=== PATIENT | female | born 1945 | race Caucasian/White ===

== ENCOUNTER 2016-12-28 20:44 | Inpatient (IN) ==
--- NOTE | 2016-12-28 20:52 | Emergency Department Note ---
Overdose - Lab Data Result diagrams: 12/28/16 21:08 12/28/16 21:08 Lab Results 12/28/16 12/28/16 12/28/16 Range/Units 21:08 21:08 21:48 WBC 11.7 H (4.3-11.1) K/mcL RBC 4.30 (3.82-4.97) M/mcL Hgb 12.3 (11.5-15.4) g/dL Hct 39.4 (35.3-44.9) % MCV 91.6 (83.0-100.0) fL MCH 28.6 (28.0-33.3) pg MCHC 31.2 L (31.6-35.5) g/dL RDW 14.5 (11.5-14.5) % Plt Count 286 (140-400) K/mcL MPV 9.9 (9.4-12.4) fL Immature Gran % 0.3 (0-4) % Seg Neutrophils % 72.5 % Lymphocytes % 19.6 % Monocytes % 4.0 % Eosinophils % 2.8 % Basophils % 0.8 % Neutrophils # 8.5 (1.6-8.9) K/mcL Lymphocytes # 2.3 (0.6-4.6) K/mcL Monocytes # 0.5 (0.0-1.3) K/mcL Eosinophils # 0.3 (0.0-0.6) K/mcL Basophils # 0.1 (0.0-0.2) K/mcL Sodium 137 (136-145) mEq/L Potassium 3.8 (3.5-4.5) mEq/L Chloride 103 (98-109) mEq/L Carbon Dioxide 25 (19-29) mEq/L BUN 11 (7-20) mg/dL Creatinine 1.12 H (0.57-1.11) mg/dL Est GFR ( Amer) 58 L (> 60) Est GFR (Non-Af Amer) 48 L (> 60) BUN/Creatinine Ratio 10 (6-26) Glucose 217 H (70-99) mg/dL Calculated Osmolality 290 (280-300) Calcium 9.0 (8.6-10.8) mg/dL Total Bilirubin 0.4 (0.2-1.2) mg/dL Direct Bilirubin 0.1 (0.0-0.5) mg/dL Indirect Bilirubin 0.3 (0.0-1.2) mg/dL AST 18 (5-34) Units/L ALT 14 (0-55) Units/L Alkaline Phosphatase 78 (38-126) Units/L Serum Total Protein 6.9 (6.0-8.3) g/dL Albumin 3.3 L (3.5-5.0) g/dL Globulin 3.6 H (2.4-3.5) g/dL Albumin/Globulin Ratio 0.9 L (1.1-2.2) Urine Color Yellow (Yellow) Urine Clarity Cloudy A (Clear) Urine pH 5.0 (5.0-8.0) pH Units Ur Specific [place] 1.014 (1.010-1.025) Urine Protein Negative (Neg-Trace) mg/dL Urine Glucose (UA) Normal (Normal) mg/dL Urine Ketones Negative (Negative) mg/dL Urine Blood Negative (Negative) Urine Nitrite Positive A (Negative) Urine Bilirubin Negative (Negative) Urine Urobilinogen Normal (Normal) mg/dL Ur Leukocyte Esterase Moderate H (Negative) Urine Microscopic RBC 0-3 (0-3) per hpf Urine Microscopic WBC 50-100 H (0-3) per hpf Ur Squamous Epith Cells Many H (None-Few) per lpf Urine Bacteria Many H (None-Few) per hpf Hyaline Casts Moderate H (None-Few) per lpf Salicylates < 5.0 L (15-30) mg/dL Urine Opiates Screen (Vwpuid=259) ng/mL Acetaminophen < 1.0 L (10-30) mcg/mL Ur Barbiturates Screen (Tnbmmg=264) ng/mL Ur Phencyclidine Scrn (Cutoff=25) ng/mL Ur Amphetamines Screen (Eeybsr=8647) ng/mL U Benzodiazepines Scrn (Eneklv=856) ng/mL Urine Cocaine Screen (Cutoff= 300) ng/mL U Marijuana (THC) Screen (Cutoff = 50) ng/mL Ethyl Alcohol < 10 (0-10) mg/dL 12/28/16 Range/Units 21:48 WBC (4.3-11.1) K/mcL RBC (3.82-4.97) M/mcL Hgb (11.5-15.4) g/dL Hct (35.3-44.9) % MCV (83.0-100.0) fL MCH (28.0-33.3) pg MCHC (31.6-35.5) g/dL RDW (11.5-14.5) % Plt Count (140-400) K/mcL MPV (9.4-12.4) fL Immature Gran % (0-4) % Seg Neutrophils % % Lymphocytes % % Monocytes % % Eosinophils % % Basophils % % Neutrophils # (1.6-8.9) K/mcL Lymphocytes # (0.6-4.6) K/mcL Monocytes # (0.0-1.3) K/mcL Eosinophils # (0.0-0.6) K/mcL Basophils # (0.0-0.2) K/mcL Sodium (136-145) mEq/L Potassium (3.5-4.5) mEq/L Chloride (98-109) mEq/L Carbon Dioxide (19-29) mEq/L BUN (7-20) mg/dL Creatinine (0.57-1.11) mg/dL Est GFR ( Amer) (> 60) Est GFR (Non-Af Amer) (> 60) BUN/Creatinine Ratio (6-26) Glucose (70-99) mg/dL Calculated Osmolality (280-300) Calcium (8.6-10.8) mg/dL Total Bilirubin (0.2-1.2) mg/dL Direct Bilirubin (0.0-0.5) mg/dL Indirect Bilirubin (0.0-1.2) mg/dL AST (5-34) Units/L ALT (0-55) Units/L Alkaline Phosphatase (38-126) Units/L Serum Total Protein (6.0-8.3) g/dL Albumin (3.5-5.0) g/dL Globulin (2.4-3.5) g/dL Albumin/Globulin Ratio (1.1-2.2) Urine Color (Yellow) Urine Clarity (Clear) Urine pH (5.0-8.0) pH Units Ur Specific [place] (1.010-1.025) Urine Protein (Neg-Trace) mg/dL Urine Glucose (UA) (Normal) mg/dL Urine Ketones (Negative) mg/dL Urine Blood (Negative) Urine Nitrite (Negative) Urine Bilirubin (Negative) Urine Urobilinogen (Normal) mg/dL Ur Leukocyte Esterase (Negative) Urine Microscopic RBC (0-3) per hpf Urine Microscopic WBC (0-3) per hpf Ur Squamous Epith Cells (None-Few) per lpf Urine Bacteria (None-Few) per hpf Hyaline Casts (None-Few) per lpf Salicylates (15-30) mg/dL Urine Opiates Screen Negative (Feggse=193) ng/mL Acetaminophen (10-30) mcg/mL Ur Barbiturates Screen Negative (Aubbih=369) ng/mL Ur Phencyclidine Scrn Negative (Cutoff=25) ng/mL Ur Amphetamines Screen Negative (Somaly=8776) ng/mL U Benzodiazepines Scrn Positive H (Uvouex=230) ng/mL Urine Cocaine Screen Negative (Cutoff= 300) ng/mL U Marijuana (THC) Screen Negative (Cutoff = 50) ng/mL Ethyl Alcohol (0-10) mg/dL - EKG Data EKG attestation: Yes I reviewed and interpreted this EKG. EKG shows normal: sinus rhythm Rate: tachycardia Rhythm: NSR Interpretation: no acute changes Overdose HPI - General Chief Complaint: ED Altered Mental Status Stated Complaint: ams Time Seen by Provider: 12/28/16 20:46 Source: family, EMS Mode of arrival: EMS Limitations: no limitations Nursing Notes Reviewed: Yes Vital Signs Reviewed: Yes - History of Present Illness HPI Narrative: 71-year-old who apparently posted on her Facebook saying goodbye to her family and apparently took Xanax. Unclear how much she took she had a 270 count bottle from 4 years ago and there are at least 100 still in the bottle. Her son is here and states that he thought he had gotten all his Xanax house that she has done this in the past she apparently took about an hour ago. He is somnolent but does respond to voice stimuli opens her eyes he has an intact corneal and gag reflex at this time. This was an apparent suicide attempt. Pt Subjective Complaint: intentional overdose Onset (ago): [employer] Timing confirmed by: family member Intent: suicide attempt How Overdose Was Discovered: family/friend present at time Associated symptoms: depression Treatments Prior to Arrival: none - Related Data Home Medications Medication Instructions Recorded Confirmed Atenolol [Tenormin] 50 mg PO DAILY 05/15/16 05/15/16 Cholecalciferol (Vitamin D3) 5,000 unit PO DAILY 05/15/16 05/15/16 [Vitamin D] Citalopram Hydrobromide [Celexa] 40 mg PO DAILY 05/15/16 05/15/16 Diltiazem HCl [Tiazac] 180 mg PO QAM 05/15/16 05/15/16 Glimepiride [Amaryl] 4 mg PO DAILY 05/15/16 05/15/16 Pantoprazole Sodium [Protonix] 40 mg PO DAILY 05/15/16 05/15/16 Ranitidine HCl [Acid Rodent Exterminator] 150 mg PO DAILY 05/15/16 05/15/16 metFORMIN [Glucophage] 1,000 mg PO BIDWM 05/15/16 05/15/16 Previous Rx's Medication Instructions Recorded ALPRAZolam [Xanax 1 MG Tablet] 1 mg PO Q8H PRN #30 tablet 05/19/16 Acetaminophen [Tylenol] 650 mg PO Q6HR PRN #0 tablet 05/19/16 Cefuroxime PO [Ceftin] 500 mg PO Q12HR #6 tablet 05/19/16 Citalopram [CeleXA] 40 mg PO DAILY tablet 05/19/16 Simvastatin [Zocor] 20 mg PO DAILY #30 tablet 05/19/16 Warfarin [Coumadin] 2.5 mg PO AD #60 tablet 05/19/16 Warfarin [Coumadin] 10 mg PO AD #60 tablet 05/19/16 Allergies Allergy/AdvReac Type Severity Reaction Status Date / Time gabapentin [From Neurontin] Allergy Drowsy Verified 05/15/16 17:36 All systems ED: reviewed and negative except as stated. Constitutional: Denies: fever, chills, weakness, weight change Eyes: Denies: eye pain, eye discharge, vision change ENT ED: Denies: ear pain, throat pain, dental pain, hearing loss, epistaxis, congestion, dysphagia Cardiovascular: Denies: chest pain, palpitations, dyspnea on exertion, edema, syncope Respiratory: Denies: cough, dyspnea, wheezes, hemoptysis, stridor Gastrointestinal: Denies: abdominal pain, nausea, vomiting, diarrhea, constipation, hematemesis, melena, hematochezia Genitourinary: Denies: dysuria, frequency, hematuria, discharge Musculoskeletal: Denies: back pain, neck pain, arthralgia, myalgia Integumentary: Denies: rash, abrasion, lesions Neurological: Denies: headache, weakness, numbness, paresthesias, confusion, abnormal gait, vertigo Psychiatric: Reports: depression, suicidal thoughts. Denies: anxiety, homicidal thoughts, auditory hallucinations, visual hallucinations Endocrine: Denies: fatigue Hematological/Lymphatic: Denies: easy bleeding, easy bruising Allergic/Immunologic: Denies: facial swelling, urticaria Past Medical History - Past Medical History Medical history: Reports: diabetes, hyperlipidemia, hypertension, pulmonary embolus, other (elizabeth's disease) Surgical history: Reports: cholecystectomy, hysterectomy, other (breast reduction surgery) Psychiatric history: Reports: anxiety, depression - Social History Smoking Status: Never smoker Smokeless Tobacco Status: No Alcohol use: Reports: none Drug use: Reports: none Physical Exam - General Limitations: no limitations General appearance: alert, in no apparent distress - Head Head exam: atraumatic, normocephalic, normal inspection - Eye Eye exam: Present: normal appearance, PERRL, EOMI - ENT ENT exam: normal exam, normal oropharynx, mucous membranes moist - Neck Neck exam: Present: normal inspection, full ROM, trachea midline - Chest Chest inspection: Present: normal inspection, symmetric chest wall rise - Respiratory Respiratory exam: Present: normal lung sounds bilaterally - Cardiovascular Cardiovascular exam: Present: regular rate, normal rhythm, normal heart sounds - Abdominal Exam Abdominal exam: Present: soft, Non-Tender. Absent: tenderness, distention, guarding, rebound, rigidity - Extremities Exam Extremities exam: Present: normal inspection, full ROM. Absent: tenderness, pedal edema - Expanded Lower Extremity Exam Neurovascular/Tendon exam: Absent: motor deficit, sensory deficit, tendon deficit Gait: observed and normal - Back Exam Back exam: Present: normal inspection, full ROM. Absent: tenderness - Neurological Exam Neurological exam: Present: other (Somnolent but arousable) - Skin Skin exam: Present: warm, dry, intact, normal color Course - Reevaluation(s) Reevaluation #1: 71-year-old who took an undetermined amount of benzodiazepine. Patient somnolent but arousable has an intact gag and corneal reflex. Patient is too somnolent to get a good consult from psychiatry so [facility] admitted with suicide precautions and psychiatric consult when more awake. Time: 22:42 - Consultations Consultation #1: Discussed with Dr. Gage, admit. Time: 22:41 Vital Signs Temperature 97.8 F 12/28/16 20:45 Pulse Rate 110 12/28/16 20:45 Respiratory Rate 16 12/28/16 20:45 Blood Pressure 147/98 12/28/16 20:45 O2 Sat by Pulse Oximetry 93 12/28/16 20:45 Temperature 97.8 F 12/28/16 20:45 Pulse Rate 96 12/28/16 22:16 Respiratory Rate 18 12/28/16 22:16 Blood Pressure 125/83 12/28/16 22:16 O2 Sat by Pulse Oximetry 97 12/28/16 22:16 Oxygen Delivery Oxygen Delivery Room Air Critical Care Time Critical Care Time: Yes Total Critical Care Time: 30 Attestation: The high probability of a clinically significant, sudden or life threatening deterioration of the [psychiatric] system(s) required my full and direct attention, intervention and personal management. The aggregate critical care time was [30] minutes. This time is in addition to time spent performing reported procedures but includes the following: [x] Data Review and interpretation [x] Patient assessment and monitoring of vital signs [x] Documentation [x] Medication orders and management Disposition Clinical Impression: Suicidal ideation Drug overdose Qualifiers: Encounter type: initial encounter Injury intent: intentional self-harm Qualified Code(s): T50.902A - Poisoning by unspecified drugs, medicaments and biological substances, intentional self-harm, initial encounter Disposition: Admitted As Inpatient Condition: Fair Referrals: NO,PCP [Non-Partnered Physician] - Forms: ED Satisfaction Letter Time of Disposition: 22:43
[2016-12-28 21:14] LABS: Basophils # 0.1 K/mcL (0.0-0.2); Basophils % 0.8 %; Eosinophils # 0.3 K/mcL (0.0-0.6); Eosinophils % 2.8 %; Hematocrit 39.4 % (35.3-44.9); Hemoglobin 12.3 g/dL (11.5-15.4); Immature Granulocytes % 0.3 % (0-4); Lymphocytes # 2.3 K/mcL (0.6-4.6); Lymphocytes % 19.6 %; Mean Corpuscular HGB Conc 31.2 g/dL (31.6-35.5); Mean Corpuscular Hemoglobin 28.6 pg (28.0-33.3); Mean Corpuscular Volume 91.6 fL (83.0-100.0); Mean Platelet Volume 9.9 fL (9.4-12.4); Monocytes # 0.5 K/mcL (0.0-1.3); Neutrophils # 8.5 K/mcL (1.6-8.9); Platelet Count 286 K/mcL (140-400); Red Cell Distribution Width 14.5 % (11.5-14.5); Segmented Neutrophils % 72.5 %
[2016-12-28 21:28] LABS: Alanine Aminotransferase 14 Units/L (0-55); Albumin 3.3 g/dL (3.5-5.0); Albumin/Globulin Ratio 0.9 (1.1-2.2); Alkaline Phosphatase 78 Units/L (38-126); Aspartate Amino Transferase 18 Units/L (5-34); BUN/Creatinine Ratio 10 (6-26); Bilirubin,Direct 0.1 mg/dL (0.0-0.5); Bilirubin,Indirect 0.3 mg/dL (0.0-1.2); Bilirubin,Total 0.4 mg/dL (0.2-1.2); Blood Urea Nitrogen 11 mg/dL (7-20); Carbon Dioxide 25 mEq/L (19-29); Chloride 103 mEq/L (98-109); Globulin 3.6 g/dL (2.4-3.5); Glucose 217 mg/dL (70-99); Osmolality,Calculated 290 (280-300); Potassium 3.8 mEq/L (3.5-4.5); Sodium 137 mEq/L (136-145); Total Protein 6.9 g/dL (6.0-8.3); eGFR For African Americans 58 (> 60); eGFR For Non-African Americans 48 (> 60)
[2016-12-28 21:30] LABS: Acetaminophen < 1.0 mcg/mL (10-30); Ethanol < 10 mg/dL (0-10); Salicylate < 5.0 mg/dL (15-30)
[2016-12-28 21:58] LABS: Bilirubin,Urine Negative (Negative); Blood,Urine Negative (Negative); Clarity,Urine Cloudy (Clear); Color,Urine Yellow (Yellow); Glucose,Urine (UA) Normal (Normal); Ketones,Urine Negative (Negative); Leukocyte Esterase,Urine Moderate (Negative); Nitrite,Urine Positive (Negative); Protein,Urine Negative (Neg-Trace); Specific Gravity,Urine 1.014 (1.010-1.025); Urobilinogen,Urine Normal (Normal)
[2016-12-28 22:00] LABS: Bacteria,Urine Many per hpf (None-Few); Hyaline Casts,Urine Moderate per lpf (None-Few); RBC,Urine 0-3 per hpf (0-3); Squamous Epithelial Cell,Urine Many per lpf (None-Few); WBC,Urine 50-100 per hpf (0-3)
[2016-12-28 22:04] LABS: Amphetamine Screen,Urine Negative ng/mL (Cutoff=1000); Barbiturate Screen,Urine Negative ng/mL (Cutoff=200); Benzodiazepines Screen,Urine Positive ng/mL (Cutoff=200); Cannabinoid Screen,Urine Negative ng/mL (Cutoff = 50); Cocaine Screen,Urine Negative ng/mL (Cutoff= 300); Opiate Screen,Urine Negative ng/mL (Cutoff=300); Phencyclidine Screen,Urine Negative ng/mL (Cutoff=25)
[2016-12-29] MEDS ORDERED: D5% in Water 1,000 ML IVC PRN (00:18)
[2016-12-29] MEDS ORDERED: Dextrose Gel 15 GM PO PRN ×2 (00:18)
[2016-12-29] MEDS: 0.9 % Sodium Chloride 1,000 ML IVC SCH ×3 (01:19→18:34)
--- NOTE | 2016-12-29 01:28 | Internal Med History&Physical ---
Date of Encounter: 12/28/16 Time of Encounter: 23:40 Assessment and Plan (1) Suicide attempt Current visit: Yes Status: Acute Pt has Xanax overdose, obviously wants kill herself. Will keep close monitoring now. Place Sitter. Psych consult when pt is more alert, awake. (2) UTI (urinary tract infection) Current visit: No Status: Acute Lab shows UTI. Will continue iv rocephin. Qualifiers: Urinary tract infection type: acute cystitis Hematuria presence: without hematuria Qualified Code(s): N30.00 - Acute cystitis without hematuria (3) DM2 (diabetes mellitus, type 2) Current visit: No Status: Acute Cover pt with sliding scale. Qualifiers: Diabetes mellitus complication status: without complication Diabetes mellitus snf insulin use: without petrographer use Qualified Code(s): E11.9 - Type 2 diabetes mellitus without complications (4) Drug overdose Current visit: Yes Status: Acute Overdose with Xanax, poison control was called. Will keep close monitoring and supportive treatment. - Keep patient nothing by mouth - Aspiration and seizure precaution - IV fluid - Continue cardiac monitoring. - Follow up renal and hepatic function. - EKG reviewed, sinus rhythm, no QT prolongation. Qualifiers: Encounter type: initial encounter Injury intent: intentional self-harm Qualified Code(s): T50.902A - Poisoning by unspecified drugs, medicaments and biological substances, intentional self-harm, initial encounter Internal Medicine - H&P: HPI Chief complaint: Drug overdose Admitted From: Home Plans for Post Hospital Care: Transfer Psych Facility History of present illness: Ms. Corona is a 71 year old female send to ER for drug overdose. Patient is sedated when I saw her, history obtained from her daughter Louisa Mccrary. Patient has a history of depression. Today, she posted information on [employer] said " I love my family, olga", at arround 7:45pm. Family member called the EMS and found patient confused with overdose xanax, dose is unclear. Patient was send to ER, she is arousable but very confused, airway is patent, no signs of respiratory depression. Poison control was called by ER, recommend observe and supportive treatment. Pt was admitted to (overflow to ICU) for further management. I discussed CODE STATUS with pt's daughter, place full code for now. Past Med Surg Social Fam HX - Past Medical History Medical history: diabetes, hyperlipidemia, hypertension, pulmonary embolus, other Psychiatric history: anxiety, depression - Past Surgical History Surgical History: cholecystectomy, hysterectomy, other - Social History Smoking Status: Never smoker Smokeless Tobacco Status: No Alcohol use: none Drug use: none - Family History Father Living Status: Hx Family Cardiac Disorders: Yes (HTN) Hx Family Respiratory Disorders: Yes (Emphysema) Mother Adopted: [place]: Marija Alejandra Age: 75 Family Member Ethnicity: Non- Living Status: Age at : 75 Cause of : anuerism Hx Family Cardiac Disorders: No Hx Family Respiratory Disorders: No Hx Family Cancer: No Hx Family GI Disorders: No Hx Family Genitourinary Disorders: No Hx Family Endocrine Disorder: No Hx Family Musculoskeletal Disorders: No Hx Family Neuromuscular Disorders: Yes (Daryn's dx) Internal Medicine - H&P: Meds Atenolol [Tenormin] 50 mg PO DAILY 05/15/16 [History] Cholecalciferol (Vitamin D3) [Vitamin D] 5,000 unit PO DAILY 05/15/16 [History] Citalopram Hydrobromide [Celexa] 40 mg PO DAILY 05/15/16 [History] Diltiazem HCl [Tiazac] 180 mg PO QAM 05/15/16 [History] Glimepiride [Amaryl] 4 mg PO DAILY 05/15/16 [History] Pantoprazole Sodium [Protonix] 40 mg PO DAILY 05/15/16 [History] Ranitidine HCl [Acid Child And Family Therapist] 150 mg PO DAILY 05/15/16 [History] metFORMIN [Glucophage] 1,000 mg PO BIDWM 05/15/16 [History] ALPRAZolam [Xanax 1 MG Tablet] 1 mg PO Q8H PRN #30 tablet 05/19/16 [Rx] Acetaminophen [Tylenol] 650 mg PO Q6HR PRN #0 tablet 05/19/16 [Rx] Cefuroxime PO [Ceftin] 500 mg PO Q12HR #6 tablet 05/19/16 [Rx] Citalopram [CeleXA] 40 mg PO DAILY tablet 05/19/16 [Rx] Simvastatin [Zocor] 20 mg PO DAILY #30 tablet 05/19/16 [Rx] Warfarin [Coumadin] 2.5 mg PO AD #60 tablet 05/19/16 [Rx] Warfarin [Coumadin] 10 mg PO AD #60 tablet 05/19/16 [Rx] Allergies gabapentin [From Neurontin] Allergy (Verified 05/15/16 17:36) Drowsy All Systems PM: A 10-system review of systems was performed and is negative for pertinent findings except as documented above in the HPI. - Constitutional Vitals: Temp Pulse Resp BP Pulse Ox 97.9 F 86 18 111/71 93 12/29/16 00:00 12/29/16 01:00 12/29/16 01:00 12/29/16 01:00 12/29/16 01:00 General appearance: Present: A&O X 1, no acute distress Exam: Pt is sedated, can be waken up with verbal stimulation, can tell me her name, cannot have conversation. - Head Head exam: Present: atraumatic, normocephalic - Eye Eye exam: Present: PERRL, conjuntiva pink, sclera anicteric Pupils: Present: PERRL - Neck Neck exam general surgery: Present: supple, trachea midline. Absent: lymphadenopathy - Respiratory Respiratory exam: Present: CTAB. Absent: accessory muscle use, rales, rhonchi, wheezes - Cardiovascular Cardiovascular exam: Present: RRR, +S1, +S2. Absent: diastolic murmur, gallop, rubs, systolic murmur - GI/Abdominal GI/Abdominal exam: Present: normal bowel sounds, soft, no peritoneal signs. Absent: distended, tenderness - Extremities Exam Extremities exam: Present: warm, radial pulses palpable and symetrical. Absent : calf tenderness, cyanotic, pedal edema - Neurological Exam Neurological exam: Present: CN II-XII intact, oriented X3, no focal deficits. Absent: pronater drift, facial droop, speech deficit - Skin Skin exam: Present: dry, intact Internal Med - H&P Results - Labs CBC & Chem 7: 12/28/16 21:08 12/28/16 21:08 - EKG Data -: EKG Interpreted by Myself (QTc 404ms) EKG shows normal: sinus rhythm Rate: tachycardia - VTE Documentation of Mechanical Device: Intermittent pneumatic compression device
[2016-12-29 03:14] LABS: Basophils # 0.1 K/mcL (0.0-0.2); Basophils % 0.6 %; Eosinophils # 0.4 K/mcL (0.0-0.6); Eosinophils % 3.2 %; Hematocrit 36.1 % (35.3-44.9); Immature Granulocytes % 0.4 % (0-4); Immature Platelets 2.6 % (1.1-6.1); Lymphocytes # 2.4 K/mcL (0.6-4.6); Lymphocytes % 21.7 %; Mean Corpuscular HGB Conc 30.5 g/dL (31.6-35.5); Mean Corpuscular Hemoglobin 28.1 pg (28.0-33.3); Mean Corpuscular Volume 92.3 fL (83.0-100.0); Mean Platelet Volume 9.8 fL (9.4-12.4); Monocytes # 0.6 K/mcL (0.0-1.3); Monocytes % 5.9 %; Neutrophils # 7.4 K/mcL (1.6-8.9); Platelet Count 256 K/mcL (140-400); Red Blood Count 3.91 M/mcL (3.82-4.97); Red Cell Distribution Width 14.6 % (11.5-14.5); Segmented Neutrophils % 68.2 %
[2016-12-29 03:20] LABS: INR 2.3; Prothrombin Time 25.8 Seconds (9.4-12.1)
[2016-12-29 03:26] LABS: Alanine Aminotransferase 14 Units/L (0-55); Albumin 3.1 g/dL (3.5-5.0); Albumin/Globulin Ratio 0.9 (1.1-2.2); Alkaline Phosphatase 71 Units/L (38-126); Aspartate Amino Transferase 17 Units/L (5-34); BUN/Creatinine Ratio 10 (6-26); Bilirubin,Total 0.4 mg/dL (0.2-1.2); Blood Urea Nitrogen 11 mg/dL (7-20); Calcium 8.8 mg/dL (8.6-10.8); Carbon Dioxide 28 mEq/L (19-29); Chloride 105 mEq/L (98-109); Globulin 3.3 g/dL (2.4-3.5); Glucose 87 mg/dL (70-99); Osmolality,Calculated 289 (280-300); Potassium 4.2 mEq/L (3.5-4.5); Sodium 140 mEq/L (136-145); Total Protein 6.4 g/dL (6.0-8.3); eGFR For African Americans > 60 (> 60); eGFR For Non-African Americans 51 (> 60)
[2016-12-29] MEDS: Insulin LISPRO 300 UNITS/3 ML VIAL SQ SCH ×4 (06:06→23:33)
--- NOTE | 2016-12-29 09:57 | Internal Med Progress Note ---
Date of Encounter: 12/29/16 Time of Encounter: 09:45 - Assessment and plan (1) Drug overdose Current Visit: Yes Status: Acute Assessment and plan: Suspected to be benzodiazepines Patient is somnolent at this time She is protecting her airway Continue IVF and supportive care on ICU Qualifiers: Encounter type: initial encounter Injury intent: intentional self-harm Qualified Code(s): T50.902A - Poisoning by unspecified drugs, medicaments and biological substances, intentional self-harm, initial encounter (2) Suicide attempt Current Visit: Yes Status: Acute Assessment and plan: Continue sitter at bedside Psych eval (3) DM2 (diabetes mellitus, type 2) Current Visit: Yes Status: Chronic Assessment and plan: FS q6 Keep NPO till awake Sliding scle insulin Q6 Qualifiers: Diabetes mellitus complication status: without complication Diabetes mellitus custodial insulin use: without custodial use Qualified Code(s): E11.9 - Type 2 diabetes mellitus without complications (4) Hypertension Current Visit: Yes Status: Chronic Assessment and plan: Resume home meds Qualifiers: Hypertension type: essential hypertension Qualified Code(s): I10 - Essential (primary) hypertension (5) Hyperlipidemia Current Visit: Yes Status: Chronic Assessment and plan: Resume home meds Qualifiers: Hyperlipidemia type: unspecified Qualified Code(s): E78.5 - Hyperlipidemia , unspecified (6) Obesity (BMI 30-39.9) Current Visit: Yes Status: Chronic (7) History of pulmonary embolism Current Visit: Yes Status: Chronic Assessment and plan: INR therapeutic Resume Coumadin, pharmacy to dose (8) Depression Current Visit: Yes Status: Chronic Assessment and plan: Psych eval Qualifiers: Depression Type: major depressive disorder Major depression recurrence: recurrent Active/Remission status: currently active Major depression episode severity: severe Psychotic features: without psychotic features Qualified Code(s): F33.2 - Major depressive disorder, recurrent severe without psychotic features - Subjective Interval history: Seen and evaluated at bedside 71 F with PMH of HTN, HLD, Depression, PE on Coumadin admitted and being managed for intentional drug overdose -suspected to be benzodiazepine Patient is somnolent and non-verbal at time of review, she does withdraw to noxious stimuli - Constitutional Vitals: Temp Pulse Resp BP Pulse Ox 98.2 F 77 19 139/74 94 12/29/16 07:25 12/29/16 08:00 12/29/16 08:00 12/29/16 08:00 12/29/16 08:00 General appearance: Present: A&O X 1, no acute distress, obese - Head Head exam: Present: atraumatic, normocephalic - Eye Eye exam: Present: PERRL, conjuntiva pink, sclera anicteric Pupils: Present: PERRL - Neck Neck exam general surgery: Present: supple, trachea midline. Absent: lymphadenopathy - Respiratory Respiratory exam: Present: CTAB. Absent: accessory muscle use, rales, rhonchi, wheezes - Cardiovascular Cardiovascular exam: Present: RRR, +S1, +S2. Absent: diastolic murmur, gallop, rubs, systolic murmur - GI/Abdominal GI/Abdominal exam: Present: normal bowel sounds, soft, no peritoneal signs. Absent: distended, tenderness - Extremities Exam Extremities exam: Present: warm, radial pulses palpable and symetrical. Absent : calf tenderness, cyanotic, pedal edema - Neurological Exam Neurological exam: Present: alert, CN II-XII intact, no focal deficits. Absent : oriented X3, pronater drift, facial droop, speech deficit - Skin Skin exam: Present: dry, intact Internal Medicine: Result - Labs CBC & Chem 7: 12/29/16 03:06 12/29/16 03:06 Labs: Short CBC 12/29/16 Range/Units 03:06 WBC 10.9 (4.3-11.1) K/mcL Hgb 11.0 L (11.5-15.4) g/dL Hct 36.1 (35.3-44.9) % Plt Count 256 (140-400) K/mcL Neutrophils # 7.4 (1.6-8.9) K/mcL BMP 12/29/16 03:06 Sodium 140 Potassium 4.2 Chloride 105 Carbon Dioxide 28 BUN 11 Creatinine 1.06 Glucose 87 Calcium 8.8 Liver Function 12/29/16 Range/Units 03:06 Total Bilirubin 0.4 (0.2-1.2) mg/dL AST 17 (5-34) Units/L ALT 14 (0-55) Units/L Alkaline Phosphatase 71 (38-126) Units/L Albumin 3.1 L (3.5-5.0) g/dL - ABG Interpretation ABG results: PT/INR, D-dimer PT 25.8 Seconds (9.4-12.1) H 12/29/16 03:06 - VTE Documentation of Mechanical Device: Intermittent pneumatic compression device Consult Discharge Plan - Plan Referrals: Oscar Sandoval Jr, MD [Primary Care Provider] -
[2016-12-29] MEDS ORDERED: clonazePAM 0.5 MG TABLET PO PRN (12:36)
[2016-12-29] MEDS ORDERED: 0.9 % Sodium Chloride 500 ML ONE (14:14)
[2016-12-29] MEDS ORDERED: 0.9 % Sodium Chloride 500 ML IVC ONE (14:18)
--- NOTE | 2016-12-29 14:54 | Consult Note ---
Date of Encounter: 12/29/16 Time of Encounter: 14:15 Assessment & Recommendation (1) Severe recurrent major depression without psychotic features Current visit: Yes Status: Acute Assessment & Recommendation: 1. Continue medical stabilization 2. Patient will need regul psychiatric outpatient appointments for therapy and medication management 3. Psychiatric hospitalization would be considered when patient is medically stable. Thank you for consultation and please address any questions. History of Present Illness Patient: new to practice Requesting Physician: Dianna Murrell Reason for consult: Suicide attempt by overdose History of present illness: Ms. Corona is a 71 year old female admitted to the hospital for treatment of an overdose in a suicide attempt. UDS was positive for benzodiazepine and is suspected to be benzodiazepine overdose. Patient currently is somnolent and nonverbal could not be interviewed. Psychiatric consultation was requested to evaluate suicide attempt. From the records patient is well known to psychiatric units and has been admitted in May 2011 with a similar presentation . this was not documented as suicide attempt, it was considered accidental overdose she was discharged with dx of major depressive disorder recurrent severe without psychotic features and she was on medication including citalopram 40 mg and Xanax when necessary. Patient's daughter was at bedside and reported the patient's is not compliant with appointments for follow-up and has not seen a psychiatrist for extended time . 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 CC: Dianna Murrell Past Med Surg Social Fam HX - Past Medical History Medical history: diabetes, hyperlipidemia, hypertension, pulmonary embolus, other - Past Surgical History Surgical History: cholecystectomy, hysterectomy, other - Social History Smoking Status: Never smoker Smokeless Tobacco Status: No Alcohol use: none Drug use: none - Family History Father Living Status: Hx Family Cardiac Disorders: Yes (HTN) Hx Family Respiratory Disorders: Yes (Emphysema) Mother Adopted: [place]: Marija Alejandra Age: 75 Family Member Ethnicity: Non- Living Status: Age at : 75 Cause of : anuerism Hx Family Cardiac Disorders: No Hx Family Respiratory Disorders: No Hx Family Cancer: No Hx Family GI Disorders: No Hx Family Genitourinary Disorders: No Hx Family Endocrine Disorder: No Hx Family Musculoskeletal Disorders: No Hx Family Neuromuscular Disorders: Yes (Daryn's dx) Medications & Allergies Citalopram Hydrobromide [Celexa] 40 mg PO DAILY 05/15/16 [History] Glimepiride [Amaryl] 2 mg PO DAILY 05/15/16 [History] Ranitidine HCl [Acid Cylinder Inspector And Tester] 150 mg PO DAILY 05/15/16 [History] metFORMIN [Glucophage] 500 mg PO BID 05/15/16 [History] Levothyroxine [Synthroid] 50 mcg PO DAILY 12/29/16 [History] Lisinopril [Zestril] 20 mg PO DAILY 12/29/16 [History] Metoprolol XL (24 HR) Succ [Toprol XL] 12.5 mg PO DAILY 12/29/16 [History] Warfarin [Coumadin] 5 mg PO AD 12/29/16 [History] clonazePAM [Klonopin] 0.5 mg PO DAILY PRN 12/29/16 [History] Allergies gabapentin [From Neurontin] Allergy (Verified 05/15/16 17:36) Drowsy Mental Status Exam Additional observations: Patient is somnolent and nonverbal , could not be interviewed. Results - Vital Signs Vital signs: Temp Pulse Resp BP Pulse Ox 97.6 F 81 20 88/49 97 12/29/16 11:00 12/29/16 14:00 12/29/16 14:00 12/29/16 14:00 12/29/16 14:00 - Labs Labs: Laboratory Last Values WBC 10.9 K/mcL (4.3-11.1) 12/29/16 03:06 RBC 3.91 M/mcL (3.82-4.97) 12/29/16 03:06 Hgb 11.0 g/dL (11.5-15.4) L 12/29/16 03:06 Hct 36.1 % (35.3-44.9) 12/29/16 03:06 MCV 92.3 fL (83.0-100.0) 12/29/16 03:06 MCH 28.1 pg (28.0-33.3) 12/29/16 03:06 MCHC 30.5 g/dL (31.6-35.5) L 12/29/16 03:06 RDW 14.6 % (11.5-14.5) H 12/29/16 03:06 Plt Count 256 K/mcL (140-400) 12/29/16 03:06 MPV 9.8 fL (9.4-12.4) 12/29/16 03:06 Immature Gran % 0.4 % (0-4) 12/29/16 03:06 Seg Neutrophils % 68.2 % 12/29/16 03:06 Lymphocytes % 21.7 % 12/29/16 03:06 Monocytes % 5.9 % 12/29/16 03:06 Eosinophils % 3.2 % 12/29/16 03:06 Basophils % 0.6 % 12/29/16 03:06 Neutrophils # 7.4 K/mcL (1.6-8.9) 12/29/16 03:06 Lymphocytes # 2.4 K/mcL (0.6-4.6) 12/29/16 03:06 Monocytes # 0.6 K/mcL (0.0-1.3) 12/29/16 03:06 Eosinophils # 0.4 K/mcL (0.0-0.6) 12/29/16 03:06 Basophils # 0.1 K/mcL (0.0-0.2) 12/29/16 03:06 Immature Plt Fraction 2.6 % (1.1-6.1) 12/29/16 03:06 PT 25.8 Seconds (9.4-12.1) H 12/29/16 03:06 INR 2.3 12/29/16 03:06 Sodium 140 mEq/L (136-145) 12/29/16 03:06 Potassium 4.2 mEq/L (3.5-4.5) 12/29/16 03:06 Chloride 105 mEq/L (98-109) 12/29/16 03:06 Carbon Dioxide 28 mEq/L (19-29) 12/29/16 03:06 BUN 11 mg/dL (7-20) 12/29/16 03:06 Creatinine 1.06 mg/dL (0.57-1.11) 12/29/16 03:06 Est GFR ( Amer) > 60 (> 60) 12/29/16 03:06 Est GFR (Non-Af Amer) 51 (> 60) L 12/29/16 03:06 BUN/Creatinine Ratio 10 (6-26) 12/29/16 03:06 Glucose 87 mg/dL (70-99) 12/29/16 03:06 POC Glucose 166 (58-89) H 12/28/16 23:43 Calculated Osmolality 289 (280-300) 12/29/16 03:06 Calcium 8.8 mg/dL (8.6-10.8) 12/29/16 03:06 Total Bilirubin 0.4 mg/dL (0.2-1.2) 12/29/16 03:06 Direct Bilirubin 0.1 mg/dL (0.0-0.5) 12/28/16 21:08 Indirect Bilirubin 0.3 mg/dL (0.0-1.2) 12/28/16 21:08 AST 17 Units/L (5-34) 12/29/16 03:06 ALT 14 Units/L (0-55) 12/29/16 03:06 Alkaline Phosphatase 71 Units/L (38-126) 12/29/16 03:06 Serum Total Protein 6.4 g/dL (6.0-8.3) 12/29/16 03:06 Albumin 3.1 g/dL (3.5-5.0) L 12/29/16 03:06 Globulin 3.3 g/dL (2.4-3.5) 12/29/16 03:06 Albumin/Globulin Ratio 0.9 (1.1-2.2) L 12/29/16 03:06 Urine Color Yellow (Yellow) 12/28/16 21:48 Urine Clarity Cloudy (Clear) A 12/28/16 21:48 Urine pH 5.0 pH Units (5.0-8.0) 12/28/16 21:48 Ur Specific [place] 1.014 (1.010-1.025) 12/28/16 21:48 Urine Protein Negative mg/dL (Neg-Trace) 12/28/16 21:48 Urine Glucose (UA) Normal mg/dL (Normal) 12/28/16 21:48 Urine Ketones Negative mg/dL (Negative) 12/28/16 21:48 Urine Blood Negative (Negative) 12/28/16 21:48 Urine Nitrite Positive (Negative) A 12/28/16 21:48 Urine Bilirubin Negative (Negative) 12/28/16 21:48 Urine Urobilinogen Normal mg/dL (Normal) 12/28/16 21:48 Ur Leukocyte Esterase Moderate (Negative) H 12/28/16 21:48 Urine Microscopic RBC 0-3 per hpf (0-3) 12/28/16 21:48 Urine Microscopic WBC 50-100 per hpf (0-3) H 12/28/16 21:48 Ur Squamous Epith Cells Many per lpf (None-Few) H 12/28/16 21:48 Urine Bacteria Many per hpf (None-Few) H 12/28/16 21:48 Hyaline Casts Moderate per lpf (None-Few) H 12/28/16 21:48 Salicylates < 5.0 mg/dL (15-30) L 12/28/16 21:08 Urine Opiates Screen Negative ng/mL (Ewmcjx=234) 12/28/16 21:48 Acetaminophen < 1.0 mcg/mL (10-30) L 12/28/16 21:08 Ur Barbiturates Screen Negative ng/mL (Xlecmu=203) 12/28/16 21:48 Ur Phencyclidine Scrn Negative ng/mL (Cutoff=25) 12/28/16 21:48 Ur Amphetamines Screen Negative ng/mL (Xjuoxv=3733) 12/28/16 21:48 U Benzodiazepines Scrn Positive ng/mL (Qcczba=541) H 12/28/16 21:48 Urine Cocaine Screen Negative ng/mL (Cutoff= 300) 12/28/16 21:48 U Marijuana (THC) Screen Negative ng/mL (Cutoff = 50) 12/28/16 21:48 Ethyl Alcohol < 10 mg/dL (0-10) 12/28/16 21:08 Consult Discharge Plan - Plan Referrals: Oscar Sandoval Jr, MD [Primary Care Provider] -
[2016-12-29] MEDS: *HR* Dextrose 50 % in Water (Syg) 50 ML SYRINGE IVP PRN ×2 (17:54→23:37)
[2016-12-30] MEDS: 0.9 % Sodium Chloride 1,000 ML IVC SCH ×2 (03:06→13:00)
[2016-12-30] MEDS: Insulin LISPRO 300 UNITS/3 ML VIAL SQ SCH ×4 (06:12→23:19)
[2016-12-30] MEDS: Metoprolol XL (24 HR) Succ 25 MG TAB.ER.24H PO SCH (08:51)
[2016-12-30] MEDS: Famotidine 20 MG TABLET PO SCH (08:51)
--- NOTE | 2016-12-30 10:14 | Internal Med Progress Note ---
Date of Encounter: 12/30/16 Time of Encounter: 10:12 - Assessment and plan (1) Drug overdose Current Visit: Yes Status: Acute Assessment and plan: Suspected to be benzodiazepines Patient is more awake this a.m, lethargic She is protecting her airway Decrease IVF Psych eval noted Stable for transfer to SDU Speech and swallow eval due to dysphagia Qualifiers: Encounter type: initial encounter Injury intent: intentional self-harm Qualified Code(s): T50.902A - Poisoning by unspecified drugs, medicaments and biological substances, intentional self-harm, initial encounter (2) Suicide attempt Current Visit: Yes Status: Acute Assessment and plan: Continue sitter at bedside IN-patient psych admission when medically optimized (3) DM2 (diabetes mellitus, type 2) Current Visit: Yes Status: Chronic Assessment and plan: FS q6 Keep NPO till awake Sliding scale insulin Q6 Qualifiers: Diabetes mellitus complication status: without complication Diabetes mellitus fpc insulin use: without fpc use Qualified Code(s): E11.9 - Type 2 diabetes mellitus without complications (4) Hypertension Current Visit: Yes Status: Chronic Assessment and plan: Continue meds, lopressor IV q6hr prn for now till patient is able to tolerate po Qualifiers: Hypertension type: essential hypertension Qualified Code(s): I10 - Essential (primary) hypertension (5) Hyperlipidemia Current Visit: Yes Status: Chronic Assessment and plan: Resume home meds Qualifiers: Hyperlipidemia type: unspecified Qualified Code(s): E78.5 - Hyperlipidemia , unspecified (6) Obesity (BMI 30-39.9) Current Visit: Yes Status: Chronic (7) History of pulmonary embolism Current Visit: Yes Status: Chronic Assessment and plan: INR therapeutic Resume Coumadin, pharmacy to dose (8) Depression Current Visit: Yes Status: Chronic Assessment and plan: Psych eval Qualifiers: Depression Type: major depressive disorder Major depression recurrence: recurrent Active/Remission status: currently active Major depression episode severity: severe Psychotic features: without psychotic features Qualified Code(s): F33.2 - Major depressive disorder, recurrent severe without psychotic features - Subjective Interval history: Seen and evaluated at bedside 71 F with PMH of HTN, HLD, Depression, PE on Coumadin admitted and being managed for intentional drug overdose -suspected to be benzodiazepine Patient is more awake but still lethargic Able to follow some commands Psych eval noted NPO till speech evaluation today She is stable to be transferred to SDU - Constitutional Vitals: Temp Pulse Resp BP Pulse Ox 96.7 F L 70 20 145/61 97 12/30/16 07:47 12/30/16 09:00 12/30/16 09:00 12/30/16 09:00 12/30/16 09:00 General appearance: Present: A&O X 1, morbidly obese, no acute distress, obese - Head Head exam: Present: atraumatic, normocephalic - Eye Eye exam: Present: PERRL, conjuntiva pink, sclera anicteric Pupils: Present: PERRL - Neck Neck exam general surgery: Present: supple, trachea midline. Absent: lymphadenopathy - Respiratory Respiratory exam: Present: CTAB. Absent: accessory muscle use, rales, rhonchi, wheezes - Cardiovascular Cardiovascular exam: Present: RRR, +S1, +S2. Absent: diastolic murmur, gallop, rubs, systolic murmur - GI/Abdominal GI/Abdominal exam: Present: normal bowel sounds, soft, no peritoneal signs. Absent: distended, tenderness - Extremities Exam Extremities exam: Present: warm, radial pulses palpable and symetrical. Absent : calf tenderness, cyanotic, pedal edema - Neurological Exam Neurological exam: Present: alert, CN II-XII intact, oriented X3, no focal deficits. Absent: pronater drift, facial droop, speech deficit - Skin Skin exam: Present: dry, intact Internal Medicine: Result - Labs CBC & Chem 7: 12/29/16 03:06 12/29/16 03:06 - ABG Interpretation ABG results: PT/INR, D-dimer PT 25.8 Seconds (9.4-12.1) H 12/29/16 03:06 - VTE Documentation of Mechanical Device: Intermittent pneumatic compression device Consult Discharge Plan - Plan Referrals: Oscar Sandoval Jr, MD [Primary Care Provider] -
[2016-12-30] MEDS: *HR* Metoprolol 5 MG/5 ML VIAL IVP PRN (12:03)
--- NOTE | 2016-12-30 16:53 | Electrocardiograph Report ---
[address] [place] [address] Test Date: 2016-12-28 Pat Name: Terrie Corona Department: 104 Room: [facility] Gender: F Dock Clerk: JERMAINE : 1945 Requested By: Lang Mccauley Order Number: [id number] Reading MD: Margot Harrell Measurements Intervals [place] Rate: 111 P: 48 PA: 195 QRS: 41 QRSD: 93 T: 36 QT: 339 QTc: 404 Interpretive Statements SINUS TACHYCARDIA ANTERIOR MYOCARDIAL INFARCTION, OLD NONSPECIFIC ST ABNORMALITIES ARTIFACT Electronically Signed On 12-30-2016 16:51:33 EDT by Margot Harrell
[2016-12-31] MEDS: Insulin LISPRO 300 UNITS/3 ML VIAL SQ SCH ×3 (05:57→17:40)
[2016-12-31] MEDS ORDERED: Pantoprazole 40 MG VIAL IVP SCH (09:00)
[2016-12-31 15:16] LABS: INR 1.4; Prothrombin Time 15.3 Seconds (9.4-12.1)
--- NOTE | 2016-12-31 15:34 | Internal Med Progress Note ---
Date of Encounter: 12/31/16 Time of Encounter: 14:00 - Assessment and plan (1) Drug overdose Current Visit: Yes Status: Acute Assessment and plan: Suspected to be benzodiazepines, lethargic She is protecting her airway Psych eval noted Speech and swallow eval due to dysphagia Qualifiers: Encounter type: initial encounter Injury intent: intentional self-harm Qualified Code(s): T50.902A - Poisoning by unspecified drugs, medicaments and biological substances, intentional self-harm, initial encounter (2) Severe recurrent major depression without psychotic features Current Visit: Yes Status: Acute Assessment and plan: continue current meds, psych recommendations noted (3) Hypertension Current Visit: Yes Status: Chronic Assessment and plan: Continue metoprolol Qualifiers: Hypertension type: essential hypertension Qualified Code(s): I10 - Essential (primary) hypertension (4) Hyperlipidemia Current Visit: Yes Status: Chronic Assessment and plan: Resume home meds Qualifiers: Hyperlipidemia type: unspecified Qualified Code(s): E78.5 - Hyperlipidemia , unspecified (5) Obesity (BMI 30-39.9) Current Visit: Yes Status: Chronic Assessment and plan: (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 Does not verbalize well. Does not follow verbal commands. No fever. Daughter is at bedside, she thinks patient has been more responsive today. No other acute events or complaints. - Constitutional Vitals: Temp Pulse Resp BP Pulse Ox 100.0 F H 88 18 149/79 97 12/31/16 13:00 12/31/16 15:13 12/31/16 11:40 12/31/16 11:40 12/31/16 11:40 General appearance: Present: morbidly obese, no acute distress, obese Exam: drowsy - Head Head exam: Present: atraumatic - ENT ENT exam: Present: mucous membranes dry - Respiratory Respiratory exam: Present: CTAB. Absent: rhonchi, wheezes - Cardiovascular Cardiovascular exam: Present: RRR, +S1, +S2 - GI/Abdominal GI/Abdominal exam: Present: soft. Absent: guarding, tenderness - Extremities Exam Extremities exam: Present: radial pulses palpable and symetrical. Absent: cyanotic, pedal edema - Neurological Exam Additional comments: drowsy, does not verbalize well, does not follow verbal commands well, unable to assess full neuro exam Internal Medicine: Result - Labs CBC & Chem 7: 12/29/16 03:06 12/29/16 03:06 - ABG Interpretation ABG results: PT/INR, D-dimer PT 15.3 Seconds (9.4-12.1) H 12/31/16 15:01 - Impressions Impressions Chest X-Ray 12/31/16 14:39 IMPRESSION: No acute cardiopulmonary process. Mild cardiomegaly. D/ / Loan Estes MD / Loan Estes MD Interpreting Provider: Loan Estes MD - VTE Documentation of Mechanical Device: Intermittent pneumatic compression device Consult Discharge Plan - Plan Referrals: Oscar Sandoval Jr, MD [Primary Care Provider] - 01/08/17 11:00 am
[2016-12-31] MEDS: 0.9 % Sodium Chloride 1,000 ML IVC SCH (16:32)
[2016-12-31] MEDS ORDERED: Warfarin perPT PO PRN (18:00)
[2016-12-31] MEDS ORDERED: *HR* Warfarin 5 MG TABLET PO ONE (18:00)
[2017-01-01 05:35] LABS: INR 1.3; Prothrombin Time 14.5 Seconds (9.4-12.1)
[2017-01-01] MEDS: 0.9 % Sodium Chloride 1,000 ML IVC SCH ×2 (06:59→20:07)
[2017-01-01] MEDS: Insulin LISPRO 300 UNITS/3 ML VIAL SQ SCH ×4 (07:52→22:04)
[2017-01-01] MEDS: Famotidine 20 MG TABLET PO SCH (09:24)
[2017-01-01] MEDS: Acetaminophen 325 MG TABLET PO PRN (11:23)
--- NOTE | 2017-01-01 14:56 | Psychiatry Progress Note ---
Date of Encounter: 01/01/17 Time of Encounter: 14:20 Subjective Interval history: Patient seen for consultation follow-up. From the records she is improving slowly but still lethargic and minimally verbal. On interview she is awake on and off "not respond or answer questions but was able to say yes. Daughter was at the bedside and she is concerned about her mother being alone at home. I discussed with the daughter that some options like placement in assisted living should be explored by the family, also outpatient visits for therapy and medication management by psychiatrist are recommended. Objective: Exam Additional observations: Patient is lethargic, in and out of consciousness and minimally verbal. Results - Vital Signs Vital Signs: Temp Pulse Resp BP Pulse Ox 99.1 F 81 16 160/93 97 01/01/17 11:00 01/01/17 11:25 01/01/17 11:00 01/01/17 11:00 01/01/17 11:00 - Labs Labs: Laboratory Results - last 24 hr 12/31/16 01/01/17 15:01 04:58 PT 15.3 H 14.5 H INR 1.4 1.3 - Impressions ITS Impressions Chest X-Ray 12/31/16 14:39 IMPRESSION: No acute cardiopulmonary process. Mild cardiomegaly. D/ /31/2016 15:49:56 Loan Estes MD / annemarie Interpreting Provider: Loan Estes MD Assessment and Plan (1) Severe recurrent major depression without psychotic features Current visit: Yes Status: Acute Plan: Continue hospitalization, Close observation, Suicide Precautions per unit protocol, Encourage participation in unit milieu, Group Therapy, Monitor sleep, Monitor appetite Additional Plan: 1. Continue medical stabilization 2. Inpatient psychiatric hospitalization in a geropsych unit is not recommended and will not be beneficial. 3. Outpatient appointments for therapy and psychiatric medication management are recommended on a regular basis 4. Placement on a temporary basis in assisted living can be explored by the family to provide patient with social activities. This was discussed with the daughter. Thank you for consultation. Consult Discharge Plan - Plan Referrals: Oscar Sandoval Jr, MD [Primary Care Provider] - 01/08/17 11:00 am
--- NOTE | 2017-01-01 15:53 | Internal Med Progress Note ---
Date of Encounter: 01/01/17 Time of Encounter: 10:15 - Assessment and plan (1) Drug overdose Current Visit: Yes Status: Acute Assessment and plan: Suspected to be benzodiazepines, lethargic She is protecting her airway Psych eval noted Speech and swallow eval due to dysphagia Qualifiers: Encounter type: initial encounter Injury intent: intentional self-harm Qualified Code(s): T50.902A - Poisoning by unspecified drugs, medicaments and biological substances, intentional self-harm, initial encounter (2) Severe recurrent major depression without psychotic features Current Visit: Yes Status: Acute Assessment and plan: continue current meds, psych recommendations noted (3) Hypertension Current Visit: Yes Status: Chronic Assessment and plan: Continue metoprolol Qualifiers: Hypertension type: secondary to other renal disorders Qualified Code(s): I15.1 - Hypertension secondary to other renal disorders; N28.89 - Other specified disorders of kidney and ureter (4) Hyperlipidemia Current Visit: Yes Status: Chronic Assessment and plan: Resume home meds Qualifiers: Hyperlipidemia type: unspecified Qualified Code(s): E78.5 - Hyperlipidemia , unspecified (5) Obesity (BMI 30-39.9) Current Visit: Yes Status: Chronic Assessment and plan: encourage weight loss (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 Does not verbalize well. More responsive today than yesterday. Does not follow verbal commands. No fever. Daughter is at bedside. No other acute events or complaints. - Constitutional Vitals: Temp Pulse Resp BP Pulse Ox 99.3 F 78 16 145/80 95 01/01/17 15:23 01/01/17 15:23 01/01/17 15:23 01/01/17 15:23 01/01/17 15:23 General appearance: Present: morbidly obese, no acute distress, obese Exam: drowsy, does not verbalize well, does not follow verbal commands - Head Head exam: Present: atraumatic - Neck Neck exam general surgery: Present: supple - Respiratory Respiratory exam: Present: CTAB. Absent: rhonchi, wheezes - Cardiovascular Cardiovascular exam: Present: RRR, +S1, +S2 - GI/Abdominal GI/Abdominal exam: Present: soft. Absent: guarding, tenderness - Extremities Exam Extremities exam: Present: radial pulses palpable and symetrical. Absent: cyanotic, pedal edema - Neurological Exam Neurological exam: Present: no focal deficits Additional comments: drowsy, does not follow verbal commands, does not verbalize well, withdraws to pain, more responsive today Internal Medicine: Result - Labs CBC & Chem 7: 12/29/16 03:06 12/29/16 03:06 - ABG Interpretation ABG results: PT/INR, D-dimer PT 14.5 Seconds (9.4-12.1) H 01/01/17 04:58 - Impressions Impressions Chest X-Ray 12/31/16 14:39 IMPRESSION: No acute cardiopulmonary process. Mild cardiomegaly. D/ / 12/31/2016 15:49:56 Loan Estes MD / annemarie Interpreting Provider: Loan Estes MD - VTE Documentation of Mechanical Device: Intermittent pneumatic compression device Consult Discharge Plan - Plan Referrals: Oscar Sandoval Jr, MD [Primary Care Provider] - 01/08/17 11:00 am
[2017-01-01] MEDS: *HR* Enoxaparin 120 MG/0.8 ML SYRINGE SQ SCH (17:19)
[2017-01-01] MEDS: *HR* Warfarin 2.5 MG TABLET PO SCH (17:21)
[2017-01-02 05:28] LABS: INR 1.4; Prothrombin Time 15.1 Seconds (9.4-12.1)
[2017-01-02] MEDS: *HR* Enoxaparin 120 MG/0.8 ML SYRINGE SQ SCH ×2 (06:19→18:55)
[2017-01-02] MEDS: 0.9 % Sodium Chloride 1,000 ML IVC SCH ×5 (08:29→23:48)
[2017-01-02] MEDS: Insulin LISPRO 300 UNITS/3 ML VIAL SQ SCH ×4 (08:57→21:30)
[2017-01-02] MEDS: Famotidine 20 MG TABLET PO SCH (08:57)
--- NOTE | 2017-01-02 13:43 | Internal Med Progress Note ---
Date of Encounter: 01/02/17 Time of Encounter: 09:45 - Assessment and plan (1) Drug overdose Current Visit: Yes Status: Acute Assessment and plan: Suspected to be benzodiazepines - still drowsy, but showing signs of improvement She is protecting her airway Psych eval noted Speech and swallow eval Qualifiers: Encounter type: initial encounter Injury intent: intentional self-harm Qualified Code(s): T50.902A - Poisoning by unspecified drugs, medicaments and biological substances, intentional self-harm, initial encounter (2) Severe recurrent major depression without psychotic features Current Visit: Yes Status: Acute Assessment and plan: continue current meds, psych recommendations noted (3) Hypertension Current Visit: Yes Status: Chronic Assessment and plan: controlled, Continue metoprolol Qualifiers: Hypertension type: secondary to other renal disorders Qualified Code(s): I15.1 - Hypertension secondary to other renal disorders; N28.89 - Other specified disorders of kidney and ureter (4) Hyperlipidemia Current Visit: Yes Status: Chronic Assessment and plan: Resume home meds Qualifiers: Hyperlipidemia type: unspecified Qualified Code(s): E78.5 - Hyperlipidemia , unspecified (5) Obesity (BMI 30-39.9) Current Visit: Yes Status: Chronic Assessment and plan: encourage weight loss (6) [place]'s disease Current Visit: No Status: Chronic Assessment and plan: chronic (7) DM2 (diabetes mellitus, type 2) Current Visit: Yes Status: Chronic Assessment and plan: FS q6, hyperglycemia Sliding scale insulin Q6 Qualifiers: Diabetes mellitus complication status: without complication Diabetes mellitus assisted insulin use: without assisted use Qualified Code(s): E11.9 - Type 2 diabetes mellitus without complications - Time Spent With Patient 25 - 35 minutes - Subjective Interval history: Patient is drowsy. Does not verbalize well. Seems more responsive today than yesterday. Able to follow simple verbal commands. No fever. Daughter explaineda about guarded condition and guarded prognosis. No other acute events or complaints. - Constitutional Vitals: Temp Pulse Resp BP Pulse Ox 98.9 F 82 16 146/83 97 01/02/17 11:41 01/02/17 11:41 01/02/17 11:41 01/02/17 11:41 01/02/17 11:41 General appearance: Present: morbidly obese, no acute distress, obese Exam: drowsy, but more responsive today, wakes up when name is called - Head Head exam: Present: atraumatic - ENT ENT exam: Present: mucous membranes moist - Neck Neck exam general surgery: Present: supple - Respiratory Respiratory exam: Present: CTAB. Absent: rhonchi, wheezes - Cardiovascular Cardiovascular exam: Present: RRR, +S1, +S2 - GI/Abdominal GI/Abdominal exam: Present: soft. Absent: guarding, tenderness - Extremities Exam Extremities exam: Present: radial pulses palpable and symetrical. Absent: cyanotic, pedal edema - Neurological Exam Neurological exam: Present: no focal deficits Additional comments: drowsy, wakes up when name is called, able to move extremities, follows simple verbal commands, does not verbalize well Internal Medicine: Result - Labs CBC & Chem 7: 12/29/16 03:06 12/29/16 03:06 - ABG Interpretation ABG results: PT/INR, D-dimer PT 15.1 Seconds (9.4-12.1) H 01/02/17 04:15 - VTE Documentation of Mechanical Device: Intermittent pneumatic compression device Consult Discharge Plan - Plan Referrals: Oscar Sandoval Jr, MD [Primary Care Provider] - 01/08/17 11:00 am
[2017-01-02] MEDS: Acetaminophen 325 MG TABLET PO PRN (16:20)
[2017-01-02] MEDS: *HR* Warfarin 2.5 MG TABLET PO SCH (18:55)
[2017-01-02] MEDS: Nystatin SUSP 5 ML UD.LIQ PO SCH (23:48)
[2017-01-03] MEDS: *HR* Enoxaparin 120 MG/0.8 ML SYRINGE SQ SCH ×2 (05:11→17:29)
[2017-01-03] MEDS: Acetaminophen 325 MG TABLET PO PRN ×3 (05:58→21:56)
[2017-01-03 05:59] LABS: INR 1.3; Prothrombin Time 14.6 Seconds (9.4-12.1)
[2017-01-03] MEDS: Insulin LISPRO 300 UNITS/3 ML VIAL SQ SCH ×4 (08:20→21:43)
[2017-01-03] MEDS: Famotidine 20 MG TABLET PO SCH (09:14)
[2017-01-03] MEDS: Nystatin SUSP 5 ML UD.LIQ PO SCH ×4 (09:15→21:56)
--- NOTE | 2017-01-03 11:59 | Internal Med Progress Note ---
Date of Encounter: 01/03/17 Time of Encounter: 08:35 - Assessment and plan (1) Drug overdose Current Visit: Yes Status: Acute Assessment and plan: Improved Suspected to be benzodiazepines - still drowsy, but showing signs of improvement She is protecting her airway Psych eval noted Speech and swallow eval Qualifiers: Encounter type: initial encounter Injury intent: intentional self-harm Qualified Code(s): T50.902A - Poisoning by unspecified drugs, medicaments and biological substances, intentional self-harm, initial encounter (2) Severe recurrent major depression without psychotic features Current Visit: Yes Status: Acute Assessment and plan: continue current meds, psych recommendations noted (3) Hypertension Current Visit: Yes Status: Chronic Assessment and plan: controlled, Continue metoprolol Qualifiers: Hypertension type: secondary to other renal disorders Qualified Code(s): I15.1 - Hypertension secondary to other renal disorders; N28.89 - Other specified disorders of kidney and ureter (4) Hyperlipidemia Current Visit: Yes Status: Chronic Assessment and plan: Resume home meds Qualifiers: Hyperlipidemia type: unspecified Qualified Code(s): E78.5 - Hyperlipidemia , unspecified (5) Obesity (BMI 30-39.9) Current Visit: Yes Status: Chronic Assessment and plan: encourage weight loss (6) 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 Subtherapeutic INR. Bridge with Lovenox. Check PT/INR daily - Time Spent With Patient less than 15 minutes - Subjective Interval history: Patient is awake, more responsive today. Does not verbalize well. Tolerating oral diet. Able to follow simple verbal commands. No fever. Daughter explained about guarded condition and guarded prognosis. No other acute events or complaints. - Constitutional Vitals: Temp Pulse Resp BP Pulse Ox 99.2 F 79 17 147/86 96 01/03/17 08:19 01/03/17 08:19 01/03/17 08:19 01/03/17 08:58 01/03/17 08:19 General appearance: Present: A&O X 2, morbidly obese, no acute distress, obese, answers questions appropriately - Head Head exam: Present: atraumatic - ENT ENT exam: Present: mucous membranes moist - Neck Neck exam general surgery: Present: supple - Respiratory Respiratory exam: Present: CTAB. Absent: rhonchi, wheezes - Cardiovascular Cardiovascular exam: Present: RRR, +S1, +S2 - GI/Abdominal GI/Abdominal exam: Present: soft. Absent: guarding, tenderness - Extremities Exam Extremities exam: Present: radial pulses palpable and symetrical. Absent: cyanotic, pedal edema - Neurological Exam Neurological exam: Present: no focal deficits Additional comments: Awake seems more alert today. Able to follow simple commands, able to move extremities. Speech seems to repair. She does have a right eyelid and facial droop. unclear If this is new. Internal Medicine: Result - Labs CBC & Chem 7: 12/29/16 03:06 12/29/16 03:06 - ABG Interpretation ABG results: PT/INR, D-dimer PT 14.6 Seconds (9.4-12.1) H 01/03/17 05:19 - Impressions Impressions Chest X-Ray 12/31/16 14:39 IMPRESSION: No acute cardiopulmonary process. Mild cardiomegaly. D/ /31/2016 15:49:56 Loan Estes MD / annemarie Interpreting Provider: Loan Estes MD - VTE Documentation of Mechanical Device: Intermittent pneumatic compression device Consult Discharge Plan - Plan Referrals: Oscar Sandoval Jr, MD [Primary Care Provider] - 01/08/17 11:00 am
[2017-01-03] MEDS: 0.9 % Sodium Chloride 1,000 ML IVC SCH (12:18)
[2017-01-03 15:01] LABS: Basophils % 0.5 %; Eosinophils # 0.2 K/mcL (0.0-0.6); Eosinophils % 1.7 %; Hematocrit 32.7 % (35.3-44.9); Hemoglobin 10.3 g/dL (11.5-15.4); Immature Granulocytes % 0.3 % (0-4); Lymphocytes % 10.9 %; Mean Corpuscular HGB Conc 31.5 g/dL (31.6-35.5); Mean Corpuscular Hemoglobin 28.9 pg (28.0-33.3); Mean Corpuscular Volume 91.9 fL (83.0-100.0); Mean Platelet Volume 9.9 fL (9.4-12.4); Monocytes # 0.4 K/mcL (0.0-1.3); Neutrophils # 7.3 K/mcL (1.6-8.9); Platelet Count 218 K/mcL (140-400); Red Blood Count 3.56 M/mcL (3.82-4.97); Red Cell Distribution Width 14.1 % (11.5-14.5); Segmented Neutrophils % 82.6 %
[2017-01-03 15:14] LABS: BUN/Creatinine Ratio 15 (6-26); Blood Urea Nitrogen 10 mg/dL (7-20); Calcium 8.5 mg/dL (8.6-10.8); Carbon Dioxide 29 mEq/L (19-29); Chloride 105 mEq/L (98-109); Glucose 161 mg/dL (70-99); Osmolality,Calculated 293 (280-300); Potassium 4.1 mEq/L (3.5-4.5); Sodium 140 mEq/L (136-145); eGFR For African Americans > 60 (> 60); eGFR For Non-African Americans > 60 (> 60)
[2017-01-03] MEDS: *HR* Warfarin 3 MG TABLET PO SCH (17:29)
[2017-01-03] MEDS: *HR* Metoprolol 5 MG/5 ML VIAL IVP PRN (21:56)
[2017-01-04] MEDS: 0.9 % Sodium Chloride 1,000 ML IVC SCH ×2 (01:41→08:47)
[2017-01-04 03:06] LABS: INR 1.4; Prothrombin Time 15.2 Seconds (9.4-12.1)
[2017-01-04] MEDS: *HR* Enoxaparin 120 MG/0.8 ML SYRINGE SQ SCH ×2 (06:33→17:28)
[2017-01-04] MEDS: Insulin LISPRO 300 UNITS/3 ML VIAL SQ SCH ×4 (07:39→22:38)
[2017-01-04] MEDS: Nystatin SUSP 5 ML UD.LIQ PO SCH ×4 (08:52→22:37)
[2017-01-04] MEDS: Metoprolol XL (24 HR) Succ 25 MG TAB.ER.24H PO SCH (08:52)
[2017-01-04] MEDS: Famotidine 20 MG TABLET PO SCH (08:52)
[2017-01-04] MEDS: Acetaminophen 325 MG TABLET PO PRN ×2 (11:46→22:43)
--- NOTE | 2017-01-04 12:59 | Internal Med Progress Note ---
Date of Encounter: 01/04/17 Time of Encounter: 08:40 - Assessment and plan (1) Drug overdose Current Visit: Yes Status: Acute Assessment and plan: Improved Benzodiazepines - showing signs of improvement She is protecting her airway Psych eval noted Speech and swallow eval Qualifiers: Encounter type: initial encounter Injury intent: intentional self-harm Qualified Code(s): T50.902A - Poisoning by unspecified drugs, medicaments and biological substances, intentional self-harm, initial encounter (2) Severe recurrent major depression without psychotic features Current Visit: Yes Status: Acute Assessment and plan: continue current meds psych recommendations noted (3) Hypertension Current Visit: Yes Status: Chronic Assessment and plan: controlled, Continue metoprolol Qualifiers: Hypertension type: secondary to other renal disorders Qualified Code(s): I15.1 - Hypertension secondary to other renal disorders; N28.89 - Other specified disorders of kidney and ureter (4) Hyperlipidemia Current Visit: Yes Status: Chronic Assessment and plan: Resume home meds, Zocor Qualifiers: Hyperlipidemia type: unspecified Qualified Code(s): E78.5 - Hyperlipidemia , unspecified (5) Obesity (BMI 30-39.9) Current Visit: Yes Status: Chronic Assessment and plan: encourage weight loss (6) 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 Assessment and plan: chronic (7) DM2 (diabetes mellitus, type 2) Current Visit: Yes Status: Chronic Assessment and plan: FS q6, hyperglycemia Sliding scale insulin Q6H Qualifiers: Diabetes mellitus complication status: without complication 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 Subtherapeutic INR. Bridge with Lovenox. Check PT/INR daily - Time Spent With Patient less than 15 minutes - Subjective Interval history: Patient is awake, more responsive today. Able to verbalize. Tolerating oral diet. Able to follow simple verbal commands. No fever. Daughter explained about guarded condition and guarded prognosis. Patient states she intentionally ingested Xanax because she was depressed. No other acute events or complaints. - Constitutional Vitals: Temp Pulse Resp BP Pulse Ox 99.3 F 76 16 143/84 92 01/04/17 11:20 01/04/17 11:20 01/04/17 11:20 01/04/17 11:20 01/04/17 11:20 General appearance: Present: A&O X 2, morbidly obese, no acute distress, obese, answers questions appropriately - Head Head exam: Present: atraumatic - ENT ENT exam: Present: mucous membranes moist - Neck Neck exam general surgery: Present: supple - Respiratory Respiratory exam: Present: CTAB. Absent: rhonchi, wheezes - Cardiovascular Cardiovascular exam: Present: RRR, +S1, +S2 - GI/Abdominal GI/Abdominal exam: Present: soft. Absent: guarding, tenderness - Extremities Exam Extremities exam: Present: radial pulses palpable and symetrical. Absent: cyanotic, pedal edema - Neurological Exam Neurological exam: Present: alert, no focal deficits. Absent: facial droop Additional comments: able to verbalize, follows verbal commands, able to move extremities Internal Medicine: Result - Labs CBC & Chem 7: 01/03/17 14:30 01/03/17 14:30 Labs: Short CBC 01/03/17 Range/Units 14:30 WBC 8.8 (4.3-11.1) K/mcL Hgb 10.3 L (11.5-15.4) g/dL Hct 32.7 L (35.3-44.9) % Plt Count 218 (140-400) K/mcL Neutrophils # 7.3 (1.6-8.9) K/mcL BMP 01/03/17 14:30 Sodium 140 Potassium 4.1 Chloride 105 Carbon Dioxide 29 BUN 10 Creatinine 0.68 Glucose 161 H Calcium 8.5 L - ABG Interpretation ABG results: PT/INR, D-dimer PT 15.2 Seconds (9.4-12.1) H 01/04/17 02:39 - Impressions Impressions Head CT 01/03/17 14:00 IMPRESSION: Cerebral atrophy. Chronic small vessel ischemic changes. No acute brain parenchymal abnormality. D/ / 01/03/2017 15:58:59 Paulette Molina MD / franky Interpreting Provider: Paulette Molina MD - VTE Documentation of Mechanical Device: Intermittent pneumatic compression device Consult Discharge Plan - Plan Referrals: Oscar Sandoval Jr, MD [Primary Care Provider] - 01/08/17 11:00 am
[2017-01-04] MEDS: *HR* Warfarin 3 MG TABLET PO SCH (17:29)
[2017-01-05] MEDS ORDERED: *HR* Morphine 2 MG/ML SYRINGE IVP PRN (02:28)
[2017-01-05] MEDS: 0.9 % Sodium Chloride 1,000 ML IVC SCH ×2 (03:34→13:59)
[2017-01-05 04:55] LABS: INR 1.5; Prothrombin Time 15.9 Seconds (9.4-12.1)
[2017-01-05] MEDS: *HR* Enoxaparin 120 MG/0.8 ML SYRINGE SQ SCH ×2 (05:37→17:04)
[2017-01-05] MEDS: Famotidine 20 MG TABLET PO SCH (08:17)
[2017-01-05] MEDS: Insulin LISPRO 300 UNITS/3 ML VIAL SQ SCH ×4 (08:17→21:10)
[2017-01-05] MEDS: Nystatin SUSP 5 ML UD.LIQ PO SCH ×4 (08:17→21:14)
[2017-01-05] MEDS: Metoprolol XL (24 HR) Succ 25 MG TAB.ER.24H PO SCH (08:17)
[2017-01-05] MEDS: *HR* Morphine 2 MG/ML SYRINGE IVP PRN ×2 (08:49→23:35)
--- NOTE | 2017-01-05 10:11 | Internal Med Progress Note ---
Date of Encounter: 01/05/17 Time of Encounter: 08:15 - Assessment and plan (1) Drug overdose Current Visit: Yes Status: Acute Assessment and plan: Encephalopathy now Improved Benzodiazepines - showing signs of improvement She is protecting her airway Psych eval noted Tolerating oral diet. Qualifiers: Encounter type: initial encounter Injury intent: intentional self-harm Qualified Code(s): T50.902A - Poisoning by unspecified drugs, medicaments and biological substances, intentional self-harm, initial encounter (2) Severe recurrent major depression without psychotic features Current Visit: Yes Status: Acute Assessment and plan: continue current meds psych recommendations noted (3) Hypertension Current Visit: Yes Status: Chronic Assessment and plan: controlled, Continue metoprolol Qualifiers: Hypertension type: secondary to other renal disorders Qualified Code(s): I15.1 - Hypertension secondary to other renal disorders; N28.89 - Other specified disorders of kidney and ureter (4) Hyperlipidemia Current Visit: Yes Status: Chronic Assessment and plan: Resume home meds, Zocor Qualifiers: Hyperlipidemia type: unspecified Qualified Code(s): E78.5 - Hyperlipidemia , unspecified (5) Obesity (BMI 30-39.9) Current Visit: Yes Status: Chronic Assessment and plan: encourage weight loss Lifestyle modification (6) 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 Assessment and plan: chronic (7) DM2 (diabetes mellitus, type 2) Current Visit: Yes Status: Chronic Assessment and plan: FS q6, hyperglycemia. 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 Subtherapeutic INR. Bridge with Lovenox. Check PT/INR daily - Time Spent With Patient less than 15 minutes - Subjective Interval history: Patient is awake and alert. Able to verbalize. Tolerating oral diet. Able to follow simple verbal commands. No fever. Needs to ambulate out of bed today. Progressing back to baseline. Complains of back in lower back. Wants something for pain. Avoid narcotics. Patient stated she intentionally ingested Xanax because she was depressed. No other acute events or complaints. Anticipate d/c tomorrow. - Constitutional Vitals: Temp Pulse Resp BP Pulse Ox 99.1 F 76 16 145/89 93 01/05/17 08:24 01/05/17 08:24 01/05/17 08:24 01/05/17 08:24 01/05/17 08:24 General appearance: Present: A&O X 2, morbidly obese, no acute distress, obese, answers questions appropriately - Head Head exam: Present: atraumatic - Neck Neck exam general surgery: Present: supple - Respiratory Respiratory exam: Present: CTAB. Absent: rhonchi, wheezes - Cardiovascular Cardiovascular exam: Present: RRR, +S1, +S2 - GI/Abdominal GI/Abdominal exam: Present: soft. Absent: guarding, tenderness - Extremities Exam Extremities exam: Present: radial pulses palpable and symetrical. Absent: cyanotic, pedal edema - Neurological Exam Neurological exam: Present: alert, no focal deficits Additional comments: awake and alert, follows verbal commands, able to move extremities, able to verbalize Internal Medicine: Result - Labs CBC & Chem 7: 01/03/17 14:30 01/03/17 14:30 - ABG Interpretation ABG results: PT/INR, D-dimer PT 15.9 Seconds (9.4-12.1) H 01/05/17 04:02 - VTE Documentation of Mechanical Device: Intermittent pneumatic compression device Consult Discharge Plan - Plan Referrals: Oscar Sandoval Jr, MD [Primary Care Provider] - 01/08/17 11:00 am
[2017-01-05] MEDS: Acetaminophen 325 MG TABLET PO PRN (15:37)
[2017-01-05] MEDS: *HR* Warfarin 3 MG TABLET PO SCH (17:04)
[2017-01-06 00:25] LABS: Bilirubin,Urine Negative (Negative); Blood,Urine Large (Negative); Clarity,Urine Clear (Clear); Color,Urine Yellow (Yellow); Glucose,Urine (UA) Normal (Normal); Ketones,Urine Negative (Negative); Leukocyte Esterase,Urine Negative (Negative); Nitrite,Urine Negative (Negative); Protein,Urine Negative (Neg-Trace); Specific Gravity,Urine 1.023 (1.010-1.025); Urobilinogen,Urine Normal (Normal)
[2017-01-06 00:27] LABS: Bacteria,Urine None Seen per hpf (None-Few); Hyaline Casts,Urine None Seen per lpf (None-Few); RBC,Urine TNTC per hpf (0-3); Squamous Epithelial Cell,Urine Many per lpf (None-Few)
[2017-01-06] MEDS ORDERED: Melatonin 3 MG TABLET PO STA (02:08)
[2017-01-06 03:50] LABS: INR 1.4; Prothrombin Time 15.2 Seconds (9.4-12.1)
[2017-01-06] MEDS: *HR* Morphine 2 MG/ML SYRINGE IVP PRN (04:05)
[2017-01-06] MEDS: *HR* Enoxaparin 120 MG/0.8 ML SYRINGE SQ SCH ×2 (05:23→17:07)
[2017-01-06] MEDS: Insulin LISPRO 300 UNITS/3 ML VIAL SQ SCH ×4 (09:18→21:07)
[2017-01-06] MEDS: Metoprolol XL (24 HR) Succ 25 MG TAB.ER.24H PO SCH (09:24)
[2017-01-06] MEDS: Nystatin SUSP 5 ML UD.LIQ PO SCH ×4 (09:24→21:40)
[2017-01-06] MEDS: Famotidine 20 MG TABLET PO SCH (09:24)
--- NOTE | 2017-01-06 10:00 | Internal Med Progress Note ---
Date of Encounter: 01/06/17 Time of Encounter: 08:00 - Assessment and plan (1) Drug overdose Current Visit: Yes Status: Acute Assessment and plan: Encephalopathy - now Improved overdose with Benzodiazepines - now awake and alert She is protecting her airway - Psych eval noted Tolerating oral diet Needs PT/OT for generalized weakness Qualifiers: Encounter type: initial encounter Injury intent: intentional self-harm Qualified Code(s): T50.902A - Poisoning by unspecified drugs, medicaments and biological substances, intentional self-harm, initial encounter (2) Severe recurrent major depression without psychotic features Current Visit: Yes Status: Acute Assessment and plan: continue current meds - Psych recommendations noted (3) Hypertension Current Visit: Yes Status: Chronic Assessment and plan: controlled - Continue Metoprolol, monitor Qualifiers: Hypertension type: secondary to other renal disorders Qualified Code(s): 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 - Hypertension secondary to other renal disorders; N28.89 - Other specified disorders of kidney and ureter (4) Hyperlipidemia Current Visit: Yes Status: Chronic Assessment and plan: Resume home meds - Zocor Qualifiers: Hyperlipidemia type: unspecified Qualified Code(s): E78.5 - Hyperlipidemia , unspecified (5) Obesity (BMI 30-39.9) Current Visit: Yes Status: Chronic Assessment and plan: encourage weight loss Lifestyle modification (6) [place]'s disease Current Visit: No Status: Chronic Assessment and plan: chronic - follows up with a neurologist Generalized muscle weakness and speech difficulties (chronic) - currently progressing back to baseline (7) DM2 (diabetes mellitus, type 2) Current Visit: Yes Status: Chronic Assessment and plan: FS q6, hyperglycemia Sliding scale insulin Q6H Qualifiers: Diabetes mellitus complication status: without complication Diabetes mellitus assisted insulin use: without assisted use Qualified Code(s): E11.9 - Type 2 diabetes mellitus without complications (8) History of pulmonary embolism Current Visit: Yes Status: Acute Assessment and plan: On warfarin. Subtherapeutic INR. Bridge with Lovenox - Check PT/INR daily - Time Spent With Patient less than 15 minutes - Subjective Interval history: Patient is awake and alert. Able to verbalize. Tolerating oral diet. Able to follow verbal commands. No fever. Needs to ambulate out of bed today. Progressing back to baseline. Complains of pain in lower back. Avoid narcotics. Needs PT/OT. Continues to have generalized weakness. INR is still subtherapeutic. Patient stated she intentionally ingested Xanax because she was depressed. Discussed extensively with daughters yesterday. They want patient to be discharged home when her strength is progressing back to baseline. They do not want ECF at this time. No other acute events or complaints. - Constitutional Vitals: Temp Pulse Resp BP Pulse Ox 98.4 F 74 16 113/76 97 01/06/17 07:24 01/06/17 07:24 01/06/17 07:24 01/06/17 07:24 01/06/17 07:24 General appearance: Present: A&O X 2, morbidly obese, no acute distress, obese, answers questions appropriately - Head Head exam: Present: atraumatic - Neck Neck exam general surgery: Present: supple - Respiratory Respiratory exam: Present: CTAB. Absent: rhonchi, wheezes - Cardiovascular Cardiovascular exam: Present: RRR, +S1, +S2 - GI/Abdominal GI/Abdominal exam: Present: soft. Absent: guarding, tenderness - Extremities Exam Extremities exam: Present: radial pulses palpable and symetrical. Absent: cyanotic, pedal edema - Neurological Exam Neurological exam: Present: alert, oriented X3, no focal deficits. Absent: speech deficit Additional comments: strength is better today, able to verbalize, follows verbal commands, generalized weakness - probably due to [place]'s disease Internal Medicine: Result - Labs CBC & Chem 7: 01/03/17 14:30 01/03/17 14:30 Labs: Urine 01/05/17 Range/Units 23:20 Urine Color Yellow (Yellow) Urine Clarity Clear (Clear) Urine pH 6.0 (5.0-8.0) pH Units Ur Specific [place] 1.023 (1.010-1.025) Urine Protein Negative (Neg-Trace) mg/dL Urine Glucose (UA) Normal (Normal) mg/dL - ABG Interpretation ABG results: PT/INR, D-dimer PT 15.2 Seconds (9.4-12.1) H 01/06/17 03:26 - VTE Documentation of Mechanical Device: Intermittent pneumatic compression device Consult Discharge Plan - Plan Referrals: Oscar Sandoval Jr, MD [Primary Care Provider] - 01/08/17 11:00 am
[2017-01-06] MEDS: 0.9 % Sodium Chloride 1,000 ML IVC SCH (13:02)
[2017-01-06] MEDS: Acetaminophen 325 MG TABLET PO PRN (15:31)
[2017-01-06] MEDS: *HR* Warfarin 4 MG TABLET PO SCH (17:07)
[2017-01-06] MEDS ORDERED: *HR* Warfarin 5 MG TABLET PO SCH (18:00)
[2017-01-07] MEDS: Acetaminophen 325 MG TABLET PO PRN (03:26)
[2017-01-07] MEDS: *HR* Enoxaparin 120 MG/0.8 ML SYRINGE SQ SCH ×2 (05:43→17:32)
[2017-01-07 06:24] LABS: Basophils % 0.4 %; Eosinophils # 0.3 K/mcL (0.0-0.6); Eosinophils % 3.9 %; Hematocrit 29.4 % (35.3-44.9); Hemoglobin 9.3 g/dL (11.5-15.4); Immature Granulocytes % 0.4 % (0-4); Lymphocytes # 1.1 K/mcL (0.6-4.6); Lymphocytes % 15.7 %; Mean Corpuscular HGB Conc 31.6 g/dL (31.6-35.5); Mean Corpuscular Hemoglobin 29.2 pg (28.0-33.3); Mean Corpuscular Volume 92.2 fL (83.0-100.0); Mean Platelet Volume 10.3 fL (9.4-12.4); Monocytes # 0.4 K/mcL (0.0-1.3); Neutrophils # 5.4 K/mcL (1.6-8.9); Platelet Count 186 K/mcL (140-400); Red Blood Count 3.19 M/mcL (3.82-4.97); Red Cell Distribution Width 14.5 % (11.5-14.5); Segmented Neutrophils % 74.6 %
[2017-01-07 06:25] LABS: INR 1.5; Prothrombin Time 16.7 Seconds (9.4-12.1)
[2017-01-07 06:39] LABS: BUN/Creatinine Ratio 18 (6-26); Blood Urea Nitrogen 12 mg/dL (7-20); Calcium 8.3 mg/dL (8.6-10.8); Carbon Dioxide 32 mEq/L (19-29); Chloride 106 mEq/L (98-109); Glucose 122 mg/dL (70-99); Osmolality,Calculated 293 (280-300); Potassium 3.5 mEq/L (3.5-4.5); Sodium 141 mEq/L (136-145); eGFR For African Americans > 60 (> 60); eGFR For Non-African Americans > 60 (> 60)
[2017-01-07] MEDS ORDERED: Acetaminophen 325 MG TABLET PO PRN (08:14)
[2017-01-07] MEDS ORDERED: *HR* Morphine 2 MG/ML SYRINGE IVP PRN (08:14)
[2017-01-07] MEDS: Insulin LISPRO 300 UNITS/3 ML VIAL SQ SCH ×3 (09:08→17:24)
[2017-01-07] MEDS: Metoprolol XL (24 HR) Succ 25 MG TAB.ER.24H PO SCH (09:24)
[2017-01-07] MEDS: Famotidine 20 MG TABLET PO SCH (09:24)
[2017-01-07] MEDS: Nystatin SUSP 5 ML UD.LIQ PO SCH ×3 (09:24→17:31)
[2017-01-07] MEDS: 0.9 % Sodium Chloride 1,000 ML IVC SCH (10:04)
[2017-01-07] MEDS ORDERED: Bisacodyl 10 MG RECTAL SUPPOSITORY RC ONE (12:03)
--- NOTE | 2017-01-07 14:15 | Discharge Summary ---
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 (4) DM2 (diabetes mellitus, type 2) Priority: Secondary Status: Chronic Qualifiers: Diabetes mellitus complication status: with unspecified complications Diabetes mellitus fci insulin use: without ad terminal makeup operator use Qualified Code( s): E11.8 - Type 2 diabetes mellitus with unspecified complications (5) Hypertension Priority: Secondary Status: Chronic Qualifiers: Hypertension type: essential hypertension Qualified Code(s): I10 - Essential (primary) hypertension (6) Hyperlipidemia Priority: Secondary Status: Chronic Qualifiers: Hyperlipidemia type: unspecified Qualified Code(s): E78.5 - Hyperlipidemia , unspecified (7) History of pulmonary embolism Priority: Secondary Status: Chronic (8) Depression Priority: Secondary Status: Chronic Qualifiers: Depression Type: major depressive disorder Major depression recurrence: recurrent Active/Remission status: currently active Major depression episode severity: severe Psychotic features: without psychotic features Qualified Code(s): F33.2 - Major depressive disorder, recurrent severe without psychotic features - Discharge Medications Prescriptions: Enoxaparin [Lovenox] 110 mg SQ Q12HR 7 Days Home Medications: Glimepiride [Amaryl] 2 mg PO DAILY 05/15/16 [History] Ranitidine HCl [Acid Police Crime Scene Technician] 150 mg PO DAILY 05/15/16 [History] metFORMIN [Glucophage] 500 mg PO BID 05/15/16 [History] Levothyroxine [Synthroid] 50 mcg PO DAILY 12/29/16 [History] Lisinopril [Zestril] 20 mg PO DAILY 12/29/16 [History] Metoprolol XL (24 HR) Succ [Toprol Xl] 12.5 mg PO DAILY 12/29/16 [History] Enoxaparin [Lovenox] 110 mg SQ Q12HR 7 Days 01/07/17 [Rx] Warfarin [Coumadin] 4 mg PO DAILY@1800 #0 tablet 01/07/17 [Rx] Allergies/Adverse Reactions: Allergies gabapentin [From Neurontin] Allergy (Verified 05/15/16 17:36) Drowsy Date of admission: 12/29/16 00:10 Primary care physician: Oscar Sandoval Jr, MD Consults: 12/29/16 00:19 Consult to Psychiatry [CONS] Routine Consulting Provider: Psychiatry Brittaney Reason for Consult: Suicidal attempt Call Completed: No 12/30/16 10:11 Consult to Speech Therapy [CONS] Stat Comment: Evaluate, develop and implement POC Reason for Consult: Dysphagia Call Completed: No 01/02/17 11:12 Consult to Occupational Therapy [CONS] Routine Comment: Evaluate, develop and implement POC Reason for Consult: patient with Bradley's disease. Significant weakness compared to baseline. Please evaluate Consult to Physical Therapy [CONS] Routine Comment: Evaluate, develop and implement POC Reason for Consult: patient with Lakeland's disease. Significant weakness compared to baseline. Please evaluate 01/03/17 07:50 Consult to Metal Tank Erector [CONS] Routine Reason for SW Consult: needs ecf per therapy Discharging clinician: Michelle Arzate Anticipated date of discharge: 01/07/17 - Patient Status Disposition: Transfer SNF Condition: Fair Functional capacity at discharge: wheelchair bound Overall status at discharge: patient is progressing back to baseline - Discharge Instructions Instructions: Enoxaparin (Injection), Depression (DC) Follow Up With: Oscar Sandoval Jr, MD [Primary Care Provider] - (Patient will follow up with PCP at ECF) Additional Instructions: F/up with Psychiatry in 1-2 weeks for medication management and counseling; - Diet and Activity Activity: as per physical therapy Diet: diabetic diet, low fat, low cholesterol, low salt diet Hospital course: Ms. Corona is a 71 year old female with the above medical problems who was admitted after intentional drug overdose on benzodiazepines. She was noted to have toxic encephalopathy at admission and was monitored closely with supportive care and IV hydration. Telemetry was monitored closely, remained uneventful. She was able to maintain her age vein did not require intubation. Her mental status gradually improved and she began to tolerate oral diet. She did report some dysphagia and underwent bedside swallow evaluation and is currently able to tolerate mechanical soft diet with thin liquids. Her psychotropics and benzodiazepines are currently being held. Psychiatric evaluation was completed and patient is medically stable for discharge with outpatient Psychiatry follow-up for counseling and medication management. Physical and occupational therapy evaluations have been completed and recommend placement in extended care facility. Patient is currently medically stable for discharge. - Time Spent with Patient Total time spent providing and/or coordinating discharge services: Greater than 30 minutes (50 min) - Constitutional Vitals: Temp Pulse Resp BP Pulse Ox 98.3 F 69 18 140/93 97 01/07/17 11:16 01/07/17 11:16 01/07/17 11:16 01/07/17 11:16 01/07/17 11:16 General appearance: Present: A&O X 2, morbidly obese, answers questions appropriately - Respiratory Respiratory exam: Present: CTAB. Absent: accessory muscle use, rales, rhonchi, wheezes - Cardiovascular Cardiovascular exam: Present: RRR, +S1, +S2. Absent: diastolic murmur, gallop, rubs, systolic murmur - VTE Documentation of Mechanical Device: Intermittent pneumatic compression device
--- NOTE | 2017-01-07 14:18 | Physician Discharge Referral ---
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 (4) DM2 (diabetes mellitus, type 2) Priority: Secondary Status: Chronic (5) Hypertension Priority: Secondary Status: Chronic (6) Hyperlipidemia Priority: Secondary Status: Chronic (7) History of pulmonary embolism Priority: Secondary Status: Chronic (8) Depression Priority: Secondary Status: Chronic Expected Duration of Placement: 3 weeks Prognosis: Fair Aware of Diagnosis: Patient - Transfer Medications Prescriptions: Enoxaparin [Lovenox] 110 mg SQ Q12HR 7 Days Home Medications: Glimepiride [Amaryl] 2 mg PO DAILY 05/15/16 [History] Ranitidine HCl [Acid Senior It Specialist] 150 mg PO DAILY 05/15/16 [History] metFORMIN [Glucophage] 500 mg PO BID 05/15/16 [History] Levothyroxine [Synthroid] 50 mcg PO DAILY 12/29/16 [History] Lisinopril [Zestril] 20 mg PO DAILY 12/29/16 [History] Metoprolol XL (24 HR) Succ [Toprol Xl] 12.5 mg PO DAILY 12/29/16 [History] Enoxaparin [Lovenox] 110 mg SQ Q12HR 7 Days 01/07/17 [Rx] Warfarin [Coumadin] 4 mg PO DAILY@1800 #0 tablet 01/07/17 [Rx] Allergies/Adverse Reactions: Allergies gabapentin [From Neurontin] Allergy (Verified 05/15/16 17:36) Drowsy - Respiratory Orders Smoking Cessation: Smoking cessation has been advised. For more information, call the [place] Tobacco Quit Line at 3-748-KNCQ-NOW. - Advance Directives Code Status: Full Code - Mobility Orders Ambulate - Rehabiliation Orders Rehab Orders: ROM Exercises, Evaluation for Physical Therapy, Evaluation for Occupational Therapy - Diet Orders Mechanical Soft, No Concentrated Sweets (diabetic) House Supplement per Dietary: Ensure 1 can TID CERTIFICATION: I certify that the transfer of the above named patient to an Extended Care Facility is necessary for the continuing treatment of the diagnosis listed. The above information is true and accurate reflection of patient's current condition. Confidential - Redisclosure prohibited without a patient's written consent.
[2017-01-07 15:33] VITALS: BP 153/86
[2017-01-07] MEDS: *HR* Warfarin 4 MG TABLET PO SCH (17:32)
[2017-01-07] MEDS ORDERED: Aminoglycoside Consult 1 EACH MC ONE (17:52)
== END 2017-01-07 17:53 | DRG 917 ==
LOC: ICNU 20:44 → EMEROO 20:44 → ICNU 23:43 → SUATTDRO 12-29 00:10 → 2NNU 12-31 01:14 → 2ANU 01-02 11:11
PROVIDERS: ADMIT Internal Medicine; ATTEND Internal Medicine

== ENCOUNTER 2017-07-08 19:55 | Inpatient (IN) ==
--- NOTE | 2017-07-08 20:12 | Emergency Department Note ---
Disposition Clinical Impression: UTI (urinary tract infection) Disposition: Admitted As Inpatient Condition: Good General Adult HPI - General Chief complaint: ED Urogenital-Female Stated complaint: uti Dr. Morrow said needs iv antibiotics Time Seen by Provider: 07/08/17 20:03 Source: patient Limitations: no limitations - History of Present Illness Pain Scale: 0 - Related Data Home Medications Medication Instructions Recorded Confirmed Glimepiride [Amaryl] 2 mg PO DAILY 05/15/16 07/08/17 Ranitidine HCl [Acid Foot Gatherer] 150 mg PO DAILY 05/15/16 07/08/17 metFORMIN [Glucophage] 500 mg PO BID 05/15/16 07/08/17 Levothyroxine [Synthroid] 50 mcg PO DAILY 12/29/16 07/08/17 Lisinopril [Zestril] 20 mg PO DAILY 12/29/16 07/08/17 Metoprolol XL (24 HR) Succ [Toprol 12.5 mg PO DAILY 12/29/16 07/08/17 Xl] Omeprazole [PriLOSEC] 40 mg PO DAILY 07/08/17 07/08/17 Sertraline [Zoloft] 100 mg PO BID 07/08/17 07/08/17 Warfarin [Coumadin] 2.5 mg PO SUSA 07/08/17 07/08/17 Warfarin [Coumadin] 5 mg PO MOTUWETHFR 07/08/17 07/08/17 clonazePAM [Klonopin] 0.5 mg PO BID 07/08/17 07/08/17 Allergies Allergy/AdvReac Type Severity Reaction Status Date / Time gabapentin [From Neurontin] Allergy Drowsy Verified 05/15/16 17:36 Past Medical History - Past Medical History Medical history: Reports: diabetes, hyperlipidemia, hypertension, pulmonary embolus, other Surgical history: Reports: cholecystectomy, hysterectomy, other Psychiatric history: Reports: anxiety, depression - Social History Smoking Status: Never smoker Smokeless Tobacco Status: No Alcohol use: Reports: none Drug use: Reports: none Physical Exam - General Limitations: no limitations General appearance: alert, in no apparent distress Course Vital Signs Temperature 98.9 F 07/08/17 19:59 Pulse Rate 85 07/08/17 19:59 Respiratory Rate 16 07/08/17 19:59 Blood Pressure 197/111 07/08/17 19:59 O2 Sat by Pulse Oximetry 95 07/08/17 19:59 Temperature 99.2 F 07/09/17 20:12 Pulse Rate 95 07/09/17 20:12 Respiratory Rate 17 07/09/17 20:12 Blood Pressure 130/68 07/09/17 20:12 O2 Sat by Pulse Oximetry 95 07/09/17 20:12 Oxygen Delivery Oxygen Delivery Room Air Medical Decision Making - Lab Data Result diagrams: 07/09/17 00:14 07/09/17 00:14 Lab Results 07/08/17 07/08/17 Range/Units 21:06 21:06 WBC 8.5 (4.3-11.1) K/mcL RBC 4.02 (3.82-4.97) M/mcL Hgb 11.0 L (11.5-15.4) g/dL Hct 35.2 L (35.3-44.9) % MCV 87.6 (83.0-100.0) fL MCH 27.4 L (28.0-33.3) pg MCHC 31.3 L (31.6-35.5) g/dL RDW 14.4 (11.5-14.5) % Plt Count 219 (140-400) K/mcL MPV 9.8 (9.4-12.4) fL Immature Gran % 0.2 (0-4) % Seg Neutrophils % 71.0 % Lymphocytes % 20.8 % Monocytes % 4.0 % Eosinophils % 3.2 % Basophils % 0.8 % Neutrophils # 6.0 (1.6-8.9) K/mcL Lymphocytes # 1.8 (0.6-4.6) K/mcL Monocytes # 0.3 (0.0-1.3) K/mcL Eosinophils # 0.3 (0.0-0.6) K/mcL Basophils # 0.1 (0.0-0.2) K/mcL Sodium 144 (136-145) mEq/L Potassium 3.8 (3.5-4.5) mEq/L Chloride 108 (98-109) mEq/L Carbon Dioxide 27 (19-29) mEq/L BUN 12 (7-20) mg/dL Creatinine 0.93 (0.57-1.11) mg/dL Est GFR ( Amer) > 60 (> 60) Est GFR (Non-Af Amer) 60 (> 60) BUN/Creatinine Ratio 13 (6-26) Glucose 101 H (70-99) mg/dL Calculated Osmolality 298 (280-300) Calcium 8.7 (8.6-10.8) mg/dL Attestation Statement - Attestation Attestation: I examined this patient and my medical decision-making was reviewed with the Resident Physician. I agree with the documented findings, disposition and treatment plan as described except to the extent set forth below. [id number] time provided Patient was sent to the ED at the recommendation of her primary care provider due to a urine culture that was resulted with no sensitivities. She was advised to come to the ER for parenteral antibiotics. Urinalysis and culture with sensitivities not available at the time of her arrival. Call placed to her primary care provider to obtain additional information
--- NOTE | 2017-07-08 20:23 | Emergency Department Note ---
Disposition Clinical Impression: UTI (urinary tract infection) Qualifiers: Urinary tract infection type: acute cystitis Hematuria presence: without hematuria Qualified Code(s): N39.0 - Urinary tract infection, site not specified Disposition: Admitted As Inpatient Condition: Good Time of Disposition: 20:29 General Adult HPI - General Chief complaint: ED Urogenital-Female Stated complaint: uti Dr. Morrow said needs iv antibiotics Time Seen by Provider: 07/08/17 20:03 Source: patient, family Limitations: no limitations Nursing Notes Reviewed: Yes Vital Signs Reviewed: Yes - History of Present Illness HPI Narrative: 71-year-old female history of Mathews's disease presents to the ED for concern of urinary tract infection. For the past several weeks patient has been complaining of dysuria. She has a history of frequent UTIs as she is incontinent and wears a depends. Denies any recent hospitalization or catheterization. She had a urinalysis performed 1210 and cultures I came back with sensitivities resistant to multiple drugs. Her primary care physician is Dr. Oscar Sandoval. She denies any fever, nausea, vomiting, abdominal pain. She is not on any antibiotics at this time. She was sent here for IV antibiotics as she has developed resistance to multiple medications. We spoke to her primary care physician and received a fax of the culture insensitivities which grew out >100,000 CFU/mL for Proteus mirabilis. Sensitive to Ertapenem, Iminpenem, Zosyn, and Tobramycin. Patient does not have allergy to penicillin will placed on Zosyn at this time. Will get basic labs. Pain Scale: 0 - Related Data Home Medications Medication Instructions Recorded Confirmed Glimepiride [Amaryl] 2 mg PO DAILY 05/15/16 07/08/17 Ranitidine HCl [Acid Cognos Lead] 150 mg PO DAILY 05/15/16 07/08/17 metFORMIN [Glucophage] 500 mg PO BID 05/15/16 07/08/17 Levothyroxine [Synthroid] 50 mcg PO DAILY 12/29/16 07/08/17 Lisinopril [Zestril] 20 mg PO DAILY 12/29/16 07/08/17 Metoprolol XL (24 HR) Succ [Toprol 12.5 mg PO DAILY 12/29/16 07/08/17 Xl] Omeprazole [PriLOSEC] 40 mg PO DAILY 07/08/17 07/08/17 Sertraline [Zoloft] 100 mg PO BID 07/08/17 07/08/17 Warfarin [Coumadin] 2.5 mg PO SUSA 07/08/17 07/08/17 Warfarin [Coumadin] 5 mg PO MOTUWETHFR 07/08/17 07/08/17 clonazePAM [Klonopin] 0.5 mg PO BID 07/08/17 07/08/17 Allergies Allergy/AdvReac Type Severity Reaction Status Date / Time gabapentin [From Neurontin] Allergy Drowsy Verified 05/15/16 17:36 All systems ED: reviewed and negative except as stated. Review of Systems: As Per HPI Constitutional: Denies: fever, chills Cardiovascular: Denies: chest pain Respiratory: Denies: cough, dyspnea Gastrointestinal: Denies: abdominal pain, nausea, vomiting Genitourinary: Reports: dysuria Musculoskeletal: Denies: back pain, neck pain Integumentary: Denies: rash, abrasion Neurological: Denies: headache Past Medical History - Past Medical History Attestation: Yes The following information was validated with the patient. Source: patient Medical history: Reports: diabetes, hyperlipidemia, hypertension, pulmonary embolus, other Surgical history: Reports: cholecystectomy, hysterectomy, other Psychiatric history: Reports: anxiety, depression - Social History Smoking Status: Never smoker Smokeless Tobacco Status: No Alcohol use: Reports: none Drug use: Reports: none Physical Exam - General Limitations: no limitations General appearance: alert, in no apparent distress, obese - Head Head exam: atraumatic, normocephalic, normal inspection - Eye Eye exam: Present: normal appearance, PERRL, EOMI. Absent: scleral icterus - ENT ENT exam: normal exam, normal oropharynx, mucous membranes moist - Neck Neck exam: Present: normal inspection, full ROM, trachea midline - Chest Chest inspection: Present: normal inspection, symmetric chest wall rise. Absent : tenderness - Respiratory Respiratory exam: Present: normal lung sounds bilaterally. Absent: respiratory distress, wheezes - Cardiovascular Cardiovascular exam: Present: regular rate, normal rhythm, normal heart sounds - Abdominal Exam Abdominal exam: Present: soft, Non-Tender, normal bowel sounds. Absent: tenderness, distention, guarding, rebound, rigidity - Extremities Exam Extremities exam: Present: normal inspection, full ROM. Absent: tenderness, pedal edema - Back Exam Back exam: Present: normal inspection, full ROM. Absent: tenderness, CVA tenderness (R), CVA tenderness (L) - Neurological Exam Neurological exam: Present: alert, oriented X3 - Skin Skin exam: Present: warm, dry, intact, normal color Course Course Narrative: Patient presents for history of frequent urinary tract infection and now has a urinary tract infection positive for Proteus mirabilis with sensitivities only to Ertapenem (<0.5), Imipenem (1), Zosyn (<4), Tobramycin (4). Patients afebrile here. Her blood pressure is elevated. She denies any other complaints. Look place peripheral IV and placed her on Zosyn for antibiotic coverage of her urinary tract infection. She is not septic appearing. Will obtain CBC and BMP. Patient would be admitted for urinary tract infection. Her blood pressure if elevated but denies any end organ damage such as BEBA, chest pain, headache. No need for aggressive blood pressure reduction at this time. Recheck of BP 161/95 - Consultations Consultation #1: Spoke with on-call hospitalist ismael Velasco to admit for UTI with multi- resistance. No further orders at this time Vital Signs Temperature 98.9 F 07/08/17 19:59 Pulse Rate 85 07/08/17 19:59 Respiratory Rate 16 07/08/17 19:59 Blood Pressure 197/111 07/08/17 19:59 O2 Sat by Pulse Oximetry 95 07/08/17 19:59 Temperature 97.8 F 07/08/17 23:16 Pulse Rate 71 07/08/17 23:16 Respiratory Rate 16 07/08/17 23:16 Blood Pressure 153/78 07/08/17 23:16 O2 Sat by Pulse Oximetry 93 07/08/17 23:16 Oxygen Delivery Oxygen Delivery Room Air Medical Decision Making - MDM Narrative Medical decision making narrative: Patient was discussed with my attending physician who agrees with ED management and final disposition. They independently evaluated the patient. Please refer to their attestation to this encounter for additional information. This note was generated by [employer] voice recognition software and as a result grammatical or spelling errors may occur using this program. - Medical Records Medical records reviewed: Yes I reviewed the patient's medical records. - Lab Data Lab results reviewed: Yes I reviewed the patient's lab results. Result diagrams: 07/08/17 21:06 07/08/17 21:06 Lab Results 07/08/17 07/08/17 Range/Units 21:06 21:06 WBC 8.5 (4.3-11.1) K/mcL RBC 4.02 (3.82-4.97) M/mcL Hgb 11.0 L (11.5-15.4) g/dL Hct 35.2 L (35.3-44.9) % MCV 87.6 (83.0-100.0) fL MCH 27.4 L (28.0-33.3) pg MCHC 31.3 L (31.6-35.5) g/dL RDW 14.4 (11.5-14.5) % Plt Count 219 (140-400) K/mcL MPV 9.8 (9.4-12.4) fL Immature Gran % 0.2 (0-4) % Seg Neutrophils % 71.0 % Lymphocytes % 20.8 % Monocytes % 4.0 % Eosinophils % 3.2 % Basophils % 0.8 % Neutrophils # 6.0 (1.6-8.9) K/mcL Lymphocytes # 1.8 (0.6-4.6) K/mcL Monocytes # 0.3 (0.0-1.3) K/mcL Eosinophils # 0.3 (0.0-0.6) K/mcL Basophils # 0.1 (0.0-0.2) K/mcL Sodium 144 (136-145) mEq/L Potassium 3.8 (3.5-4.5) mEq/L Chloride 108 (98-109) mEq/L Carbon Dioxide 27 (19-29) mEq/L BUN 12 (7-20) mg/dL Creatinine 0.93 (0.57-1.11) mg/dL Est GFR ( Amer) > 60 (> 60) Est GFR (Non-Af Amer) 60 (> 60) BUN/Creatinine Ratio 13 (6-26) Glucose 101 H (70-99) mg/dL Calculated Osmolality 298 (280-300) Calcium 8.7 (8.6-10.8) mg/dL
[2017-07-08] MEDS ORDERED: Piperacillin/Tazobactam 3.375 GM in Water for inj. (sterile) 20 ML IVP ONE (20:39)
[2017-07-08 21:15] LABS: Basophils # 0.1 K/mcL (0.0-0.2); Basophils % 0.8 %; Eosinophils # 0.3 K/mcL (0.0-0.6); Eosinophils % 3.2 %; Hematocrit 35.2 % (35.3-44.9); Immature Granulocytes % 0.2 % (0-4); Lymphocytes # 1.8 K/mcL (0.6-4.6); Lymphocytes % 20.8 %; Mean Corpuscular HGB Conc 31.3 g/dL (31.6-35.5); Mean Corpuscular Hemoglobin 27.4 pg (28.0-33.3); Mean Corpuscular Volume 87.6 fL (83.0-100.0); Mean Platelet Volume 9.8 fL (9.4-12.4); Monocytes # 0.3 K/mcL (0.0-1.3); Platelet Count 219 K/mcL (140-400); Red Blood Count 4.02 M/mcL (3.82-4.97); Red Cell Distribution Width 14.4 % (11.5-14.5)
[2017-07-08 21:28] LABS: BUN/Creatinine Ratio 13 (6-26); Blood Urea Nitrogen 12 mg/dL (7-20); Calcium 8.7 mg/dL (8.6-10.8); Carbon Dioxide 27 mEq/L (19-29); Chloride 108 mEq/L (98-109); Glucose 101 mg/dL (70-99); Osmolality,Calculated 298 (280-300); Potassium 3.8 mEq/L (3.5-4.5); Sodium 144 mEq/L (136-145); eGFR For African Americans > 60 (> 60); eGFR For Non-African Americans 60 (> 60)
[2017-07-08] MEDS ORDERED: Naloxone 0.4 MG/ML INJ IVP PRN (23:01)
--- NOTE | 2017-07-08 23:18 | Internal Med History&Physical ---
Date of Encounter: 07/08/17 Time of Encounter: 23:10 Assessment and Plan (1) UTI (urinary tract infection) Current visit: Yes Status: Acute IV zosyn for MDR proteus suspect cystitis send blood cx - as requested by dtr trend labs Qualifiers: Urinary tract infection type: acute cystitis Hematuria presence: without hematuria Qualified Code(s): N39.0 - Urinary tract infection, site not specified (2) History of pulmonary embolism Current visit: No Status: Acute on coumadin, trend INR (3) DM2 (diabetes mellitus, type 2) Current visit: No Status: Chronic continue meds Qualifiers: Diabetes mellitus complication status: without complication Diabetes mellitus fdc insulin use: without fdc use Qualified Code(s): E11.9 - Type 2 diabetes mellitus without complications (4) Cowley's disease Current visit: No Status: Chronic chronic medical condition. Dx 19-20 years ago Internal Medicine - H&P: HPI Chief complaint: UTI symptoms History of present illness: Ms. Corona is a 71 year old female with Bradley disease and frequent UTI who is admitted for MDR UTI. At baseline, she uses a walker with chronic LE weakness. She also has urinary incontinence at uses a pad - reported from bladder prolapse. She has a hx of PE and is on chronic coumadin. She has a hx of frequent UTI She presents with a few days hx of LUTs symptoms with dysuria, increased frequency that did not get better with time, but got worse. She was managed outpatient by PC Dr Sandoval where urine cx was performed by PCP noting Proteus mirabilis - MDR that is sensitive to only zosyn, tobra, carbapenems. With this result, she was advised by PCP to present to the hospital for inpatient management of UTI. Past Med Surg Social Fam HX - Past Medical History Medical history: diabetes, hyperlipidemia, hypertension, pulmonary embolus, other Psychiatric history: anxiety, depression - Past Surgical History Surgical History: cholecystectomy, hysterectomy, other - Social History Smoking Status: Never smoker Smokeless Tobacco Status: No Alcohol use: none Drug use: none - Family History Father Living Status: Hx Family Cardiac Disorders: Yes (HTN) Hx Family Respiratory Disorders: Yes (Emphysema) Mother Adopted: No Family Member Ethnicity: Non- Living Status: Hx Family Cardiac Disorders: No Hx Family Respiratory Disorders: No Hx Family Cancer: No Hx Family GI Disorders: No Hx Family Endocrine Disorder: No Hx Family Neuromuscular Disorders: Yes (Daryn's dx) Internal Medicine - H&P: Meds Glimepiride [Amaryl] 2 mg PO DAILY 05/15/16 [History] Ranitidine HCl [Acid Car Scrubber] 150 mg PO DAILY 05/15/16 [History] metFORMIN [Glucophage] 500 mg PO BID 05/15/16 [History] Levothyroxine [Synthroid] 50 mcg PO DAILY 12/29/16 [History] Lisinopril [Zestril] 20 mg PO DAILY 12/29/16 [History] Metoprolol XL (24 HR) Succ [Toprol Xl] 12.5 mg PO DAILY 12/29/16 [History] Omeprazole [PriLOSEC] 40 mg PO DAILY 07/08/17 [History] Sertraline [Zoloft] 100 mg PO BID 07/08/17 [History] Warfarin [Coumadin] 2.5 mg PO SUSA 07/08/17 [History] Warfarin [Coumadin] 5 mg PO MOTUWETHFR 07/08/17 [History] clonazePAM [Klonopin] 0.5 mg PO BID 07/08/17 [History] 3 Allergy/AdvReac Type Severity Reaction Status Date / Time gabapentin [From Neurontin] Allergy Drowsy Verified 05/15/16 17:36 All Systems PM: A 10-system review of systems was performed and is negative for pertinent findings except as documented above in the HPI. Review of systems: ROS 14 point review of systems reviewed as best as possible given presentation. Pertinent positive or negative as per HPI or otherwise reviewed as negative - Constitutional Vitals: Temp Pulse Resp BP Pulse Ox 98.9 F 72 16 176/90 97 07/08/17 19:59 07/08/17 22:01 07/08/17 22:57 07/08/17 22:57 07/08/17 22:01 Exam: General - AAO x 3 Psych - Appropriate affect/speech. No agitation Eyes - SIDNEY. Eye lids intact. No scleral icterus Heart - Sinus. RRR. S1 and S2 present. No added HS/murmurs appreciated. No elevated JVD appreciated. Lung - Adequate air entry b/l, No crackles/wheezes appreciated GI - Soft, non-tender. No hepatosplenomegaly/ascites. BS+ - No CVA/suprapubic tenderness or palpable bladder distension Skin - Intact. No rash/petechiae/ecchymosis. Warm extremities Internal Med - H&P Results - Labs CBC & Chem 7: 07/08/17 21:06 07/08/17 21:06
[2017-07-09 00:22] LABS: Basophils # 0.1 K/mcL (0.0-0.2); Basophils % 0.5 %; Eosinophils # 0.3 K/mcL (0.0-0.6); Eosinophils % 2.7 %; Hematocrit 36.5 % (35.3-44.9); Hemoglobin 11.3 g/dL (11.5-15.4); Immature Granulocytes % 0.3 % (0-4); Lymphocytes # 2.3 K/mcL (0.6-4.6); Lymphocytes % 22.5 %; Mean Corpuscular Hemoglobin 27.4 pg (28.0-33.3); Mean Corpuscular Volume 88.4 fL (83.0-100.0); Mean Platelet Volume 9.8 fL (9.4-12.4); Monocytes # 0.4 K/mcL (0.0-1.3); Monocytes % 4.3 %; Neutrophils # 7.2 K/mcL (1.6-8.9); Platelet Count 251 K/mcL (140-400); Red Blood Count 4.13 M/mcL (3.82-4.97); Red Cell Distribution Width 14.3 % (11.5-14.5); Segmented Neutrophils % 69.7 %
[2017-07-09 00:28] LABS: INR 2.3; Prothrombin Time 25.4 Seconds (9.4-12.1)
[2017-07-09 00:34] LABS: BUN/Creatinine Ratio 12 (6-26); Blood Urea Nitrogen 12 mg/dL (7-20); Calcium 9.1 mg/dL (8.6-10.8); Carbon Dioxide 28 mEq/L (19-29); Chloride 107 mEq/L (98-109); Glucose 91 mg/dL (70-99); Osmolality,Calculated 297 (280-300); Potassium 3.8 mEq/L (3.5-4.5); Sodium 144 mEq/L (136-145); eGFR For African Americans > 60 (> 60); eGFR For Non-African Americans 56 (> 60)
[2017-07-09] MEDS: Piperacillin/Tazobactam 3.375 GM/200 ML BAG IVPB SCH ×3 (06:06→22:08)
--- NOTE | 2017-07-09 08:39 | Internal Med Progress Note ---
<Hermann Givens - Last Filed: 07/09/17 10:27> Date of Encounter: 07/09/17 Time of Encounter: 08:38 - Assessment and plan (1) UTI (urinary tract infection) Current Visit: Yes Status: Acute Assessment and plan: 71-year-old female 3 current urinary tract infections at admitted from her PCP office with Proteus Drea's of multidrug resistant sensitivities. Current UTI was only sensitive to IV drugs including Zosyn for which she is currently on and tolerating. - Patient states she has had penicillin medications in the past and that her abdominal itching started prior to starting this medication. 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 Diagnoses 19-20 years ago. (3) DM2 (diabetes mellitus, type 2) Current Visit: No Status: Chronic Assessment and plan: Known type II diabetics he takes metformin and Amaryl at home. Plan: - Hold home medications - Start low-dose inpatient sliding scale - Before meals at bedtime glucose checks Qualifiers: Diabetes mellitus complication status: without complication Diabetes mellitus senior living insulin use: without terminal press operator use Qualified Code(s): E11.9 - Type 2 diabetes mellitus without complications (4) Hypertension Current Visit: No Status: Chronic Assessment and plan: Patient is a known history of hypertension for which she takes lisinopril and metoprolol XL at home. Blood pressure 100/60 with's morning - Hold lisinopril - Continue metoprolol XL 12.5 mg Qualifiers: Hypertension type: essential hypertension Qualified Code(s): I10 - Essential (primary) hypertension (5) Hyperlipidemia Current Visit: No Status: Chronic Qualifiers: Hyperlipidemia type: unspecified Qualified Code(s): E78.5 - Hyperlipidemia , unspecified (6) Atrial fibrillation Current Visit: Yes Status: Acute Assessment and plan: Known history of atrial fibrillation, currently rate controlled on metoprolol XL 12.5 mg by mouth daily continue warfarin with current INR 2.3 therapeutic. Plan: - Continue cardiac monitoring - Continue warfarin with an INR goal of 2-3 - Continue metoprolol XL 12.5 mg daily Qualifiers: Qualified Code(s): I48.91 - Unspecified atrial fibrillation (7) DVT prophylaxis Current Visit: Yes Status: Acute Assessment and plan: Patient is therapeutic on warfarin - Subjective Interval history: Mrs. 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 She is alert awake interactive in no acute distress. She denies any diaphoresis, headaches, blurry vision, chest pain, palpitations, shortness of breath, abdominal pains, nausea vomiting diarrhea constipation or suprapubic discomfort. She denies any current burning with urination. She does have a complaint of skin itching on her abdominal wall but has not noticed any rashes or any other recent changes or new contacts. - Constitutional Vitals: Temp Pulse Resp BP Pulse Ox 98.3 F 68 15 100/60 94 07/09/17 06:57 07/09/17 06:57 07/09/17 06:57 07/09/17 06:57 07/09/17 06:57 - Head Head exam: Present: atraumatic, normocephalic - Eye Eye exam: Present: PERRL, conjuntiva pink, sclera anicteric Pupils: Present: PERRL - Neck Neck exam general surgery: Present: supple, trachea midline. Absent: lymphadenopathy - Respiratory Respiratory exam: Present: CTAB. Absent: accessory muscle use, rales, rhonchi, wheezes - Cardiovascular Cardiovascular exam: Present: RRR, +S1, +S2. Absent: diastolic murmur, gallop, rubs, systolic murmur - GI/Abdominal GI/Abdominal exam: Present: normal bowel sounds, soft, no peritoneal signs. Absent: distended, tenderness - Extremities Exam Extremities exam: Present: warm, radial pulses palpable and symmetrical. Absent : calf tenderness, cyanotic, pedal edema - Neurological Exam Neurological exam: Present: alert, oriented X3, no focal deficits. Absent: pronater drift, facial droop, speech deficit Additional comments: Patient has repetitive motion with her jaw and lips.. - Skin Skin exam: Present: dry, intact Internal Medicine: Result - Labs CBC & Chem 7: 07/09/17 00:14 07/09/17 00:14 Labs: Short CBC 07/09/17 Range/Units 00:14 WBC 10.3 (4.3-11.1) K/mcL Hgb 11.3 L (11.5-15.4) g/dL Hct 36.5 (35.3-44.9) % Plt Count 251 (140-400) K/mcL Neutrophils # 7.2 (1.6-8.9) K/mcL BMP 07/09/17 00:14 Sodium 144 Potassium 3.8 Chloride 107 Carbon Dioxide 28 BUN 12 Creatinine 0.98 Glucose 91 Calcium 9.1 - ABG Interpretation ABG results: PT/INR, D-dimer PT 25.4 Seconds (9.4-12.1) H 07/09/17 00:14 Consult Discharge Plan - Plan Referrals: Oscar Sandoval Jr, MD [Primary Care Provider] - <Gomez Claire - Last Filed: 07/09/17 17:48> Date of Encounter: 07/09/17 - Assessment and plan (1) UTI (urinary tract infection) Current Visit: Yes Status: Acute Qualifiers: Urinary tract infection type: acute cystitis Hematuria presence: without hematuria Qualified Code(s): N30.00 - Acute cystitis without hematuria (2) MDRO (multiple drug resistant organisms) resistance Current Visit: Yes Status: Acute (3) Hypertension Current Visit: No Status: Chronic Qualifiers: Hypertension type: essential hypertension Qualified Code(s): I10 - Essential (primary) hypertension (4) Hyperlipidemia Current Visit: No Status: Chronic Qualifiers: Hyperlipidemia type: mixed hyperlipidemia Qualified Code(s): E78.2 - Mixed hyperlipidemia (5) [place]'s disease Current Visit: No Status: Chronic (6) Atrial fibrillation Current Visit: Yes Status: Acute Qualifiers: Atrial fibrillation type: chronic Qualified Code(s): I48.2 - Chronic atrial fibrillation (7) DM2 (diabetes mellitus, type 2) Current Visit: No Status: Chronic Qualifiers: Diabetes mellitus complication status: without complication Diabetes mellitus senior living insulin use: without terminal press operator use Qualified Code(s): E11.9 - Type 2 diabetes mellitus without complications - Constitutional Vitals: Temp Pulse Resp BP Pulse Ox 98.7 F 60 18 152/83 97 07/09/17 15:19 07/09/17 15:19 07/09/17 15:19 07/09/17 15:19 07/09/17 15:19 Internal Medicine: Result - Labs CBC & Chem 7: 07/09/17 00:14 07/09/17 00:14 Labs: Short CBC 07/09/17 Range/Units 00:14 WBC 10.3 (4.3-11.1) K/mcL Hgb 11.3 L (11.5-15.4) g/dL Hct 36.5 (35.3-44.9) % Plt Count 251 (140-400) K/mcL Neutrophils # 7.2 (1.6-8.9) K/mcL BMP 07/09/17 00:14 Sodium 144 Potassium 3.8 Chloride 107 Carbon Dioxide 28 BUN 12 Creatinine 0.98 Glucose 91 Calcium 9.1 - ABG Interpretation ABG results: PT/INR, D-dimer PT 25.4 Seconds (9.4-12.1) H 07/09/17 00:14 - Attending Attestation I examined this patient and my medical decision-making was reviewed with the Resident Physician on 07/09/17. I agree with the documented findings, disposition and treatment plan as described except to the extent set forth below. Ms Corona is currently admitted for UTI with MDR Proteus. She remains moderate to high risk due to potential for worsening clinical status due to resistance of organism. Ms Corona feels OK. No fever or chills. Tolerating IV abx. No CP or SOB. Some dysuria as well. Exam Alert. Comfortable Mucus membranes dry Heart reg No wheeze Abd soft I/P 1. MDR Proteus UTI - currently on Zosyn. Will get copy of culture. ? able to d/c home with IV abx 2. [place] disease Further diagnoses and plan as above.
[2017-07-09] MEDS ORDERED: D5% in Water 1,000 ML IVC PRN (08:49)
[2017-07-09] MEDS ORDERED: Dextrose Gel 15 GM PO PRN ×2 (08:49)
[2017-07-09] MEDS ORDERED: *HR* Dextrose 50 % in Water (Syg) 50 ML SYRINGE IVP PRN (08:49)
[2017-07-09] MEDS ORDERED: *HR* Metformin 500 MG TABLET PO SCH (09:00)
[2017-07-09] MEDS ORDERED: *HR* Glimepiride 4 MG TABLET PO SCH (09:00)
[2017-07-09] MEDS: Famotidine 20 MG TABLET PO SCH (09:08)
[2017-07-09] MEDS: Metoprolol XL (24 HR) Succ 25 MG TAB.ER.24H PO SCH (09:08)
[2017-07-09] MEDS: clonazePAM 0.5 MG TABLET PO SCH ×2 (09:08→21:05)
[2017-07-09] MEDS: Insulin LISPRO 300 UNITS/3 ML VIAL SQ SCH ×3 (11:48→20:02)
[2017-07-09] MEDS ORDERED: *HR* Warfarin 5 MG TABLET PO SCH (18:00)
[2017-07-10] MEDS: traZODone 50 MG TABLET PO PRN ×2 (01:08→22:06)
[2017-07-10 05:39] LABS: INR 2.3; Prothrombin Time 24.8 Seconds (9.4-12.1)
[2017-07-10 05:47] LABS: Alanine Aminotransferase 10 Units/L (0-55); Albumin 2.8 g/dL (3.5-5.0); Albumin/Globulin Ratio 0.9 (1.1-2.2); Alkaline Phosphatase 58 Units/L (38-126); Aspartate Amino Transferase 11 Units/L (5-34); BUN/Creatinine Ratio 14 (6-26); Bilirubin,Total 0.4 mg/dL (0.2-1.2); Blood Urea Nitrogen 13 mg/dL (7-20); Calcium 8.1 mg/dL (8.6-10.8); Carbon Dioxide 28 mEq/L (19-29); Chloride 109 mEq/L (98-109); Globulin 3.2 g/dL (2.4-3.5); Glucose 107 mg/dL (70-99); Magnesium 1.8 mg/dL (1.6-2.6); Osmolality,Calculated 299 (280-300); Sodium 144 mEq/L (136-145); eGFR For African Americans > 60 (> 60); eGFR For Non-African Americans 60 (> 60)
[2017-07-10] MEDS: Piperacillin/Tazobactam 3.375 GM/200 ML BAG IVPB SCH ×3 (05:53→22:07)
[2017-07-10 06:10] LABS: Basophils # 0.1 K/mcL (0.0-0.2); Basophils % 0.7 %; Eosinophils # 0.2 K/mcL (0.0-0.6); Eosinophils % 3.4 %; Hematocrit 33.2 % (35.3-44.9); Hemoglobin 10.1 g/dL (11.5-15.4); Immature Granulocytes % 0.1 % (0-4); Lymphocytes # 1.8 K/mcL (0.6-4.6); Lymphocytes % 25.1 %; Mean Corpuscular HGB Conc 30.4 g/dL (31.6-35.5); Mean Corpuscular Hemoglobin 27.1 pg (28.0-33.3); Mean Platelet Volume 9.9 fL (9.4-12.4); Monocytes # 0.4 K/mcL (0.0-1.3); Monocytes % 5.4 %; Neutrophils # 4.6 K/mcL (1.6-8.9); Platelet Count 188 K/mcL (140-400); Red Blood Count 3.73 M/mcL (3.82-4.97); Red Cell Distribution Width 14.5 % (11.5-14.5); Segmented Neutrophils % 65.3 %
[2017-07-10] MEDS: Insulin LISPRO 300 UNITS/3 ML VIAL SQ SCH ×4 (08:05→22:07)
[2017-07-10] MEDS: Lisinopril 20 MG TABLET PO SCH (09:06)
[2017-07-10] MEDS: clonazePAM 0.5 MG TABLET PO SCH ×2 (09:06→22:06)
[2017-07-10] MEDS: Famotidine 20 MG TABLET PO SCH (09:06)
[2017-07-10] MEDS: Metoprolol XL (24 HR) Succ 25 MG TAB.ER.24H PO SCH (09:07)
[2017-07-10] MEDS ORDERED: Lidocaine -MPF 1% 5 ML AMPUL INFILT ONE (14:28)
--- NOTE | 2017-07-10 15:04 | Internal Med Progress Note ---
<Hermann Givens - Last Filed: 07/10/17 15:33> Date of Encounter: 07/10/17 Time of Encounter: 07:30 - Assessment and plan (1) UTI (urinary tract infection) Current Visit: Yes Status: Acute Assessment and plan: 71-year-old female 3 current urinary tract infections at admitted from her PCP office with Proteus Mirabilis of multidrug resistant sensitivities. Current UTI was only sensitive to IV drugs including Zosyn for which she is currently on and tolerating. 07/10: Urinalysis and sensitivities reviewed. Patient has power glide, start Ertapenem Plan: - Patient will be discharged with IV Ertapenem - Currently on Zosyn inpatient. Qualifiers: Urinary tract infection type: acute cystitis Hematuria presence: without hematuria Qualified Code(s): N30.00 - Acute cystitis without hematuria (2) [place]'s disease Current Visit: No Status: Chronic Assessment and plan: Chronic medical history. Diagnoses 19-20 years ago. (3) DM2 (diabetes mellitus, type 2) Current Visit: No Status: Chronic Assessment and plan: Known type II diabetics he takes metformin and Amaryl at home. Plan: - Hold home medications - Continue low-dose inpatient sliding scale - Before meals at bedtime glucose checks Qualifiers: Diabetes mellitus complication status: without complication Diabetes mellitus termite control technician insulin use: without fpc use Qualified Code(s): E11.9 - Type 2 diabetes mellitus without complications (4) Hypertension Current Visit: No Status: Chronic Assessment and plan: Patient is a known history of hypertension for which she takes lisinopril and metoprolol XL at home. Blood pressure stable - Continue lisinopril - Continue metoprolol XL 12.5 mg Qualifiers: Hypertension type: essential hypertension Qualified Code(s): I10 - Essential (primary) hypertension (5) Hyperlipidemia Current Visit: No Status: Chronic Assessment and plan: chronic. Qualifiers: Hyperlipidemia type: mixed hyperlipidemia Qualified Code(s): E78.2 - Mixed hyperlipidemia (6) Atrial fibrillation Current Visit: Yes Status: Acute Assessment and plan: Known history of atrial fibrillation, currently rate controlled on metoprolol XL 12.5 mg by mouth daily continue warfarin with current INR 2.3 therapeutic. Plan: - Continue cardiac monitoring - Continue warfarin with an INR goal of 2-3 - Continue metoprolol XL 12.5 mg daily Qualifiers: Atrial fibrillation type: chronic Qualified Code(s): I48.2 - Chronic atrial fibrillation (7) DVT prophylaxis Current Visit: Yes Status: Acute Assessment and plan: Patient is therapeutic on warfarin - Subjective Interval history: Mrs. Candelaria 71-year-old female with known [place]'s disease and current admission for MDR urinary tract infection, CVA evaluated at patient's bedside this morning. She is alert awake interactive in no acute distress. She slept well over night and has no current complaints. She denies any fevers, chills, diaphoresis. - Constitutional Vitals: Temp Pulse Resp BP Pulse Ox 98.4 F 98 16 129/78 97 07/10/17 09:49 07/10/17 09:49 07/10/17 09:49 07/10/17 09:49 07/10/17 09:49 - Head Head exam: Present: atraumatic, normocephalic - Eye Eye exam: Present: PERRL, conjuntiva pink, sclera anicteric Pupils: Present: PERRL - Neck Neck exam general surgery: Present: supple, trachea midline. Absent: lymphadenopathy - Respiratory Respiratory exam: Present: CTAB. Absent: accessory muscle use, rales, rhonchi, wheezes - Cardiovascular Cardiovascular exam: Present: RRR, +S1, +S2. Absent: diastolic murmur, gallop, rubs, systolic murmur - GI/Abdominal GI/Abdominal exam: Present: normal bowel sounds, soft, no peritoneal signs. Absent: distended, tenderness - Extremities Exam Extremities exam: Present: warm, radial pulses palpable and symmetrical. Absent : calf tenderness, cyanotic, pedal edema - Neurological Exam Neurological exam: Present: alert, oriented X3, no focal deficits. Absent: pronater drift, facial droop, speech deficit Additional comments: Patient has repetitive motion with her jaw and lips - Skin Skin exam: Present: dry, intact Internal Medicine: Result - Labs CBC & Chem 7: 07/10/17 05:22 07/10/17 05:22 Labs: Short CBC 07/10/17 Range/Units 05:22 WBC 7.1 (4.3-11.1) K/mcL Hgb 10.1 L (11.5-15.4) g/dL Hct 33.2 L (35.3-44.9) % Plt Count 188 (140-400) K/mcL Neutrophils # 4.6 (1.6-8.9) K/mcL BMP 07/10/17 05:22 Sodium 144 Potassium 4.0 Chloride 109 Carbon Dioxide 28 BUN 13 Creatinine 0.93 Glucose 107 H Calcium 8.1 L Liver Function 07/10/17 Range/Units 05:22 Total Bilirubin 0.4 (0.2-1.2) mg/dL AST 11 (5-34) Units/L ALT 10 (0-55) Units/L Alkaline Phosphatase 58 (38-126) Units/L Albumin 2.8 L (3.5-5.0) g/dL - ABG Interpretation ABG results: PT/INR, D-dimer PT 24.8 Seconds (9.4-12.1) H 07/10/17 05:22 - VTE Documentation of Mechanical Device: Intermittent pneumatic compression device Consult Discharge Plan - Plan Referrals: Oscar Sandoval Jr, MD [Primary Care Provider] - Prescriptions: Ertapenem [INVanz] 1,000 mg IVPB DAILY 7 Days #7 vial <Gomez Claire - Last Filed: 07/10/17 17:01> Date of Encounter: 07/10/17 - Assessment and plan (1) UTI (urinary tract infection) Current Visit: Yes Status: Acute Qualifiers: Urinary tract infection type: acute cystitis Hematuria presence: without hematuria Qualified Code(s): N30.00 - Acute cystitis without hematuria (2) MDRO (multiple drug resistant organisms) resistance Current Visit: Yes Status: Acute (3) Hypertension Current Visit: No Status: Chronic Qualifiers: Hypertension type: essential hypertension Qualified Code(s): I10 - Essential (primary) hypertension (4) Hyperlipidemia Current Visit: No Status: Chronic Qualifiers: Hyperlipidemia type: mixed hyperlipidemia Qualified Code(s): E78.2 - Mixed hyperlipidemia (5) 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 (6) Atrial fibrillation Current Visit: Yes Status: Acute Qualifiers: Atrial fibrillation type: chronic Qualified Code(s): I48.2 - Chronic atrial fibrillation (7) DM2 (diabetes mellitus, type 2) Current Visit: No Status: Chronic Qualifiers: Diabetes mellitus complication status: without complication Diabetes mellitus termite control technician insulin use: without fpc use Qualified Code(s): E11.9 - Type 2 diabetes mellitus without complications - Constitutional Vitals: Temp Pulse Resp BP Pulse Ox 98.1 F 87 16 132/73 98 07/10/17 14:18 07/10/17 14:18 07/10/17 14:18 07/10/17 14:18 07/10/17 14:18 Internal Medicine: Result - Labs CBC & Chem 7: 07/10/17 05:22 07/10/17 05:22 Labs: Short CBC 07/10/17 Range/Units 05:22 WBC 7.1 (4.3-11.1) K/mcL Hgb 10.1 L (11.5-15.4) g/dL Hct 33.2 L (35.3-44.9) % Plt Count 188 (140-400) K/mcL Neutrophils # 4.6 (1.6-8.9) K/mcL BMP 07/10/17 05:22 Sodium 144 Potassium 4.0 Chloride 109 Carbon Dioxide 28 BUN 13 Creatinine 0.93 Glucose 107 H Calcium 8.1 L Liver Function 07/10/17 Range/Units 05:22 Total Bilirubin 0.4 (0.2-1.2) mg/dL AST 11 (5-34) Units/L ALT 10 (0-55) Units/L Alkaline Phosphatase 58 (38-126) Units/L Albumin 2.8 L (3.5-5.0) g/dL - ABG Interpretation ABG results: PT/INR, D-dimer PT 24.8 Seconds (9.4-12.1) H 07/10/17 05:22 - Attending Attestation I examined this patient and my medical decision-making was reviewed with the Resident Physician on 07/10/17. I agree with the documented findings, disposition and treatment plan as described except to the extent set forth below. Ms Corona is currently admitted for MDRO Proteus UTI. She remains moderate to high risk due to potential for worsening clinical status. Ms Corona has no pain at this time. She is tolerating IV Zosyn. No fever or chills. No diarrhea. Exam Alert. Comfortable Mucus membranes dry Heart reg No wheeze Abd soft I/P 1. UTI - MDRO Proteus - sensitive to only IV abx. Will try to arrange discharge home or to SNF with IV Invanz for total 7 days abx 2. [place] Further diagnoses and plan as above.
[2017-07-10] MEDS ORDERED: *HR* Warfarin 5 MG TABLET PO SCH (18:00)
[2017-07-11 03:36] LABS: Basophils # 0.1 K/mcL (0.0-0.2); Basophils % 0.8 %; Eosinophils # 0.2 K/mcL (0.0-0.6); Hematocrit 32.2 % (35.3-44.9); Hemoglobin 9.6 g/dL (11.5-15.4); Immature Granulocytes % 0.4 % (0-4); Lymphocytes # 1.6 K/mcL (0.6-4.6); Lymphocytes % 20.3 %; Mean Corpuscular HGB Conc 29.8 g/dL (31.6-35.5); Mean Corpuscular Hemoglobin 26.7 pg (28.0-33.3); Mean Corpuscular Volume 89.7 fL (83.0-100.0); Mean Platelet Volume 10.2 fL (9.4-12.4); Monocytes # 0.4 K/mcL (0.0-1.3); Monocytes % 4.7 %; Neutrophils # 5.5 K/mcL (1.6-8.9); Platelet Count 198 K/mcL (140-400); Red Blood Count 3.59 M/mcL (3.82-4.97); Red Cell Distribution Width 14.4 % (11.5-14.5); Segmented Neutrophils % 70.8 %
[2017-07-11 03:58] LABS: Alanine Aminotransferase 10 Units/L (0-55); Albumin 2.8 g/dL (3.5-5.0); Albumin/Globulin Ratio 0.9 (1.1-2.2); Alkaline Phosphatase 58 Units/L (38-126); Aspartate Amino Transferase 13 Units/L (5-34); BUN/Creatinine Ratio 16 (6-26); Bilirubin,Total 0.2 mg/dL (0.2-1.2); Blood Urea Nitrogen 16 mg/dL (7-20); Calcium 8.7 mg/dL (8.6-10.8); Carbon Dioxide 28 mEq/L (19-29); Chloride 110 mEq/L (98-109); Globulin 3.1 g/dL (2.4-3.5); Glucose 117 mg/dL (70-99); Osmolality,Calculated 300 (280-300); Sodium 144 mEq/L (136-145); Total Protein 5.9 g/dL (6.0-8.3); eGFR For African Americans > 60 (> 60); eGFR For Non-African Americans 57 (> 60)
[2017-07-11 05:18] LABS: INR 2.4; Prothrombin Time 26.1 Seconds (9.4-12.1)
[2017-07-11] MEDS: Piperacillin/Tazobactam 3.375 GM/200 ML BAG IVPB SCH ×2 (05:31→15:51)
[2017-07-11] MEDS: Insulin LISPRO 300 UNITS/3 ML VIAL SQ SCH ×2 (08:55→13:35)
[2017-07-11] MEDS: clonazePAM 0.5 MG TABLET PO SCH (09:53)
[2017-07-11] MEDS: Lisinopril 20 MG TABLET PO SCH (09:53)
[2017-07-11] MEDS: Famotidine 20 MG TABLET PO SCH (09:53)
[2017-07-11] MEDS: Metoprolol XL (24 HR) Succ 25 MG TAB.ER.24H PO SCH (10:02)
--- NOTE | 2017-07-11 11:03 | Discharge Summary ---
<Hermann Givens Doron - Last Filed: 07/11/17 11:05> Date of Encounter: 07/11/17 Time of Encounter: 11:01 - Discharge Diagnosis (1) UTI (urinary tract infection) Priority: Primary Status: Acute Comments: [id number] Qualifiers: Urinary tract infection type: acute cystitis Hematuria presence: without hematuria Qualified Code(s): N30.00 - Acute cystitis without hematuria (2) Bradley's disease Priority: Secondary Status: Chronic (3) DM2 (diabetes mellitus, type 2) Priority: Secondary Status: Chronic Qualifiers: Diabetes mellitus complication status: without complication Diabetes mellitus petroleum terminal plant operator insulin use: without retirement use Qualified Code(s): E11.9 - Type 2 diabetes mellitus without complications (4) Hypertension Priority: Secondary Status: Chronic Qualifiers: Hypertension type: essential hypertension Qualified Code(s): I10 - Essential (primary) hypertension (5) Hyperlipidemia Priority: Secondary Status: Chronic Qualifiers: Hyperlipidemia type: mixed hyperlipidemia Qualified Code(s): E78.2 - Mixed hyperlipidemia (6) Atrial fibrillation Priority: Secondary Status: Acute Qualifiers: Atrial fibrillation type: chronic Qualified Code(s): I48.2 - Chronic atrial fibrillation (7) DVT prophylaxis Priority: Secondary Status: Acute - Discharge Medications Prescriptions: Ertapenem [INVanz] 1,000 mg IVPB DAILY 7 Days #7 vial Home Medications: Glimepiride [Amaryl] 2 mg PO DAILY 05/15/16 [History] Ranitidine HCl [Acid Drainage Engineer] 150 mg PO DAILY 05/15/16 [History] metFORMIN [Glucophage] 500 mg PO BID 05/15/16 [History] Levothyroxine [Synthroid] 50 mcg PO DAILY 12/29/16 [History] Lisinopril [Zestril] 20 mg PO DAILY 12/29/16 [History] Metoprolol XL (24 HR) Succ [Toprol Xl] 12.5 mg PO DAILY 12/29/16 [History] Omeprazole [PriLOSEC] 40 mg PO DAILY 07/08/17 [History] Sertraline [Zoloft] 100 mg PO BID 07/08/17 [History] Warfarin [Coumadin] 2.5 mg PO SUSA 07/08/17 [History] Warfarin [Coumadin] 5 mg PO MOTUWETHFR 07/08/17 [History] clonazePAM [Klonopin] 0.5 mg PO BID 07/08/17 [History] Ertapenem [INVanz] 1,000 mg IVPB DAILY 7 Days #7 vial 07/10/17 [Rx] Allergies/Adverse Reactions: 3 Allergy/AdvReac Type Severity Reaction Status Date / Time gabapentin [From Neurontin] Allergy Drowsy Verified 05/15/16 17:36 Date of admission: 07/08/17 23:01 Primary care physician: Oscar Sandoval Jr, MD Consults: 07/09/17 11:49 Consult to Occupational Therapy [CONS] Routine Comment: Evaluate, develop and implement POC Reason for Consult: eval and treat Consult to Physical Therapy [CONS] Routine Comment: Evaluate, develop and implement POC Reason for Consult: eval and treat Consult to Sales Support Rep [CONS] Routine Reason for SW Consult: d/c planning IV atb 07/10/17 14:29 Consult to Invasive Line Access Team [CONS] Routine Reason for Consult: Picc Line Insertion Line Type: EPIV Discharging clinician: Hermann Givens Anticipated date of discharge: 07/11/17 - Patient Status Disposition: Home Health Service Condition: Good Functional capacity at discharge: uses cane/walker Overall status at discharge: patient is progressing back to baseline - Discharge Instructions Instructions: Urinary Tract Infection in Women (DC) Follow Up With: Oscar Sandoval Jr, MD [Primary Care Provider] - Additional Instructions: 1. Follow-up with your primary care provider in the next 3-5 days 2. Take all prescriptions as prescribed, any concerns or questions contact her primary care provider. 3. Return to the emergency department if: No fevers, chills, diaphoresis, abdominal pain or discomfort or blood in urine. - Diet and Activity Activity: increase activity as tolerated Diet: advance to your usual diet Interval History: Ms. Corona is a 71 year old female with [place] disease, atrial fibrillation chronic, hyperlipidemia hypertension and frequent UTI was sent over by her primary care provider after a urinalysis demonstrated Proteus Mirabellus that was resistant to oral drug therapy. She was admitted to the general medical floor vitals were taken which were stable, patient had atrial fibrillation which is chronic and she was continued on warfarin therapy. She was started on IV Zosyn for antibiotic coverage. A release of records was requested from her primary care provider and after receiving the urine culture and sensitivities she was started on ertapenem 1000 mg IV daily. A power glide line was placed, patient was seen and evaluated on 07/11/2017 deemed stable for discharge with home infusion with home health for the remainder of 7 days antibiotic coverage. She was stable at the time of discharge arrangements were made. Prescription was sent for ertapenem. Hospital course: Ms. Corona is a 71 year old female - Time Spent with Patient Total time spent providing and/or coordinating discharge services: - Constitutional Vitals: Temp Pulse Resp BP Pulse Ox 98.3 F 73 16 129/64 97 07/11/17 06:28 07/11/17 06:28 07/11/17 06:28 07/11/17 06:28 07/11/17 06:28 - Head Head exam: Present: atraumatic, normocephalic - Eye Eye exam: Present: PERRL, conjuntiva pink, sclera anicteric Pupils: Present: PERRL - Neck Neck exam general surgery: Present: supple, trachea midline. Absent: lymphadenopathy - Respiratory Respiratory exam: Present: CTAB. Absent: accessory muscle use, rales, rhonchi, wheezes - Cardiovascular Cardiovascular exam: Present: irregular rhythm. Absent: diastolic murmur, gallop, rubs, systolic murmur - GI/Abdominal GI/Abdominal exam: Present: normal bowel sounds, soft, no peritoneal signs. Absent: distended, tenderness - Extremities Exam Extremities exam: Present: warm, radial pulses palpable and symmetrical. Absent : calf tenderness, cyanotic, pedal edema - Neurological Exam Neurological exam: Present: CN II-XII intact, oriented X3, no focal deficits. Absent: pronater drift, facial droop, speech deficit - Skin Skin exam: Present: dry, intact - VTE Documentation of Mechanical Device: Intermittent pneumatic compression device <Gomez Claire - Last Filed: 07/11/17 13:24> Date of Encounter: 07/11/17 - Discharge Diagnosis (1) UTI (urinary tract infection) Status: Acute Qualifiers: Urinary tract infection type: acute cystitis Hematuria presence: without hematuria Qualified Code(s): N30.00 - Acute cystitis without hematuria (2) MDRO (multiple drug resistant organisms) resistance Priority: Primary Status: Acute (3) Hypertension Status: Chronic Qualifiers: Hypertension type: essential hypertension Qualified Code(s): I10 - Essential (primary) hypertension (4) Hyperlipidemia Status: Chronic Qualifiers: Hyperlipidemia type: mixed hyperlipidemia Qualified Code(s): E78.2 - Mixed hyperlipidemia (5) Bradley's disease Status: Chronic (6) Atrial fibrillation Status: Acute Qualifiers: Atrial fibrillation type: chronic Qualified Code(s): I48.2 - Chronic atrial fibrillation (7) DM2 (diabetes mellitus, type 2) Status: Chronic Qualifiers: Diabetes mellitus complication status: without complication Diabetes mellitus petroleum terminal plant operator insulin use: without petroleum terminal plant operator use Qualified Code(s): E11.9 - Type 2 diabetes mellitus without complications Date of admission: 07/08/17 23:01 Primary care physician: Oscar Sandoval Jr, MD Consults: 07/09/17 11:49 Consult to Occupational Therapy [CONS] Routine Comment: Evaluate, develop and implement POC Reason for Consult: eval and treat Consult to Physical Therapy [CONS] Routine Comment: Evaluate, develop and implement POC Reason for Consult: eval and treat Consult to Sales Support Rep [CONS] Routine Reason for SW Consult: d/c planning IV atb 07/10/17 14:29 Consult to Invasive Line Access Team [CONS] Routine Reason for Consult: Picc Line Insertion Line Type: EPIV Hospital course: Ms. Corona is a 71 year old female - Time Spent with Patient Total time spent providing and/or coordinating discharge services: 37min - Constitutional Vitals: Temp Pulse Resp BP Pulse Ox 98.5 F 83 16 124/73 98 07/11/17 10:21 07/11/17 10:21 07/11/17 10:21 07/11/17 10:21 07/11/17 10:21 - Attending Attestation I examined this patient and my medical decision-making was reviewed with the Resident Physician on 07/11/17. I agree with the documented findings, disposition and treatment plan as described except to the extent set forth below. Ms Corona has been admitted for IV antibiotics for MDRO Proteus UTI. She is now afebrile with stable vitals. Arrangements have been made for IV abx at home to complete the course. She is ready for discharge home. Exam Alert. Comfortable Mucus membranes dry Heart reg No wheeze Plan D/C home today Complete total 7 days abx Follow up with PCP
--- NOTE | 2017-07-11 11:05 | Physician Discharge Referral ---
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 For more information, call the [place] Tobacco Quit Line at 9-004-XBJA-NOW. - Diet/Nutrition Diet/Nutrition: List: diabetic diet - Activity Activity Orders: Ambulate - Services Needed Following services are medically necessary services: Nursing, Home Health Aide, Home Infusion - Transfer Medications Prescriptions: Ertapenem [INVanz] 1,000 mg IVPB DAILY 7 Days #7 vial Home Medications: Glimepiride [Amaryl] 2 mg PO DAILY 05/15/16 [History] Ranitidine HCl [Acid Team Leader/Research Psychologist] 150 mg PO DAILY 05/15/16 [History] metFORMIN [Glucophage] 500 mg PO BID 05/15/16 [History] Levothyroxine [Synthroid] 50 mcg PO DAILY 12/29/16 [History] Lisinopril [Zestril] 20 mg PO DAILY 12/29/16 [History] Metoprolol XL (24 HR) Succ [Toprol Xl] 12.5 mg PO DAILY 12/29/16 [History] Omeprazole [PriLOSEC] 40 mg PO DAILY 07/08/17 [History] Sertraline [Zoloft] 100 mg PO BID 07/08/17 [History] Warfarin [Coumadin] 2.5 mg PO SUSA 07/08/17 [History] Warfarin [Coumadin] 5 mg PO MOTUWETHFR 07/08/17 [History] clonazePAM [Klonopin] 0.5 mg PO BID 07/08/17 [History] Ertapenem [INVanz] 1,000 mg IVPB DAILY 7 Days #7 vial 07/10/17 [Rx] Allergies/Adverse Reactions: 3 Allergy/AdvReac Type Severity Reaction Status Date / Time gabapentin [From Neurontin] Allergy Drowsy Verified 05/15/16 17:36 Certification: Further, I certify that my clinical findings support that this patient is homebound (i.e. absences from home require considerable and taxing effort and are for medical reasons or taoism services or infrequently or short duration when for other reasons) because: Homebound Reason: Patient requires assistance of a person or device to safely leave home Attestation: My signature below is to certify that this patient is under my care and that I, or nurse practitioner, or a physician's assistant community manager working with me, has a face-to -face encounter with this patient.
[2017-07-11] MEDS ORDERED: Ertapenem 1,000 MG in Water for inj. (sterile) 10 ML IVP SCH (14:00)
[2017-07-11] MEDS ORDERED: Ertapenem 1,000 MG in 0.9 % Sodium Chloride Mini Bag 100 ML IVPB SCH (14:00)
[2017-07-11 16:09] VITALS: BP 150/73
[2017-07-12] MEDS ORDERED: *HR* Warfarin 2.5 MG TABLET PO SCH (18:00)
== END 2017-07-11 16:49 | disposition home health service (06) | DRG 690 ==
LOC: 3NENU 19:55 → EMEROO 19:55 → SUATTDRO 23:01
PROVIDERS: ADMIT Family Medicine; ATTEND Internal Medicine

== ENCOUNTER 2017-08-07 21:23 | Inpatient (IN) ==
[2017-08-07] MEDS ORDERED: Ondansetron 4 MG/2 ML VIAL IVP ONE (22:46)
[2017-08-07] MEDS ORDERED: *HR* Morphine 2 MG/ML SYRINGE IVP ONE (22:46)
[2017-08-07 23:15] LABS: Basophils % 0.5 %; Eosinophils # 0.3 K/mcL (0.0-0.6); Eosinophils % 3.7 %; Hematocrit 34.8 % (35.3-44.9); Hemoglobin 10.7 g/dL (11.5-15.4); Immature Granulocytes % 0.2 % (0-4); Lymphocytes # 1.3 K/mcL (0.6-4.6); Lymphocytes % 15.6 %; Mean Corpuscular HGB Conc 30.7 g/dL (31.6-35.5); Mean Corpuscular Hemoglobin 27.5 pg (28.0-33.3); Mean Corpuscular Volume 89.5 fL (83.0-100.0); Mean Platelet Volume 10.1 fL (9.4-12.4); Monocytes # 0.4 K/mcL (0.0-1.3); Monocytes % 4.3 %; Neutrophils # 6.2 K/mcL (1.6-8.9); Platelet Count 210 K/mcL (140-400); Red Blood Count 3.89 M/mcL (3.82-4.97); Red Cell Distribution Width 14.9 % (11.5-14.5); Segmented Neutrophils % 75.7 %
[2017-08-07 23:21] LABS: INR 2.7; Prothrombin Time 29.3 Seconds (9.4-12.1)
[2017-08-07 23:24] LABS: Activated Partial Thrombo Time 38.4 Seconds (26.0-36.0)
--- NOTE | 2017-08-07 23:25 | Emergency Department Note ---
Disposition Clinical Impression: Weakness Fall Qualifiers: Encounter type: initial encounter Qualified Code(s): W19.XXXA - Unspecified fall, initial encounter Disposition: Admitted As Inpatient Condition: Fair Time of Disposition: 01:49 General Adult HPI - General Chief complaint: ED Head Injury Stated complaint: "fell, hit head, weakness" Time Seen by Provider: 08/07/17 21:32 Source: EMS Mode of arrival: EMS Limitations: no limitations, physical limitation Nursing Notes Reviewed: Yes Vital Signs Reviewed: Yes - History of Present Illness HPI Narrative: Patient is a 71-year-old female with a past medical history of PE in which she is on Coumadin therapy, [place]'s disease and alcohol ingestion presenting to the emergency department with complaint of fall secondary to weakness. Patient states that this morning she is using the restroom with her walker that she went to go sit on the toilet she fell over and hit her head on the bathtub. She states that she did not lose consciousness and at that time her son and physical therapist German there were able to help her back up. The patient states over the past few days she has been becoming progressively weak to the point where she is unable to get herself from a wheelchair to the bed which she is normally able to do without difficulty. The patient does have a history of [place]'s which is causing her to have chronic weakness however the weakness has progressed rapidly over the past 3 days. Patient complains mainly of the headache, neck pain, and back pain. She denies any numbness or tingling. She denies any lightheadedness or syncope. Pain Scale: 8 - Related Data Home Medications Medication Instructions Recorded Confirmed Glimepiride [Amaryl] 2 mg PO DAILY 05/15/16 07/08/17 Ranitidine HCl [Acid Book Cutter] 150 mg PO DAILY 05/15/16 07/08/17 metFORMIN [Glucophage] 500 mg PO BID 05/15/16 07/08/17 Levothyroxine [Synthroid] 50 mcg PO DAILY 12/29/16 07/08/17 Lisinopril [Zestril] 20 mg PO DAILY 12/29/16 07/08/17 Metoprolol XL (24 HR) Succ [Toprol 12.5 mg PO DAILY 12/29/16 07/08/17 Xl] Omeprazole [PriLOSEC] 40 mg PO DAILY 07/08/17 07/08/17 Sertraline [Zoloft] 100 mg PO BID 07/08/17 07/08/17 Warfarin [Coumadin] 2.5 mg PO SUSA 07/08/17 07/08/17 Warfarin [Coumadin] 5 mg PO MOTUWETHFR 07/08/17 07/08/17 clonazePAM [Klonopin] 0.5 mg PO BID 07/08/17 07/08/17 Previous Rx's Medication Instructions Recorded Ertapenem [INVanz] 1,000 mg IVPB DAILY 7 Days #7 vial 07/10/17 Allergies Allergy/AdvReac Type Severity Reaction Status Date / Time gabapentin [From Neurontin] Allergy Drowsy Verified 05/15/16 17:36 All systems ED: reviewed and negative except as stated. Constitutional: Reports: weakness. Denies: fever, chills ENT ED: Denies: congestion Cardiovascular: Denies: chest pain, palpitations, dyspnea on exertion, edema, syncope Respiratory: Denies: cough, dyspnea, wheezes Gastrointestinal: Denies: abdominal pain, nausea, vomiting, diarrhea, hematemesis, melena, hematochezia Genitourinary: Denies: urgency, dysuria, hematuria, discharge Musculoskeletal: Reports: back pain, neck pain. Denies: arthralgia Integumentary: Denies: rash, abrasion Neurological: Reports: headache, weakness. Denies: numbness, paresthesias, confusion, abnormal gait, vertigo Past Medical History - Past Medical History Attestation: Yes The following information was validated with the patient. Medical history: Reports: diabetes, hyperlipidemia, hypertension, pulmonary embolus, other Surgical history: Reports: cholecystectomy, hysterectomy, other Psychiatric history: Reports: anxiety, depression - Social History Smoking Status: Never smoker Smokeless Tobacco Status: No Alcohol use: Reports: none Drug use: Reports: none Physical Exam Patient's vital signs are stable for the most part she is hypertensive in the 170s over 90s. Overall, she is in no acute distress at this time she speaks to me in full sentences and she is alert and oriented 4. - General Limitations: physical limitation General appearance: alert, in no apparent distress - Head Head exam: atraumatic, normocephalic, normal inspection - Eye Eye exam: Present: normal appearance, PERRL, EOMI - ENT ENT exam: normal exam, normal oropharynx, mucous membranes moist - Neck Neck exam: Present: normal inspection, full ROM, trachea midline. Absent: tenderness - Chest Chest inspection: Present: normal inspection, symmetric chest wall rise. Absent : tenderness - Respiratory Respiratory exam: Present: normal lung sounds bilaterally. Absent: respiratory distress, wheezes - Cardiovascular Cardiovascular exam: Present: regular rate, normal rhythm, normal heart sounds, +S1, +S2 - Abdominal Exam Abdominal exam: Present: soft, Non-Tender, normal bowel sounds - Extremities Exam Extremities exam: Present: normal inspection, full ROM, normal capillary refill. Absent: tenderness, pedal edema, joint swelling, calf tenderness - Expanded Lower Extremity Exam Hip/Pelvis exam: Present: normal inspection, full ROM. Absent: tenderness, swelling Upper leg exam: Present: normal inspection, full ROM. Absent: tenderness, swelling Knee exam: Present: normal inspection, full ROM. Absent: tenderness Lower leg exam: Present: normal inspection, full ROM. Absent: tenderness, swelling Ankle exam: Present: normal inspection, full ROM. Absent: tenderness, swelling Foot/toe exam: Present: normal inspection, full ROM. Absent: tenderness, swelling Neurovascular/Tendon exam: Present: normal capillary refill. Absent: pulse deficit, motor deficit, sensory deficit - Back Exam Back exam: Present: full ROM, tenderness, paraspinal tenderness (Cervical, thoracic and lumbar regions.). Absent: CVA tenderness (R), CVA tenderness (L) - Expanded Neurological Exam Patient oriented to: Present: person, place, time Speech: Present: fluid speech Cranial nerves: EOM function (II, III, IV, ): Normal, facial sensation (V): Normal, facial palsy (VII): Normal, gag reflex (IX): Normal, spinal accessory function (XI): Normal, tongue deviation (XII): Normal Cerebellar function: finger to nose: Normal, heel to savage: Normal (marked weakness bilaterally) Motor strength - LUE: 5/5 Motor strength - RUE: 5/5 Motor strength - LLE: 2/5 Motor strength - RLE: 2/5 Upper motor neuron exam: pronator drift: Absent bilaterally Sensory exam upper extremity: light touch: Normal Sensory exam lower extremity: light touch: Normal DTR: bicep (L): 2+, bicep (R): 2+, patellar (L): 2+, patellar (R): 2+ Coma Scale Eye Opening: Spontaneous Coma Scale Motor Response: Obeys Commands Coma Scale Verbal Response: Oriented Coma Scale Total: 15 - Psychiatric Psychiatric exam: Present: normal affect, normal mood - Skin Skin exam: Present: warm, dry, intact, normal color Course Course Narrative: Patient is a 71-year-old female with 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 She is denying any infectious symptoms. Plan is to do CT imaging of the areas where she complains of pain. Also evaluate for any possible infectious cause of her weakness and perform a cardiac evaluation in the emergency department. I will also treat the patient for pain symptoms. Discussed this plan and the patient agrees. Patient also admitted to the attending physician after I left the room that she has been drinking wine coolers throughout the day and is mildly intoxicated. - Reevaluation(s) Reevaluation #1: Patient's lab work returned unremarkable for any signs of infection at this time. The patient's imaging of her head and spine were negative for any acute fracture or acute intracranial process. Patient states that her pain is improved with the medication that was provided. Patient still has not given us a urine to rule out a urinary tract infection for the cause of her weakness. Regardless plan is to admit the patient to the hospital for her weakness due to her not being safe going home since she lives by herself. Discussed these plans with the hospitalists discussed that if the urine positive only to obtain we will treat her for urinary tract infection. Discussed this with the patient patient's family member and they agree with the plan. Time: 01:48 Vital Signs Temperature 99.2 F 08/07/17 21:27 Pulse Rate 93 08/07/17 21:27 Respiratory Rate 16 08/07/17 21:27 Blood Pressure 176/96 08/07/17 21:27 O2 Sat by Pulse Oximetry 93 08/07/17 21:27 Temperature 99.2 F 08/07/17 21:27 Pulse Rate 85 08/08/17 01:00 Respiratory Rate 16 08/08/17 01:00 Blood Pressure 157/85 08/08/17 01:00 O2 Sat by Pulse Oximetry 96 08/08/17 01:00 Oxygen Delivery Oxygen Delivery Room Air Medical Decision Making - Medical Records Medical records reviewed: Yes I reviewed the patient's medical records. - Lab Data Lab results reviewed: Yes I reviewed the patient's lab results. Result diagrams: 08/07/17 22:59 08/07/17 22:59 Lab Results 08/07/17 08/07/17 08/07/17 Range/Units 22:59 22:59 22:59 WBC 8.2 (4.3-11.1) K/mcL RBC 3.89 (3.82-4.97) M/mcL Hgb 10.7 L (11.5-15.4) g/dL Hct 34.8 L (35.3-44.9) % MCV 89.5 (83.0-100.0) fL MCH 27.5 L (28.0-33.3) pg MCHC 30.7 L (31.6-35.5) g/dL RDW 14.9 H (11.5-14.5) % Plt Count 210 (140-400) K/mcL MPV 10.1 (9.4-12.4) fL Immature Gran % 0.2 (0-4) % Seg Neutrophils % 75.7 % Lymphocytes % 15.6 % Monocytes % 4.3 % Eosinophils % 3.7 % Basophils % 0.5 % Neutrophils # 6.2 (1.6-8.9) K/mcL Lymphocytes # 1.3 (0.6-4.6) K/mcL Monocytes # 0.4 (0.0-1.3) K/mcL Eosinophils # 0.3 (0.0-0.6) K/mcL Basophils # 0.0 (0.0-0.2) K/mcL PT 29.3 H (9.4-12.1) Seconds INR 2.7 APTT 38.4 H (26.0-36.0) Seconds Sodium 143 (136-145) mEq/L Potassium 3.9 (3.5-5.1) mEq/L Chloride 110 H (98-107) mEq/L Carbon Dioxide 28 (23-29) mEq/L BUN 12 (8-23) mg/dL Creatinine 0.87 (0.60-1.20) mg/dL Est GFR ( Amer) > 60 (> 60) Est GFR (Non-Af Amer) > 60 (> 60) BUN/Creatinine Ratio 14 (6-26) Glucose 113 H (70-105) mg/dL Calculated Osmolality 297 (280-300) Calcium 8.6 (8.6-10.3) mg/dL Troponin I (< 0.04) ng/mL 08/07/17 Range/Units 22:59 WBC (4.3-11.1) K/mcL RBC (3.82-4.97) M/mcL Hgb (11.5-15.4) g/dL Hct (35.3-44.9) % MCV (83.0-100.0) fL MCH (28.0-33.3) pg MCHC (31.6-35.5) g/dL RDW (11.5-14.5) % Plt Count (140-400) K/mcL MPV (9.4-12.4) fL Immature Gran % (0-4) % Seg Neutrophils % % Lymphocytes % % Monocytes % % Eosinophils % % Basophils % % Neutrophils # (1.6-8.9) K/mcL Lymphocytes # (0.6-4.6) K/mcL Monocytes # (0.0-1.3) K/mcL Eosinophils # (0.0-0.6) K/mcL Basophils # (0.0-0.2) K/mcL PT (9.4-12.1) Seconds INR APTT (26.0-36.0) Seconds Sodium (136-145) mEq/L Potassium (3.5-5.1) mEq/L Chloride (98-107) mEq/L Carbon Dioxide (23-29) mEq/L BUN (8-23) mg/dL Creatinine (0.60-1.20) mg/dL Est GFR ( Amer) (> 60) Est GFR (Non-Af Amer) (> 60) BUN/Creatinine Ratio (6-26) Glucose (70-105) mg/dL Calculated Osmolality (280-300) Calcium (8.6-10.3) mg/dL Troponin I < 0.03 (< 0.04) ng/mL - Radiology Data Chest X-Ray 08/07/17 22:38 IMPRESSION: No acute cardiopulmonary disease. D/ / Fermin Cruz MD / Fermin Curz MD Interpreting Provider: Fermin Cruz MD Head CT 08/07/17 22:38 IMPRESSION: No acute intracranial abnormality. D/ / Harshil Quintana MD / Harshil Quintana MD Interpreting Provider: Harshil Quintana MD Cervical Spine CT 08/07/17 22:42 IMPRESSION: No acute abnormality of the cervical spine. Stable moderate/severe degenerative changes C5-C6 and C6-C7. D/ / Everett Geiger MD / Everett Geiger MD Interpreting Provider: Everett Geiger MD Thoracic Spine CT 08/07/17 22:42 IMPRESSION: Unremarkable CT of the thoracic spine. D/ / Harshil Quintana MD / Harshil Quintana MD Interpreting Provider: Harshil Quintana MD Lumbar Spine CT 08/07/17 22:45 IMPRESSION: No acute fracture or subluxation lumbar spine. Mild multilevel degenerative disc disease. D/ / Everett Geiger MD / Everett Geiger MD Interpreting Provider: Everett Geiger MD - EKG Data EKG #1 EKG attestation: Yes I reviewed and interpreted this EKG. EKG results narrative: EKG interpreted by me at 00:59 inches sinus rhythm rate of 85 bpm. EKG shows normal: sinus rhythm Rate: normal Rhythm: NSR Epes/QRS: normal When compared to previous EKG there are: no significant changes Interpretation: no acute changes, normal EKG Attestation Statement - Attestation Attestation: I, Luis Fernando Brunner DO, examined this patient [id number] and my medical decision-making was reviewed with Dr. Tarun Rabago, Resident Physician. I agree with the documented findings, disposition and treatment plan as described except to the extent set forth below. Please see my progress notes for details. 71-year-old female presents to emergency room after falling today. Patient was intoxicated with alcohol and her legs gave out. She fell hitting her head. She did not lose consciousness. She is currently on Coumadin. She has felt worse and sitting her head. She denies any other trauma or injury. Her head is atraumatic her pupils are equal and reactive extraocular muscles are intact. She does speak in full sentences. She has some mild lateralizing nystagmus consistent with alcohol intoxication. Her oropharynx is patent her trachea is midline. Her lungs are clear heart is regular abdomen is soft nontender nondistended. She has no pain with palpation of the pelvic girdle. She has full range of motion of the upper and lower extremities but does have what appears to be chronic weakness in the bilateral lower extremities.. She has no pitting edema to the lower extremities at this time. Clinically patient has no acute traumatic injuries noted on the physical exam. Patient has no signs of acute bleeding. Neurologic evaluation shows pupils are equal and reactiveocular muscles are intact. Low clinical suspicion for intracranial pathology like an acute bleed. Patient will be screened with CT of the head and neck thoracic and lumbar spine. She will have chest x-ray EKG and urinalysis looking for any infectious etiology. Patient is otherwise stable no apparent distress at this time. No need for any further intervention. See detailed documentation of the physical exam medical interventions and medical decision making and disposition and the resident physician's note [id number] Patient is still waiting on urinalysis. patient will be signed out to the nighttime physicians. She will be admitted to the hospital secondary to weakness with fall tonight and inability to care for herself at home. Patient does live by herself at this time and is progression of what appears to be her [place]'s disease. Hospital admission will be completed for definitive treatment course
[2017-08-07 23:28] LABS: BUN/Creatinine Ratio 14 (6-26); Blood Urea Nitrogen 12 mg/dL (8-23); Calcium 8.6 mg/dL (8.6-10.3); Carbon Dioxide 28 mEq/L (23-29); Chloride 110 mEq/L (98-107); Glucose 113 mg/dL (70-105); Osmolality,Calculated 297 (280-300); Potassium 3.9 mEq/L (3.5-5.1); Sodium 143 mEq/L (136-145); eGFR For African Americans > 60 (> 60); eGFR For Non-African Americans > 60 (> 60)
[2017-08-08] MEDS ORDERED: *HR* HYDROcodone/Acet 5/325 mg TABLET PO ONE (00:16)
[2017-08-08] MEDS ORDERED: *HR* Dextrose 50 % in Water (Syg) 50 ML SYRINGE IVP PRN (04:31)
[2017-08-08] MEDS ORDERED: Dextrose Gel 15 GM/37.5 ML TUBE PO PRN ×2 (04:31)
[2017-08-08] MEDS ORDERED: D5% in Water 1,000 ML IVC PRN (04:31)
[2017-08-08 05:00] LABS: Bilirubin,Urine Negative (Negative); Blood,Urine Negative (Negative); Clarity,Urine Cloudy (Clear); Color,Urine Yellow (Yellow); Glucose,Urine (UA) Normal (Normal); Ketones,Urine Negative (Negative); Leukocyte Esterase,Urine Large (Negative); Nitrite,Urine Positive (Negative); Protein,Urine Negative (Neg-Trace); Urobilinogen,Urine Normal (Normal)
[2017-08-08 05:03] LABS: Bacteria,Urine Many per hpf (None-Few); Hyaline Casts,Urine None Seen per lpf (None-Few); RBC,Urine 0-3 per hpf (0-3); Squamous Epithelial Cell,Urine Moderate per lpf (None-Few); WBC,Urine TNTC per hpf (0-3)
[2017-08-08] MEDS: *HR* HYDROcodone/Acet 5/325 mg TABLET PO PRN (08:45)
[2017-08-08] MEDS: Insulin LISPRO 300 UNITS/3 ML VIAL SQ SCH ×4 (08:46→21:10)
[2017-08-08] MEDS ORDERED: Acetaminophen 325 MG TABLET PO PRN (08:49)
[2017-08-08] MEDS ORDERED: Naloxone 0.4 MG/ML INJ IVP PRN (08:49)
[2017-08-08] MEDS ORDERED: *HR* Morphine 2 MG/ML SYRINGE IVP PRN (08:49)
[2017-08-08] MEDS ORDERED: Ondansetron 4 MG/2 ML VIAL IVP PRN (08:49)
[2017-08-08] MEDS ORDERED: *HR* LORazepam 2 MG/ML VIAL IVP PRN (08:53)
[2017-08-08] MEDS ORDERED: cefTRIAXone 1,000 MG in Water for inj. (sterile) 20 ML 10 ML IVP SCH (10:00)
[2017-08-08 10:47] LABS: Alanine Aminotransferase 10 Units/L (7-52); Albumin 3.3 g/dL (3.5-5.7); Albumin/Globulin Ratio 1.2 (1.1-2.2); Alkaline Phosphatase 65 Units/L (34-104); Aspartate Amino Transferase 11 Units/L (13-39); BUN/Creatinine Ratio 15 (6-26); Bilirubin,Total 0.3 mg/dL (0.3-1.0); Blood Urea Nitrogen 13 mg/dL (8-23); Calcium 8.4 mg/dL (8.6-10.3); Carbon Dioxide 28 mEq/L (23-29); Chloride 109 mEq/L (98-107); Globulin 2.8 g/dL (2.4-3.5); Glucose 109 mg/dL (70-105); Magnesium 1.8 mg/dL (1.6-2.6); Osmolality,Calculated 293 (280-300); Sodium 141 mEq/L (136-145); Total Protein 6.1 g/dL (6.4-8.9); eGFR For African Americans > 60 (> 60); eGFR For Non-African Americans > 60 (> 60)
--- NOTE | 2017-08-08 10:49 | Internal Med History&Physical ---
Date of Encounter: 08/08/17 Time of Encounter: 08:45 Assessment and Plan (1) Ambulatory dysfunction Current visit: Yes Status: Acute Will admit the pt into Tele for observation Her ambulatory dysfucntion / progrsseively worsening weakness could be due to UTI too her UA showed Nitrite positive and many bacteria She was admitted here last month with MDR Proteus..susceptible to Zosyn so will start her on Zosyn abx f/u on Urine cx PT / OT eval may need ECF placement for short term PT / OT Will consult SW (2) UTI (urinary tract infection) Current visit: No Status: Acute IV hydration IV empirical abx Zosyn f/u on Urine cx Qualifiers: Urinary tract infection type: acute cystitis Hematuria presence: without hematuria Qualified Code(s): N30.00 - Acute cystitis without hematuria (3) Fall Current visit: Yes Status: Chronic due to underline [place] and possible current UTI PT / OT eval IV hydration Qualifiers: Encounter type: initial encounter Qualified Code(s): W19.XXXA - Unspecified fall, initial encounter (4) [place]'s disease Current visit: No Status: Chronic (5) DM2 (diabetes mellitus, type 2) Current visit: No Status: Chronic resumed home meds ISS at Medium Qualifiers: Diabetes mellitus complication status: without complication Diabetes mellitus detention insulin use: without terminal clerk use Qualified Code(s): E11.9 - Type 2 diabetes mellitus without complications (6) Hypertension Current visit: No Status: Chronic resumed home meds Qualifiers: Hypertension type: essential hypertension Qualified Code(s): I10 - Essential (primary) hypertension (7) Hyperlipidemia Current visit: No Status: Chronic on statin Qualifiers: Hyperlipidemia type: mixed hyperlipidemia Qualified Code(s): E78.2 - Mixed hyperlipidemia (8) History of pulmonary embolism Current visit: No Status: Chronic resumed home med Coumadin INR therapeutic (9) Obesity (BMI 30-39.9) Current visit: No Status: Chronic counseled to loose weight Internal Medicine - H&P: HPI Chief complaint: Ambulatory dysfunction Admitted From: Emergency Dept Plans for Post Hospital Care: Home History of present illness: Ms. Corona is a 71 year old female with h/o PE on Coumadin, Leasburg disease and frequent UTI who is admitted here recently for MDR UTI on 12/12/17, now she presented to ER c/o fall due to weakness and ambulatory dysfucntion. Patient states that y/d morning she is using the restroom with her walker that she went to go sit on the toilet she fell over and hit her head on the bathtub. She states that she did not lose consciousness and at that time her son and physical therapist German were able to help to sit back on chair, however she was not able move out of the chair since she felt so weakness. The patient states over the past few days she has been becoming progressively weak to the point where she is unable to get herself from a wheelchair to the bed which she is normally able to do without difficulty. The patient does have a history of Bradley's which is causing her to have chronic weakness however the weakness has progressed rapidly over the past 3 days. Pt denied any dysuria. Past Med Surg Social Fam HX - Past Medical History Medical history: diabetes, hyperlipidemia, hypertension, pulmonary embolus, other Psychiatric history: anxiety, depression - Past Surgical History Surgical History: cholecystectomy, hysterectomy, other - Social History Smoking Status: Never smoker Smokeless Tobacco Status: No Alcohol use: none Drug use: none - Family History Father Living Status: Hx Family Cardiac Disorders: Yes (HTN) Hx Family Respiratory Disorders: Yes (Emphysema) Mother Adopted: No Family Member Ethnicity: Non- Living Status: Hx Family Cardiac Disorders: No Hx Family Respiratory Disorders: No Hx Family Cancer: No Hx Family GI Disorders: No Hx Family Endocrine Disorder: No Hx Family Neuromuscular Disorders: Yes ([place]'s dx) Hx Family Neurologic Disorders: Yes (anuerysm) Internal Medicine - H&P: Meds Glimepiride [Amaryl] 2 mg PO DAILY 05/15/16 [History] Ranitidine HCl [Acid Robotics Systems Engineer] 150 mg PO DAILY 05/15/16 [History] metFORMIN [Glucophage] 500 mg PO BID 05/15/16 [History] Levothyroxine [Synthroid] 50 mcg PO DAILY 12/29/16 [History] Lisinopril [Zestril] 20 mg PO DAILY 12/29/16 [History] Metoprolol XL (24 HR) Succ [Toprol Xl] 12.5 mg PO DAILY 12/29/16 [History] Omeprazole [PriLOSEC] 40 mg PO DAILY 07/08/17 [History] Sertraline [Zoloft] 100 mg PO BID 07/08/17 [History] Warfarin [Coumadin] 2.5 mg PO SUSA 07/08/17 [History] Warfarin [Coumadin] 5 mg PO MOTUWETHFR 07/08/17 [History] clonazePAM [Klonopin] 0.5 mg PO BID 07/08/17 [History] Ertapenem [INVanz] 1,000 mg IVPB DAILY 7 Days #7 vial 07/10/17 [Rx] 3 Allergy/AdvReac Type Severity Reaction Status Date / Time gabapentin [From Neurontin] Allergy Agitated Verified 08/08/17 03:44 All Systems PM: A 10-system review of systems was performed and is negative for pertinent findings except as documented above in the HPI. Review of systems: Reviewed all the systems, everything is benign except the systems and symptoms I mentioned in HPI - Constitutional Vitals: Temp Pulse Resp BP Pulse Ox 98.2 F 79 14 99/57 94 08/08/17 06:59 08/08/17 06:59 08/08/17 06:59 08/08/17 06:59 08/08/17 06:59 General appearance: Present: A&O X 3, pleasant, no acute distress, answers questions appropriately - Head Head exam: Present: atraumatic, normal inspection - Neck Neck exam general surgery: Present: supple - Respiratory Respiratory exam: Present: decreased breath sounds. Absent: rales, respiratory distress, rhonchi, wheezes - Cardiovascular Cardiovascular exam: Present: RRR, +S1, +S2. Absent: tachycardia - GI/Abdominal GI/Abdominal exam: Present: normal bowel sounds, soft. Absent: rebound, rigid, tenderness - Extremities Exam Extremities exam: Absent: calf tenderness, pedal edema, tenderness - Back Exam Back exam: Absent: CVA tenderness (L), CVA tenderness (R) - Neurological Exam Neurological exam: Present: alert, oriented X3, strengths equal and symetr throughout (however she does have weakness in both legs) - Psychiatric Psychiatric exam: Present: normal affect, normal mood - Skin Skin exam: Absent: rash Internal Med - H&P Results - Labs CBC & Chem 7: 08/07/17 22:59 08/07/17 22:59 Labs: Urine 08/08/17 Range/Units 04:40 Urine Color Yellow (Yellow) Urine Clarity Cloudy A (Clear) Urine pH 6.0 (5.0-8.0) pH Units Ur Specific [place] 1.020 (1.010-1.025) Urine Protein Negative (Neg-Trace) mg/dL Urine Glucose (UA) Normal (Normal) mg/dL - VTE Reasons for not Prescribing Prophylaxis: Not indicated-Anticoagulated or INR therapeutic
[2017-08-08] MEDS: 0.9 % Sodium Chloride 1,000 ML IVC SCH ×2 (13:14→23:36)
[2017-08-08] MEDS: Thiamine (B-1) 100 MG TABLET PO SCH (13:14)
[2017-08-08] MEDS: Folic Acid 1 MG TABLET PO SCH (13:14)
[2017-08-08] MEDS ORDERED: Piperacillin/Tazobactam 3.375 GM/200 ML BAG IVPB SCH (16:00)
[2017-08-08] MEDS ORDERED: ALPRAZolam 1 MG TABLET PO PRN (16:12)
[2017-08-08] MEDS ORDERED: *HR* Warfarin 5 MG TABLET PO SCH (18:00)
[2017-08-08] MEDS: Metoprolol XL (24 HR) Succ 25 MG TAB.ER.24H PO SCH (18:17)
[2017-08-08] MEDS: Lisinopril 20 MG TABLET PO SCH (18:18)
[2017-08-08] MEDS: *HR* Metformin 500 MG TABLET PO SCH (21:10)
[2017-08-09] MEDS ORDERED: Piperacillin/Tazobactam 3.375 GM/200 ML BAG IVPB SCH
[2017-08-09 05:16] LABS: Basophils % 0.4 %; Eosinophils # 0.3 K/mcL (0.0-0.6); Eosinophils % 3.9 %; Hematocrit 32.7 % (35.3-44.9); Hemoglobin 9.8 g/dL (11.5-15.4); Immature Granulocytes % 0.4 % (0-4); Lymphocytes # 1.3 K/mcL (0.6-4.6); Lymphocytes % 18.6 %; Mean Corpuscular Hemoglobin 27.1 pg (28.0-33.3); Mean Corpuscular Volume 90.3 fL (83.0-100.0); Mean Platelet Volume 9.9 fL (9.4-12.4); Monocytes # 0.3 K/mcL (0.0-1.3); Monocytes % 4.6 %; Neutrophils # 5.1 K/mcL (1.6-8.9); Platelet Count 182 K/mcL (140-400); Red Blood Count 3.62 M/mcL (3.82-4.97); Red Cell Distribution Width 14.9 % (11.5-14.5); Segmented Neutrophils % 72.1 %
[2017-08-09 05:30] LABS: Prothrombin Time 33.1 Seconds (9.4-12.1)
[2017-08-09 05:36] LABS: Alanine Aminotransferase 9 Units/L (7-52); Albumin 3.1 g/dL (3.5-5.7); Albumin/Globulin Ratio 1.2 (1.1-2.2); Alkaline Phosphatase 59 Units/L (34-104); Aspartate Amino Transferase 11 Units/L (13-39); BUN/Creatinine Ratio 12 (6-26); Bilirubin,Total 0.3 mg/dL (0.3-1.0); Blood Urea Nitrogen 12 mg/dL (8-23); Carbon Dioxide 27 mEq/L (23-29); Chloride 111 mEq/L (98-107); Chol/HDL Ratio 5.6 (0-4.9); Cholesterol 237 mg/dL (< 200); Globulin 2.6 g/dL (2.4-3.5); Glucose 111 mg/dL (70-105); HDL Cholesterol 42 mg/dL (40-59); LDL Cholesterol,Calculated 153 mg/dL (0-99); Magnesium 1.6 mg/dL (1.6-2.6); Osmolality,Calculated 296 (280-300); Sodium 143 mEq/L (136-145); Total Protein 5.7 g/dL (6.4-8.9); Triglycerides 212 mg/dL (< 150); eGFR For African Americans > 60 (> 60); eGFR For Non-African Americans 53 (> 60)
[2017-08-09] MEDS: Insulin LISPRO 300 UNITS/3 ML VIAL SQ SCH ×4 (07:33→21:15)
[2017-08-09] MEDS: *HR* Glimepiride 4 MG TABLET PO SCH (09:01)
[2017-08-09] MEDS: Metoprolol XL (24 HR) Succ 25 MG TAB.ER.24H PO SCH (09:01)
[2017-08-09] MEDS: Lisinopril 20 MG TABLET PO SCH (09:02)
[2017-08-09] MEDS: Thiamine (B-1) 100 MG TABLET PO SCH (09:02)
[2017-08-09] MEDS: Famotidine 20 MG TABLET PO SCH (09:02)
[2017-08-09] MEDS: Folic Acid 1 MG TABLET PO SCH (09:02)
[2017-08-09] MEDS: Piperacillin/Tazobactam 3.375 GM/200 ML BAG IVPB SCH ×2 (13:07→21:11)
--- NOTE | 2017-08-09 15:34 | Internal Med Progress Note ---
Date of Encounter: 08/09/17 Time of Encounter: 13:00 - Assessment and plan (1) Ambulatory dysfunction Current Visit: Yes Status: Acute Assessment and plan: Her ambulatory dysfunction / progressively worsening weakness could be due to UTI and severe deconditioning Her Urine cx - still P cont empirical abx for now PT / OT evaluated the pt and recommend ECF placement SW consulted Since pt is high risk for frequent falls, sepsis with MDR UTI, need close monitoring and need to stay in the hospital more than 2 nights, also she may need to be short term IV abx therapy depending on her urine cx. So will switch her to full admission today (2) UTI (urinary tract infection) Current Visit: No Status: Acute Assessment and plan: waiting on Urine cx will cont Zosyn since her recent UTI showed Proteus susceptible to Zosyn Qualifiers: Urinary tract infection type: acute cystitis Hematuria presence: without hematuria Qualified Code(s): N30.00 - Acute cystitis without hematuria (3) Fall Current Visit: Yes Status: Chronic Assessment and plan: PT / OT on board on fall precautions Qualifiers: Encounter type: initial encounter Qualified Code(s): W19.XXXA - Unspecified fall, initial encounter (4) [place]'s disease Current Visit: No Status: Chronic (5) DM2 (diabetes mellitus, type 2) Current Visit: No Status: Chronic Assessment and plan: resumed home meds Qualifiers: Diabetes mellitus complication status: without complication Diabetes mellitus joint terminal attack controller insulin use: without joint terminal attack controller use Qualified Code(s): E11.9 - Type 2 diabetes mellitus without complications (6) Hypertension Current Visit: No Status: Chronic Assessment and plan: stable with home meds Qualifiers: Hypertension type: essential hypertension Qualified Code(s): I10 - Essential (primary) hypertension (7) Hyperlipidemia Current Visit: No Status: Chronic Assessment and plan: on statin Qualifiers: Hyperlipidemia type: mixed hyperlipidemia Qualified Code(s): E78.2 - Mixed hyperlipidemia (8) History of pulmonary embolism Current Visit: No Status: Chronic Assessment and plan: on Coumadin..INR therapeutic (9) Obesity (BMI 30-39.9) Current Visit: No Status: Chronic Assessment and plan: counseled to loose urban - Subjective Interval history: Ms. Corona is a 71 year old female with h/o PE on Coumadin, Bradley disease and frequent UTI who is admitted here recently for MDR UTI on 07/08/17, now she presented to ER c/o fall due to weakness and ambulatory dysfunction. Pt stated she is still feeling weak and lethargic. Denied any CP / SOB. No fever / chills. - Constitutional Vitals: Temp Pulse Resp BP Pulse Ox 98.0 F 67 17 146/73 98 08/09/17 11:54 08/09/17 11:54 08/09/17 11:54 08/09/17 11:54 08/09/17 11:54 General appearance: Present: A&O X 3, pleasant, no acute distress, answers questions appropriately - Head Head exam: Present: atraumatic, normal inspection - Neck Neck exam general surgery: Present: supple - Respiratory Respiratory exam: Present: decreased breath sounds. Absent: rales, respiratory distress, rhonchi, wheezes - Cardiovascular Cardiovascular exam: Present: RRR, +S1, +S2. Absent: tachycardia - Extremities Exam Extremities exam: Absent: calf tenderness, pedal edema, tenderness - Back Exam Back exam: Absent: CVA tenderness (L), CVA tenderness (R) - Neurological Exam Neurological exam: Present: alert, oriented X3 - Psychiatric Psychiatric exam: Present: normal affect, normal mood Internal Medicine: Result - Labs CBC & Chem 7: 08/09/17 04:58 08/09/17 04:58 - ABG Interpretation ABG results: PT/INR, D-dimer PT 33.1 Seconds (9.4-12.1) H 08/09/17 04:58 - VTE Reasons for not Prescribing Prophylaxis: Not indicated-Anticoagulated or INR therapeutic Consult Discharge Plan - Plan
[2017-08-09] MEDS ORDERED: *HR* Warfarin 2.5 MG TABLET PO SCH (18:00)
[2017-08-09] MEDS ORDERED: Warfarin perPT PO PRN (18:00)
[2017-08-09] MEDS: *HR* Metformin 500 MG TABLET PO SCH (21:09)
[2017-08-10] MEDS: *HR* HYDROcodone/Acet 5/325 mg TABLET PO PRN ×2 (03:38→22:27)
[2017-08-10] MEDS: Piperacillin/Tazobactam 3.375 GM/200 ML BAG IVPB SCH ×3 (03:39→20:22)
[2017-08-10] MEDS: Insulin LISPRO 300 UNITS/3 ML VIAL SQ SCH ×4 (07:18→21:10)
[2017-08-10] MEDS: Metoprolol XL (24 HR) Succ 25 MG TAB.ER.24H PO SCH (08:39)
[2017-08-10] MEDS: Famotidine 20 MG TABLET PO SCH (08:40)
[2017-08-10] MEDS: *HR* Glimepiride 4 MG TABLET PO SCH (08:40)
[2017-08-10] MEDS: Lisinopril 20 MG TABLET PO SCH (08:40)
[2017-08-10] MEDS: Folic Acid 1 MG TABLET PO SCH (08:40)
[2017-08-10] MEDS: Thiamine (B-1) 100 MG TABLET PO SCH (08:40)
[2017-08-10 16:27] LABS: INR 2.6; Prothrombin Time 28.8 Seconds (9.4-12.1)
--- NOTE | 2017-08-10 16:53 | Internal Med Progress Note ---
Date of Encounter: 08/10/17 Time of Encounter: 12:40 - Assessment and plan (1) UTI (urinary tract infection) Current Visit: No Status: Acute Assessment and plan: Her Urine cx - growing G-ve rods cont empirical abx Zosyn for now since her recent UTI showed Proteus susceptible to Zosyn Qualifiers: Urinary tract infection type: acute cystitis Hematuria presence: without hematuria Qualified Code(s): N30.00 - Acute cystitis without hematuria (2) Ambulatory dysfunction Current Visit: Yes Status: Acute Assessment and plan: Her ambulatory dysfunction / progressively worsening weakness could be due to UTI and severe deconditioning PT / OT evaluated the pt and recommend ECF placement SW consulted Talked to the pt's daughter at bed side and explained to her about current care pt and daughter both agree to go to ECF for short term rehab (3) Fall Current Visit: Yes Status: Chronic Assessment and plan: PT / OT on board on fall precautions Qualifiers: Encounter type: initial encounter Qualified Code(s): W19.XXXA - Unspecified fall, initial encounter (4) [place]'s disease Current Visit: No Status: Chronic (5) DM2 (diabetes mellitus, type 2) Current Visit: No Status: Chronic Assessment and plan: resumed home meds Qualifiers: Diabetes mellitus complication status: without complication Diabetes mellitus local company intermodal truck driver insulin use: without local company intermodal truck driver use Qualified Code(s): E11.9 - Type 2 diabetes mellitus without complications (6) Hypertension Current Visit: No Status: Chronic Assessment and plan: stable with home meds Qualifiers: Hypertension type: essential hypertension Qualified Code(s): I10 - Essential (primary) hypertension (7) Hyperlipidemia Current Visit: No Status: Chronic Assessment and plan: on statin Qualifiers: Hyperlipidemia type: mixed hyperlipidemia Qualified Code(s): E78.2 - Mixed hyperlipidemia (8) History of pulmonary embolism Current Visit: No Status: Chronic Assessment and plan: on Coumadin..INR therapeutic (9) Obesity (BMI 30-39.9) Current Visit: No Status: Chronic Assessment and plan: counseled to loose urban - Subjective Interval history: Ms. Corona is a 71 year old female with h/o PE on Coumadin, [place] disease and frequent UTI who is admitted here recently for MDR UTI on 07/08/17, now she presented to ER c/o fall due to weakness and ambulatory dysfunction. Pt denied any CP / SOB. No fever / chills. No events over night. Feeling little better. Still feels lethargic - Constitutional Vitals: Temp Pulse Resp BP Pulse Ox 98.5 F 88 16 116/55 94 08/10/17 16:08 08/10/17 16:08 08/10/17 16:08 08/10/17 16:08 08/10/17 16:08 General appearance: Present: A&O X 3, pleasant, no acute distress, answers questions appropriately - Head Head exam: Present: atraumatic, normal inspection - Neck Neck exam general surgery: Present: supple - Respiratory Respiratory exam: Present: decreased breath sounds. Absent: rales, respiratory distress, rhonchi, wheezes - Cardiovascular Cardiovascular exam: Present: RRR, +S1, +S2. Absent: tachycardia - GI/Abdominal GI/Abdominal exam: Present: normal bowel sounds, soft. Absent: rebound, rigid, tenderness - Extremities Exam Extremities exam: Absent: calf tenderness, pedal edema, tenderness - Back Exam Back exam: Absent: CVA tenderness (L), CVA tenderness (R) - Psychiatric Psychiatric exam: Present: normal affect, normal mood Internal Medicine: Result - Labs CBC & Chem 7: 08/09/17 04:58 08/09/17 04:58 - ABG Interpretation ABG results: PT/INR, D-dimer PT 28.8 Seconds (9.4-12.1) H 08/10/17 16:16 - VTE Reasons for not Prescribing Prophylaxis: Not indicated-Anticoagulated or INR therapeutic Consult Discharge Plan - Plan Referrals: Oscar Sandoval Jr, MD [Primary Care Provider] -
[2017-08-10] MEDS ORDERED: *HR* Warfarin 2.5 MG TABLET PO ONE (18:00)
[2017-08-10] MEDS: *HR* Metformin 500 MG TABLET PO SCH (20:22)
[2017-08-10] MEDS: Nystatin SUSP 5 ML UD.LIQ PO PRN (20:34)
[2017-08-11] MEDS: Piperacillin/Tazobactam 3.375 GM/200 ML BAG IVPB SCH ×2 (03:43→11:55)
[2017-08-11 05:48] LABS: INR 2.1; Prothrombin Time 23.4 Seconds (9.4-12.1)
[2017-08-11 05:51] LABS: Basophils # 0.1 K/mcL (0.0-0.2); Basophils % 0.7 %; Eosinophils # 0.3 K/mcL (0.0-0.6); Eosinophils % 3.7 %; Hematocrit 32.5 % (35.3-44.9); Immature Granulocytes % 0.1 % (0-4); Lymphocytes # 1.4 K/mcL (0.6-4.6); Lymphocytes % 17.8 %; Mean Corpuscular HGB Conc 30.8 g/dL (31.6-35.5); Mean Corpuscular Hemoglobin 26.9 pg (28.0-33.3); Mean Corpuscular Volume 87.4 fL (83.0-100.0); Mean Platelet Volume 10.6 fL (9.4-12.4); Monocytes # 0.3 K/mcL (0.0-1.3); Monocytes % 4.2 %; Neutrophils # 5.6 K/mcL (1.6-8.9); Platelet Count 201 K/mcL (140-400); Red Blood Count 3.72 M/mcL (3.82-4.97); Red Cell Distribution Width 14.6 % (11.5-14.5); Segmented Neutrophils % 73.5 %
[2017-08-11 06:08] LABS: BUN/Creatinine Ratio 14 (6-26); Blood Urea Nitrogen 12 mg/dL (8-23); Calcium 8.5 mg/dL (8.6-10.3); Carbon Dioxide 27 mEq/L (23-29); Chloride 108 mEq/L (98-107); Glucose 100 mg/dL (70-105); Osmolality,Calculated 294 (280-300); Potassium 3.8 mEq/L (3.5-5.1); Sodium 142 mEq/L (136-145); eGFR For African Americans > 60 (> 60); eGFR For Non-African Americans > 60 (> 60)
[2017-08-11] MEDS: *HR* Glimepiride 4 MG TABLET PO SCH (09:49)
[2017-08-11] MEDS: Famotidine 20 MG TABLET PO SCH (09:49)
[2017-08-11] MEDS: Folic Acid 1 MG TABLET PO SCH (09:50)
[2017-08-11] MEDS: Lisinopril 20 MG TABLET PO SCH (09:50)
[2017-08-11] MEDS: Insulin LISPRO 300 UNITS/3 ML VIAL SQ SCH ×4 (09:50→20:22)
[2017-08-11] MEDS: Thiamine (B-1) 100 MG TABLET PO SCH (09:50)
[2017-08-11] MEDS: Metoprolol XL (24 HR) Succ 25 MG TAB.ER.24H PO SCH (09:50)
--- NOTE | 2017-08-11 17:56 | Internal Med Progress Note ---
Date of Encounter: 08/11/17 Time of Encounter: 13:00 - Assessment and plan (1) UTI (urinary tract infection) Current Visit: No Status: Acute Assessment and plan: Her Urine cx - growing Enterobacter aerogenes susceptible for Levaquin so will switch her abx to Levaquin today - # 3/7 Since she has recurrent UTI with different bacteria, and some uterine problems, may need to f/u with Wire Weaver and eventually urologist as an out pt talked to pt's daughter about this. Also encouraged and educated the pt about hygiene. Qualifiers: Urinary tract infection type: acute cystitis Hematuria presence: without hematuria Qualified Code(s): N30.00 - Acute cystitis without hematuria (2) Ambulatory dysfunction Current Visit: Yes Status: Acute Assessment and plan: Her ambulatory dysfunction / progressively worsening weakness could be due to UTI and severe deconditioning PT / OT evaluated the pt and recommend ECF placement SW consulted Talked to the pt's daughter at bed side and explained to her about current care pt and daughter both agree to go to ECF for short term rehab Possible d/c to ECF in AM (3) Fall Current Visit: Yes Status: Chronic Assessment and plan: PT / OT on board on fall precautions Qualifiers: Encounter type: initial encounter Qualified Code(s): W19.XXXA - Unspecified fall, initial encounter (4) [place]'s disease Current Visit: No Status: Chronic (5) DM2 (diabetes mellitus, type 2) Current Visit: No Status: Chronic Assessment and plan: resumed home meds Qualifiers: Diabetes mellitus complication status: without complication Diabetes mellitus chcf insulin use: without chcf use Qualified Code(s): E11.9 - Type 2 diabetes mellitus without complications (6) Hypertension Current Visit: No Status: Chronic Assessment and plan: stable with home meds Qualifiers: Hypertension type: essential hypertension Qualified Code(s): I10 - Essential (primary) hypertension (7) Hyperlipidemia Current Visit: No Status: Chronic Assessment and plan: on statin Qualifiers: Hyperlipidemia type: mixed hyperlipidemia Qualified Code(s): E78.2 - Mixed hyperlipidemia (8) History of pulmonary embolism Current Visit: No Status: Chronic Assessment and plan: on Coumadin..INR therapeutic (9) Obesity (BMI 30-39.9) Current Visit: No Status: Chronic Assessment and plan: counseled to loose urban - Subjective Interval history: Ms. Corona is a 71 year old female with h/o PE on Coumadin, [place] disease and frequent UTI who is admitted here recently for MDR UTI on 07/08/17, now she presented to ER c/o fall due to weakness and ambulatory dysfunction. Pt denied any CP / SOB. No fever / chills. No events over night. Feeling much better today. Comfortably sitting in a chair - Constitutional Vitals: Temp Pulse Resp BP Pulse Ox 98.2 F 56 14 148/72 94 08/11/17 16:21 08/11/17 16:21 08/11/17 16:21 08/11/17 16:21 08/11/17 16:21 General appearance: Present: A&O X 3, pleasant, no acute distress, answers questions appropriately - Head Head exam: Present: atraumatic, normal inspection - Neck Neck exam general surgery: Present: supple - Respiratory Respiratory exam: Present: decreased breath sounds. Absent: rales, respiratory distress, rhonchi, wheezes - Cardiovascular Cardiovascular exam: Present: +S1, +S2. Absent: tachycardia - GI/Abdominal GI/Abdominal exam: Present: normal bowel sounds, soft. Absent: rebound, rigid, tenderness - Extremities Exam Extremities exam: Absent: calf tenderness, pedal edema, tenderness - Neurological Exam Neurological exam: Present: alert, oriented X3 Internal Medicine: Result - Labs CBC & Chem 7: 08/11/17 05:02 08/11/17 05:02 Labs: Short CBC 08/11/17 Range/Units 05:02 WBC 7.6 (4.3-11.1) K/mcL Hgb 10.0 L (11.5-15.4) g/dL Hct 32.5 L (35.3-44.9) % Plt Count 201 (140-400) K/mcL Neutrophils # 5.6 (1.6-8.9) K/mcL BMP 08/11/17 05:02 Sodium 142 Potassium 3.8 Chloride 108 H Carbon Dioxide 27 BUN 12 Creatinine 0.84 Glucose 100 Calcium 8.5 L - ABG Interpretation ABG results: PT/INR, D-dimer PT 23.4 Seconds (9.4-12.1) H 08/11/17 05:02 - VTE Reasons for not Prescribing Prophylaxis: Not indicated-Anticoagulated or INR therapeutic Consult Discharge Plan - Plan Referrals: Oscar Sandoval Jr, MD [Primary Care Provider] -
[2017-08-11] MEDS ORDERED: *HR* Warfarin 5 MG TABLET PO ONE (18:00)
[2017-08-11] MEDS: *HR* Metformin 500 MG TABLET PO SCH (20:06)
[2017-08-11] MEDS: *HR* HYDROcodone/Acet 5/325 mg TABLET PO PRN (20:20)
[2017-08-11] MEDS: Nystatin SUSP 5 ML UD.LIQ PO PRN (20:20)
[2017-08-12 06:20] LABS: INR 2.2; Prothrombin Time 24.3 Seconds (9.4-12.1)
[2017-08-12 07:46] VITALS: BP 142/59
[2017-08-12] MEDS: Insulin LISPRO 300 UNITS/3 ML VIAL SQ SCH ×2 (08:33→12:17)
[2017-08-12] MEDS ORDERED: levoFLOXacin 500 MG TABLET PO SCH (09:00)
--- NOTE | 2017-08-12 10:09 | Discharge Summary ---
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 (5) DM2 (diabetes mellitus, type 2) Priority: Secondary Status: Chronic Qualifiers: Diabetes mellitus complication status: without complication Diabetes mellitus intermodal truck driver insulin use: without intermodal truck driver use Qualified Code(s): E11.9 - Type 2 diabetes mellitus without complications (6) Hypertension Priority: Secondary Status: Chronic Qualifiers: Hypertension type: essential hypertension Qualified Code(s): I10 - Essential (primary) hypertension (7) Hyperlipidemia Priority: Secondary Status: Chronic Qualifiers: Hyperlipidemia type: mixed hyperlipidemia Qualified Code(s): E78.2 - Mixed hyperlipidemia (8) Obesity (BMI 30-39.9) Priority: Secondary Status: Chronic (9) History of pulmonary embolism Priority: Secondary Status: Chronic - Discharge Medications Prescriptions: levoFLOXacin [Levaquin] 500 mg PO DAILY #4 tablet Home Medications: Glimepiride [Amaryl] 2 mg PO DAILY 05/15/16 [History] Ranitidine HCl [Acid Occ Med Physician] 150 mg PO DAILY 05/15/16 [History] Levothyroxine [Synthroid] 50 mcg PO DAILY 12/29/16 [History] Lisinopril [Zestril] 20 mg PO DAILY 12/29/16 [History] Metoprolol XL (24 HR) Succ [Toprol Xl] 12.5 mg PO DAILY 12/29/16 [History] Omeprazole [PriLOSEC] 40 mg PO DAILY 07/08/17 [History] Sertraline [Zoloft] 200 mg PO DAILY 07/08/17 [History] Warfarin [Coumadin] 2.5 mg PO SUSA 07/08/17 [History] Warfarin [Coumadin] 5 mg PO MOTUWETHFR 07/08/17 [History] ALPRAZolam [Xanax 1 MG Tablet] 1 mg PO BID 08/08/17 [History] Metformin HCl [Metformin HCl ER] 1,000 mg PO HS 08/08/17 [History] Folic Acid 1 mg PO DAILY tablet 08/12/17 [Rx] Thiamine (B-1) [Vitamin B-1] 100 mg PO DAILY tablet 08/12/17 [Rx] levoFLOXacin [Levaquin] 500 mg PO DAILY #4 tablet 08/12/17 [Rx] Allergies/Adverse Reactions: 3 Allergy/AdvReac Type Severity Reaction Status Date / Time gabapentin [From Neurontin] AdvReac Agitated Verified 08/08/17 10:49 Date of admission: 08/09/17 14:32 Primary care physician: Oscar Sandoval Jr, MD Discharging clinician: Dawson De La Cruz - Patient Status Disposition: Transfer SNF Condition: Fair Functional capacity at discharge: uses cane/walker Overall status at discharge: patient is progressing back to baseline - Discharge Instructions Follow Up With: Oscar Sandoval Jr, MD [Primary Care Provider] - Forms: ED Satisfaction Letter - Diet and Activity Activity: as per physical therapy Diet: advance to your usual diet Hospital course: Ms. Corona is a 71 year old female with h/o PE on Coumadin, Bradley disease and frequent UTI who is admitted here recently for MDR UTI on 07/08/17, now she presented to ER c/o fall due to weakness and ambulatory dysfucntion. Patient states that y/d morning she is using the restroom with her walker that she went to go sit on the toilet she fell over and hit her head on the bathtub. She states that she did not lose consciousness and at that time her son and physical therapist were able to help to sit back on chair, however she was not able move out of the chair since she felt so weakness. The patient states over the past few days she has been becoming progressively weak to the point where she is unable to get herself from a wheelchair to the bed which she is normally able to do without difficulty. 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 Pt denied any dysuria. CT head was negative for intracranial abnormality. CT spine was also negative for fracture/ subluxations Patient had UA consistent with UTI, she was started on Zosyn, IV hydration, urine culture obtained. PT OT consulted. ECF was recommended. Culture grew Enterobacter aerogenes that was susceptible to Levaquin. She was continued with this upon discharge. Recommended that she follow-up with Safety Trainer and/or Urologist for recurrent UTI. - Time Spent with Patient Total time spent providing and/or coordinating discharge services: - Constitutional Vitals: Temp Pulse Resp BP Pulse Ox 99.2 F 64 16 142/59 94 08/12/17 07:45 08/12/17 07:45 08/12/17 07:45 08/12/17 07:45 08/12/17 07:45 General appearance: Present: A&O X 3, pleasant, no acute distress, answers questions appropriately Exam: - Head Head exam: Present: atraumatic, normal inspection - Neck Neck exam general surgery: Present: supple - Respiratory Respiratory exam: Present: decreased breath sounds. Absent: rales, respiratory distress, rhonchi, wheezes - Cardiovascular Cardiovascular exam: Present: +S1, +S2. Absent: tachycardia - GI/Abdominal GI/Abdominal exam: Present: normal bowel sounds, soft. Absent: rebound, rigid, tenderness - Extremities Exam Extremities exam: Absent: calf tenderness, pedal edema, tenderness - Neurological Exam Neurological exam: Present: alert, oriented X3 - VTE Reasons for not Prescribing Prophylaxis: Not indicated-Anticoagulated or INR therapeutic
--- NOTE | 2017-08-12 10:25 | Physician Discharge Referral ---
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 (5) DM2 (diabetes mellitus, type 2) Priority: Secondary Status: Chronic (6) Hypertension Priority: Secondary Status: Chronic (7) Hyperlipidemia Status: Chronic (8) Obesity (BMI 30-39.9) Priority: Secondary Status: Chronic (9) History of pulmonary embolism Priority: Secondary Status: Chronic Prognosis: Fair - Transfer Medications Prescriptions: levoFLOXacin [Levaquin] 500 mg PO DAILY #4 tablet Home Medications: Glimepiride [Amaryl] 2 mg PO DAILY 05/15/16 [History] Ranitidine HCl [Acid Yeast Culture Developer] 150 mg PO DAILY 05/15/16 [History] Levothyroxine [Synthroid] 50 mcg PO DAILY 12/29/16 [History] Lisinopril [Zestril] 20 mg PO DAILY 12/29/16 [History] Metoprolol XL (24 HR) Succ [Toprol Xl] 12.5 mg PO DAILY 12/29/16 [History] Omeprazole [PriLOSEC] 40 mg PO DAILY 07/08/17 [History] Sertraline [Zoloft] 200 mg PO DAILY 07/08/17 [History] Warfarin [Coumadin] 2.5 mg PO SUSA 07/08/17 [History] Warfarin [Coumadin] 5 mg PO MOTUWETHFR 07/08/17 [History] ALPRAZolam [Xanax 1 MG Tablet] 1 mg PO BID 08/08/17 [History] Metformin HCl [Metformin HCl ER] 1,000 mg PO HS 08/08/17 [History] Folic Acid 1 mg PO DAILY tablet 08/12/17 [Rx] Thiamine (B-1) [Vitamin B-1] 100 mg PO DAILY tablet 08/12/17 [Rx] levoFLOXacin [Levaquin] 500 mg PO DAILY #4 tablet 08/12/17 [Rx] Allergies/Adverse Reactions: 3 Allergy/AdvReac Type Severity Reaction Status Date / Time gabapentin [From Neurontin] AdvReac Agitated Verified 08/08/17 10:49 - Respiratory Orders Smoking Cessation: Smoking cessation has been advised. For more information, call the [place] Tobacco Quit Line at 9-381-YSJM-NOW. - Ancillary Orders May use pressure relief devices daily prn - Advance Directives Code Status: Full Code - Mobility Orders Other (As per physical therapy) - Rehabiliation Orders Rehab Orders: Evaluation for Physical Therapy, Evaluation for Occupational Therapy - Treatments Skin tear care topically daily PRN per policy, May check for fecal impaction rectally daily PRN - Diet Orders No Added Salt (MARGUERITE), No Concentrated Sweets, Cardiac CERTIFICATION: I certify that the transfer of the above named patient to an Extended Care Facility is necessary for the continuing treatment of the diagnosis listed. The above information is true and accurate reflection of patient's current condition. Confidential - Redisclosure prohibited without a patient's written consent.
[2017-08-12] MEDS: Lisinopril 20 MG TABLET PO SCH (10:43)
[2017-08-12] MEDS: Thiamine (B-1) 100 MG TABLET PO SCH (10:44)
[2017-08-12] MEDS: *HR* Glimepiride 4 MG TABLET PO SCH (10:44)
[2017-08-12] MEDS: Famotidine 20 MG TABLET PO SCH (10:44)
[2017-08-12] MEDS: Metoprolol XL (24 HR) Succ 25 MG TAB.ER.24H PO SCH (10:44)
[2017-08-12] MEDS: Folic Acid 1 MG TABLET PO SCH (10:45)
[2017-08-12] MEDS ORDERED: *HR* Warfarin 5 MG TABLET PO ONE (18:00)
== END 2017-08-12 12:46 | DRG 690 ==
LOC: EMEROO 21:23 → 3ANU 21:23 → SUATTDRO 08-08 01:46 → 3BNU 08-08 03:15
PROVIDERS: ADMIT Internal Medicine; ATTEND Family Medicine

== ENCOUNTER 2018-01-24 14:38 | Inpatient (IN) ==
[2018-01-24 14:58] LABS: Basophils # 0.1 K/mcL (0.0-0.2); Basophils % 0.6 %; Eosinophils # 0.3 K/mcL (0.0-0.6); Eosinophils % 2.1 %; Hematocrit 37.1 % (35.3-44.9); Hemoglobin 11.7 g/dL (11.5-15.4); Immature Granulocytes % 0.4 % (0-4); Lymphocytes # 2.5 K/mcL (0.6-4.6); Lymphocytes % 16.8 %; Mean Corpuscular HGB Conc 31.5 g/dL (31.6-35.5); Mean Corpuscular Hemoglobin 28.7 pg (28.0-33.3); Mean Corpuscular Volume 91.2 fL (83.0-100.0); Mean Platelet Volume 10.2 fL (9.4-12.4); Monocytes # 0.6 K/mcL (0.0-1.3); Neutrophils # 11.1 K/mcL (1.6-8.9); Platelet Count 262 K/mcL (140-400); Red Blood Count 4.07 M/mcL (3.82-4.97); Red Cell Distribution Width 14.4 % (11.5-14.5); Segmented Neutrophils % 76.1 %
--- NOTE | 2018-01-24 15:02 | Emergency Department Note ---
Disposition Clinical Impression: Elevated troponin Suicide attempt by multiple drug overdose Qualifiers: Encounter type: initial encounter Qualified Code(s): T50.902A - Poisoning by unspecified drugs, medicaments and biological substances, intentional self-harm , initial encounter Disposition: Admitted As Inpatient Condition: Fair Referrals: Oscar Sandoval Jr, MD [Primary Care Provider] - Forms: ED Satisfaction Letter General Adult HPI - General Chief complaint: ED Overdose Stated complaint: OD/? 7 empty bottles Time Seen by Provider: 01/24/18 14:50 Source: patient, family, EMS, other Limitations: altered mental status, physical limitation, age, other Nursing Notes Reviewed: Yes Vital Signs Reviewed: Yes - History of Present Illness Pain Scale: 0 - Related Data Home Medications Medication Instructions Recorded Confirmed Glimepiride [Amaryl] 2 mg PO DAILY 05/15/16 01/24/18 Ranitidine HCl [Acid Java Development Manager] 150 mg PO DAILY 05/15/16 01/24/18 Levothyroxine [Synthroid] 50 mcg PO DAILY 12/29/16 01/24/18 Lisinopril [Zestril] 20 mg PO DAILY 12/29/16 01/24/18 Metoprolol XL (24 HR) Succ [Toprol 12.5 mg PO DAILY 12/29/16 01/24/18 Xl] Omeprazole [PriLOSEC] 40 mg PO DAILY 07/08/17 01/24/18 Sertraline [Zoloft] 200 mg PO DAILY 07/08/17 01/24/18 Metformin HCl [Metformin HCl ER] 1,000 mg PO HS 08/08/17 01/24/18 ARIPiprazole [Abilify] 5 mg PO DAILY 01/24/18 01/24/18 Buspirone HCl [Buspar] 5 mg PO BID 01/24/18 01/24/18 Nitrofurantoin (BID) [Macrobid] 100 mg PO BID 01/24/18 01/24/18 Rivaroxaban [Xarelto] 10 mg PO DAILY 01/24/18 01/24/18 Previous Rx's Medication Instructions Recorded ALPRAZolam [Xanax 1 MG Tablet] 1 mg PO BID PRN #20 tablet 08/12/17 Allergies Allergy/AdvReac Type Severity Reaction Status Date / Time gabapentin [From Neurontin] AdvReac Agitated Verified 01/24/18 14:47 Past Medical History - Past Medical History Medical history: Reports: atrial fibrillation, diabetes, GI bleed, hyperlipidemia, hypertension, pulmonary embolus, other Surgical history: Reports: cholecystectomy, hysterectomy, other Psychiatric history: Reports: anxiety, depression - Social History Smoking Status: Never smoker Smokeless Tobacco Status: No Alcohol use: Reports: none Drug use: Reports: prescription drug abuse Physical Exam - General Limitations: altered mental status, physical limitation, age, other General appearance: lethargic Course Vital Signs Temperature 97.4 F L 01/24/18 14:40 Pulse Rate 62 01/24/18 14:40 Respiratory Rate 24 01/24/18 14:40 Blood Pressure 156/96 01/24/18 14:40 O2 Sat by Pulse Oximetry 99 01/24/18 14:40 Temperature 97.4 F L 01/24/18 14:40 Pulse Rate 61 01/24/18 16:30 Respiratory Rate 20 01/24/18 16:30 Blood Pressure 135/88 01/24/18 16:30 O2 Sat by Pulse Oximetry 93 01/24/18 16:30 Oxygen Delivery Oxygen Delivery Room Air Medical Decision Making - [facility] Narrative Medical decision making narrative: 1512 hrs.: Patient's INR is elevated. She is on Coumadin but taking Coumadin within the last 1 to 2R should not cause her INR to be this elevated some most likely it will elevate higher if she did this today or this may indicate she has been taking this previously in overdose. She is still groggy but awake. She is protecting her airway. Waiting on CT of her head and other labs. Chest X-Ray 01/24/18 14:51 IMPRESSION: Mild -moderate pulmonary edema. D/ / Santiago Miguel MD / Santiago Miguel MD Interpreting Provider: Santiago Miguel MD 1548 hrs.: Patient's troponin is positive. She denies any chest pain. I am not certain with her mental status if she can be inaccuracies. We will consider aspirin with her she is not already on it and assuming that her CT of her head is negative and shows no bleeding. Chest X-Ray 01/24/18 14:51 IMPRESSION: Mild-moderate pulmonary edema. D/ / 01/24/2018 15:49:28 Santiago Miguel MD / sue Interpreting Provider: Santiago Miguel MD Head CT 01/24/18 14:51 IMPRESSION: No acute intracranial abnormality. D/ / 01/24/2018 16:29:12 Santiago Miguel MD / sue Interpreting Provider: Santiago Miguel MD 1648 hrs.: CT is negative chest x-ray shows little bit of pulmonary edema. She denies any chest pain. Regular aspirin here. Waiting on the chemistry. Her drug of abuse screen is positive for benzodiazepines she is on alprazolam. And her son says she is overdosed on that before. 1720 hrs.: Patient's much more awake now. Her labs are back waiting on bed placement. - Lab Data Result diagrams: 01/24/18 14:40 01/24/18 14:40 Lab Results 01/24/18 01/24/18 01/24/18 Range/Units 14:40 14:40 14:40 WBC 14.6 H (4.3-11.1) K/mcL RBC 4.07 (3.82-4.97) M/mcL Hgb 11.7 (11.5-15.4) g/dL Hct 37.1 (35.3-44.9) % MCV 91.2 (83.0-100.0) fL MCH 28.7 (28.0-33.3) pg MCHC 31.5 L (31.6-35.5) g/dL RDW 14.4 (11.5-14.5) % Plt Count 262 (140-400) K/mcL MPV 10.2 (9.4-12.4) fL Immature Gran % 0.4 (0-4) % Seg Neutrophils % 76.1 % Lymphocytes % 16.8 % Monocytes % 4.0 % Eosinophils % 2.1 % Basophils % 0.6 % Neutrophils # 11.1 H (1.6-8.9) K/mcL Lymphocytes # 2.5 (0.6-4.6) K/mcL Monocytes # 0.6 (0.0-1.3) K/mcL Eosinophils # 0.3 (0.0-0.6) K/mcL Basophils # 0.1 (0.0-0.2) K/mcL PT 81.5 H* (9.4-12.1) Seconds INR 7.2 H* Sodium 135 L (136-145) mEq/L Potassium 4.0 (3.5-5.1) mEq/L Chloride 101 (98-107) mEq/L Carbon Dioxide 22 L (23-29) mEq/L BUN 11 (8-23) mg/dL Creatinine 0.84 (0.60-1.20) mg/dL Est GFR ( Amer) > 60 (> 60) Est GFR (Non-Af Amer) > 60 (> 60) BUN/Creatinine Ratio 13 (6-26) Glucose 161 H (70-105) mg/dL Calculated Osmolality 283 (280-300) Calcium 9.0 (8.6-10.3) mg/dL Total Bilirubin 0.3 (0.3-1.0) mg/dL AST 24 (13-39) Units/L ALT 16 (7-52) Units/L Alkaline Phosphatase 74 (34-104) Units/L Creatine Kinase 70 (30-223) Units/L Troponin I 0.22 H* (< 0.04) ng/mL Serum Total Protein 6.7 (6.4-8.9) g/dL Albumin 3.8 (3.5-5.7) g/dL Globulin 2.9 (2.4-3.5) g/dL Albumin/Globulin Ratio 1.3 (1.1-2.2) TSH 1.790 (0.340-5.600) mcIU/mL Urine Color (Yellow) Urine Clarity (Clear) Urine pH (5.0-8.0) pH Units Ur Specific [place] (1.010-1.025) Urine Protein (Neg-Trace) mg/dL Urine Glucose (UA) (Normal) mg/dL Urine Ketones (Negative) mg/dL Urine Blood (Negative) Urine Nitrite (Negative) Urine Bilirubin (Negative) Urine Urobilinogen (Normal) mg/dL Ur Leukocyte Esterase (Negative) Urine Microscopic RBC (0-3) per hpf Urine Microscopic WBC (0-3) per hpf Ur Squamous Epith Cells (None-Few) per lpf Urine Bacteria (None-Few) per hpf Hyaline Casts (None-Few) per lpf Ur Culture Indicated? (NO) Salicylates < 2.5 L (15.0-30.0) mg/dL Urine Opiates Screen (Nqutcx=207) ng/mL Acetaminophen < 10 L (10-20) mcg/mL Ur Barbiturates Screen (Xznufs=022) ng/mL Ur Phencyclidine Scrn (Cutoff=25) ng/mL Ur Amphetamines Screen (Iwcfvt=5910) ng/mL U Benzodiazepines Scrn (Mtsmve=339) ng/mL Urine Cocaine Screen (Cutoff= 300) ng/mL U Marijuana (THC) Screen (Cutoff = 50) ng/mL Ur Drug Screen Interp Ethyl Alcohol < 10 (Less than 10) mg/dL 01/24/18 01/24/18 Range/Units 15:13 15:13 WBC (4.3-11.1) K/mcL RBC (3.82-4.97) M/mcL Hgb (11.5-15.4) g/dL Hct (35.3-44.9) % MCV (83.0-100.0) fL MCH (28.0-33.3) pg MCHC (31.6-35.5) g/dL RDW (11.5-14.5) % Plt Count (140-400) K/mcL MPV (9.4-12.4) fL Immature Gran % (0-4) % Seg Neutrophils % % Lymphocytes % % Monocytes % % Eosinophils % % Basophils % % Neutrophils # (1.6-8.9) K/mcL Lymphocytes # (0.6-4.6) K/mcL Monocytes # (0.0-1.3) K/mcL Eosinophils # (0.0-0.6) K/mcL Basophils # (0.0-0.2) K/mcL PT (9.4-12.1) Seconds INR Sodium (136-145) mEq/L Potassium (3.5-5.1) mEq/L Chloride (98-107) mEq/L Carbon Dioxide (23-29) mEq/L BUN (8-23) mg/dL Creatinine (0.60-1.20) mg/dL Est GFR ( Amer) (> 60) Est GFR (Non-Af Amer) (> 60) BUN/Creatinine Ratio (6-26) Glucose (70-105) mg/dL Calculated Osmolality (280-300) Calcium (8.6-10.3) mg/dL Total Bilirubin (0.3-1.0) mg/dL AST (13-39) Units/L ALT (7-52) Units/L Alkaline Phosphatase (34-104) Units/L Creatine Kinase (30-223) Units/L Troponin I (< 0.04) ng/mL Serum Total Protein (6.4-8.9) g/dL Albumin (3.5-5.7) g/dL Globulin (2.4-3.5) g/dL Albumin/Globulin Ratio (1.1-2.2) TSH (0.340-5.600) mcIU/mL Urine Color Yellow (Yellow) Urine Clarity Clear (Clear) Urine pH 5.5 (5.0-8.0) pH Units Ur Specific [place] 1.018 (1.010-1.025) Urine Protein 100 H (Neg-Trace) mg/dL Urine Glucose (UA) Normal (Normal) mg/dL Urine Ketones Negative (Negative) mg/dL Urine Blood Negative (Negative) Urine Nitrite Negative (Negative) Urine Bilirubin Negative (Negative) Urine Urobilinogen Normal (Normal) mg/dL Ur Leukocyte Esterase Small H (Negative) Urine Microscopic RBC 0-3 (0-3) per hpf Urine Microscopic WBC 5-15 H (0-3) per hpf Ur Squamous Epith Cells Many H (None-Few) per lpf Urine Bacteria Few (None-Few) per hpf Hyaline Casts None Seen (None-Few) per lpf Ur Culture Indicated? NO. A (NO) Salicylates (15.0-30.0) mg/dL Urine Opiates Screen Negative (Wlcklq=228) ng/mL Acetaminophen (10-20) mcg/mL Ur Barbiturates Screen Negative (Ryyxap=643) ng/mL Ur Phencyclidine Scrn Negative (Cutoff=25) ng/mL Ur Amphetamines Screen Negative (Rmyxhl=8570) ng/mL U Benzodiazepines Scrn Positive H (Lhrlby=386) ng/mL Urine Cocaine Screen Negative (Cutoff= 300) ng/mL U Marijuana (THC) Screen Negative (Cutoff = 50) ng/mL Ur Drug Screen Interp See Below Ethyl Alcohol (Less than 10) mg/dL Attestation Statement - Attestation Attestation: This documentation is done with the assistance of Rodger dictation. Despite efforts made to ensure accuracy, there may be inaccuracies in cad design engineer or spelling and typographical errors. I examined this patient and my medical decision-making was reviewed with the Resident Physician. I agree with the documented findings, disposition and treatment plan as described except to the extent set forth below. Patient seen and evaluated on arrival with EMS and Dr. Bruce, I agree with her evaluation and management plan, I supervised the care the patient throughout stay. Patient was brought in for an overdose. She is on multiple medications at home including multiple blood thinners and psychiatric medications. Son saw her earlier today and then came back around noon 1:30 and she was lying on the kitchen floor unconscious. Here her fingerstick blood sugars in the 140s. She does not need intubation at this time to watch her closely as her mental status is declined. She has vomited twice I question whether she is aspirated. When a CT her head chest x-ray labs and admit. Son is here and he is in agreement with this plan. Patient still has a GCS of 11-12.
[2018-01-24 15:07] LABS: INR 7.2; Prothrombin Time 81.5 Seconds (9.4-12.1)
--- NOTE | 2018-01-24 15:20 | Emergency Department Note ---
Disposition Clinical Impression: Elevated troponin Suicide attempt by multiple drug overdose Qualifiers: Encounter type: initial encounter Qualified Code(s): T50.902A - Poisoning by unspecified drugs, medicaments and biological substances, intentional self-harm , initial encounter Disposition: Admitted As Inpatient Condition: Good Referrals: Oscar Sandoval Jr, MD [Primary Care Provider] - Forms: ED Satisfaction Letter Time of Disposition: 17:29 General Adult HPI - General Chief complaint: ED Overdose Stated complaint: OD/? 7 empty bottles Time Seen by Provider: 01/24/18 14:50 Source: patient, family, EMS, other Limitations: altered mental status, physical limitation, age, other Nursing Notes Reviewed: Yes Vital Signs Reviewed: Yes - History of Present Illness HPI Narrative: Patient found unresponsive around 1:30 by her son. He left her house around 12: 30. States that she has had suicide attempts before. Has several bottles of medication or empty. Inclusive of Coumadin and Xarelto as well as buspirone and sertraline. EMS place patient on a nonrebreather and brought her into the hospital. Pain Scale: 0 - Related Data Home Medications Medication Instructions Recorded Confirmed Glimepiride [Amaryl] 2 mg PO DAILY 05/15/16 08/30/17 Ranitidine HCl [Acid Cytology Manager] 150 mg PO DAILY 05/15/16 08/30/17 Levothyroxine [Synthroid] 50 mcg PO DAILY 12/29/16 08/30/17 Lisinopril [Zestril] 20 mg PO DAILY 12/29/16 08/30/17 Metoprolol XL (24 HR) Succ [Toprol 12.5 mg PO DAILY 12/29/16 08/30/17 Xl] Omeprazole [PriLOSEC] 40 mg PO DAILY 07/08/17 08/30/17 Sertraline [Zoloft] 200 mg PO DAILY 07/08/17 08/30/17 Metformin HCl [Metformin HCl ER] 1,000 mg PO HS 08/08/17 08/30/17 ARIPiprazole [Abilify] 5 mg PO DAILY 01/24/18 01/24/18 Buspirone HCl [Buspar] 5 mg PO BID 01/24/18 01/24/18 Nitrofurantoin (BID) [Macrobid] 100 mg PO BID 01/24/18 01/24/18 Rivaroxaban [Xarelto] 10 mg PO DAILY 01/24/18 01/24/18 Previous Rx's Medication Instructions Recorded ALPRAZolam [Xanax 1 MG Tablet] 1 mg PO BID PRN #20 tablet 08/12/17 Allergies Allergy/AdvReac Type Severity Reaction Status Date / Time gabapentin [From Neurontin] AdvReac Agitated Verified 01/24/18 14:47 Limitations: ROS unobtainable due to patients medical condition Past Medical History - Past Medical History Attestation: Yes The following information was validated with the patient. Source: patient Medical history: Reports: atrial fibrillation, diabetes, GI bleed, hyperlipidemia, hypertension, pulmonary embolus, other Surgical history: Reports: cholecystectomy, hysterectomy, other Psychiatric history: Reports: anxiety, depression - Social History Smoking Status: Never smoker Smokeless Tobacco Status: No Alcohol use: Reports: none Drug use: Reports: prescription drug abuse Physical Exam - General Limitations: altered mental status, physical limitation, age, other General appearance: other (Altered mental status. Does open her eyes to verbal response.) - Head Head exam: atraumatic, normocephalic, normal inspection - Eye Eye exam: Present: normal appearance, PERRL, EOMI - ENT ENT exam: normal exam, normal oropharynx, mucous membranes moist - Neck Neck exam: Present: normal inspection, trachea midline - Chest Chest inspection: Present: normal inspection, symmetric chest wall rise. Absent : tenderness - Respiratory Respiratory exam: Present: other (Rhonchi to the left upper lobe). Absent: respiratory distress, accessory muscle use - Cardiovascular Cardiovascular exam: Present: regular rate, normal rhythm, normal heart sounds - Abdominal Exam Abdominal exam: Present: soft. Absent: distention, rigidity, organomegaly - Extremities Exam Extremities exam: Present: normal inspection, full ROM. Absent: tenderness, pedal edema - Back Exam Back exam: Present: normal inspection, full ROM. Absent: tenderness - Neurological Exam Neurological exam: Present: other - Skin Skin exam: Present: warm, dry Course Course Narrative: Female patient brought in by EMS for possible overdose. She had recently lost her . She has a history of one overdose before. The son was at her house today around 12:30 he left. Around 1:30 he returned and found her unresponsive on the kitchen floor. Several bottles were empty. This is inclusive of Coumadin, Xarelto, sertraline, metoprolol, lisinopril, metformin, Xanax. She was brought in by EMS on a nonrebreather. Patient is hard to get to react. She was given 2 mg of Narcan. Pupils were around 4 mm and reactive prior to and after the Narcan. She is able to look around the room. She does follow my commands. Glucose is normal. She is moving her right and left upper extremity. There are weak movements but present. Patient does have rhonchi in her left upper lobe on my auscultation. Heart tones are normal. Abdomen is soft with no masses. No signs of pedal edema to her extremities. I do not appreciate any medication patches. The son arrives and states that she has done this before. He states that multiple bottles were empty at the house. She does not have any signs of trauma to her body. Patient's maintaining an oxygen saturation around 90-93% on room air. She will open her eyes to verbal response. She has no facial drooping. She does appear very tired. She quickly falls asleep. EKG shows no QT prolongation. Her vitals are stable. We did get a basic lab workup on patient and a head CT. Patient's PT INR was supratherapeutic. Her troponin was elevated. I anticipate admission to the ICU for drug overdose. - Reevaluation(s) Reevaluation #1: Patient has an elevated troponin. Her PT INR is supratherapeutic therapeutic currently. We will be withholding aspirin at this time due to unknown fall as well as overdose of Xarelto and Coumadin. Time: 15:28 Reevaluation #2: Patient's drugs of abuse came back positive for benzos. She is mentating better at this time. She states that she took Xarelto and Coumadin and several other pills. She states this was an attempt to kill herself. We will admit her to the hospital this time. Time: 17:08 - Consultations Consultation #1: Dr Amezcua accepted Pt in stable condition. Time: 17:46 Vital Signs Temperature 97.4 F L 01/24/18 14:40 Pulse Rate 62 01/24/18 14:40 Respiratory Rate 24 01/24/18 14:40 Blood Pressure 156/96 01/24/18 14:40 O2 Sat by Pulse Oximetry 99 01/24/18 14:40 Temperature 97.4 F L 01/24/18 14:40 Pulse Rate 62 01/24/18 17:15 Respiratory Rate 20 01/24/18 17:15 Blood Pressure 133/90 01/24/18 17:15 O2 Sat by Pulse Oximetry 95 01/24/18 17:15 Oxygen Delivery Oxygen Delivery Room Air Medical Decision Making - Medical Records Medical records reviewed: Yes I reviewed the patient's medical records. - Lab Data Lab results reviewed: Yes I reviewed the patient's lab results. Result diagrams: 01/24/18 14:40 01/24/18 14:40 Lab Results 01/24/18 01/24/18 01/24/18 Range/Units 14:40 14:40 14:40 WBC 14.6 H (4.3-11.1) K/mcL RBC 4.07 (3.82-4.97) M/mcL Hgb 11.7 (11.5-15.4) g/dL Hct 37.1 (35.3-44.9) % MCV 91.2 (83.0-100.0) fL MCH 28.7 (28.0-33.3) pg MCHC 31.5 L (31.6-35.5) g/dL RDW 14.4 (11.5-14.5) % Plt Count 262 (140-400) K/mcL MPV 10.2 (9.4-12.4) fL Immature Gran % 0.4 (0-4) % Seg Neutrophils % 76.1 % Lymphocytes % 16.8 % Monocytes % 4.0 % Eosinophils % 2.1 % Basophils % 0.6 % Neutrophils # 11.1 H (1.6-8.9) K/mcL Lymphocytes # 2.5 (0.6-4.6) K/mcL Monocytes # 0.6 (0.0-1.3) K/mcL Eosinophils # 0.3 (0.0-0.6) K/mcL Basophils # 0.1 (0.0-0.2) K/mcL PT 81.5 H* (9.4-12.1) Seconds INR 7.2 H* Sodium 135 L (136-145) mEq/L Potassium 4.0 (3.5-5.1) mEq/L Chloride 101 (98-107) mEq/L Carbon Dioxide 22 L (23-29) mEq/L BUN 11 (8-23) mg/dL Creatinine 0.84 (0.60-1.20) mg/dL Est GFR ( Amer) > 60 (> 60) Est GFR (Non-Af Amer) > 60 (> 60) BUN/Creatinine Ratio 13 (6-26) Glucose 161 H (70-105) mg/dL Calculated Osmolality 283 (280-300) Calcium 9.0 (8.6-10.3) mg/dL Total Bilirubin 0.3 (0.3-1.0) mg/dL AST 24 (13-39) Units/L ALT 16 (7-52) Units/L Alkaline Phosphatase 74 (34-104) Units/L Creatine Kinase 70 (30-223) Units/L Troponin I 0.22 H* (< 0.04) ng/mL Serum Total Protein 6.7 (6.4-8.9) g/dL Albumin 3.8 (3.5-5.7) g/dL Globulin 2.9 (2.4-3.5) g/dL Albumin/Globulin Ratio 1.3 (1.1-2.2) TSH 1.790 (0.340-5.600) mcIU/mL Urine Color (Yellow) Urine Clarity (Clear) Urine pH (5.0-8.0) pH Units Ur Specific [place] (1.010-1.025) Urine Protein (Neg-Trace) mg/dL Urine Glucose (UA) (Normal) mg/dL Urine Ketones (Negative) mg/dL Urine Blood (Negative) Urine Nitrite (Negative) Urine Bilirubin (Negative) Urine Urobilinogen (Normal) mg/dL Ur Leukocyte Esterase (Negative) Urine Microscopic RBC (0-3) per hpf Urine Microscopic WBC (0-3) per hpf Ur Squamous Epith Cells (None-Few) per lpf Urine Bacteria (None-Few) per hpf Hyaline Casts (None-Few) per lpf Ur Culture Indicated? (NO) Salicylates < 2.5 L (15.0-30.0) mg/dL Urine Opiates Screen (Mhktcf=084) ng/mL Acetaminophen < 10 L (10-20) mcg/mL Ur Barbiturates Screen (Quvgze=886) ng/mL Ur Phencyclidine Scrn (Cutoff=25) ng/mL Ur Amphetamines Screen (Wtkxlr=0794) ng/mL U Benzodiazepines Scrn (Vmmhys=769) ng/mL Urine Cocaine Screen (Cutoff= 300) ng/mL U Marijuana (THC) Screen (Cutoff = 50) ng/mL Ur Drug Screen Interp Ethyl Alcohol < 10 (Less than 10) mg/dL 01/24/18 01/24/18 Range/Units 15:13 15:13 WBC (4.3-11.1) K/mcL RBC (3.82-4.97) M/mcL Hgb (11.5-15.4) g/dL Hct (35.3-44.9) % MCV (83.0-100.0) fL MCH (28.0-33.3) pg MCHC (31.6-35.5) g/dL RDW (11.5-14.5) % Plt Count (140-400) K/mcL MPV (9.4-12.4) fL Immature Gran % (0-4) % Seg Neutrophils % % Lymphocytes % % Monocytes % % Eosinophils % % Basophils % % Neutrophils # (1.6-8.9) K/mcL Lymphocytes # (0.6-4.6) K/mcL Monocytes # (0.0-1.3) K/mcL Eosinophils # (0.0-0.6) K/mcL Basophils # (0.0-0.2) K/mcL PT (9.4-12.1) Seconds INR Sodium (136-145) mEq/L Potassium (3.5-5.1) mEq/L Chloride (98-107) mEq/L Carbon Dioxide (23-29) mEq/L BUN (8-23) mg/dL Creatinine (0.60-1.20) mg/dL Est GFR ( Amer) (> 60) Est GFR (Non-Af Amer) (> 60) BUN/Creatinine Ratio (6-26) Glucose (70-105) mg/dL Calculated Osmolality (280-300) Calcium (8.6-10.3) mg/dL Total Bilirubin (0.3-1.0) mg/dL AST (13-39) Units/L ALT (7-52) Units/L Alkaline Phosphatase (34-104) Units/L Creatine Kinase (30-223) Units/L Troponin I (< 0.04) ng/mL Serum Total Protein (6.4-8.9) g/dL Albumin (3.5-5.7) g/dL Globulin (2.4-3.5) g/dL Albumin/Globulin Ratio (1.1-2.2) TSH (0.340-5.600) mcIU/mL Urine Color Yellow (Yellow) Urine Clarity Clear (Clear) Urine pH 5.5 (5.0-8.0) pH Units Ur Specific [place] 1.018 (1.010-1.025) Urine Protein 100 H (Neg-Trace) mg/dL Urine Glucose (UA) Normal (Normal) mg/dL Urine Ketones Negative (Negative) mg/dL Urine Blood Negative (Negative) Urine Nitrite Negative (Negative) Urine Bilirubin Negative (Negative) Urine Urobilinogen Normal (Normal) mg/dL Ur Leukocyte Esterase Small H (Negative) Urine Microscopic RBC 0-3 (0-3) per hpf Urine Microscopic WBC 5-15 H (0-3) per hpf Ur Squamous Epith Cells Many H (None-Few) per lpf Urine Bacteria Few (None-Few) per hpf Hyaline Casts None Seen (None-Few) per lpf Ur Culture Indicated? NO. A (NO) Salicylates (15.0-30.0) mg/dL Urine Opiates Screen Negative (Yugvyv=233) ng/mL Acetaminophen (10-20) mcg/mL Ur Barbiturates Screen Negative (Rsbqzq=791) ng/mL Ur Phencyclidine Scrn Negative (Cutoff=25) ng/mL Ur Amphetamines Screen Negative (Gukyqa=6093) ng/mL U Benzodiazepines Scrn Positive H (Jejzzq=231) ng/mL Urine Cocaine Screen Negative (Cutoff= 300) ng/mL U Marijuana (THC) Screen Negative (Cutoff = 50) ng/mL Ur Drug Screen Interp See Below Ethyl Alcohol (Less than 10) mg/dL - Radiology Data Radiology results reviewed: Yes I reviewed the patient's radiology results. Chest X-Ray 01/24/18 14:51 IMPRESSION: Mild-moderate pulmonary edema. D/ / 01/24/2018 15:49:28 Santiago Miguel MD / sue Interpreting Provider: Santiago Miguel MD Head CT 01/24/18 14:51 IMPRESSION: No acute intracranial abnormality. D/ / 01/24/2018 16:29:12 Santiago Miguel MD / sue Interpreting Provider: Santiago Miguel MD - EKG Data EKG #1 EKG attestation: Yes I reviewed and interpreted this EKG. EKG results narrative: Normal sinus rhythm at 65. UT interval is 190. QRS duration is 102. QT is 439. QTC is 450. No signs of acute ischemia. No significant change from previous EKG dated 08/30/2017.
[2018-01-24 15:24] LABS: Acetaminophen < 10 mcg/mL (10-20); Creatine Kinase 70 Units/L (30-223); Ethanol < 10 mg/dL (Less than 10); Salicylate < 2.5 mg/dL (15.0-30.0)
[2018-01-24 15:28] LABS: Troponin I 0.22 ng/mL (< 0.04)
[2018-01-24 15:48] LABS: Bilirubin,Urine Negative (Negative); Blood,Urine Negative (Negative); Clarity,Urine Clear (Clear); Color,Urine Yellow (Yellow); Glucose,Urine (UA) Normal (Normal); Ketones,Urine Negative (Negative); Leukocyte Esterase,Urine Small (Negative); Nitrite,Urine Negative (Negative); PH,Urine 5.5 pH Units (5.0-8.0); Protein,Urine 100 mg/dL (Neg-Trace); Specific Gravity,Urine 1.018 (1.010-1.025); Urobilinogen,Urine Normal (Normal)
[2018-01-24 15:51] LABS: Bacteria,Urine Few per hpf (None-Few); Hyaline Casts,Urine None Seen per lpf (None-Few); RBC,Urine 0-3 per hpf (0-3); Squamous Epithelial Cell,Urine Many per lpf (None-Few)
[2018-01-24] MEDS: 0.9 % Sodium Chloride 1,000 ML IVC SCH ×3 (16:28→23:50)
[2018-01-24 16:34] LABS: Amphetamine Screen,Urine Negative ng/mL (Cutoff=1000); Barbiturate Screen,Urine Negative ng/mL (Cutoff=200); Benzodiazepines Screen,Urine Positive ng/mL (Cutoff=200); Cannabinoid Screen,Urine Negative ng/mL (Cutoff = 50); Cocaine Screen,Urine Negative ng/mL (Cutoff= 300); Opiate Screen,Urine Negative ng/mL (Cutoff=300); Phencyclidine Screen,Urine Negative ng/mL (Cutoff=25)
[2018-01-24 16:52] LABS: Alanine Aminotransferase 16 Units/L (7-52); Albumin 3.8 g/dL (3.5-5.7); Albumin/Globulin Ratio 1.3 (1.1-2.2); Alkaline Phosphatase 74 Units/L (34-104); Aspartate Amino Transferase 24 Units/L (13-39); BUN/Creatinine Ratio 13 (6-26); Bilirubin,Total 0.3 mg/dL (0.3-1.0); Blood Urea Nitrogen 11 mg/dL (8-23); Carbon Dioxide 22 mEq/L (23-29); Chloride 101 mEq/L (98-107); Globulin 2.9 g/dL (2.4-3.5); Glucose 161 mg/dL (70-105); Osmolality,Calculated 283 (280-300); Sodium 135 mEq/L (136-145); Total Protein 6.7 g/dL (6.4-8.9); eGFR For African Americans > 60 (> 60); eGFR For Non-African Americans > 60 (> 60)
[2018-01-24] MEDS ORDERED: Naloxone 0.4 MG/ML INJ IVP PRN (18:24)
[2018-01-24] MEDS ORDERED: *HR* Phytonadione 10 MG/ML AMPUL SQ ONE (18:29)
--- NOTE | 2018-01-24 18:51 | Internal Med History&Physical ---
Date of Encounter: 01/24/18 Time of Encounter: 19:00 Internal Medicine - H&P: HPI Chief complaint: Suicidal attempt Admitted From: Home Plans for Post Hospital Care: Transfer Psych Facility History of present illness: Ms. Corona is a 72 year old female who about 2 emergency room after she had a suicidal attempt with drug overdose. Patient was overdosed on multiple drugs including Coumadin, Xarelto, risperidone and sertraline. She was not radius also when she was found but in the emergency department patient was awake alert and oriented 3. She answers all my questions appropriately and she knew exactly what happened and what she took. EMS initially put on nonrebreather but patient in the emergency department was satting well on room air. Again she is awake alert oriented 3. Patient stated that she was suicidal and wanted to kill herself. She denied any shortness of breath no headache no blurry vision. She stated she has been having chest discomfort ON. No changes in bowel movement Past Med Surg Social Fam HX - Past Medical History Medical history: atrial fibrillation, diabetes, GI bleed, hyperlipidemia, hypertension, pulmonary embolus, other Additional medical history: [place]'s. vocal cord dysfunction. rectal bleeding Psychiatric history: anxiety, depression - Past Surgical History Surgical History: cholecystectomy, hysterectomy, other Additional surgical history: breast reduction - Social History Smoking Status: Never smoker Smokeless Tobacco Status: No Alcohol use: none Drug use: prescription drug abuse - Family History Father Living Status: Hx Family Cardiac Disorders: Yes (HTN) Hx Family Respiratory Disorders: Yes (Emphysema) Mother Adopted: No Family Member Ethnicity: Non- Living Status: Hx Family Cardiac Disorders: No Hx Family Respiratory Disorders: No Hx Family Cancer: No Hx Family GI Disorders: No Hx Family Endocrine Disorder: No Hx Family Neuromuscular Disorders: Yes ([place]ign[place]'s dx) Hx Family Neurologic Disorders: Yes (anuerysm) Internal Medicine - H&P: Meds Glimepiride [Amaryl] 2 mg PO DAILY 05/15/16 [History] Ranitidine HCl [Acid Air Gun Operator] 150 mg PO DAILY 05/15/16 [History] Levothyroxine [Synthroid] 50 mcg PO DAILY 12/29/16 [History] Lisinopril [Zestril] 20 mg PO DAILY 12/29/16 [History] Metoprolol XL (24 HR) Succ [Toprol Xl] 12.5 mg PO DAILY 12/29/16 [History] Omeprazole [PriLOSEC] 40 mg PO DAILY 07/08/17 [History] Sertraline [Zoloft] 200 mg PO DAILY 07/08/17 [History] Metformin HCl [Metformin HCl ER] 1,000 mg PO HS 08/08/17 [History] ALPRAZolam [Xanax 1 MG Tablet] 1 mg PO BID PRN #20 tablet 08/12/17 [Rx] ARIPiprazole [Abilify] 5 mg PO DAILY 01/24/18 [History] Buspirone HCl [Buspar] 5 mg PO BID 01/24/18 [History] Nitrofurantoin (BID) [Macrobid] 100 mg PO BID 01/24/18 [History] Rivaroxaban [Xarelto] 10 mg PO DAILY 01/24/18 [History] 3 Allergy/AdvReac Type Severity Reaction Status Date / Time gabapentin [From Neurontin] AdvReac Agitated Verified 01/24/18 14:47 All Systems PM: A 10-system review of systems was performed and is negative for pertinent findings except as documented above in the HPI. - Constitutional Vitals: Temp Pulse Resp BP Pulse Ox 97.4 F L 64 20 114/77 95 01/24/18 14:40 01/24/18 17:45 01/24/18 17:45 01/24/18 17:45 01/24/18 17:45 - Head Head exam: Present: atraumatic, normocephalic - Eye Eye exam: Present: PERRL, conjuntiva pink, sclera anicteric Pupils: Present: PERRL - Respiratory Respiratory exam: Present: CTAB. Absent: accessory muscle use, rales, rhonchi, wheezes - Cardiovascular Cardiovascular exam: Present: RRR, +S1, +S2. Absent: diastolic murmur, gallop, rubs, systolic murmur - GI/Abdominal GI/Abdominal exam: Present: normal bowel sounds, soft, no peritoneal signs. Absent: distended, tenderness - Extremities Exam Extremities exam: Present: warm, radial pulses palpable and symmetrical. Absent : calf tenderness, cyanotic, pedal edema - Neurological Exam Neurological exam: Present: CN II-XII intact, oriented X3, no focal deficits. Absent: pronater drift, facial droop, speech deficit Internal [facility] - H&P Results - Labs CBC & Chem 7: 01/24/18 14:40 01/24/18 14:40 - VTE Reasons for not Prescribing Prophylaxis: Medical contraindication - Assessment and plan (1) Drug overdose Current Visit: Yes Status: Acute Assessment and plan: With suicidal attempt Patient has a history of suicidal attempts in the past She overdose on Coumadin, Xarelto, sertraline, and Buspirone done She is awake alert oriented 3 Her INR is 7.2. No signs of bleeding. With overdose we will give her a dose of vitamin K Monitor INR Telemetry monitoring. EKG in the morning Serial troponin every 6 hours We will get an echocardiogram for further evaluation of the heart structure and function Continue with metoprolol, statin, nitrates when necessary Cardiology will be consulted to see patient tomorrow. Discussed on the phone with Dr. Arroyo Patient needs to be transferred to the psychiatric unit when medically clear Psychiatry consult Qualifiers: Qualified Code(s): T50.902A - Poisoning by unspecified drugs, medicaments and biological substances, intentional self-harm, initial encounter (2) Suicide attempt Current Visit: Yes Status: Acute Assessment and plan: Plan as above psychiatry consult Need to be transferred to the psychiatry unit when medically cleared (3) Elevated troponin Current Visit: Yes Status: Acute Assessment and plan: Serial troponin every 6 hours for 3 sets Continue current cardiac medications as above Check an echocardiogram for further evaluation of the heart structure and function Cardiology consult. (4) UTI (urinary tract infection) Current Visit: No Status: Acute Assessment and plan: Continue antibiotic to continue her home course Urinalysis ordered Qualifiers: Urinary tract infection type: site unspecified Hematuria presence: without hematuria Qualified Code(s): N39.0 - Urinary tract infection, site not specified (5) Supratherapeutic INR Current Visit: No Status: Acute Assessment and plan: Secondary to drugs overdose and noncompliance No signs of bleeding Monitor INR. May need to give FFP's if any signs of active bleeding (6) On esomeprazole prophylaxis Current Visit: Yes Status: Acute (7) DVT prophylaxis Current Visit: Yes Status: Acute Assessment and plan: No need for heparin products ordered the INR is supratherapeutic - Time Spent With Patient Total time spent is greater than 50% in coordination of care (as documented) at patient's floor/unit and/or counseling patient:
--- NOTE | 2018-01-24 20:53 | Event Note ---
Date of Encounter: 01/24/18 Time of Encounter: 20:50 Critical trop of 1.34, previous was 0.22. (12) lead ekg ordered at this time. Patient is apparently lethargic and unable to assess if currently having CP. Cardiology on consult, nursing calling them for recommendations.
[2018-01-24] MEDS: Nitrofurantoin (BID) 100 MG CAPSULE PO SCH (21:18)
[2018-01-24 21:23] LABS: Bilirubin,Urine Negative (Negative); Blood,Urine Negative (Negative); Clarity,Urine Clear (Clear); Color,Urine Yellow (Yellow); Glucose,Urine (UA) Normal (Normal); Ketones,Urine Trace mg/dL (Negative); Leukocyte Esterase,Urine Negative (Negative); Nitrite,Urine Negative (Negative); PH,Urine 5.5 pH Units (5.0-8.0); Protein,Urine Negative (Neg-Trace); Specific Gravity,Urine 1.024 (1.010-1.025); Urobilinogen,Urine Normal (Normal)
[2018-01-25 01:17] LABS: Basophils # 0.1 K/mcL (0.0-0.2); Basophils % 0.3 %; Eosinophils % 0.1 %; Hematocrit 33.1 % (35.3-44.9); Hemoglobin 10.8 g/dL (11.5-15.4); Immature Granulocytes % 0.3 % (0-4); Lymphocytes # 1.2 K/mcL (0.6-4.6); Lymphocytes % 8.7 %; Mean Corpuscular HGB Conc 32.6 g/dL (31.6-35.5); Mean Corpuscular Hemoglobin 29.2 pg (28.0-33.3); Mean Corpuscular Volume 89.5 fL (83.0-100.0); Mean Platelet Volume 10.3 fL (9.4-12.4); Monocytes # 0.3 K/mcL (0.0-1.3); Monocytes % 2.2 %; Neutrophils # 12.6 K/mcL (1.6-8.9); Platelet Count 249 K/mcL (140-400); Red Cell Distribution Width 14.4 % (11.5-14.5); Segmented Neutrophils % 88.4 %
[2018-01-25 01:33] LABS: INR 10.6; Prothrombin Time 119.6 Seconds (9.4-12.1)
[2018-01-25 01:40] LABS: Alanine Aminotransferase 13 Units/L (7-52); Albumin 3.5 g/dL (3.5-5.7); Albumin/Globulin Ratio 1.3 (1.1-2.2); Alkaline Phosphatase 64 Units/L (34-104); Aspartate Amino Transferase 18 Units/L (13-39); BUN/Creatinine Ratio 18 (6-26); Bilirubin,Direct 0.1 mg/dL (0.0-0.2); Bilirubin,Indirect 0.1 mg/dL (0.0-1.2); Bilirubin,Total 0.2 mg/dL (0.3-1.0); Blood Urea Nitrogen 12 mg/dL (8-23); Calcium 8.4 mg/dL (8.6-10.3); Carbon Dioxide 23 mEq/L (23-29); Chloride 105 mEq/L (98-107); Globulin 2.7 g/dL (2.4-3.5); Glucose 140 mg/dL (70-105); Magnesium 1.7 mg/dL (1.6-2.6); Osmolality,Calculated 284 (280-300); Phosphorous 3.4 mg/dL (2.7-4.5); Potassium 4.4 mEq/L (3.5-5.1); Sodium 136 mEq/L (136-145); Total Protein 6.2 g/dL (6.4-8.9); eGFR For African Americans > 60 (> 60); eGFR For Non-African Americans > 60 (> 60)
[2018-01-25] MEDS ORDERED: Ondansetron 4 MG/2 ML VIAL IVP PRN (02:00)
[2018-01-25] MEDS: ARIPiprazole 5 MG TABLET PO SCH (08:24)
[2018-01-25] MEDS: Lisinopril 20 MG TABLET PO SCH (08:25)
[2018-01-25] MEDS: Metoprolol XL (24 HR) Succ 25 MG TAB.ER.24H PO SCH (08:25)
[2018-01-25] MEDS: Nitrofurantoin (BID) 100 MG CAPSULE PO SCH ×2 (08:26→20:30)
--- NOTE | 2018-01-25 11:09 | Electrophysiology Consult Note ---
Date of Encounter: 01/25/18 Time of Encounter: 11:05 Assessment and Plan (1) Elevated troponin Current Visit: Yes Status: Acute Secondary to overdose. Previous cardiac testing benign. Will check echo but doubt further cardiac testing will be needed. Discussion w patient/family: The assessment and plan as outlined above was discussed with the patient and/or family members who expressed understanding and agreement. All questions were answered. Thank you for involving us in the care of your patient. Please call with any questions. History of Present Illness Consult date: 01/25/18 Requesting physician: Meng Gleason Consult reason: Abnormal troponin History of present illness: Ms. Corona is a 72 year old female who presents following a purposefull multidrug overdose. She was noted to have elevated troponin. She has undergone previous cardiac testing including and left left heart cath remotely and a stress test in 2016. These were apparently negative. She does not ordinarily have chest pain but may have had some after the overdose. Past Med Surg Social Fam HX - Past Medical History Medical history: atrial fibrillation, diabetes, GI bleed, hyperlipidemia, hypertension, pulmonary embolus, other Additional medical history: Bradley's. vocal cord dysfunction. rectal bleeding Psychiatric history: anxiety, depression - Past Surgical History Surgical History: cholecystectomy, hysterectomy, other Additional surgical history: breast reduction - Social History Smoking Status: Never smoker Smokeless Tobacco Status: No Alcohol use: none Drug use: prescription drug abuse - Family History Father Living Status: Hx Family Cardiac Disorders: Yes (HTN) Hx Family Respiratory Disorders: Yes (Emphysema) Mother Adopted: No Family Member Ethnicity: Non- Living Status: Hx Family Cardiac Disorders: No Hx Family Respiratory Disorders: No Hx Family Cancer: No Hx Family GI Disorders: No Hx Family Endocrine Disorder: No Hx Family Neuromuscular Disorders: Yes (H[place]ign[place]'s dx) Hx Family Neurologic Disorders: Yes (anuerysm) Medications and Allergies Glimepiride [Amaryl] 2 mg PO DAILY 05/15/16 [History] Ranitidine HCl [Acid Apprentice Lineman Third Step] 150 mg PO DAILY 05/15/16 [History] Levothyroxine [Synthroid] 50 mcg PO DAILY 12/29/16 [History] Lisinopril [Zestril] 20 mg PO DAILY 12/29/16 [History] Metoprolol XL (24 HR) Succ [Toprol Xl] 12.5 mg PO DAILY 12/29/16 [History] Omeprazole [PriLOSEC] 40 mg PO DAILY 07/08/17 [History] Sertraline [Zoloft] 200 mg PO DAILY 07/08/17 [History] Metformin HCl [Metformin HCl ER] 1,000 mg PO HS 08/08/17 [History] ALPRAZolam [Xanax 1 MG Tablet] 1 mg PO BID PRN #20 tablet 08/12/17 [Rx] ARIPiprazole [Abilify] 5 mg PO DAILY 01/24/18 [History] Buspirone HCl [Buspar] 5 mg PO BID 01/24/18 [History] Nitrofurantoin (BID) [Macrobid] 100 mg PO BID 01/24/18 [History] Rivaroxaban [Xarelto] 10 mg PO DAILY 01/24/18 [History] 3 Allergy/AdvReac Type Severity Reaction Status Date / Time gabapentin [From Neurontin] AdvReac Agitated Verified 01/24/18 14:47 All Systems Review: The remainder of the systems were reviewed and are negative Physical Examination Vital Signs, Last 4 Hours Temp Pulse Resp BP Pulse Ox 01/25/18 07:53 99.0 F 66 20 144/99 95 General: Conversant, No Apparent Distress HEENT: Atraumatic, Normocephaly, Mucus Membranes Moist Neck: No JVD, Normal carotid pulses Cardiac: Reg Rate and Rhythm, Normal S1 and S2, No Murmur Lungs: Normal Breath Sounds, No Wheeze, Rales, Rhonchi Neuro: Alert and responsive, No focal deficits noted Abdomen: Soft, Non-Tender Skin: No rashes noted on visualized skin Musculoskeletal: No Chest Wall Tenderness Extremities: No Clubbing, No Cyanosis, No Edema, Normal Pulses Results 01/25/18 01:04 01/25/18 01:04 Lab Results 01/24/18 01/25/18 01/25/18 19:54 01:04 01:04 WBC 14.3 H Hgb 10.8 L Hct 33.1 L Plt Count 249 INR Sodium Potassium Chloride Carbon Dioxide BUN Creatinine Glucose Calcium Magnesium Total Bilirubin AST ALT Alkaline Phosphatase Troponin I 1.34 H* 2.13 H* 01/25/18 01/25/18 01:04 01:04 WBC Hgb Hct Plt Count INR 10.6 H* Sodium 136 Potassium 4.4 Chloride 105 Carbon Dioxide 23 BUN 12 Creatinine 0.68 Glucose 140 H Calcium 8.4 L Magnesium 1.7 Total Bilirubin 0.2 L AST 18 ALT 13 Alkaline Phosphatase 64 Troponin I - EKG Interpretation EKG results cardiology: other (Inferior ST changes.) Consult Discharge Plan - Plan Referrals: Oscar Sandoval Jr, MD [Primary Care Provider] -
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
[2018-01-25] MEDS: 0.9 % Sodium Chloride 1,000 ML IVC SCH (14:16)
--- NOTE | 2018-01-25 16:19 | Internal Med Progress Note ---
Date of Encounter: 01/25/18 Time of Encounter: 16:14 - Assessment and plan (1) Drug overdose Current Visit: Yes Status: Acute Assessment and plan: With suicidal attempt with overdose on Coumadin, Xarelto, sertraline, and Buspirone done. Patient has a history of suicidal attempts in the past as well. trending up INR bu No signs of bleeding. one dose of vitamin K given. daily Monitor INR. close monitoring. Qualifiers: Qualified Code(s): T50.902A - Poisoning by unspecified drugs, medicaments and biological substances, intentional self-harm, initial encounter (2) Elevated troponin Current Visit: Yes Status: Acute Assessment and plan: trending up. seen by cardio and think due to drug overdose but will wait for echo report as well. (3) Suicide attempt by multiple drug overdose Current Visit: Yes Status: Acute Assessment and plan: psychiatrist on board and advised for inpt psych versus a rehab facility with psychiatric consultation when she is medically cleared. Qualifiers: Encounter type: initial encounter Qualified Code(s): T50.902A - Poisoning by unspecified drugs, medicaments and biological substances, intentional self- harm, initial encounter (4) Supratherapeutic INR Current Visit: No Status: Acute Assessment and plan: no active bleeding. Secondary to drugs overdose and noncompliance daily Monitor INR. May need to give FFP's if any signs of active bleeding (5) UTI (urinary tract infection) Current Visit: No Status: Acute Assessment and plan: MDRO history. leucocytosis. urine cx awaited. has urine frequency. started Zosyn while awaiting for cx report. f/u with urologist on OPD basis. Qualifiers: Urinary tract infection type: site unspecified Hematuria presence: without hematuria Qualified Code(s): N39.0 - Urinary tract infection, site not specified (6) DVT prophylaxis Current Visit: No Status: Chronic Assessment and plan: INR high - Time Spent With Patient Total time spent is greater than 50% in coordination of care (as documented) at patient's floor/unit and/or counseling patient: 25 - 35 minutes - Subjective Interval history: feeling better. no active bleed. reviewed the labs with trending up INR and with raised WBC.. sitter at bed side. denies f/c/n/v/d/cp/sob/abdomen pain. yellowish green Urine. recently started on Macrobid by her urologist for urinary symptoms last week. h/o MDR UTI and supposed to have cystoscope at [facility] in mid Feb. - Constitutional Vitals: Temp Pulse Resp BP Pulse Ox 99.1 F 79 20 123/77 98 01/25/18 16:00 01/25/18 16:00 01/25/18 16:00 01/25/18 16:00 01/25/18 16:00 General appearance: Present: cooperative, A&O X 3, obese - Eye Eye exam: Present: PERRL, conjuntiva pink, sclera anicteric Pupils: Present: PERRL - ENT ENT exam: Present: mucous membranes moist - Neck Neck exam general surgery: Present: supple, trachea midline. Absent: lymphadenopathy - Respiratory Respiratory exam: Present: CTAB. Absent: accessory muscle use, rales, rhonchi, wheezes - Cardiovascular Cardiovascular exam: Present: RRR, +S1, +S2. Absent: diastolic murmur, gallop, rubs, systolic murmur - GI/Abdominal GI/Abdominal exam: Present: normal bowel sounds, soft, no peritoneal signs. Absent: distended, tenderness - Extremities Exam Extremities exam: Present: warm, radial pulses palpable and symmetrical. Absent : calf tenderness, cyanotic, pedal edema - Neurological Exam Neurological exam: Present: CN II-XII intact, oriented X3, no focal deficits. Absent: pronater drift, facial droop, speech deficit - Psychiatric Psychiatric exam: Present: depressed, suicidal ideation Internal Medicine: Result - Labs CBC & Chem 7: 01/25/18 01:04 01/25/18 01:04 Labs: Short CBC 01/25/18 Range/Units 01:04 WBC 14.3 H (4.3-11.1) K/mcL Hgb 10.8 L (11.5-15.4) g/dL Hct 33.1 L (35.3-44.9) % Plt Count 249 (140-400) K/mcL Neutrophils # 12.6 H (1.6-8.9) K/mcL BMP 01/25/18 01:04 Sodium 136 Potassium 4.4 Chloride 105 Carbon Dioxide 23 BUN 12 Creatinine 0.68 Glucose 140 H Calcium 8.4 L Cardiac Enzymes 01/24/18 01/25/18 Range/Units 19:54 01:04 Troponin I 1.34 H* 2.13 H* (< 0.04) ng/mL Liver Function 01/25/18 Range/Units 01:04 Total Bilirubin 0.2 L (0.3-1.0) mg/dL Direct Bilirubin 0.1 (0.0-0.2) mg/dL AST 18 (13-39) Units/L ALT 13 (7-52) Units/L Alkaline Phosphatase 64 (34-104) Units/L Albumin 3.5 (3.5-5.7) g/dL Urine 01/24/18 Range/Units 21:10 Urine Color Yellow (Yellow) Urine Clarity Clear (Clear) Urine pH 5.5 (5.0-8.0) pH Units Ur Specific [place] 1.024 (1.010-1.025) Urine Protein Negative (Neg-Trace) mg/dL Urine Glucose (UA) Normal (Normal) mg/dL - ABG Interpretation ABG results: PT/INR, D-dimer PT 119.6 Seconds (9.4-12.1) H* 01/25/18 01:04 - Impressions Impressions Echocardiogram 01/25/18 07:00 Impressions: Technically sub-optimal due to poor echocardiographic windows. LVEF 50%. Normal LV chamber size, wall thickness and overall function. Mild segmental left ventricular systolic dysfunction. Normal right ventricular structure and function. Mild left ventricular diastolic dysfunction. Unable to estimate RVSP due to lack of TR jet. No significant valvular dysfunction. Left Ventricular Wall Motion: Rest Echo Findings The apical septal and mid anterior septal marshall were hypokinetic. All other wall segments showed normal motion. Findings: Study Quality * Technically sub-optimal due to poor echocardiographic windows. ECG Findings * Normal sinus rhythm. Left Ventricle * LVEF 50%. * Normal LV chamber size, wall thickness and overall function. * Mild segmental left ventricular systolic dysfunction. * Mild left ventricular diastolic dysfunction. Right Ventricle * Normal right ventricular structure and function. Left Atrium * Mildly dilated left atrium. Right Atrium * Normal right atrial size. Aortic Valve * Aortic valve not well visualized. * No aortic regurgitation. * No aortic stenosis. Mitral Valve * Normal mitral valve structure and function. * No mitral regurgitation. * No mitral stenosis. Tricuspid Valve * Normal tricuspid valve structure and function. * No tricuspid regurgitation. * Unable to estimate RVSP due to lack of TR jet. Pulmonic Valve * Pulmonic valve is not well visualized. * No pulmonic regurgitation. Aorta * Normally sized aortic root. Pericardium * The pericardium appears normal. IVC * Normal IVC dimensions and inspiratory collapse. Pulmonary Artery * Normal visualized portions of the main pulmonary artery. - VTE Reasons for not Prescribing Prophylaxis: Medical contraindication Consult Discharge Plan - Plan Referrals: Oscar Sandoval Jr, MD [Primary Care Provider] -
[2018-01-25] MEDS: Piperacillin/Tazobactam 3.375 GM in 0.9 % Sodium Chloride Mini Bag 100 ML IVPB SCH (17:33)
[2018-01-26] MEDS: Piperacillin/Tazobactam 3.375 GM in 0.9 % Sodium Chloride Mini Bag 100 ML IVPB SCH ×4 (00:49→23:53)
[2018-01-26] MEDS: 0.9 % Sodium Chloride 1,000 ML IVC SCH ×2 (03:39→17:35)
[2018-01-26 06:33] LABS: BUN/Creatinine Ratio 14 (6-26); Blood Urea Nitrogen 10 mg/dL (8-23); Calcium 8.3 mg/dL (8.6-10.3); Carbon Dioxide 24 mEq/L (23-29); Chloride 105 mEq/L (98-107); Glucose 147 mg/dL (70-105); Osmolality,Calculated 284 (280-300); Potassium 4.1 mEq/L (3.5-5.1); Sodium 136 mEq/L (136-145); eGFR For African Americans > 60 (> 60); eGFR For Non-African Americans > 60 (> 60)
[2018-01-26 06:38] LABS: Prothrombin Time 177.9 Seconds (9.4-12.1)
[2018-01-26 06:39] LABS: INR 15.7
[2018-01-26] MEDS: Nitrofurantoin (BID) 100 MG CAPSULE PO SCH (08:05)
[2018-01-26] MEDS: Metoprolol XL (24 HR) Succ 25 MG TAB.ER.24H PO SCH (08:05)
[2018-01-26] MEDS: Lisinopril 20 MG TABLET PO SCH (08:06)
[2018-01-26] MEDS: ARIPiprazole 5 MG TABLET PO SCH (08:06)
--- NOTE | 2018-01-26 11:19 | Cardiology Progress Note ---
Date of Encounter: 01/26/18 Time of Encounter: 10:30 Assessment and Plan (1) Elevated troponin Current Visit: Yes Status: Acute Secondary to overdose. Troponin 0.11, 1.34, 2.13. Patient reports took a bottle of coumadin and xarelto--indication: hx of PE. Of note, prior suicide attempts noted. No chest pain reported, no ischemic ECG changes. [facility] 2010: minimal CAD Regadenoson nuclear stress 2016: gated EF >70%, perfusion negative for ischemia or infarct. TTE this admission: EF 50% with mild segmental LV dysfunction. Discussed with Dr. Harding, may need to consider ischemic evaluation prior to discharge, however it is unclear if patient is a candidate--appreciate Psych input. Hx of prior suicide attempts. INR continues to climb--15.7 today. Will continue to follow. Discussion w patient/family: The assessment and plan as outlined above was discussed with the patient and/or family members who expressed understanding and agreement. All questions were answered. Thank you for involving us in the care of your patient. Please call with any questions. The patient will be discussed and reviewed with Dr. Harding; changes to be made accordingly. Subjective Principal diagnosis: OD (Xarelto, Coumadin), elevated troponin Interval history: Seen and examined. 1:1 sitter at bedside. No CV symptoms reported. No chest pain. Objective Vital Signs, Last 4 Hours Temp Pulse Resp BP Pulse Ox 01/26/18 07:54 98.5 F 72 20 117/82 95 General: Conversant, No Apparent Distress HEENT: Atraumatic, Normocephaly, Mucus Membranes Moist Cardiac: Reg Rate and Rhythm, Normal S1 and S2 Lungs: Normal Breath Sounds Neuro: Alert and responsive Abdomen: Soft Skin: No rashes noted on visualized skin Musculoskeletal: No Chest Wall Tenderness Extremities: No Edema, Normal Pulses Results 01/25/18 01:04 01/26/18 05:48 Lab Results 01/26/18 01/26/18 05:48 05:48 INR 15.7 H* Sodium 136 Potassium 4.1 Chloride 105 Carbon Dioxide 24 BUN 10 Creatinine 0.73 Glucose 147 H Calcium 8.3 L Active Medications Aripiprazole (Abilify) 5 mg PO DAILY [facility] Stop: 07/27/18 09:01 Last Admin: 01/26/18 08:06 Dose: 5 mg Sodium Chloride (0.9 % Sodium Chloride) 1,000 mls @ 75 mls/hr IVC .[id number] [facility] Stop: 07/26/18 18:31 Last Admin: 01/26/18 03:39 Dose: 75 mls/hr Piperacillin Sod/Tazobactam (Sod 3.375 gm/ Sodium Chloride) 100 mls @ 25 mls/ hr IVPB Q8H [facility] Stop: 07/27/18 17:01 Last Admin: 01/26/18 08:06 Dose: 25 mls/hr Levothyroxine Sodium (Synthroid) 50 mcg PO DAILY@0630 [facility] Stop: 07/27/18 06:31 Last Admin: 01/26/18 05:50 Dose: 50 mcg Lisinopril (Zestril) 20 mg PO DAILY [facility] PRN Reason: Protocol Stop: 07/27/18 09:01 Last Admin: 01/26/18 08:06 Dose: 20 mg Metoprolol Succinate (Toprol Xl) 12.5 mg PO DAILY [facility] Stop: 07/27/18 09:01 Last Admin: 01/26/18 08:05 Dose: 12.5 mg Naloxone HCl (Narcan) 0.4 mg IVP Q2MIN PRN PRN Reason: SEE COMMENTS Stop: 07/26/18 18:25 Nitrofurantoin Macrocrystals (Macrobid) 100 mg PO BID [facility] Stop: 07/26/18 21:01 Last Admin: 01/26/18 08:05 Dose: 100 mg Omeprazole (Prilosec) 40 mg PO DAILY@0730 [facility] Stop: 07/27/18 07:31 Last Admin: 01/26/18 08:06 Dose: 40 mg Ondansetron HCl (Zofran) 4 mg IVP Q6HR PRN; Protocol PRN Reason: Nausea Stop: 07/27/18 02:01 Last Admin: 01/25/18 02:13 Dose: 4 mg - Imaging and Cardiology Echo: report reviewed Other Results: 12 hour tele: avg HR=70 - VTE Reasons for not Prescribing Prophylaxis: Medical contraindication Consult Discharge Plan - Plan Referrals: Oscar Sandoval Jr, MD [Primary Care Provider] - ([facility] Unit will wait for d/c to see if appointment needed)
--- NOTE | 2018-01-26 13:10 | Internal Med Progress Note ---
Date of Encounter: 01/26/18 Time of Encounter: 13:08 - Assessment and plan (1) Drug overdose Current Visit: Yes Status: Acute Assessment and plan: Suicide attempt with overdose on Coumadin, Xarelto, sertraline, and Buspirone. Patient has a history of suicidal attempts in the past as well. INR trended up , but no signs of bleeding. Continue to monitor daily CBC and PT/INR. Continue PPI. Continue IVF. Consider FFP if showing signs of bleeding. Qualifiers: Qualified Code(s): T50.902A - Poisoning by unspecified drugs, medicaments and biological substances, intentional self-harm, initial encounter (2) Suicide attempt by multiple drug overdose Current Visit: Yes Status: Acute Assessment and plan: Psychiatry consulted; appreciate input. Recommend inpatient psychiatry versus a rehab facility with psychiatric consultation when she is medically cleared. Qualifiers: Encounter type: initial encounter Qualified Code(s): T50.902A - Poisoning by unspecified drugs, medicaments and biological substances, intentional self- harm, initial encounter (3) Supratherapeutic INR Current Visit: Yes Status: Acute Assessment and plan: Management as per above. (4) UTI (urinary tract infection) Current Visit: Yes Status: Acute Assessment and plan: MDRO history. Leucocytosis unchanged. Continue IV Zosyn and home PO macrobid. Follow up on urine culture. Follow up with urologist on outpatient basis. Qualifiers: Urinary tract infection type: site unspecified Hematuria presence: without hematuria Qualified Code(s): N39.0 - Urinary tract infection, site not specified (5) Elevated troponin Current Visit: Yes Status: Acute Assessment and plan: Cardiology consulted; appreciate input. They think this is due to drug overdose. TTE this admission: EF 50% with mild segmental LV dysfunction. May need ischemic evaluation prior to discharge. (6) DVT prophylaxis Current Visit: Yes Status: Acute Assessment and plan: Supratherapeutic INR. Start SCDs. - Time Spent With Patient Total time spent is greater than 50% in coordination of care (as documented) at patient's floor/unit and/or counseling patient: less than 15 minutes - Subjective Interval history: Patient had no acute events overnight. She states that she feels better, and jokes about going home today. She denies SI/HI at this time. She states that her 9 months ago, and there have been issues about finances with her children. She denies fever, chills, chest pain, SOB, nausea, vomiting, or abdominal pain. She does not report any signs of bleeding. She has no complaints at this time. - Constitutional Vitals: Temp Pulse Resp BP Pulse Ox 98.1 F 67 20 131/32 96 01/26/18 11:53 01/26/18 11:53 01/26/18 11:53 01/26/18 11:53 01/26/18 11:53 General appearance: Present: cooperative, A&O X 3, pleasant, no acute distress, obese, answers questions appropriately - Respiratory Respiratory exam: Present: CTAB. Absent: accessory muscle use, rales, rhonchi, wheezes Additional comments: Normal WOB - Cardiovascular Cardiovascular exam: Present: RRR, +S1, +S2. Absent: diastolic murmur, gallop, rubs, systolic murmur Additional comments: No BLE edema - GI/Abdominal GI/Abdominal exam: Present: normal bowel sounds, soft. Absent: distended, hepatomegaly, mass, splenomegaly, tenderness - Psychiatric Psychiatric exam: Present: depressed. Absent: agitated, anxious - Skin Skin exam: Present: dry, intact, warm. Absent: cyanosis, rash Internal Medicine: Result - Labs CBC & Chem 7: 01/25/18 01:04 01/26/18 05:48 - ABG Interpretation ABG results: PT/INR, D-dimer PT 177.9 Seconds (9.4-12.1) H* 01/26/18 05:48 - VTE Reasons for not Prescribing Prophylaxis: Medical contraindication ( Supratherapeutic INR) Consult Discharge Plan - Plan Referrals: Oscar Sandoval Jr, MD [Primary Care Provider] - ([facility] Unit will wait for d/c to see if appointment needed)
[2018-01-26] MEDS ORDERED: Dextrose Gel 15 GM/37.5 ML TUBE PO PRN ×2 (15:16)
[2018-01-26] MEDS ORDERED: D5% in Water 1,000 ML IVC PRN (15:16)
[2018-01-26] MEDS ORDERED: *HR* Dextrose 50 % in Water (Syg) 50 ML SYRINGE IVP PRN (15:16)
[2018-01-26 15:51] LABS: Basophils % 0.3 %; Eosinophils # 0.1 K/mcL (0.0-0.6); Eosinophils % 0.5 %; Hematocrit 32.5 % (35.3-44.9); Hemoglobin 10.2 g/dL (11.5-15.4); Immature Granulocytes % 0.4 % (0-4); Lymphocytes # 1.1 K/mcL (0.6-4.6); Lymphocytes % 9.5 %; Mean Corpuscular HGB Conc 31.4 g/dL (31.6-35.5); Mean Corpuscular Hemoglobin 29.1 pg (28.0-33.3); Mean Corpuscular Volume 92.9 fL (83.0-100.0); Mean Platelet Volume 10.7 fL (9.4-12.4); Monocytes # 0.7 K/mcL (0.0-1.3); Monocytes % 5.9 %; Neutrophils # 9.3 K/mcL (1.6-8.9); Platelet Count 185 K/mcL (140-400); Red Cell Distribution Width 15.2 % (11.5-14.5); Segmented Neutrophils % 83.4 %
--- NOTE | 2018-01-26 18:04 | Electrocardiograph Report ---
[address] [address] Test Date: 2018-01-24 Pat Name: Terrie Corona Department: 104 Room: 2N06 Gender: F Fmd Teacher: WILMER : 1945 Requested By: Everton Saunders Order Number: [id number] Reading MD: Sandro Barrera Measurements Intervals [place] Rate: 65 P: -2 [place]: 190 QRS: 26 QRSD: 102 T: 28 QT: 439 QTc: 450 Interpretive Statements SINUS RHYTHM LOW QRS VOLTAGE IN PRECORDIAL LEADS BASELINE ARTIFACT Electronically Signed On 01-26-2018 18:03:15 EDT by Sandro Barrera
[2018-01-26] MEDS: Insulin LISPRO 300 UNITS/3 ML VIAL SQ SCH ×2 (18:12→21:04)
--- NOTE | 2018-01-26 18:15 | Electrocardiograph Report ---
[address] [place], [place] [address] Test Date: 2018-01-24 Pat Name: Terrie Corona Department: 110 Room: 2N06 Gender: Tax Accountant: : 1945 Requested By: Lina Barclay Order Number: [id number] Reading MD: Sandro Barrera Measurements Intervals [place] Rate: 79 P: 71 [place]: 230 QRS: 56 QRSD: 93 T: 62 QT: 398 QTc: 432 Interpretive Statements SINUS RHYTHM WITH FIRST DEGREE AV BLOCK LOW QRS VOLTAGE IN PRECORDIAL LEADS SEPTAL MYOCARDIAL INFARCTION, PROBABLY OLD Electronically Signed On 01-26-2018 18:13:30 EDT by Sandro Barrera
[2018-01-27] MEDS: *HR* LORazepam 2 MG/ML VIAL IVP PRN (00:01)
[2018-01-27 04:12] LABS: Basophils # 0.1 K/mcL (0.0-0.2); Basophils % 0.5 %; Eosinophils # 0.2 K/mcL (0.0-0.6); Eosinophils % 1.9 %; Hematocrit 29.3 % (35.3-44.9); Hemoglobin 9.1 g/dL (11.5-15.4); Immature Granulocytes % 0.2 % (0-4); Lymphocytes % 10.5 %; Mean Corpuscular HGB Conc 31.1 g/dL (31.6-35.5); Mean Corpuscular Hemoglobin 28.1 pg (28.0-33.3); Mean Corpuscular Volume 90.4 fL (83.0-100.0); Mean Platelet Volume 10.6 fL (9.4-12.4); Monocytes # 0.5 K/mcL (0.0-1.3); Monocytes % 5.2 %; Neutrophils # 7.5 K/mcL (1.6-8.9); Platelet Count 160 K/mcL (140-400); Red Blood Count 3.24 M/mcL (3.82-4.97); Red Cell Distribution Width 14.9 % (11.5-14.5); Segmented Neutrophils % 81.7 %
[2018-01-27 04:20] LABS: Prothrombin Time 61.1 Seconds (9.4-12.1)
[2018-01-27 04:21] LABS: INR 5.4
[2018-01-27 04:30] LABS: BUN/Creatinine Ratio 12 (6-26); Blood Urea Nitrogen 8 mg/dL (8-23); Calcium 8.1 mg/dL (8.6-10.3); Carbon Dioxide 25 mEq/L (23-29); Chloride 107 mEq/L (98-107); Glucose 127 mg/dL (70-105); Osmolality,Calculated 288 (280-300); Sodium 139 mEq/L (136-145); eGFR For African Americans > 60 (> 60); eGFR For Non-African Americans > 60 (> 60)
[2018-01-27] MEDS: ARIPiprazole 5 MG TABLET PO SCH (09:00)
[2018-01-27] MEDS: 0.9 % Sodium Chloride 1,000 ML IVC SCH ×2 (09:00→20:17)
[2018-01-27] MEDS: Piperacillin/Tazobactam 3.375 GM in 0.9 % Sodium Chloride Mini Bag 100 ML IVPB SCH (09:01)
[2018-01-27] MEDS: Lisinopril 20 MG TABLET PO SCH (09:01)
[2018-01-27] MEDS: Metoprolol XL (24 HR) Succ 25 MG TAB.ER.24H PO SCH (09:01)
--- NOTE | 2018-01-27 09:07 | Cardiology Progress Note ---
Date of Encounter: 01/27/18 Time of Encounter: 09:05 Assessment and Plan (1) Elevated troponin Current Visit: Yes Status: Acute Suspect secondary to overdose. Troponin 0.11, 1.34, 2.13. Cannot rule out ACS. Took a bottle of coumadin and xarelto--indication: hx of PE. Of note, prior suicide attempts noted. No chest pain reported, no ischemic ECG changes. [facility] 2011: minimal CAD Regadenoson nuclear stress 2016: gated EF >70%, perfusion negative for ischemia or infarct. TTE this admission: EF 50% with mild segmental LV dysfunction. Discussed with Dr. Harding, recommends ischemic evaluation prior to d/c--[facility] once INR allows. R/B/A discussed. Pt agrees. INR now decreasing, 5.4. Continue to follow. On BB, Statin, Lisinopril. Start ASA once further decreases. Discussion w patient/family: The assessment and plan as outlined above was discussed with the patient and/or family members who expressed understanding and agreement. All questions were answered. Thank you for involving us in the care of your patient. Please call with any questions. I will discuss all the above with Dr. Harding and make changes as necessary. Subjective Principal diagnosis: OD (Xarelto, Coumadin), elevated troponin Interval history: INR decreased to 5.4 today. Pt denies acute complaints. Objective Vital Signs, Last 4 Hours Temp Pulse Resp BP Pulse Ox 01/27/18 07:27 99.5 F 72 16 140/90 99 Vital Signs Temp Pulse Resp BP Pulse Ox 01/27/18 07:27 99.5 F 72 16 140/90 99 01/27/18 03:35 98.2 F 79 18 140/70 97 01/26/18 23:26 99.2 F 70 16 127/77 98 01/26/18 18:50 97.1 F L 73 18 118/62 97 01/26/18 15:50 98.2 F 67 20 125/69 100 01/26/18 11:53 98.1 F 67 20 131/32 96 Intake and Output 01/26/18 01/27/18 01/27/18 23:59 07:59 15:59 Intake Total 1200 / 1200 1500 / 1500 Output Total 890 / 890 550 / 550 Balance 310 / 310 950 / 950 Intake: IV Fluids 1100 / 1100 1100 / 1100 0.9 % Sodium Chloride 1,000 ML 1000 / 1000 1000 / 1000 @ 75 mls/hr IVC .[id number] [facility] Rx #:[id number] Zosyn 3.375 GM In 0.9 % Sodium 100 / 100 100 / 100 Chloride (Mini-Bag +) 100 ML @ 25 mls/hr IVPB Q8H [facility] Rx#: [id number] Oral 100 / 100 400 / 400 Output: Catheter 890 / 890 550 / 550 Other: Meal Dinner Breakfast Percent of Meal Consumed 40% 15% Weight 100.2 kg Blood Glucose* 152 137 General: Conversant, No Apparent Distress HEENT: Atraumatic, Normocephaly, Mucus Membranes Moist Neck: No JVD, Normal carotid pulses Cardiac: Reg Rate and Rhythm, Normal S1 and S2, No Murmur Lungs: Normal Breath Sounds, No Wheeze, Rales, Rhonchi Neuro: Alert and responsive, No focal deficits noted Abdomen: Soft, Non-Tender Skin: No rashes noted on visualized skin Musculoskeletal: No Chest Wall Tenderness Extremities: No Clubbing, No Cyanosis, No Edema, Normal Pulses Results 01/27/18 03:38 01/27/18 03:38 Lab Results 01/26/18 01/27/18 01/27/18 15:15 03:38 03:38 WBC 11.1 9.2 Hgb 10.2 L 9.1 L Hct 32.5 L 29.3 L Plt Count 185 160 INR 5.4 H* D Sodium Potassium Chloride Carbon Dioxide BUN Creatinine Glucose Calcium 01/27/18 03:38 WBC Hgb Hct Plt Count INR Sodium 139 Potassium 4.0 Chloride 107 Carbon Dioxide 25 BUN 8 Creatinine 0.67 Glucose 127 H Calcium 8.1 L Short CBC 01/27/18 01/26/18 Range/Units 03:38 15:15 WBC 9.2 11.1 (4.3-11.1) K/mcL Hgb 9.1 L 10.2 L (11.5-15.4) g/dL Hct 29.3 L 32.5 L (35.3-44.9) % Plt Count 160 185 (140-400) K/mcL Neutrophils # 7.5 9.3 H (1.6-8.9) K/mcL BMP 01/27/18 Range/Units 03:38 Sodium 139 (136-145) mEq/L Potassium 4.0 (3.5-5.1) mEq/L Chloride 107 (98-107) mEq/L Carbon Dioxide 25 (23-29) mEq/L BUN 8 (8-23) mg/dL Creatinine 0.67 (0.60-1.20) mg/dL Glucose 127 H (70-105) mg/dL Calcium 8.1 L (8.6-10.3) mg/dL Active Medications Aripiprazole (Abilify) 5 mg PO DAILY [facility] Stop: 07/27/18 09:01 Last Admin: 01/27/18 09:00 Dose: 5 mg Dextrose/Water (Dextrose 50% (Syg)) 25 ml IVP AD PRN PRN Reason: Hypoglycemia Stop: 07/28/18 15:17 Glucagon (Glucagen) 1 mg IM ONCE PRN PRN Reason: Hypoglycemia Stop: 07/28/18 15:17 Glucose (Gluctose) 15 gm PO ONCE PRN PRN Reason: Hypoglycemia Stop: 07/28/18 15:17 Glucose (Gluctose) 30 gm PO ONCE PRN PRN Reason: Hypoglycemia Stop: 07/28/18 15:17 Sodium Chloride (0.9 % Sodium Chloride) 1,000 mls @ 75 mls/hr IVC .[id number] [facility] Stop: 07/26/18 18:31 Last Admin: 01/27/18 09:00 Dose: 75 mls/hr Piperacillin Sod/Tazobactam (Sod 3.375 gm/ Sodium Chloride) 100 mls @ 25 mls/ hr IVPB Q8H [facility] Stop: 07/27/18 17:01 Last Admin: 01/27/18 09:01 Dose: 25 mls/hr Dextrose (Dextrose 5%) 1,000 mls @ 100 mls/hr IVC .Q10H PRN PRN Reason: HYPOGLYCEMIA Stop: 07/28/18 15:17 Insulin Human Lispro (Humalog) 0 units SQ TIDAC [facility] PRN Reason: Protocol Stop: 07/28/18 16:31 Last Admin: 01/26/18 18:12 Dose: Not Given Insulin Human Lispro (Humalog) 0 units SQ HS [facility] PRN Reason: Protocol Stop: 07/28/18 21:01 Last Admin: 01/26/18 21:04 Dose: Not Given Levothyroxine Sodium (Synthroid) 50 mcg PO DAILY@0630 [facility] Stop: 07/27/18 06:31 Last Admin: 01/27/18 06:07 Dose: 50 mcg Lisinopril (Zestril) 20 mg PO DAILY [facility] PRN Reason: Protocol Stop: 07/27/18 09:01 Last Admin: 01/27/18 09:01 Dose: 20 mg Lorazepam (Ativan) 1 mg IVP Q6H PRN PRN Reason: WITHDRAWAL OR SEIZURE Stop: 07/28/18 15:23 Last Admin: 01/27/18 00:01 Dose: 1 mg Metoprolol Succinate (Toprol Xl) 12.5 mg PO DAILY [facility] Stop: 07/27/18 09:01 Last Admin: 01/27/18 09:01 Dose: 12.5 mg Naloxone HCl (Narcan) 0.4 mg IVP Q2MIN PRN PRN Reason: SEE COMMENTS Stop: 07/26/18 18:25 Omeprazole (Prilosec) 40 mg PO DAILY@0730 [facility] Stop: 07/27/18 07:31 Last Admin: 01/27/18 09:00 Dose: 40 mg Ondansetron HCl (Zofran) 4 mg IVP Q6HR PRN; Protocol PRN Reason: Nausea Stop: 07/27/18 02:01 Last Admin: 01/25/18 02:13 Dose: 4 mg - Imaging and Cardiology Echo: report reviewed - EKG Interpretation EKG results cardiology: other (12 hr tele AVG HR 74, SR, no significant pauses or arrhythmias noted.) - VTE Reasons for not Prescribing Prophylaxis: Medical contraindication ( Supratherapeutic INR) Documentation of Mechanical Device: Intermittent pneumatic compression device Consult Discharge Plan - Plan Referrals: Oscar Sandoval Jr, MD [Primary Care Provider] - ([facility] Unit will wait for d/c to see if appointment needed)
[2018-01-27] MEDS: Insulin LISPRO 300 UNITS/3 ML VIAL SQ SCH ×4 (09:09→20:14)
--- NOTE | 2018-01-27 09:31 | Internal Med Progress Note ---
Date of Encounter: 01/27/18 Time of Encounter: 11:00 - Assessment and plan (1) Suicide attempt by multiple drug overdose Current Visit: Yes Status: Acute Assessment and plan: Psychiatry consulted; appreciate input. Recommend inpatient psychiatry versus a rehab facility with psychiatric consultation when she is medically cleared. Qualifiers: Encounter type: initial encounter Qualified Code(s): T50.902A - Poisoning by unspecified drugs, medicaments and biological substances, intentional self- harm, initial encounter (2) Drug overdose Current Visit: Yes Status: Acute Assessment and plan: Suicide attempt with overdose on Coumadin, Xarelto, sertraline, and Buspirone. Patient has a history of suicidal attempts in the past as well. INR trended up , but no signs of bleeding. Continue to monitor daily CBC and PT/INR. Qualifiers: Encounter type: initial encounter Qualified Code(s): T50.902A - Poisoning by unspecified drugs, medicaments and biological substances, intentional self- harm, initial encounter (3) Supratherapeutic INR Current Visit: Yes Status: Acute Assessment and plan: INR 5.4 today down from 15.7; will continue to monitor. (4) Elevated troponin Current Visit: Yes Status: Acute Assessment and plan: Cardiology consulted with recommendations for left heart catheterization once INR allows (5) UTI (urinary tract infection) Current Visit: Yes Status: Ruled-out Assessment and plan: Cultures negative; discontinue antibiotic Qualifiers: Urinary tract infection type: site unspecified Hematuria presence: without hematuria Qualified Code(s): N39.0 - Urinary tract infection, site not specified (6) DVT prophylaxis Current Visit: Yes Status: Acute Assessment and plan: Supratherapeutic INR. - Time Spent With Patient Total time spent is greater than 50% in coordination of care (as documented) at patient's floor/unit and/or counseling patient: - Subjective Interval history: Patient still with elevated INR - Constitutional Vitals: Temp Pulse Resp BP Pulse Ox 99.5 F 72 16 140/90 99 01/27/18 07:27 01/27/18 07:27 01/27/18 07:27 01/27/18 07:27 01/27/18 07:27 General appearance: Present: cooperative, A&O X 3, pleasant, no acute distress, obese, answers questions appropriately - Respiratory Respiratory exam: Present: CTAB. Absent: accessory muscle use, rales, rhonchi, wheezes - Cardiovascular Cardiovascular exam: Present: RRR, +S1, +S2. Absent: diastolic murmur, gallop, rubs, systolic murmur Internal Medicine: Result - Labs CBC & Chem 7: 01/27/18 03:38 01/27/18 03:38 Labs: Short CBC 01/26/18 01/27/18 Range/Units 15:15 03:38 WBC 11.1 9.2 (4.3-11.1) K/mcL Hgb 10.2 L 9.1 L (11.5-15.4) g/dL Hct 32.5 L 29.3 L (35.3-44.9) % Plt Count 185 160 (140-400) K/mcL Neutrophils # 9.3 H 7.5 (1.6-8.9) K/mcL BMP 01/27/18 03:38 Sodium 139 Potassium 4.0 Chloride 107 Carbon Dioxide 25 BUN 8 Creatinine 0.67 Glucose 127 H Calcium 8.1 L - ABG Interpretation ABG results: PT/INR, D-dimer PT 61.1 Seconds (9.4-12.1) H* D 01/27/18 03:38 - VTE Reasons for not Prescribing Prophylaxis: Medical contraindication ( Supratherapeutic INR) Documentation of Mechanical Device: Intermittent pneumatic compression device Consult Discharge Plan - Plan Referrals: Oscar Sandoval Jr, MD [Primary Care Provider] - (Possible Psych Unit will wait for d/c to see if appointment needed)
[2018-01-28] MEDS: *HR* LORazepam 2 MG/ML VIAL IVP PRN (00:55)
[2018-01-28] MEDS: Insulin LISPRO 300 UNITS/3 ML VIAL SQ SCH ×4 (07:51→19:59)
[2018-01-28] MEDS: ARIPiprazole 5 MG TABLET PO SCH (07:53)
[2018-01-28] MEDS: Lisinopril 20 MG TABLET PO SCH (07:53)
[2018-01-28] MEDS: Metoprolol XL (24 HR) Succ 25 MG TAB.ER.24H PO SCH (07:53)
--- NOTE | 2018-01-28 09:28 | Internal Med Progress Note ---
Date of Encounter: 01/28/18 Time of Encounter: 11:00 - Assessment and plan (1) Suicide attempt by multiple drug overdose Current Visit: Yes Status: Acute Assessment and plan: Psychiatry consulted for recommendations for inpatient psychiatric management once medically cleared. Supratherapeutic INR has not resolved and patient for potential left heart catheterization due to elevated cardiac biomarkers Qualifiers: Encounter type: initial encounter Qualified Code(s): T50.902A - Poisoning by unspecified drugs, medicaments and biological substances, intentional self- harm, initial encounter (2) Drug overdose Current Visit: Yes Status: Acute Assessment and plan: Suicide attempt with overdose on Coumadin, Xarelto, sertraline, and Buspirone. Patient has a history of suicidal attempts in the past as well. Psychiatry with recommendations as above Qualifiers: Encounter type: initial encounter Injury intent: intentional self-harm Qualified Code(s): T50.902A - Poisoning by unspecified drugs, medicaments and biological substances, intentional self-harm, initial encounter (3) Supratherapeutic INR Current Visit: Yes Status: Resolved Assessment and plan: Resolved; INR now subtherapeutic at 1.8 Will start patient on Xarelto for anticoagulation therapy for atrial fibrillation after potential left heart catheterization (4) Elevated troponin Current Visit: Yes Status: Acute Assessment and plan: Cardiology consulted with recommendations for left heart catheterization (5) UTI (urinary tract infection) Current Visit: Yes Status: Ruled-out Assessment and plan: Cultures negative; discontinue antibiotic Qualifiers: Urinary tract infection type: site unspecified Hematuria presence: without hematuria Qualified Code(s): N39.0 - Urinary tract infection, site not specified (6) DVT prophylaxis Current Visit: Yes Status: Acute Assessment and plan: Will start patient on Xarelto after left heart catheterization - Time Spent With Patient Total time spent is greater than 50% in coordination of care (as documented) at patient's floor/unit and/or counseling patient: - Subjective Interval history: Patient admitted for SI/overdose now with non-STEMI and supratherapeutic INR Patient's INR now subtherapeutic at 1.8 Patient with elevated cardiac biomarkers with consideration for LHC per cardiology now that supratherapeutic INR has resolved - Constitutional Vitals: Temp Pulse Resp BP Pulse Ox 99.0 F 68 18 140/85 96 01/28/18 07:50 01/28/18 07:50 01/28/18 07:50 01/28/18 07:50 01/28/18 07:50 General appearance: Present: cooperative, A&O X 3, pleasant, no acute distress, obese, answers questions appropriately - Respiratory Respiratory exam: Present: CTAB. Absent: accessory muscle use, rales, rhonchi, wheezes - Cardiovascular Cardiovascular exam: Present: RRR, +S1, +S2. Absent: diastolic murmur, gallop, rubs, systolic murmur - Psychiatric Psychiatric exam: Present: flat affect Internal Medicine: Result - Labs CBC & Chem 7: 01/28/18 09:45 01/28/18 09:45 - ABG Interpretation ABG results: PT/INR, D-dimer PT 61.1 Seconds (9.4-12.1) H* D 01/27/18 03:38 - VTE Reasons for not Prescribing Prophylaxis: Medical contraindication ( Supratherapeutic INR) Documentation of Mechanical Device: Intermittent pneumatic compression device Consult Discharge Plan - Plan Referrals: Oscar Sandoval Jr, MD [Primary Care Provider] - ([facility] Unit will wait for d/c to see if appointment needed)
[2018-01-28] MEDS: 0.9 % Sodium Chloride 1,000 ML IVC SCH (09:41)
[2018-01-28 10:15] LABS: Basophils # 0.1 K/mcL (0.0-0.2); Basophils % 0.9 %; Eosinophils # 0.2 K/mcL (0.0-0.6); Eosinophils % 2.6 %; Hematocrit 31.4 % (35.3-44.9); Hemoglobin 9.9 g/dL (11.5-15.4); Immature Granulocytes % 0.1 % (0-4); Lymphocytes % 12.6 %; Mean Corpuscular HGB Conc 31.5 g/dL (31.6-35.5); Mean Corpuscular Hemoglobin 28.8 pg (28.0-33.3); Mean Corpuscular Volume 91.3 fL (83.0-100.0); Mean Platelet Volume 10.6 fL (9.4-12.4); Monocytes # 0.4 K/mcL (0.0-1.3); Monocytes % 4.8 %; Neutrophils # 6.1 K/mcL (1.6-8.9); Platelet Count 182 K/mcL (140-400); Red Blood Count 3.44 M/mcL (3.82-4.97); Red Cell Distribution Width 14.8 % (11.5-14.5)
--- NOTE | 2018-01-28 10:18 | Event Note ---
Date of Encounter: 01/28/18 Time of Encounter: 10:17 - Cardiology Event Note INR yesterday 5.4. INR for today pending. Will follow peripherally, possible LHC once INR allows, per plan of Dr. Harding.
[2018-01-28 10:27] LABS: INR 1.8; Prothrombin Time 20.7 Seconds (9.4-12.1)
[2018-01-28 10:31] LABS: BUN/Creatinine Ratio 14 (6-26); Blood Urea Nitrogen 8 mg/dL (8-23); Calcium 8.7 mg/dL (8.6-10.3); Carbon Dioxide 26 mEq/L (23-29); Chloride 107 mEq/L (98-107); Glucose 125 mg/dL (70-105); Osmolality,Calculated 286 (280-300); Potassium 3.9 mEq/L (3.5-5.1); Sodium 138 mEq/L (136-145); eGFR For African Americans > 60 (> 60); eGFR For Non-African Americans > 60 (> 60)
[2018-01-29] MEDS: 0.9 % Sodium Chloride 1,000 ML IVC SCH ×2 (00:18→16:26)
[2018-01-29] MEDS: ARIPiprazole 5 MG TABLET PO SCH (08:45)
[2018-01-29] MEDS: Metoprolol XL (24 HR) Succ 25 MG TAB.ER.24H PO SCH (08:45)
[2018-01-29] MEDS: Lisinopril 20 MG TABLET PO SCH (08:45)
[2018-01-29] MEDS: Insulin LISPRO 300 UNITS/3 ML VIAL SQ SCH ×3 (09:00→20:25)
[2018-01-29 09:08] LABS: Basophils # 0.1 K/mcL (0.0-0.2); Basophils % 0.8 %; Eosinophils # 0.3 K/mcL (0.0-0.6); Eosinophils % 3.4 %; Hematocrit 31.5 % (35.3-44.9); Hemoglobin 9.6 g/dL (11.5-15.4); Immature Granulocytes % 0.2 % (0-4); Lymphocytes # 1.1 K/mcL (0.6-4.6); Lymphocytes % 11.5 %; Mean Corpuscular HGB Conc 30.5 g/dL (31.6-35.5); Mean Corpuscular Hemoglobin 27.8 pg (28.0-33.3); Mean Corpuscular Volume 91.3 fL (83.0-100.0); Mean Platelet Volume 10.4 fL (9.4-12.4); Monocytes # 0.4 K/mcL (0.0-1.3); Monocytes % 3.9 %; Neutrophils # 7.3 K/mcL (1.6-8.9); Platelet Count 236 K/mcL (140-400); Red Blood Count 3.45 M/mcL (3.82-4.97); Red Cell Distribution Width 14.7 % (11.5-14.5); Segmented Neutrophils % 80.2 %
[2018-01-29 09:15] LABS: INR 1.4; Prothrombin Time 15.9 Seconds (9.4-12.1)
[2018-01-29 09:26] LABS: BUN/Creatinine Ratio 9 (6-26); Blood Urea Nitrogen 6 mg/dL (8-23); Calcium 8.6 mg/dL (8.6-10.3); Carbon Dioxide 28 mEq/L (23-29); Chloride 109 mEq/L (98-107); Glucose 135 mg/dL (70-105); Osmolality,Calculated 294 (280-300); Potassium 3.6 mEq/L (3.5-5.1); Sodium 142 mEq/L (136-145); eGFR For African Americans > 60 (> 60); eGFR For Non-African Americans > 60 (> 60)
--- NOTE | 2018-01-29 09:37 | Event Note ---
Date of Encounter: 01/29/18 Time of Encounter: 09:37 - Cardiology Event Note LHC today for elevated troponin/NSTEMI--peak 2.13. R/B/A discussed. Pt agrees to proceed. INR 1.4.
--- NOTE | 2018-01-29 09:49 | Internal Med Progress Note ---
Date of Encounter: 01/29/18 - Assessment and plan (1) Elevated troponin Current Visit: Yes Status: Acute (2) Supratherapeutic INR Current Visit: Yes Status: Resolved (3) Suicide attempt by multiple drug overdose Current Visit: Yes Status: Acute Qualifiers: Encounter type: initial encounter Qualified Code(s): T50.902A - Poisoning by unspecified drugs, medicaments and biological substances, intentional self- harm, initial encounter (4) Drug overdose Current Visit: Yes Status: Acute Qualifiers: Encounter type: initial encounter Injury intent: intentional self-harm Qualified Code(s): T50.902A - Poisoning by unspecified drugs, medicaments and biological substances, intentional self-harm, initial encounter (5) UTI (urinary tract infection) Current Visit: Yes Status: Ruled-out Qualifiers: Urinary tract infection type: site unspecified Hematuria presence: without hematuria Qualified Code(s): N39.0 - Urinary tract infection, site not specified (6) DVT prophylaxis Current Visit: Yes Status: Acute - Time Spent With Patient Total time spent is greater than 50% in coordination of care (as documented) at patient's floor/unit and/or counseling patient: - Subjective Interval history: Patient admitted for SI/overdose now with non-STEMI and supratherapeutic INR Patient's INR now subtherapeutic at 1.8 Patient with elevated cardiac biomarkers with consideration for LHC per cardiology now that supratherapeutic INR has resolved - Constitutional Vitals: Temp Pulse Resp BP Pulse Ox 98.1 F 78 16 156/93 97 01/29/18 06:03 01/29/18 06:03 01/29/18 06:03 01/29/18 06:03 01/29/18 06:03 General appearance: Present: cooperative, A&O X 3, pleasant, no acute distress, obese, answers questions appropriately Internal Medicine: Result - Labs CBC & Chem 7: 01/29/18 08:45 01/29/18 08:45 Labs: Short CBC 01/28/18 01/29/18 Range/Units 09:45 08:45 WBC 7.7 9.1 (4.3-11.1) K/mcL Hgb 9.9 L 9.6 L (11.5-15.4) g/dL Hct 31.4 L 31.5 L (35.3-44.9) % Plt Count 182 236 (140-400) K/mcL Neutrophils # 6.1 7.3 (1.6-8.9) K/mcL BMP 01/28/18 01/29/18 09:45 08:45 Sodium 138 142 Potassium 3.9 3.6 Chloride 107 109 H Carbon Dioxide 26 28 BUN 8 6 L Creatinine 0.58 L 0.65 Glucose 125 H 135 H Calcium 8.7 8.6 - ABG Interpretation ABG results: PT/INR, D-dimer PT 15.9 Seconds (9.4-12.1) H 01/29/18 08:45 - VTE Reasons for not Prescribing Prophylaxis: Medical contraindication ( Supratherapeutic INR) Documentation of Mechanical Device: Intermittent pneumatic compression device Consult Discharge Plan - Plan Referrals: Oscar Sandoval Jr, MD [Primary Care Provider] - ([facility] Unit will wait for d/c to see if appointment needed)
[2018-01-29] MEDS ORDERED: Nitroglycerin 1,000 MCG/10 ML VIAL IV ONE (12:18)
[2018-01-29] MEDS ORDERED: Heparin 1,000 UNITS/500 mL 500 ML ONE (12:18)
[2018-01-29] MEDS ORDERED: ISOVUE-370 200 ML INFUS..BTL IV ONE (12:18)
[2018-01-29] MEDS ORDERED: *HR* Heparin 10,000 UNIT/10 ML VIAL ONE (12:18)
[2018-01-29] MEDS ORDERED: 0.9 % Sodium Chloride 1,000 ML ONE ×2 (12:18→12:27)
[2018-01-29] MEDS ORDERED: Verapamil 5 MG/2 ML VIAL ONE (12:24)
--- NOTE | 2018-01-29 12:36 | Pre-Sedation Evaluation ---
Pre-sedation evaluation - Pre-sedation checklist Date of procedure: 01/29/18 Procedure: Left Heart Cath Recent Vitals: Last Vital Signs Temp 97.3 F L 01/29/18 11:14 Pulse 92 01/29/18 11:14 Resp 17 01/29/18 11:14 BP 122/92 01/29/18 11:14 Pulse Ox 97 01/29/18 11:14 H&P (including ROS) documented in medical record: Yes Previous reaction to sedatives/anesthetics: No Dietary Status: NPO after Midnight Dentition: dentures removed ASA Classification *see protocol: CLASS II-Mild systemic disease Plan of Care: Pt appropriate candidate for procedure/moderate/conscious sedation , Risks/benefits of procedure/sedation discussed w/ patient/family Cardiac Registry (Cardio Only) - Functional Capacity Functional Capacity: >=4 METS with symptoms - Clincal Frailty Scale Clinical Frailty Scale: Vulnerable
[2018-01-29] MEDS ORDERED: *HR* Midazolam HCl 2 MG/2 ML VIAL ONE (12:42)
[2018-01-29] MEDS ORDERED: *HR* FentaNYL (PF) 100 MCG/2 ML VIAL ONE (12:42)
--- NOTE | 2018-01-29 13:33 | Event Note ---
Date of Encounter: 01/29/18 Time of Encounter: 13:30 - Cardiology Event Note Discussed [facility] findings with Dr. Barrera--mild, non-obstructive CAD, EF 25%. Recommend LifeVest upon discharge--order placed. Discussed with Dr. Barrera, patient is medically stable to be discharged (if warranted, recommended by Psych ) to Inpatient Psych Unit. Recommend Cardiac MRI in 3 months to determine LVEF. Continue betablocker (Toprol XL) and ACEi upon discharge.
--- NOTE | 2018-01-29 13:33 | Invasive Diagnostic Lab Proc ---
Name: Terrie Corona Date of Study: 01/29/2018 Date: 1945 Ht: 65.0in Medical Record#: [id number] Age: 72 Wt: 233.69lb Gender: Female BSA: 2.11 Order #: [id number] BMI: 38.93 Physicians Procedure Physician: Sandro Barrera MD, [facility] Referring MD: Referring MD: Staff Name Position Time In KerwinKat almeida RN Monitor 12:24 PM Jose Ramos RN [employer]r 12:24 PM Dagmar Quevedo RN [employer] 12:24 PM Yury Chun RT (R) Scrub 12:24 PM Saji Sterling RN Nurse 12:24 PM Sandra Washington RT Monitor 12:51 PM Indications Indication Non-Stemi Procedures Performed Procedure L HRT ARTERY/VENTRICLE ANGIO Pre-Procedure Checklist Informed consent is complete signed and on chart. H&P is on chart. ID band is on and ID verified with patient. Patient NPO for procedure The procedure was described for the patient and questions were answered. Blood Pressure: 156/93 ECG is on chart. Rhythm: NSR Plan of Care Patient will tolerate the procedure without complications. Adequate level of comfort will be maintained. Hemodynamics will remain stable Patient will recover from procedure without complications. Respiratory function will be maintained. Cardiac rhythm will remain stable. Patient temperature will be maintained. Patient and/or family have verbalized understanding of the procedure. Patient Education Intravenous Access Time IV Size Location DC'd Fluid/Drip Rate Units RN 20g 1 /" Patent On Arrival Rt Hand Allergies COMPAZINE,TERRAMYCIN,SULFA NO KNOWN DRUG ALLERGIES gabapentin Vital Signs Time BP (mmHg) HR (bpm) O2 Sat. RR (bpm) LOC 156 / 93 78 97 % 16 5 = Fully awake and oriented or at pre-proc level 12:25 PM / % 5 = Fully awake and oriented or at pre-proc level 12:44 PM 145 / 85 80 97 % 12:48 PM 145 / 88 78 97 % 12:53 PM 123 / 76 80 93 % 12:58 PM 129 / 77 80 95 % 01:03 PM 136 / 82 89 93 % 01:08 PM 143 / 81 87 94 % Procedural Medications Time Medication Dose Units Method Given By 12:31 PM Oxygen 2 L/min nasal cannula Dagmar Quevedo RN 12:43 PM Versed 2 mg Intravenous Dagmar Quevedo RN 12:43 PM Fentanyl 50 mcg Intravenous Dagmar Quevedo RN 12:56 PM Lidocaine 2% 0.5 ml Subcutaneous Sandro Barrera MD, [facility] 12:59 PM Heparin 4000 units Nitroglycerin 200 mcg Verapamil 2.5 mg Intraarterial Sandro Barrera MD, [facility] ASA Classification: CLASS II- Mild systemic disease (i.e. well-controlled diabetes, hypertension, asthma, cigarette smoking) Tiara Score Preprocedure Postprocedure Activity 2- Moves 4 extremities sustained head lift Activity 2- Moves 4 extremities sustained head lift Circulation 2- SBP +/= 20 points of pre-anesthetic level Circulation 2- SBP +/= 20 points of pre-anesthetic level Consciousness 2- Awake and alert oriented x 3 Consciousness 2- Awake and alert oriented x 3 O2 Saturation 2- Able to maintain O2 satruation of 92% on room air O2 Saturation 2- Able to maintain O2 satruation of 92% on room air Respiratory 2- Able to deep breathe and cough well Respiratory 2- Able to deep breathe and cough well Total Score 10 Total Score 10 Contrast Agent: Isovue Diagnostic Contrast: 81 ml Total Contrast: 81 ml Fluoro Dose: 25 mGy Procedure Log Time Note Enter By 12:24 PM Pt arrived to [employer] 1 at 12:24 [facility] 12:24 PM Kat Graham RN Position: Monitor Time in: 12:24 [facility] 12:24 PM Jose Ramos RN Position: [employer]r Time in: 12:24 [facility] 12:24 PM Dagmar Quevedo RN Position: [employer]r Time in: 12:24 [facility] 12:24 PM Yury Chun RT (R) Position: Scrub Time in: 12:24 [facility] 12:24 PM Saji Sterling RN Position: Nurse Time in: 12:24 [facility] 12:24 PM Patient charges- Angio tray pack, Navilyst 3mm J, Pulse Oximetry and ACIST tubing and transducer [facility] 12:24 PM Physican paged/called 12:24. [facility] 12:25 PM Time: 12:25 Patient comfortable and pain free: Yes justo 12:26 PM Time: 12:25LOC: 5 = Fully awake and oriented or at [facility] 12[facility]26 PM Clinical Presentation: Non-STEMI [facility] 12:31 PM Physician arrived 12:[facility] 12:31 PM Meet and greet completed [facility] 12:31 PM Sign in performed according to hospital policy. [facility] 12:31 PM Procedure start 12:[facility] PM CathStat 12:31 PM Time: 12:31 Oxygen on at 2 L/min per nasal cannula by Dagmar Quevedo RN [facility] 12:40 PM Vitals capture started with the following parameters, Patient=Adult, Interval=5 min, Initial Zhhjuswp=033 mmHg, Deflation Rate=3 mmHg, Cuff placed on Right Arm 12:41 PM ASA Class CLASS II- Mild systemic disease (i.e. well-controlled diabetes, hypertension, asthma, cigarette smoking) [email or web address] 12:42 PM Vitals capture started with the following parameters, Patient=Adult, Interval=5 min, Initial Gvkejlcp=020 mmHg, Deflation Rate=3 mmHg, Cuff placed on Right Arm 12:43 PM Time: 12:43 Versed 2 mg Intravenous Given by Dagmar Quevedo RN [facility] 12:43 PM Time: 12:43 Fentanyl 50 mcg Intravenous Given by Dagmar Quevedo RN [facility] 12:44 PM HR=80 bpm, POFS=042/85 mmhg, SpO2=97.0 %, Comment=NSR 12:48 PM HR=78 bpm, UEKJ=016/88 mmhg, SpO2=97.0 %, Comment=NSR 12:51 PM Sandra Washington RT Position: Monitor Time in: 12:51 to relieve Kat Graham RN [facility] 12:53 PM HR=80 bpm, OMHF=490/76 mmhg, SpO2=93.0 % 12:56 PM Pressure channel 1 zeroed. 12:56 PM Time out performed according to hospital policy [facility] 12:57 PM Time: 12:56 .5 ml Lidocaine 2% to right radial Subcutaneous Given by Sandro Barrera MD, [facility] 12:58 PM Access obtained by percutaneous puncture. 6Fr 10cm Terumo Wynona sheath placed in right Radial artery. [id number] [facility] 12:58 PM HR=80 bpm, FQEB=033/77 mmhg, SpO2=95.0 % 12:59 PM Time: 12:59 Patient given 4,000 units Heparin, 200 mcg Nitroglycerin, and 2.5 mg Verapamil Intraarterial by Sandro Barrera MD, [facility]. This is given to reduce risk of vessel spasm and thrombosis. [email or web address] 01:00 PM 5Fr TIG catheter inserted over the wire [facility] tsoummers 01:00 PM wire removed tsoummers 01:00 PM Pressure channel 1 zero failed. 01:00 PM Pressure channel 1 zero failed. 01:00 PM Pressure channel 1 zeroed. 01:01 PM Recorded Pressure: LV, HR=89, Condition=Condition 1 (Left Ventricle) LV 139/25/39 01:01 PM Catheter selectively placed in left ventricle tsoummers 01:01 PM Recorded Pressure: LV, Ao, HR=91, Condition=Condition 1 (Left Ventricle) LV 133/44/78, (Aorta) Ao 142/75/112 01:02 PM Bolus angiogram of left Ventricle complete: 10 ml/sec for a total of 20 mls tsoummers 01:02 PM Recorded Pressure: Ao, HR=90, Condition=Condition 1 (Aorta) Ao 144/109/126 01:02 PM TIG repositioned into LCA tsoummers 01:02 PM LCA angiography performed in multiple views. tsoummers 01:02 PM TIG repostioned into RCA tsoummers 01:03 PM HR=89 bpm, GVGZ=341/82 mmhg, SpO2=93.0 % 01:03 PM RCA angiography performed in multiple views. tsoummers 01:03 PM Recorded Pressure: Ao, HR=87, Condition=Condition 1 (Aorta) Ao 138/98/119 01:03 PM Catheter removed tsoummers 01:04 PM 5Fr Pigtail catheter inserted over the wire [facility] tsoummers 01:04 PM wire removed tsoummers 01:04 PM Catheter selectively placed in left ventricle tsoummers 01:05 PM Recorded Pressure: LV, HR=89, Condition=Condition 1 (Left Ventricle) LV 148/22/36 01:06 PM Bolus angiogram of left Ventricle complete: 10 ml/sec for a total of 20 mls tsoummers 01:06 PM Catheter removed tsoummers 01:06 PM Recorded Pressure: LV, Ao, HR=88, Condition=Condition 1 (Left Ventricle) LV 139/29/50, (Aorta) Ao 154/91/121 01:07 PM Procedure completed at 13:07 01/29/2018 tsoummers 01:07 PM Did you address JOE flow and Dominance? Yes tsoummers 01:08 PM HR=87 bpm, ZZHC=570/81 mmhg, SpO2=94.0 % 01:09 PM Sign out completed: Radiation Dose 263.74 mGy, 25.25 Gy/cm2 Fluoro Time: 1.1 Isovue 370 - 200ml contrast 81 ml given by Sandro Barrera MD, [facility]. Complications: NoneCardiac Rehab Consult needed: NoConfirmed administered medications: Yes tsoummers 01:09 PM Isovue 370 - 200ml,1 Bottle(s) used. tsoummers 01:09 PM 18 ml air in Vasc Band. tsoummers 01:09 PM Estimated Blood Loss: minimal tsoummers 01:09 PM Post ECG NSR tsoummers 01:10 PM Post Blood Pressure 143/81 tsoummers 01:10 PM 13:10 Post Pulses Rt Radial 1+ tsoummers 01:10 PM Information taught Cardiac Cath and Vasc Band tsoummers 01:10 PM Education needs Procedure, Plan of Care, and Responsibilities of Patient in Care tsoummers 01:10 PM Learning barriers :None tsoummers 01:10 PM Education Methods Verbal tsoummers 01:10 PM Education evaluation Able to repeat information tsoummers 01:11 PM Site status No bleeding/hematoma - Rt Wrist as reported by Yury Chun RT (R) at 13:10 tsoummers 01:11 PM Plavix, Effient or Brilinta given No tsoummers 01:11 PM Delay to floor No tsoummers 01:11 PM Patient out of room: 13:11 tsoummers 01:11 PM Family placed in consult room. tsoummers 01:11 PM Complications: None tsoummers 01:11 PM Fluoro Time: 1.1 tsoummers 01:11 PM Isovue 370 - 200ml contrast 81 ml given by Sandro Barrera. tsoummers 01:11 PM Radiation Dose 263.74 mGy tsoummers 01:16 PM Coronary Dominance: right tsoummers 01:16 PM Lesion found in Proximal LAD. Pre Stenosis: 15 Pre JOE Flow: tsoummers 01:16 PM Left Main Coronary Artery with 0% stenosis tsoummers 01:16 PM Proximal Left Anterior Descending Coronary Artery with 15% stenosis. If graft is supplying this territory, 0 % stenosis. tsoummers 01:16 PM Mid/Distal Left Anterior Descending Coronary Artery and diagonal branches with 0% stenosis. If graft is supplying this area, 0 % stenosis tsoummers 01:16 PM Circumflex, Obtuse Marginal, Left Posterior Descending, and Left Posterolateral Coronary Arteries with 0 % stenosis. If graft is supplying this area, 0 % stenosis tsoummers 01:16 PM Right Coronary, Right Posterior Descending Arteries with Right Posterolateral and Acute Marginal branches with 0 % stenosis. If graft is supplying this area, 0 % stenosis tsoummers 01:16 PM Ramus with 0% stenosis. If graft is supplying this area, 0 % stenosis tsoummers 01:22 PM Report given to Krystyna HUSSEIN Pt taken to 2N Room #6. 13:22 [facility] Complications Complication None None Hemodynamics Pressures Site Systolic/A Wave Diastolic/V Wave Mean LV 139 25 39 LV 133 44 78 AO 142 75 112 AO 144 109 126 AO 138 98 119 LV 148 22 36 LV 139 29 50 AO 154 91 121 Post Procedure Information Blood Pressure: 143/81 mmHg Rhythm: NSR Post procedural instructions were given Site Checks Time Location Status Staff Sheath In? Note 01:10 PM Rt Wrist No bleeding/hematoma Yury Chun RT (R) Pulses Time Site Pre-Procedure Post-Procedure Note Bilateral radial 2+ Bilateral DP 2+ Bilateral PT 1+ 1:10:00 PM Rt Radial 1+ Updated by Kat Graham RN on 01/29/2018 1:24:54 PM electronically signed on 01/29/2018 1:25:30 PM with status of Final
[2018-01-29] MEDS: *HR* LORazepam 2 MG/ML VIAL IVP PRN (17:56)
--- NOTE | 2018-01-29 18:22 | Internal Med Progress Note ---
Date of Encounter: 01/29/18 Time of Encounter: 11:00 - Assessment and plan (1) Elevated troponin Current Visit: Yes Status: Acute Assessment and plan: Cardiology consulted with recommendations for left heart catheterization which showed nonobstructive coronary arterial disease with a LVEF of 25% Recommendations for patient to have LifeVest upon discharge and to continue beta ana and ROSARIO inhibitor (2) Supratherapeutic INR Current Visit: Yes Status: Resolved Assessment and plan: Resolved; Will start patient on Xarelto for anticoagulation therapy for atrial fibrillation after potential left heart catheterization (3) Suicide attempt by multiple drug overdose Current Visit: Yes Status: Acute Assessment and plan: Psychiatry consulted for recommendations for inpatient psychiatric management once medically cleared. Supratherapeutic INR has not resolved and patient for potential left heart catheterization due to elevated cardiac biomarkers Qualifiers: Encounter type: initial encounter Qualified Code(s): T50.902A - Poisoning by unspecified drugs, medicaments and biological substances, intentional self- harm, initial encounter (4) Drug overdose Current Visit: Yes Status: Acute Assessment and plan: Suicide attempt with overdose on Coumadin, Xarelto, sertraline, and Buspirone. Patient has a history of suicidal attempts in the past as well. Psychiatry with recommendations as above Qualifiers: Encounter type: initial encounter Injury intent: intentional self-harm Qualified Code(s): T50.902A - Poisoning by unspecified drugs, medicaments and biological substances, intentional self-harm, initial encounter (5) UTI (urinary tract infection) Current Visit: Yes Status: Ruled-out Assessment and plan: Cultures negative; discontinue antibiotic Qualifiers: Urinary tract infection type: site unspecified Hematuria presence: without hematuria Qualified Code(s): N39.0 - Urinary tract infection, site not specified (6) DVT prophylaxis Current Visit: Yes Status: Acute Assessment and plan: Will start patient on Xarelto after left heart catheterization - Time Spent With Patient Total time spent is greater than 50% in coordination of care (as documented) at patient's floor/unit and/or counseling patient: - Subjective Interval history: Patient admitted for SI/overdose now with non-STEMI and supratherapeutic INR Patient's INR now subtherapeutic at 1.8 Patient with elevated cardiac biomarkers with consideration for LHC this morning and patient found to have nonobstructive coronary arterial disease with EF of 25% with recommendations for LifeVest Patient now awaiting LifeVest and bed for geriatric inpatient psychiatry unit - Constitutional Vitals: Temp Pulse Resp BP Pulse Ox 99.1 F 83 17 173/105 94 01/29/18 17:31 01/29/18 17:31 01/29/18 17:31 01/29/18 17:31 01/29/18 17:31 General appearance: Present: cooperative, A&O X 3, pleasant, no acute distress, obese, answers questions appropriately - Respiratory Respiratory exam: Present: CTAB. Absent: accessory muscle use, rales, rhonchi, wheezes - Cardiovascular Cardiovascular exam: Present: RRR, +S1, +S2. Absent: diastolic murmur, gallop, rubs, systolic murmur Internal Medicine: Result - Labs CBC & Chem 7: 01/29/18 08:45 01/29/18 08:45 Labs: Short CBC 01/29/18 Range/Units 08:45 WBC 9.1 (4.3-11.1) K/mcL Hgb 9.6 L (11.5-15.4) g/dL Hct 31.5 L (35.3-44.9) % Plt Count 236 (140-400) K/mcL Neutrophils # 7.3 (1.6-8.9) K/mcL BMP 01/29/18 08:45 Sodium 142 Potassium 3.6 Chloride 109 H Carbon Dioxide 28 BUN 6 L Creatinine 0.65 Glucose 135 H Calcium 8.6 - ABG Interpretation ABG results: PT/INR, D-dimer PT 15.9 Seconds (9.4-12.1) H 01/29/18 08:45 - VTE Reasons for not Prescribing Prophylaxis: Medical contraindication ( Supratherapeutic INR) Documentation of Mechanical Device: Intermittent pneumatic compression device Consult Discharge Plan - Plan Referrals: Oscar Sandoval Jr, MD [Primary Care Provider] - ([facility] will wait for d/c to see if appointment needed)
[2018-01-29] MEDS ORDERED: *HR* Rivaroxaban 10 MG TABLET PO SCH (18:30)
[2018-01-30] MEDS: 0.9 % Sodium Chloride 1,000 ML IVC SCH (06:39)
[2018-01-30] MEDS: Lisinopril 20 MG TABLET PO SCH (08:27)
[2018-01-30] MEDS: ARIPiprazole 5 MG TABLET PO SCH (08:27)
[2018-01-30] MEDS: Metoprolol XL (24 HR) Succ 25 MG TAB.ER.24H PO SCH (08:28)
[2018-01-30] MEDS: Insulin LISPRO 300 UNITS/3 ML VIAL SQ SCH ×2 (08:28→12:19)
--- NOTE | 2018-01-30 11:54 | Cardiology Progress Note ---
Date of Encounter: 01/30/18 Time of Encounter: 11:30 Assessment and Plan (1) Elevated troponin Current Visit: Yes Status: Acute Suspect secondary to overdose. Troponin 0.11, 1.34, 2.13. Cannot rule out ACS. Took a bottle of coumadin and xarelto--indication: hx of PE. Of note, prior suicide attempts noted. No chest pain reported, no ischemic ECG changes. [facility] 2010: minimal CAD Regadenoson nuclear stress 2016: gated EF >70%, perfusion negative for ischemia or infarct. [facility] 01/29/18: mild, non-obstructive CAD, EF 25% TTE this admission: EF 50% with mild segmental LV dysfunction. Discussed with Dr. Barrera, suspect results from TTE are not accurate, LifeVest recommended for NICMP. Recommend re-evaluation of LVEF with Cardiac MRI in 3 months after GDMT. Continue BB, ACEi. Appears euvolemic upon exam. (2) NICM (nonischemic cardiomyopathy) Current Visit: Yes Status: Acute Per [facility]--EF 25%. LifeVest recommended upon discharge by Dr. Barrera--order placed. Patient is medically stable from cardiology to be discharged to Inpatient Psych facility. Recommend LifeVest upon discharge. Clinically euvolemic upon exam. Continue BB and ACEi. Recommend Cardiac MRI in 3 months to re-evaluate LVEF. Will coordinate outpt f/u Discussion w patient/family: The assessment and plan as outlined above was discussed with the patient and/or family members who expressed understanding and agreement. All questions were answered. Thank you for involving us in the care of your patient. Please call with any questions. The patient will be discussed and reviewed with Dr. Harding; changes to be made accordingly. Subjective Principal diagnosis: OD (Xarelto, Coumadin), elevated troponin Interval history: Seen and examined. 1:1 sitter at bedside. No CV symptoms reported. No chest pain. No issues with [facility] access site. Objective General: Conversant, No Apparent Distress HEENT: Atraumatic, Normocephaly Cardiac: Reg Rate and Rhythm, Normal S1 and S2 Lungs: Normal Breath Sounds Neuro: Alert and responsive Abdomen: Soft Skin: No rashes noted on visualized skin Musculoskeletal: No Chest Wall Tenderness Extremities: No Edema, Normal Pulses Results 01/29/18 08:45 01/29/18 08:45 Active Medications Aripiprazole (Abilify) 5 mg PO DAILY [facility] Stop: 07/27/18 09:01 Last Admin: 01/30/18 08:27 Dose: 5 mg Dextrose/Water (Dextrose 50% (Syg)) 25 ml IVP AD PRN PRN Reason: Hypoglycemia Stop: 07/28/18 15:17 Glucagon (Glucagen) 1 mg IM ONCE PRN PRN Reason: Hypoglycemia Stop: 07/28/18 15:17 Glucose (Gluctose) 15 gm PO ONCE PRN PRN Reason: Hypoglycemia Stop: 07/28/18 15:17 Glucose (Gluctose) 30 gm PO ONCE PRN PRN Reason: Hypoglycemia Stop: 07/28/18 15:17 Sodium Chloride (0.9 % Sodium Chloride) 1,000 mls @ 75 mls/hr IVC .[id number] [facility] Stop: 07/26/18 18:31 Last Admin: 01/30/18 06:39 Dose: 75 mls/hr Dextrose (Dextrose 5%) 1,000 mls @ 100 mls/hr IVC .Q10H PRN PRN Reason: HYPOGLYCEMIA Stop: 07/28/18 15:17 Insulin Human Lispro (Humalog) 0 units SQ TIDAC [facility] PRN Reason: Protocol Stop: 07/28/18 16:31 Last Admin: 01/30/18 08:28 Dose: Not Given Insulin Human Lispro (Humalog) 0 units SQ HS [facility] PRN Reason: Protocol Stop: 07/28/18 21:01 Last Admin: 01/29/18 20:25 Dose: Not Given Levothyroxine Sodium (Synthroid) 50 mcg PO DAILY@0630 [facility] Stop: 07/27/18 06:31 Last Admin: 01/30/18 04:46 Dose: 50 mcg Lisinopril (Zestril) 20 mg PO DAILY [facility] PRN Reason: Protocol Stop: 07/27/18 09:01 Last Admin: 01/30/18 08:27 Dose: 20 mg Lorazepam (Ativan) 1 mg IVP Q6H PRN PRN Reason: WITHDRAWAL OR SEIZURE Stop: 07/28/18 15:23 Last Admin: 01/29/18 17:56 Dose: 1 mg Metoprolol Succinate (Toprol Xl) 12.5 mg PO DAILY [facility] Stop: 07/27/18 09:01 Last Admin: 01/30/18 08:28 Dose: 12.5 mg Naloxone HCl (Narcan) 0.4 mg IVP Q2MIN PRN PRN Reason: SEE COMMENTS Stop: 07/26/18 18:25 Omeprazole (Prilosec) 40 mg PO DAILY@0730 [facility] Stop: 07/27/18 07:31 Last Admin: 01/30/18 08:28 Dose: 40 mg Ondansetron HCl (Zofran) 4 mg IVP Q6HR PRN; Protocol PRN Reason: Nausea Stop: 07/27/18 02:01 Last Admin: 01/25/18 02:13 Dose: 4 mg Rivaroxaban (Xarelto) 10 mg PO 1700 [facility] Stop: 07/31/18 18:31 Last Admin: 01/29/18 20:22 Dose: 10 mg - Imaging and Cardiology Echo: report reviewed Cardiac cath: report reviewed Other Results: 12 hour tele: avg HR=78 SR. NO events noted. - EKG Interpretation EKG results cardiology: personally reviewed - VTE Reasons for not Prescribing Prophylaxis: Medical contraindication ( Supratherapeutic INR) Documentation of Mechanical Device: Intermittent pneumatic compression device Consult Discharge Plan - Plan Referrals: Oscar Sandoval Jr, MD [Primary Care Provider] - ([facility] will wait for d/c to see if appointment needed)
[2018-01-30 12:09] VITALS: BP 146/96
--- NOTE | 2018-01-30 12:39 | Discharge Summary ---
- NOTES TO OUTPATIENT PROVIDER Notes to Outpatient Provider: Patient to continue Xarelto and to wear LifeVest as recommended Date of Encounter: 01/30/18 Time of Encounter: 11:00 - Discharge Diagnosis (1) Elevated troponin Priority: Primary Status: Acute (2) Supratherapeutic INR Priority: Primary Status: Resolved (3) Suicide attempt by multiple drug overdose Priority: Primary Status: Acute Qualifiers: Encounter type: initial encounter Qualified Code(s): T50.902A - Poisoning by unspecified drugs, medicaments and biological substances, intentional self- harm, initial encounter (4) Drug overdose Priority: Primary Status: Acute Qualifiers: Encounter type: initial encounter Injury intent: intentional self-harm Qualified Code(s): T50.902A - Poisoning by unspecified drugs, medicaments and biological substances, intentional self-harm, initial encounter Hospital course: Patient is a 72-year-old female with past medical history significant for atrial fibrillation with PE, hyperlipidemia, diabetes and mood disorder who presented to the ER on 01/26/18 after attempted suicide by overdosing on prescription medications. Patient overdosed on multiple drugs including Coumadin, Xarelto, risperidone and sertraline. In the ER, patient was found to be supratherapeutic with elevated cardiac biomarkers. She was admitted to the progressive care unit for monitoring and treatment. During patients hospital stay psychiatry was consulted with recommendations for geriatric inpatient psychiatric treatment once medically cleared. Cardiology was consulted due to elevated cardiac biomarkers and a left heart catheterization was done which showed nonobstructive coronary arterial disease with a LVEF of 25%. Recommendations for patient to be discharged on LifeVest. Patients supratherapeutic INR resolved and patient was started on Xarelto. Patient is now medically stable and will be discharged to geriatric psychiatric inpatient for management and treatment. - Time Spent with Patient Total time spent providing and/or coordinating discharge services: Less than 30 minutes - Discharge Medications Prescriptions: ALPRAZolam [Xanax 1 MG Tablet] 1 mg PO BID PRN 5 Days #10 tablet PRN Reason: Anxiety Home Medications: Glimepiride [Amaryl] 2 mg PO DAILY 05/15/16 [History] Ranitidine HCl [Acid [employer]] 150 mg PO DAILY 05/15/16 [History] Levothyroxine [Synthroid] 50 mcg PO DAILY 12/29/16 [History] Lisinopril [Zestril] 20 mg PO DAILY 12/29/16 [History] Metoprolol XL (24 HR) Succ [Toprol Xl] 12.5 mg PO DAILY 12/29/16 [History] Omeprazole [PriLOSEC] 40 mg PO DAILY 07/08/17 [History] Sertraline [Zoloft] 200 mg PO DAILY 07/08/17 [History] Metformin HCl [Metformin HCl ER] 1,000 mg PO HS 08/08/17 [History] ARIPiprazole [Abilify] 5 mg PO DAILY 01/24/18 [History] Buspirone HCl [Buspar] 5 mg PO BID 01/24/18 [History] Nitrofurantoin (BID) [Macrobid] 100 mg PO BID 01/24/18 [History] Rivaroxaban [Xarelto] 10 mg PO DAILY 01/24/18 [History] ALPRAZolam [Xanax 1 MG Tablet] 1 mg PO BID PRN 5 Days #10 tablet 01/30/18 [Rx] Allergies/Adverse Reactions: 3 Allergy/AdvReac Type Severity Reaction Status Date / Time gabapentin [From Neurontin] AdvReac Agitated Verified 01/24/18 14:47 Date of admission: 01/26/18 09:22 Primary care physician: Oscar Sandoval Jr, MD - Constitutional Vitals: Temp Pulse Resp BP Pulse Ox 98.7 F 78 16 146/96 98 01/30/18 12:06 01/30/18 12:06 01/30/18 12:06 01/30/18 12:06 01/30/18 12:06 General appearance: Present: cooperative, A&O X 3, pleasant, no acute distress, obese, answers questions appropriately - Cardiovascular Cardiovascular exam: Present: RRR, +S1, +S2. Absent: diastolic murmur, gallop, rubs, systolic murmur - Patient Status Disposition: Transfer Psychiatric Hosp Condition: Undetermined - Discharge Instructions Instructions: Suicide Prevention for Adults (DC) Follow Up With: Oscar Sandoval Jr, MD [Primary Care Provider] - ([facility] will wait for d/c to see if appointment needed) - VTE Reasons for not Prescribing Prophylaxis: Medical contraindication ( Supratherapeutic INR) Documentation of Mechanical Device: Intermittent pneumatic compression device
[2018-01-30] MEDS ORDERED: *HR* Rivaroxaban 15 MG TABLET PO SCH (17:00)
--- NOTE | 2018-01-30 17:35 | Electrocardiograph Report ---
[address] [place] [address] Test Date: 2018-01-29 Pat Name: Terrie Corona Department: 110 Room: 2N06 Gender: F [employer]: : [id number] Requested By: You Eid Order Number: [id number] Reading MD: Zoltan Sellers Measurements Intervals [place] Rate: 84 P: [place]: 0 QRS: 84 QRSD: 98 T: 1 QT: 398 QTc: 439 Interpretive Statements SUPRAVENTRICULAR RHYTHM ANTEROSEPTAL INFARCTION, AGE UNDETERMINED Electronically Signed On 01-30-2018 17:34:22 EDT by Zoltan Sellers
== END 2018-01-30 17:03 | DRG 917 ==
LOC: 2NNU 14:38 → EMEROO 14:38 → 2NNU 19:06 → SUATTDRO 01-26 09:22
PROVIDERS: ADMIT Internal Medicine; ATTEND Hospitalist

== ENCOUNTER 2018-03-21 12:27 | Observation (INO) ==
--- NOTE | 2018-03-21 12:54 | Emergency Department Note ---
Disposition Clinical Impression: EKG abnormalities, Generalized weakness CVA (cerebral vascular accident) Qualifiers: CVA mechanism: unspecified Qualified Code(s): I63.9 - Cerebral infarction, unspecified UTI (urinary tract infection) Qualifiers: Urinary tract infection type: site unspecified Hematuria presence: without hematuria Qualified Code(s): N39.0 - Urinary tract infection, site not specified Disposition: Admitted As Inpatient Condition: Fair Time of Disposition: 15:19 Neuro HPI - General Chief Complaint: ED Weakness Stated Complaint: Weakness / UTI Time Seen by Provider: 03/21/18 12:45 Nursing Notes Reviewed: Yes Vital Signs Reviewed: Yes - History of Present Illness HPI Narrative: Patient is a 72-year-old female who presents to [facility] ED with a chief complaint of slurred speech, generalized weakness, Symptom Onset Unknown: Yes Location: speech, left leg History of same: Yes Severity: moderate Quality: weakness Symptoms Improving: No Improves with: none Worsens with: none Context: gradual onset On Anticoagulants: No Associated symptoms: Denies: confusion, chest pain, cough, fever/chills, nausea/ vomiting Treatments Prior to Arrival: none - Related Data Home Medications: Home Medications Medication Instructions Recorded Confirmed Ranitidine HCl [Acid V [employer]] 150 mg PO DAILY 05/15/16 03/21/18 Levothyroxine [Synthroid] 50 mcg PO DAILY 12/29/16 03/21/18 Lisinopril [Zestril] 20 mg PO DAILY 12/29/16 03/21/18 Metoprolol XL (24 HR) Succ [Toprol 12.5 mg PO DAILY 12/29/16 03/21/18 Xl] Omeprazole [PriLOSEC] 40 mg PO DAILY 07/08/17 03/21/18 Sertraline [Zoloft] 200 mg PO DAILY 07/08/17 03/21/18 Metformin HCl [Metformin HCl ER] 1,000 mg PO HS 08/08/17 03/21/18 ARIPiprazole [Abilify] 5 mg PO DAILY 01/24/18 03/21/18 Rivaroxaban [Xarelto] 10 mg PO DAILY 01/24/18 03/21/18 Ciprofloxacin HCl [Cipro] 500 mg PO Q12H 03/21/18 03/21/18 Furosemide [Lasix] 20 mg PO DAILY 03/21/18 03/21/18 Potassium Chloride [Klor-Con 10] 10 meq PO BID 03/21/18 03/21/18 carBAMazepine [Tegretol] 200 mg PO QPM 03/21/18 03/21/18 traZODone [TraZODone] 50 mg PO HS 03/21/18 03/21/18 Previous Rx's Medication Instructions Recorded ALPRAZolam [Xanax 1 MG Tablet] 1 mg PO BID PRN 5 Days #10 tablet 01/30/18 Allergies/Adverse Reactions: Allergies Allergy/AdvReac Type Severity Reaction Status Date / Time gabapentin [From Neurontin] AdvReac Agitated Verified 01/24/18 14:47 All systems ED: reviewed and negative except as stated. Past Medical History - Past Medical History Attestation: Yes The following information was validated with the patient. Source: patient Medical history: Reports: atrial fibrillation, diabetes, GI bleed, hyperlipidemia, hypertension, pulmonary embolus, other Surgical history: Reports: cholecystectomy, hysterectomy, other Psychiatric history: Reports: depression, prior suicide attempt - Social History Smoking Status: Never smoker Smokeless Tobacco Status: No Alcohol use: Reports: none Drug use: Reports: prescription drug abuse Physical Exam - General General appearance: alert, in no apparent distress - Head Head exam: atraumatic, normocephalic, normal inspection - Eye Eye exam: Present: EOMI - ENT ENT exam: normal exam, normal oropharynx, mucous membranes moist - Neck Neck exam: Present: normal inspection, full ROM, trachea midline - Chest Chest inspection: Present: normal inspection, symmetric chest wall rise - Respiratory Respiratory exam: Present: normal lung sounds bilaterally - Cardiovascular Cardiovascular exam: Present: regular rate, normal rhythm, normal heart sounds - Abdominal Exam Abdominal exam: Present: soft, Non-Tender. Absent: tenderness, distention, guarding, rebound, rigidity - Extremities Exam Extremities exam: Present: normal inspection, full ROM. Absent: tenderness, pedal edema - Neurological Exam Neurological exam: Present: alert - Expanded Neurological Exam Patient oriented to: Present: person, place Speech: Present: expressive aphasia Cranial nerves: EOM function (II, III, IV, ): Normal, facial sensation (V): Normal, facial palsy (VII): Normal, spinal accessory function (XI): Normal, tongue deviation (XII): Normal Cerebellar function: finger to nose: Normal Motor strength - LUE: 4/5 Motor strength - RUE: 4/5 Motor strength - LLE: 1/5 Motor strength - RLE: 4/5 Upper motor neuron exam: pronator drift: Present on left, Present of right Sensory exam upper extremity: light touch: Normal Sensory exam lower extremity: light touch: Normal Coma Scale Eye Opening: Spontaneous Coma Scale Motor Response: Obeys Commands Coma Scale Verbal Response: Confused Coma Scale Total: 14 Course Course Narrative: Patient seen and examined. Concern for worsening confusion, slurred speech, weakness. Initially a stroke alert was called. However this was canceled due to patient's symptoms last known well being over a week ago. Daughter states patient does have a history of urinary tract infections. CVA workup initiated along with a urine analysis and chest x-ray. Upon my neurologic examination, patient does have an NIH score of 7 due to slurred speech, lower extremity and upper extremity weakness with her left lower external greater than the right. There are also seems to be some issues with social problems at home, as the daughter was explaining how her father had recently and her brother had been trying to siphon money out of their business so there has been a lot of stress. - Reevaluation(s) Reevaluation #1: Urine analysis shows signs of urinary tract infection. We will treat with 2 g of Rocephin. Due to patient's altered mental status as well as generalized weakness and signs of a UTI, we will admit for further evaluation and treatment. Patient's EKG had shown some signs of EKG changes including CT depression in the inferior leads as well as inverted T waves in leads 1 and aVL. However patient has not complained of any chest pain or difficulty breathing. This does not seem to correlate clinically with ACS. Time: 16:14 Vital Signs Temperature 98.4 F 03/21/18 12:33 Pulse Rate 84 03/21/18 12:33 Respiratory Rate 18 03/21/18 12:33 Blood Pressure 137/87 03/21/18 12:33 O2 Sat by Pulse Oximetry 94 03/21/18 12:33 Temperature 98.2 F 03/21/18 16:52 Pulse Rate 75 03/21/18 16:52 Respiratory Rate 14 03/21/18 16:52 Blood Pressure 142/84 03/21/18 16:52 O2 Sat by Pulse Oximetry 96 03/21/18 16:52 Oxygen Delivery Oxygen Delivery Room Air Neuro Symptoms/Deficit - Medical Records Medical records reviewed: Yes I reviewed the patient's medical records. - Lab Data Lab results reviewed: Yes I reviewed the patient's lab results. Result diagrams: 03/21/18 12:51 03/21/18 12:50 Lab Results 03/21/18 03/21/18 03/21/18 Range/Units 12:50 12:50 12:51 WBC 6.4 (4.3-11.1) K/mcL RBC 3.92 (3.82-4.97) M/mcL Hgb 11.4 L (11.5-15.4) g/dL Hct 36.0 (35.3-44.9) % MCV 91.8 (83.0-100.0) fL MCH 29.1 (28.0-33.3) pg MCHC 31.7 (31.6-35.5) g/dL RDW 14.0 (11.5-14.5) % Plt Count 175 (140-400) K/mcL MPV 9.9 (9.4-12.4) fL Immature Gran % 0.3 (0-4) % Seg Neutrophils % 74.6 % Lymphocytes % 15.6 % Monocytes % 4.7 % Eosinophils % 4.2 % Basophils % 0.6 % Neutrophils # 4.8 (1.6-8.9) K/mcL Lymphocytes # 1.0 (0.6-4.6) K/mcL Monocytes # 0.3 (0.0-1.3) K/mcL Eosinophils # 0.3 (0.0-0.6) K/mcL Basophils # 0.0 (0.0-0.2) K/mcL PT 15.7 H (9.4-12.1) Seconds INR 1.4 APTT 34.7 (26.0-36.0) Seconds Sodium 141 (136-145) mEq/L Potassium 4.1 (3.5-5.1) mEq/L Chloride 104 (98-107) mEq/L Carbon Dioxide 29 (23-29) mEq/L BUN 11 (8-23) mg/dL Creatinine 0.99 (0.60-1.20) mg/dL Est GFR ( Amer) > 60 (> 60) Est GFR (Non-Af Amer) 55 L (> 60) BUN/Creatinine Ratio 11 (6-26) Glucose 126 H (70-105) mg/dL Calculated Osmolality 293 (280-300) Calcium 9.1 (8.6-10.3) mg/dL Troponin I < 0.03 (< 0.04) ng/mL TSH 2.217 (0.340-5.600) mcIU/mL Urine Color (Yellow) Urine Clarity (Clear) Urine pH (5.0-8.0) pH Units Ur Specific [place] (1.010-1.025) Urine Protein (Neg-Trace) mg/dL Urine Glucose (UA) (Normal) mg/dL Urine Ketones (Negative) mg/dL Urine Blood (Negative) Urine Nitrite (Negative) Urine Bilirubin (Negative) Urine Urobilinogen (Normal) mg/dL Ur Leukocyte Esterase (Negative) Urine Microscopic RBC (0-3) per hpf Urine Microscopic WBC (0-3) per hpf Ur Squamous Epith Cells (None-Few) per lpf Urine Bacteria (None-Few) per hpf Hyaline Casts (None-Few) per lpf Ur Culture Indicated? (NO) 03/21/18 Range/Units 13:36 WBC (4.3-11.1) K/mcL RBC (3.82-4.97) M/mcL Hgb (11.5-15.4) g/dL Hct (35.3-44.9) % MCV (83.0-100.0) fL MCH (28.0-33.3) pg MCHC (31.6-35.5) g/dL RDW (11.5-14.5) % Plt Count (140-400) K/mcL MPV (9.4-12.4) fL Immature Gran % (0-4) % Seg Neutrophils % % Lymphocytes % % Monocytes % % Eosinophils % % Basophils % % Neutrophils # (1.6-8.9) K/mcL Lymphocytes # (0.6-4.6) K/mcL Monocytes # (0.0-1.3) K/mcL Eosinophils # (0.0-0.6) K/mcL Basophils # (0.0-0.2) K/mcL PT (9.4-12.1) Seconds INR APTT (26.0-36.0) Seconds Sodium (136-145) mEq/L Potassium (3.5-5.1) mEq/L Chloride (98-107) mEq/L Carbon Dioxide (23-29) mEq/L BUN (8-23) mg/dL Creatinine (0.60-1.20) mg/dL Est GFR ( Amer) (> 60) Est GFR (Non-Af Amer) (> 60) BUN/Creatinine Ratio (6-26) Glucose (70-105) mg/dL Calculated Osmolality (280-300) Calcium (8.6-10.3) mg/dL Troponin I (< 0.04) ng/mL TSH (0.340-5.600) mcIU/mL Urine Color Yellow (Yellow) Urine Clarity Clear (Clear) Urine pH 6.0 (5.0-8.0) pH Units Ur Specific [place] 1.023 (1.010-1.025) Urine Protein Negative (Neg-Trace) mg/dL Urine Glucose (UA) Normal (Normal) mg/dL Urine Ketones Negative (Negative) mg/dL Urine Blood Negative (Negative) Urine Nitrite Positive A (Negative) Urine Bilirubin Negative (Negative) Urine Urobilinogen Normal (Normal) mg/dL Ur Leukocyte Esterase Moderate H (Negative) Urine Microscopic RBC 0-3 (0-3) per hpf Urine Microscopic WBC 15-30 H (0-3) per hpf Ur Squamous Epith Cells None Seen (None-Few) per lpf Urine Bacteria Many H (None-Few) per hpf Hyaline Casts None Seen (None-Few) per lpf Ur Culture Indicated? YES A (NO) - Radiology Data Radiology results reviewed: Yes I reviewed the patient's radiology results. Head CT 03/21/18 12:51 IMPRESSION: No acute intracranial abnormality. D/ / 03/21/2018 13:40:48 Melquiades Estes MD / earline Interpreting Provider: Melquiades Estes MD Chest X-Ray 03/21/18 12:55 IMPRESSION: Mild cardiomegaly without evidence of acute cardiopulmonary process. D/ / 03/21/2018 13:47:56 Fermin Gonzalez MD / earline Interpreting Provider: Fermin Gonzalez MD - EKG Data EKG attestation: Yes I reviewed and interpreted this EKG. EKG results narrative: EKG done at 1245 shows normal sinus rhythm with a rate of [address] elevation. However there does appear to be some CT depression in leads 2, 3, aVF. There are inverted T waves in leads 1 and aVL. This does appear changed from prior EKG done 01/29/2018. NIH Stroke Scale - Level of Consciousness LOC: Alert - LOC Questions LOC Questions: Answers both correctly - LOC Commands LOC Commands: Performs both correctly - Best Gaze Best Gaze: Normal - Visual Visual: Partial hemianopia - Facial Palsy Facial Palsy: Normal - Motor Arms Motor Arm-Left: Drift, does NOT hit bed Motor Arm-Right: Drift, does NOT hit bed - Motor Legs Motor Leg-Left: Some effort against gravity, limb drifts to bed Motor Leg-Right: Drift, does NOT hit bed - Limb Ataxia Limb Ataxia: Normal, No Ataxia - Sensory Sensory: Normal - Best Language Best Language: No aphasia - Dysarthria Dysarthria: Mild, slurs some words - Extinction and Inattention Extinction and Inattention: Normal - NIHSS Total Score NIHSS Total Score: 7
[2018-03-21 13:00] LABS: Basophils % 0.6 %; Eosinophils # 0.3 K/mcL (0.0-0.6); Eosinophils % 4.2 %; Hemoglobin 11.4 g/dL (11.5-15.4); Immature Granulocytes % 0.3 % (0-4); Lymphocytes % 15.6 %; Mean Corpuscular HGB Conc 31.7 g/dL (31.6-35.5); Mean Corpuscular Hemoglobin 29.1 pg (28.0-33.3); Mean Corpuscular Volume 91.8 fL (83.0-100.0); Mean Platelet Volume 9.9 fL (9.4-12.4); Monocytes # 0.3 K/mcL (0.0-1.3); Monocytes % 4.7 %; Neutrophils # 4.8 K/mcL (1.6-8.9); Platelet Count 175 K/mcL (140-400); Red Blood Count 3.92 M/mcL (3.82-4.97); Segmented Neutrophils % 74.6 %
[2018-03-21 13:05] LABS: INR 1.4; Prothrombin Time 15.7 Seconds (9.4-12.1)
[2018-03-21 13:07] LABS: Activated Partial Thrombo Time 34.7 Seconds (26.0-36.0)
--- NOTE | 2018-03-21 13:09 | Emergency Department Note ---
Disposition Clinical Impression: EKG abnormalities, Generalized weakness CVA (cerebral vascular accident) Qualifiers: CVA mechanism: unspecified Qualified Code(s): I63.9 - Cerebral infarction, unspecified UTI (urinary tract infection) Qualifiers: Urinary tract infection type: site unspecified Hematuria presence: without hematuria Qualified Code(s): N39.0 - Urinary tract infection, site not specified Disposition: Admitted As Inpatient Condition: Fair General Adult HPI - General Chief complaint: ED Weakness Stated complaint: Weakness / UTI Time Seen by Provider: 03/21/18 12:45 - History of Present Illness Pain Scale: 0 - Related Data Home Medications Medication Instructions Recorded Confirmed Ranitidine HCl [Acid Construction Director] 150 mg PO DAILY 05/15/16 03/21/18 Levothyroxine [Synthroid] 50 mcg PO DAILY 12/29/16 03/21/18 Lisinopril [Zestril] 20 mg PO DAILY 12/29/16 03/21/18 Metoprolol XL (24 HR) Succ [Toprol 12.5 mg PO DAILY 12/29/16 03/21/18 Xl] Omeprazole [PriLOSEC] 40 mg PO DAILY 07/08/17 03/21/18 Sertraline [Zoloft] 200 mg PO DAILY 07/08/17 03/21/18 Metformin HCl [Metformin HCl ER] 1,000 mg PO HS 08/08/17 03/21/18 ARIPiprazole [Abilify] 5 mg PO DAILY 01/24/18 03/21/18 Rivaroxaban [Xarelto] 10 mg PO DAILY 01/24/18 03/21/18 Ciprofloxacin HCl [Cipro] 500 mg PO Q12H 03/21/18 03/21/18 Furosemide [Lasix] 20 mg PO DAILY 03/21/18 03/21/18 Potassium Chloride [Klor-Con 10] 10 meq PO BID 03/21/18 03/21/18 carBAMazepine [Tegretol] 200 mg PO QPM 03/21/18 03/21/18 traZODone [TraZODone] 50 mg PO HS 03/21/18 03/21/18 Previous Rx's Medication Instructions Recorded ALPRAZolam [Xanax 1 MG Tablet] 1 mg PO BID PRN 5 Days #10 tablet 01/30/18 Allergies Allergy/AdvReac Type Severity Reaction Status Date / Time gabapentin [From Neurontin] AdvReac Agitated Verified 01/24/18 14:47 Past Medical History - Past Medical History Medical history: Reports: atrial fibrillation, diabetes, GI bleed, hyperlipidemia, hypertension, pulmonary embolus, other Surgical history: Reports: cholecystectomy, hysterectomy, other Psychiatric history: Reports: depression, prior suicide attempt - Social History Smoking Status: Never smoker Smokeless Tobacco Status: No Alcohol use: Reports: none Drug use: Reports: prescription drug abuse Physical Exam - General General appearance: alert, in no apparent distress Course Vital Signs Temperature 98.4 F 03/21/18 12:33 Pulse Rate 84 03/21/18 12:33 Respiratory Rate 18 03/21/18 12:33 Blood Pressure 137/87 03/21/18 12:33 O2 Sat by Pulse Oximetry 94 03/21/18 12:33 Temperature 98.2 F 03/21/18 16:52 Pulse Rate 75 03/21/18 16:52 Respiratory Rate 14 03/21/18 16:52 Blood Pressure 142/84 03/21/18 16:52 O2 Sat by Pulse Oximetry 96 03/21/18 16:52 Oxygen Delivery Oxygen Delivery Room Air Medical Decision Making - Lab Data Result diagrams: 03/21/18 12:51 03/21/18 12:50 Lab Results 03/21/18 03/21/18 03/21/18 Range/Units 12:50 12:50 12:51 WBC 6.4 (4.3-11.1) K/mcL RBC 3.92 (3.82-4.97) M/mcL Hgb 11.4 L (11.5-15.4) g/dL Hct 36.0 (35.3-44.9) % MCV 91.8 (83.0-100.0) fL MCH 29.1 (28.0-33.3) pg MCHC 31.7 (31.6-35.5) g/dL RDW 14.0 (11.5-14.5) % Plt Count 175 (140-400) K/mcL MPV 9.9 (9.4-12.4) fL Immature Gran % 0.3 (0-4) % Seg Neutrophils % 74.6 % Lymphocytes % 15.6 % Monocytes % 4.7 % Eosinophils % 4.2 % Basophils % 0.6 % Neutrophils # 4.8 (1.6-8.9) K/mcL Lymphocytes # 1.0 (0.6-4.6) K/mcL Monocytes # 0.3 (0.0-1.3) K/mcL Eosinophils # 0.3 (0.0-0.6) K/mcL Basophils # 0.0 (0.0-0.2) K/mcL PT 15.7 H (9.4-12.1) Seconds INR 1.4 APTT 34.7 (26.0-36.0) Seconds Sodium 141 (136-145) mEq/L Potassium 4.1 (3.5-5.1) mEq/L Chloride 104 (98-107) mEq/L Carbon Dioxide 29 (23-29) mEq/L BUN 11 (8-23) mg/dL Creatinine 0.99 (0.60-1.20) mg/dL Est GFR ( Amer) > 60 (> 60) Est GFR (Non-Af Amer) 55 L (> 60) BUN/Creatinine Ratio 11 (6-26) Glucose 126 H (70-105) mg/dL Calculated Osmolality 293 (280-300) Calcium 9.1 (8.6-10.3) mg/dL Troponin I < 0.03 (< 0.04) ng/mL TSH 2.217 (0.340-5.600) mcIU/mL Urine Color (Yellow) Urine Clarity (Clear) Urine pH (5.0-8.0) pH Units Ur Specific [place] (1.010-1.025) Urine Protein (Neg-Trace) mg/dL Urine Glucose (UA) (Normal) mg/dL Urine Ketones (Negative) mg/dL Urine Blood (Negative) Urine Nitrite (Negative) Urine Bilirubin (Negative) Urine Urobilinogen (Normal) mg/dL Ur Leukocyte Esterase (Negative) Urine Microscopic RBC (0-3) per hpf Urine Microscopic WBC (0-3) per hpf Ur Squamous Epith Cells (None-Few) per lpf Urine Bacteria (None-Few) per hpf Hyaline Casts (None-Few) per lpf Ur Culture Indicated? (NO) 03/21/18 Range/Units 13:36 WBC (4.3-11.1) K/mcL RBC (3.82-4.97) M/mcL Hgb (11.5-15.4) g/dL Hct (35.3-44.9) % MCV (83.0-100.0) fL MCH (28.0-33.3) pg MCHC (31.6-35.5) g/dL RDW (11.5-14.5) % Plt Count (140-400) K/mcL MPV (9.4-12.4) fL Immature Gran % (0-4) % Seg Neutrophils % % Lymphocytes % % Monocytes % % Eosinophils % % Basophils % % Neutrophils # (1.6-8.9) K/mcL Lymphocytes # (0.6-4.6) K/mcL Monocytes # (0.0-1.3) K/mcL Eosinophils # (0.0-0.6) K/mcL Basophils # (0.0-0.2) K/mcL PT (9.4-12.1) Seconds INR APTT (26.0-36.0) Seconds Sodium (136-145) mEq/L Potassium (3.5-5.1) mEq/L Chloride (98-107) mEq/L Carbon Dioxide (23-29) mEq/L BUN (8-23) mg/dL Creatinine (0.60-1.20) mg/dL Est GFR ( Amer) (> 60) Est GFR (Non-Af Amer) (> 60) BUN/Creatinine Ratio (6-26) Glucose (70-105) mg/dL Calculated Osmolality (280-300) Calcium (8.6-10.3) mg/dL Troponin I (< 0.04) ng/mL TSH (0.340-5.600) mcIU/mL Urine Color Yellow (Yellow) Urine Clarity Clear (Clear) Urine pH 6.0 (5.0-8.0) pH Units Ur Specific [place] 1.023 (1.010-1.025) Urine Protein Negative (Neg-Trace) mg/dL Urine Glucose (UA) Normal (Normal) mg/dL Urine Ketones Negative (Negative) mg/dL Urine Blood Negative (Negative) Urine Nitrite Positive A (Negative) Urine Bilirubin Negative (Negative) Urine Urobilinogen Normal (Normal) mg/dL Ur Leukocyte Esterase Moderate H (Negative) Urine Microscopic RBC 0-3 (0-3) per hpf Urine Microscopic WBC 15-30 H (0-3) per hpf Ur Squamous Epith Cells None Seen (None-Few) per lpf Urine Bacteria Many H (None-Few) per hpf Hyaline Casts None Seen (None-Few) per lpf Ur Culture Indicated? YES A (NO) Attestation Statement - Attestation Attestation: I examined this patient and my medical decision-making was reviewed with the Resident Physician. I agree with the documented findings, disposition and treatment plan as described except to the extent set forth below. Patient to the ED with weakness. Patient called her daughter today and states that she is weak and asked her to take her to the ED. Daughter is concern for UTI. States she is not acting her self for the past week. Daughter is concerned because she is living in a independent living facility. Nobody is monitoring her medications. She has a history of a suicide attempt in the past by intentional overdose on her Xanax. Daughter concerned because she has not been getting her sertraline. On examination she is laying in bed in no distress. No facial droop. Moving all extremities. Lungs clear. Plan. Stroke alert was initially called because there was concern with the visual field change. Upon further questioning examination the last time that she is still normal has been a week ago. She shook workup will be performed, however stroke alert was canceled. CT head unremarkable. Patient does have a UTI. She is weak and unable to walk. We will admit. Reviewed her old Head CT 03/21/18 12:51 IMPRESSION: No acute intracranial abnormality. D/ / 03/21/2018 13:40:48 Melquiades Estes MD / earline Interpreting Provider: Melquiades Estes MD Chest X-Ray 03/21/18 12:55 IMPRESSION: Mild cardiomegaly without evidence of acute cardiopulmonary process. D/ / 03/21/2018 13:47:56 Fermin Gonzalez MD / earline Interpreting Provider: Fermin Gonzalez MD cultures.
[2018-03-21 13:17] LABS: BUN/Creatinine Ratio 11 (6-26); Blood Urea Nitrogen 11 mg/dL (8-23); Calcium 9.1 mg/dL (8.6-10.3); Carbon Dioxide 29 mEq/L (23-29); Chloride 104 mEq/L (98-107); Glucose 126 mg/dL (70-105); Osmolality,Calculated 293 (280-300); Potassium 4.1 mEq/L (3.5-5.1); Sodium 141 mEq/L (136-145); eGFR For Non-African Americans 55 (> 60)
[2018-03-21 13:19] LABS: Troponin I < 0.03 ng/mL (< 0.04)
[2018-03-21 13:51] LABS: Thyroid Stimulating Hormone 2.217 mcIU/mL (0.340-5.600)
[2018-03-21 13:55] LABS: Bilirubin,Urine Negative (Negative); Blood,Urine Negative (Negative); Clarity,Urine Clear (Clear); Color,Urine Yellow (Yellow); Glucose,Urine (UA) Normal (Normal); Ketones,Urine Negative (Negative); Leukocyte Esterase,Urine Moderate (Negative); Nitrite,Urine Positive (Negative); Protein,Urine Negative (Neg-Trace); Specific Gravity,Urine 1.023 (1.010-1.025); Urobilinogen,Urine Normal (Normal)
[2018-03-21 14:00] LABS: Bacteria,Urine Many per hpf (None-Few); Hyaline Casts,Urine None Seen per lpf (None-Few); RBC,Urine 0-3 per hpf (0-3); Squamous Epithelial Cell,Urine None Seen per lpf (None-Few); WBC,Urine 15-30 per hpf (0-3)
[2018-03-21] MEDS ORDERED: cefTRIAXone 2,000 MG in Water for inj. (sterile) 20 ML 20 ML IVP ONE (14:03)
[2018-03-21] MEDS ORDERED: Naloxone 0.4 MG/ML INJ IVP PRN (15:56)
--- NOTE | 2018-03-21 16:16 | Internal Med History&Physical ---
Date of Encounter: 03/21/18 Time of Encounter: 16:14 Internal Medicine - H&P: HPI Chief complaint: weakness Admitted From: Home History of present illness: Ms. Corona is a 72 year old female past medical history of [place] disease. Hypertension hyperlipoidemia history of PE twice depression with mood disorder nor nonischemic cardiomyopathy comes in with complaint of weakness and slurring of speech. She was brought in by daughter who was concerned that she has UTI because of previous 4 episodes within last year. She has been feeling weak over the past week. Patient and is unclear exactly what medication she is supposed to be on. She lives in an independent living facility and known is monitoring her medication as per her daughter. Patient has not been taking some of her medication as per her daughter. Because of fall weakness, some vision complain and slight slurring of speech initially code stroke was called and CT head was done which was unremarkable. Code stroke was canceled. Patient lab showed signs of possible urinary tract infection. As per daughter patient was to be seen by urology to get a CT scan to look for structural problems in the tract because of recurrent UTIs. Currently she denied any fevers chills nausea or vomiting, constipation or diarrhea. Denies any abdominal pain, back pain or urinary incontinence. She is passing urine without any difficulty. Of note patient recently had a suicidal attempt where she consumed a bottle of Coumadin and Xeralto. She had a Procedure done then RVEF was found to be 25%. She was discharged with LifeVest to be followed outpatient with cardiology for follow-up MRI in 3 months. She denies any palpitations chest pain shortness of breath. She is not wearing her LifeVest because she felt anxious that no one cream to how to use it. Also patient has history of mood disorder in currently does not know what medication she is supposed to be on. She has multiple medication list with a different psychoactive medications. She has not seen her psychiatrist in 1 month. Past Med Surg Social Fam HX - Past Medical History Medical history: atrial fibrillation, cardiomyopathy, diabetes, GI bleed, hyperlipidemia, hypertension, pulmonary embolus, thyroid disease, other Additional medical history: [place]'s. vocal cord dysfunction. rectal bleeding Psychiatric history: depression, prior suicide attempt - Past Surgical History Surgical History: cholecystectomy, hysterectomy, other Additional surgical history: breast reduction - Social History Smoking Status: Never smoker Smokeless Tobacco Status: No Alcohol use: none Drug use: prescription drug abuse - Family History Father Living Status: Hx Family Cardiac Disorders: Yes (HTN) Hx Family Respiratory Disorders: Yes (Emphysema) Mother Adopted: No Family Member Ethnicity: Non- Living Status: Hx Family Cardiac Disorders: No Hx Family Respiratory Disorders: No Hx Family Cancer: No Hx Family GI Disorders: No Hx Family Endocrine Disorder: No Hx Family Neuromuscular Disorders: Yes ([place]'s dx) Hx Family Neurologic Disorders: Yes (anuerysm) Internal Medicine - H&P: Meds Ranitidine HCl [Acid Materials Inspector] 150 mg PO DAILY 05/15/16 [History] Levothyroxine [Synthroid] 50 mcg PO DAILY 12/29/16 [History] Lisinopril [Zestril] 20 mg PO DAILY 12/29/16 [History] Metoprolol XL (24 HR) Succ [Toprol Xl] 12.5 mg PO DAILY 12/29/16 [History] Omeprazole [PriLOSEC] 40 mg PO DAILY 07/08/17 [History] Sertraline [Zoloft] 200 mg PO DAILY 07/08/17 [History] Metformin HCl [Metformin HCl ER] 1,000 mg PO HS 08/08/17 [History] ARIPiprazole [Abilify] 5 mg PO DAILY 01/24/18 [History] Rivaroxaban [Xarelto] 10 mg PO DAILY 01/24/18 [History] ALPRAZolam [Xanax 1 MG Tablet] 1 mg PO BID PRN 5 Days #10 tablet 01/30/18 [Rx] Ciprofloxacin HCl [Cipro] 500 mg PO Q12H 03/21/18 [History] Furosemide [Lasix] 20 mg PO DAILY 03/21/18 [History] Potassium Chloride [Klor-Con 10] 10 meq PO BID 03/21/18 [History] carBAMazepine [Tegretol] 200 mg PO QPM 03/21/18 [History] traZODone [TraZODone] 50 mg PO HS 03/21/18 [History] 3 Allergy/AdvReac Type Severity Reaction Status Date / Time gabapentin [From Neurontin] AdvReac Agitated Verified 01/24/18 14:47 All Systems PM: A 10-system review of systems was performed and is negative for pertinent findings except as documented above in the HPI. - Constitutional Vitals: Temp Pulse Resp BP Pulse Ox 98.4 F 78 16 136/78 99 03/21/18 12:40 03/21/18 13:02 03/21/18 13:02 03/21/18 13:02 03/21/18 13:02 Exam: Const: Vital signs listed above. Well developed, well nourished and in no acute distress. Alert and oriented Xs 3. No mood disorders noted, calm affect. Eyes: Sclera white, conjunctiva clear, lids are without lag. PERRLA. Pupils and irises are equal and round without defect. ENT: TMs intact and clear, normal canals, grossly normal hearing. Oropharanx clear and moist without erythema. Gums pink, good dentition. Lymph/Neck: No masses, thyromegaly, or abnormal cervical notes. No bruit. Tracheal midline. Cardio: RRR, Normal S1, S2 w/o murmurs, rubs or gallops. Skin warm and dry. No peripheral edema. Respiratory: Chest symmetrical, respirations non-labored. No dullness or flatness. Clear bilaterally to auscultation, non-tender to palpitation. Musculo: No deformity or scoliosis noted. No cyanosis or edema. Pulses normal in all 4 extremities. No atrophy or abnormal movements. Appropriate muscle strength bilaterally. Neurologic: No focal deficits, cranial nerves II-XII grossly intact with normal sensation, reflexes, coordination, muscle strength and tone. GI/Abdomen: Soft, non tender, non distended, no hepatosplemomegaly, normal bowel sounds, no masses noted Skin: No skin rash noted, no bruise, ecchymosis or purpura noted. Internal Med - H&P Results - Labs CBC & Chem 7: 03/21/18 12:51 03/21/18 12:50 Labs: Short CBC 03/21/18 Range/Units 12:51 WBC 6.4 (4.3-11.1) K/mcL Hgb 11.4 L (11.5-15.4) g/dL Hct 36.0 (35.3-44.9) % Plt Count 175 (140-400) K/mcL Neutrophils # 4.8 (1.6-8.9) K/mcL BMP 03/21/18 12:50 Sodium 141 Potassium 4.1 Chloride 104 Carbon Dioxide 29 BUN 11 Creatinine 0.99 Glucose 126 H Calcium 9.1 Cardiac Enzymes 03/21/18 Range/Units 12:50 Troponin I < 0.03 (< 0.04) ng/mL Urine 03/21/18 Range/Units 13:36 Urine Color Yellow (Yellow) Urine Clarity Clear (Clear) Urine pH 6.0 (5.0-8.0) pH Units Ur Specific [place] 1.023 (1.010-1.025) Urine Protein Negative (Neg-Trace) mg/dL Urine Glucose (UA) Normal (Normal) mg/dL - Impressions ITS Impressions Head CT 03/21/18 12:51 IMPRESSION: No acute intracranial abnormality. D/ / 03/21/2018 13:40:48 Melquiades Estes MD / earline Interpreting Provider: Melquiades Estes MD Chest X-Ray 03/21/18 12:55 IMPRESSION: Mild cardiomegaly without evidence of acute cardiopulmonary process. D/ / 03/21/2018 13:47:56 Fermin Gonzalez MD / earline Interpreting Provider: Fermin Gonzalez MD - Diagnostic Studies Chest x-ray Status: image reviewed by me Additional comments: Mild cardiomegaly - Assessment and plan (1) UTI (urinary tract infection) Current Visit: Yes Status: Acute Assessment and plan: Patient's symptoms likely from UTI - Abnormal UA with positive nitrates and leukocyte esterase and WBCs. - Patient had a urine culture in December which did not grow any organism. She had a Klebsiella UTI in August. - Patient received the ceftriaxone in the ER. We will change to Zosyn given last cultures. Urine culture was sent from ER. Follow up on urine culture and sensitivity. Qualifiers: Urinary tract infection type: site unspecified Hematuria presence: without hematuria Qualified Code(s): N39.0 - Urinary tract infection, site not specified (2) History of pulmonary embolism Current Visit: No Status: Acute Assessment and plan: History of PE twice. - Last one about 4 years ago . - Currently on rivaroxaban. We will continue the same. (3) NICM (nonischemic cardiomyopathy) Current Visit: No Status: Acute Assessment and plan: - Has a history of nonischemic cardiomyopathy - Recent catheter showed EF of 25%. - Has her LifeVest at home which she does not wear as she felt she was not trained in detail. - Asked to bring the LifeVest in the hospital. We will put back on before discharge. - Continue metoprolol and lisinopril (4) Depression Current Visit: No Status: Chronic Assessment and plan: - Patient does not know which antidepressant she is supposed to be on. - She was seen last time during hospitalization. She was transferred to inpatient psychiatry unit on her last admission. - We will obtain psychiatry consultation tomorrow to help adjust her psychoactive medication. - We will continue aripiprazole, sertraline and trazodone for now Qualifiers: Depression Type: major depressive disorder Major depression recurrence: recurrent Active/Remission status: currently active Major depression episode severity: severe Psychotic features: without psychotic features Qualified Code(s): F33.2 - Major depressive disorder, recurrent severe without psychotic features (5) Obesity (BMI 30-39.9) Current Visit: No Status: Chronic (6) Hypothyroidism Current Visit: Yes Status: Acute Assessment and plan: - TSH is 2.217 which is within range. -Continue her home dose of levothyroxine 50 g daily Qualifiers: Qualified Code(s): E03.9 - Hypothyroidism, unspecified (7) Hypertension Current Visit: No Status: Chronic Assessment and plan: Continue lisinopril Qualifiers: Hypertension type: essential hypertension Qualified Code(s): I10 - Essential (primary) hypertension (8) Diabetes mellitus type 2 in obese Current Visit: Yes Status: Acute Assessment and plan: - Patient's diabetes is relatively in control as her home sugar numbers are between 130 and 140 in the morning - Patient on metformin at home. We will hold it for now - Keep patient on Levemir 5 at bedtime. Accu-Cheks before meals at bedtime (9) DVT prophylaxis Current Visit: No Status: Acute Assessment and plan: - On rivaroxaban - Time Spent With Patient Total time spent is greater than 50% in coordination of care (as documented) at patient's floor/unit and/or counseling patient: Greater than 35 minutes
[2018-03-21] MEDS: traZODone 50 MG TABLET PO SCH (21:22)
[2018-03-21] MEDS: Insulin DETEMIR 100 UNIT/ML X5UNITS SQ SCH (21:23)
[2018-03-21] MEDS: ALPRAZolam 1 MG TABLET PO PRN (21:25)
[2018-03-22 07:31] LABS: Basophils # 0.1 K/mcL (0.0-0.2); Basophils % 0.7 %; Eosinophils # 0.3 K/mcL (0.0-0.6); Eosinophils % 4.4 %; Hematocrit 34.6 % (35.3-44.9); Hemoglobin 10.7 g/dL (11.5-15.4); Immature Granulocytes % 0.3 % (0-4); Lymphocytes # 1.4 K/mcL (0.6-4.6); Lymphocytes % 18.6 %; Mean Corpuscular HGB Conc 30.9 g/dL (31.6-35.5); Mean Corpuscular Hemoglobin 28.5 pg (28.0-33.3); Mean Corpuscular Volume 92.3 fL (83.0-100.0); Mean Platelet Volume 10.1 fL (9.4-12.4); Monocytes # 0.4 K/mcL (0.0-1.3); Monocytes % 5.5 %; Neutrophils # 5.4 K/mcL (1.6-8.9); Platelet Count 179 K/mcL (140-400); Red Blood Count 3.75 M/mcL (3.82-4.97); Segmented Neutrophils % 70.5 %
[2018-03-22 07:54] LABS: BUN/Creatinine Ratio 11 (6-26); Blood Urea Nitrogen 11 mg/dL (8-23); Calcium 8.5 mg/dL (8.6-10.3); Carbon Dioxide 26 mEq/L (23-29); Chloride 106 mEq/L (98-107); Glucose 149 mg/dL (70-105); Osmolality,Calculated 294 (280-300); Potassium 3.9 mEq/L (3.5-5.1); Sodium 141 mEq/L (136-145); eGFR For Non-African Americans 57 (> 60)
[2018-03-22] MEDS ORDERED: Lisinopril 20 MG TABLET PO SCH (09:00)
[2018-03-22] MEDS ORDERED: Metoprolol XL (24 HR) Succ 25 MG TAB.ER.24H PO SCH (09:00)
[2018-03-22] MEDS: *HR* Rivaroxaban 10 MG TABLET PO SCH (09:39)
[2018-03-22] MEDS: Furosemide 20 MG TABLET PO SCH (09:39)
[2018-03-22] MEDS: ARIPiprazole 5 MG TABLET PO SCH (09:39)
--- NOTE | 2018-03-22 13:38 | Internal Med Progress Note ---
Hospitalist Progress Note - Encounter Date of Encounter: 03/22/18 Time of Encounter: 09:45 - Subjective Interval History: Seen and examined this morning. No new complaints. Patient is daughter will be here in the afternoon. She will bring LifeVest with her. - Exam Vitals: Temp Pulse Resp BP Pulse Ox 98.6 F 90 16 119/74 93 03/22/18 11:07 03/22/18 11:07 03/22/18 11:07 03/22/18 11:07 03/22/18 11:07 Exam: Const: Vital signs listed above. Well developed, well nourished and in no acute distress. Alert and oriented Xs 3. No mood disorders noted, calm affect. Eyes: Sclera white, conjunctiva clear, lids are without lag. PERRLA. Pupils and irises are equal and round without defect. ENT: TMs intact and clear, normal canals, grossly normal hearing. Oropharanx clear and moist without erythema. Gums pink, good dentition. Lymph/Neck: No masses, thyromegaly, or abnormal cervical notes. No bruit. Tracheal midline. Cardio: RRR, Normal S1, S2 w/o murmurs, rubs or gallops. Skin warm and dry. No peripheral edema. Respiratory: Chest symmetrical, respirations non-labored. No dullness or flatness. Clear bilaterally to auscultation, non-tender to palpitation. Musculo: No deformity or scoliosis noted. No cyanosis or edema. Pulses normal in all 4 extremities. No atrophy or abnormal movements. Appropriate muscle strength bilaterally. Neurologic: No focal deficits, cranial nerves II-XII grossly intact with normal sensation, reflexes, coordination, muscle strength and tone. GI/Abdomen: Soft, non tender, non distended, no hepatosplemomegaly, normal bowel sounds, no masses noted Skin: No skin rash noted, no bruise, ecchymosis or purpura noted. - Assessment and Plan (1) UTI (urinary tract infection) Current Visit: Yes Status: Acute (2) History of pulmonary embolism Current Visit: No Status: Acute (3) NICM (nonischemic cardiomyopathy) Current Visit: No Status: Acute (4) Depression Current Visit: No Status: Chronic (5) Obesity (BMI 30-39.9) Current Visit: No Status: Chronic (6) Hypothyroidism Current Visit: Yes Status: Acute (7) Hypertension Current Visit: No Status: Chronic (8) Diabetes mellitus type 2 in obese Current Visit: Yes Status: Acute (9) DVT prophylaxis Current Visit: No Status: Acute - Summary of Assessment and Plan Summary of Assessment and Plan: UTI - Patient's symptoms likely from UTI - Abnormal UA with positive nitrates and leukocyte esterase and WBCs. - Patient had a urine culture in December which did not grow any organism. She had a Klebsiella UTI in August. - Patient received the ceftriaxone in the ER. We will change to Zosyn given last cultures. Urine culture was sent from ER. Follow up on urine culture and sensitivity. History of pulmonary embolism - History of PE twice. - Last one about 4 years ago . - Currently on rivaroxaban. We will continue the same. Nonischemic cardiomyopathy - Has a history of nonischemic cardiomyopathy - Recent catheter showed EF of 25%. - Has her LifeVest at home which she does not wear as she felt she was not trained in detail. - Asked to bring the LifeVest in the hospital. We will put back on before discharge. - Continue metoprolol and lisinopril Depression - Patient does not know which antidepressant she is supposed to be on. - She was seen last time during hospitalization. She was transferred to inpatient psychiatry unit on her last admission. - We clarify medication with patient/family. - We will continue aripiprazole, sertraline and trazodone for now. Will clarify Medication with pharmacy the last time she was prescribed. - On discharge will ask social worker palliative care to arrange for outpatient follow up with counsellor. Hypothyroidism - TSH is 2.217 which is within range. -Continue her home dose of levothyroxine 50 g daily Hypertension -Continue lisinopril Diabetes mellitus type 2 in obese - Patient's diabetes is relatively in control as her home sugar numbers are between 130 and 140 in the morning - Patient on metformin at home. We will hold it for now - Keep patient on Levemir 5 at bedtime. Accu-Cheks before meals at bedtime. DVT prophylaxis - On rivaroxaban - Time Spent with Patient Total time spent is greater than 50% in coordination of care (as documented) at patient's floor/unit and/or counseling patient: Internal Medicine: Result - Labs CBC & Chem 7: 03/22/18 07:07 03/22/18 07:07 Labs: Short CBC 08/26/18 Range/Units 07:07 WBC 7.7 (4.3-11.1) K/mcL Hgb 10.7 L (11.5-15.4) g/dL Hct 34.6 L (35.3-44.9) % Plt Count 179 (140-400) K/mcL Neutrophils # 5.4 (1.6-8.9) K/mcL BMP 03/22/18 07:07 Sodium 141 Potassium 3.9 Chloride 106 Carbon Dioxide 26 BUN 11 Creatinine 0.96 Glucose 149 H Calcium 8.5 L - ABG Interpretation ABG results: PT/INR, D-dimer PT 15.7 Seconds (9.4-12.1) H 03/21/18 12:50 Consult Discharge Plan - Plan Referrals: Oscar Sandoval Jr, MD [Primary Care Provider] - (1) UTI (urinary tract infection) Qualifiers: Urinary tract infection type: site unspecified Hematuria presence: without hematuria Qualified Code(s): N39.0 - Urinary tract infection, site not specified (4) Depression Qualifiers: Depression Type: major depressive disorder Major depression recurrence: recurrent Active/Remission status: currently active Major depression episode severity: severe Psychotic features: without psychotic features Qualified Code (s): F33.2 - Major depressive disorder, recurrent severe without psychotic features (6) Hypothyroidism Qualifiers: Qualified Code(s): E03.9 - Hypothyroidism, unspecified (7) Hypertension Qualifiers: Hypertension type: essential hypertension Qualified Code(s): I10 - Essential (primary) hypertension
[2018-03-22] MEDS: Piperacillin/Tazobactam 3.375 GM in 0.9 % Sodium Chloride Mini Bag 100 ML IVPB SCH (17:43)
[2018-03-22] MEDS: Insulin DETEMIR 100 UNIT/ML X5UNITS SQ SCH (21:00)
[2018-03-22] MEDS: traZODone 50 MG TABLET PO SCH (21:00)
[2018-03-22] MEDS: ALPRAZolam 1 MG TABLET PO PRN (21:01)
[2018-03-23] MEDS: Piperacillin/Tazobactam 3.375 GM in 0.9 % Sodium Chloride Mini Bag 100 ML IVPB SCH ×2 (00:14→08:46)
[2018-03-23] MEDS: ARIPiprazole 5 MG TABLET PO SCH (08:41)
[2018-03-23] MEDS: Furosemide 20 MG TABLET PO SCH (08:41)
[2018-03-23] MEDS: *HR* Rivaroxaban 10 MG TABLET PO SCH (08:42)
[2018-03-23] MEDS ORDERED: Lisinopril 20 MG TABLET PO SCH (09:00)
[2018-03-23] MEDS ORDERED: Metoprolol XL (24 HR) Succ 25 MG TAB.ER.24H PO SCH (09:00)
[2018-03-23 11:10] VITALS: BP 155/81
--- NOTE | 2018-03-23 11:17 | Discharge Summary ---
- NOTES TO OUTPATIENT PROVIDER Notes to Outpatient Provider: To continue cefdinir 300 BID for 10 more days. Was not wearing lifevest which was now put on in hospital. Date of Encounter: 03/23/18 Time of Encounter: 11:12 - Discharge Diagnosis (1) UTI (urinary tract infection) Priority: Primary Status: Acute Qualifiers: Urinary tract infection type: site unspecified Hematuria presence: without hematuria Qualified Code(s): N39.0 - Urinary tract infection, site not specified (2) History of pulmonary embolism Priority: Secondary Status: Acute (3) NICM (nonischemic cardiomyopathy) Priority: Primary Status: Acute (4) Depression Priority: Secondary Status: Chronic Qualifiers: Depression Type: major depressive disorder Major depression recurrence: recurrent Active/Remission status: currently active Major depression episode severity: severe Psychotic features: without psychotic features Qualified Code(s): F33.2 - Major depressive disorder, recurrent severe without psychotic features (5) Obesity (BMI 30-39.9) Priority: Secondary Status: Chronic (6) Hypothyroidism Priority: Secondary Status: Acute Qualifiers: Qualified Code(s): E03.9 - Hypothyroidism, unspecified (7) Hypertension Priority: Secondary Status: Chronic Qualifiers: Hypertension type: essential hypertension Qualified Code(s): I10 - Essential (primary) hypertension (8) Diabetes mellitus type 2 in obese Priority: Secondary Status: Acute (9) DVT prophylaxis Priority: Secondary Status: Acute Hospital course: Ms. Corona is a 72 year old female came to the hospital for weakness. Patient was admitted due to for urinary tract infection. Was started on Zosyn. Patient has a history of nonischemic cardiomyopathy with EF of 25%. However she is not wearing a LifeVest. She also did not know her psychiatric medications well. LifeVest personnel was called to put back and train and educate patient. Urine cultures grew Escherichia coli which was sensitive to third and fourth generation cephalosporins. Patient will be discharged on cefdinir 300 mg twice a day for 10 days. Her psychiatric medication was confirmed through her PCP. Discharge discussed with: patient, family, nurse - Time Spent with Patient Total time spent providing and/or coordinating discharge services: Greater than 30 minutes - Discharge Medications Prescriptions: Cefdinir [Omnicef] 300 mg PO BID 10 Days #20 capsule Lisinopril [Zestril] 40 mg PO DAILY 30 Days #30 tablet Metoprolol XL (24 HR) Succ [Toprol Xl] 25 mg PO DAILY 30 Days #30 tab.er.24h Home Medications: Ranitidine HCl [Acid Theatre Manager] 150 mg PO DAILY 05/15/16 [History] Levothyroxine [Synthroid] 50 mcg PO DAILY 12/29/16 [History] Omeprazole [PriLOSEC] 40 mg PO DAILY 07/08/17 [History] Sertraline [Zoloft] 200 mg PO DAILY 07/08/17 [History] Metformin HCl [Metformin HCl ER] 1,000 mg PO HS 08/08/17 [History] ARIPiprazole [Abilify] 5 mg PO DAILY 01/24/18 [History] Rivaroxaban [Xarelto] 10 mg PO DAILY 01/24/18 [History] ALPRAZolam [Xanax 1 MG Tablet] 1 mg PO BID PRN 5 Days #10 tablet 01/30/18 [Rx] Furosemide [Lasix] 20 mg PO DAILY 03/21/18 [History] carBAMazepine [Tegretol] 200 mg PO QPM 03/21/18 [History] traZODone [TraZODone] 50 mg PO HS 03/21/18 [History] Ascorbic Acid [Vitamin C with Veronika Hips] 500 mg PO DAILY 03/23/18 [History] Buspirone HCl [Buspar] 5 mg PO DAILY 03/23/18 [History] Cefdinir [Omnicef] 300 mg PO BID 10 Days #20 capsule 03/23/18 [Rx] Ferrous Sulfate [Iron] 325 mg PO DAILY 03/23/18 [History] Lisinopril [Zestril] 40 mg PO DAILY 30 Days #30 tablet 03/23/18 [Rx] Metoprolol XL (24 HR) Succ [Toprol Xl] 25 mg PO DAILY 30 Days #30 tab.er.24h [Rx] Allergies/Adverse Reactions: 3 Allergy/AdvReac Type Severity Reaction Status Date / Time gabapentin [From Neurontin] AdvReac Agitated Verified 01/24/18 14:47 Date of admission: 03/21/18 16:01 Primary care physician: Oscar Sandoval Jr, MD Discharging clinician: Gregory Estes - Constitutional Vitals: Temp Pulse Resp BP Pulse Ox 98.1 F 60 16 155/81 94 03/23/18 11:09 03/23/18 11:09 03/23/18 11:09 03/23/18 11:09 03/23/18 11:09 Exam: Const: Vital signs listed above. Well developed, well nourished and in no acute distress. Alert and oriented Xs 3. No mood disorders noted, calm affect. Obese Eyes: Sclera white, conjunctiva clear, lids are without lag. PERRLA. Pupils and irises are equal and round without defect. ENT: TMs intact and clear, normal canals, grossly normal hearing. Oropharanx clear and moist without erythema. Gums pink, good dentition. Lymph/Neck: No masses, thyromegaly, or abnormal cervical notes. No bruit. Tracheal midline. Cardio: RRR, Normal S1, S2 w/o murmurs, rubs or gallops. Skin warm and dry. No peripheral edema. Respiratory: Chest symmetrical, respirations non-labored. No dullness or flatness. Clear bilaterally to auscultation, non-tender to palpitation. Musculo: No deformity or scoliosis noted. No cyanosis or edema. Pulses normal in all 4 extremities. No atrophy or abnormal movements. Appropriate muscle strength bilaterally. Neurologic: No focal deficits, cranial nerves II-XII grossly intact with normal sensation, reflexes, coordination, muscle strength and tone. GI/Abdomen: Soft, non tender, non distended, no hepatosplemomegaly, normal bowel sounds, no masses noted Skin: No skin rash noted, no bruise, ecchymosis or purpura noted. - Patient Status Disposition: Home, Self-Care Condition: Good - Discharge Instructions Follow Up With: Oscar Sandoval Jr, MD [Primary Care Provider] - - Diet and Activity Activity: increase activity as tolerated Diet: low fat, low cholesterol, low salt diet
== END 2018-03-23 15:26 | disposition home or self-care (01) ==
LOC: 3ANU 12:27 → EMEROOARM 12:27 → SUATTDRO 16:01 → 3ANU 16:39
PROVIDERS: ADMIT Internal Medicine; ATTEND Internal Medicine

== ENCOUNTER 2018-04-06 14:15 | Inpatient (IN) ==
[2018-04-06 16:14] LABS: Basophils # 0.1 K/mcL (0.0-0.2); Basophils % 0.7 %; Eosinophils # 0.2 K/mcL (0.0-0.6); Eosinophils % 2.5 %; Hematocrit 34.4 % (35.3-44.9); Immature Granulocytes % 0.4 % (0-4); Lymphocytes # 1.3 K/mcL (0.6-4.6); Lymphocytes % 15.2 %; Mean Corpuscular Hemoglobin 28.6 pg (28.0-33.3); Mean Corpuscular Volume 89.6 fL (83.0-100.0); Mean Platelet Volume 10.1 fL (9.4-12.4); Monocytes # 0.4 K/mcL (0.0-1.3); Monocytes % 4.3 %; Neutrophils # 6.5 K/mcL (1.6-8.9); Platelet Count 230 K/mcL (140-400); Red Blood Count 3.84 M/mcL (3.82-4.97); Red Cell Distribution Width 14.1 % (11.5-14.5); Segmented Neutrophils % 76.9 %
[2018-04-06] MEDS ORDERED: Piperacillin/Tazobactam 3.375 GM in Water for inj. (sterile) 20 ML 20 ML IVP ONE (16:30)
[2018-04-06 16:32] LABS: Calcium 8.9 mg/dL (8.6-10.3); Potassium 4.7 mEq/L (3.5-5.1)
--- NOTE | 2018-04-06 16:41 | Emergency Department Note ---
Disposition Clinical Impression: Multiple drug resistant organism (MDRO) culture positive UTI (urinary tract infection) Qualifiers: Urinary tract infection type: acute cystitis Hematuria presence: without hematuria Qualified Code(s): N30.00 - Acute cystitis without hematuria Disposition: Admitted As Inpatient Condition: Good Referrals: Oscar Sandoval Jr, MD [Primary Care Provider] - Forms: ED Satisfaction Letter General Adult HPI - General Chief complaint: ED Urogenital-Female Stated complaint: "UTI sent by " Time Seen by Provider: 04/06/18 15:54 Source: patient, family Mode of arrival: ambulatory Limitations: no limitations Nursing Notes Reviewed: Yes Vital Signs Reviewed: Yes - History of Present Illness HPI Narrative: 72-year-old female with significant past medical history of [place]'s, DVT on xarelto, and recurrent urinary tract infections presenting to the emergency department with chief complaint a urinary tract infection. Patient states she started having symptoms on Friday and went to her primary care physician. She was started on Cefdinir and patient's urine was cultured. She states since then she is still had dysuria and burning with urination without any change in her symptoms. Today her primary care physician told her to come to the emergency department because they had their sensitivities back and that the culture was sensitive only to IV antibiotics. Patient denies any fevers, nausea , vomiting or abdominal pain. Patient has been admitted multiple times in the past requiring IV antibiotics for urinary tract infections. Pain Scale: 0 - Related Data Home Medications Medication Instructions Recorded Confirmed Ranitidine HCl [Acid Director Of Restaurants] 150 mg PO DAILY 05/15/16 04/06/18 Levothyroxine [Synthroid] 50 mcg PO DAILY 12/29/16 04/06/18 Omeprazole [PriLOSEC] 40 mg PO DAILY 07/08/17 04/06/18 Sertraline [Zoloft] 100 mg PO DAILY 07/08/17 04/06/18 Metformin HCl [Metformin HCl ER] 1,000 mg PO HS 08/08/17 04/06/18 ARIPiprazole [Abilify] 5 mg PO DAILY 01/24/18 04/06/18 Rivaroxaban [Xarelto] 10 mg PO DAILY 01/24/18 04/06/18 Furosemide [Lasix] 20 mg PO DAILY 03/21/18 04/06/18 carBAMazepine [Tegretol] 200 mg PO QPM 03/21/18 04/06/18 traZODone [TraZODone] 50 mg PO HS 03/21/18 04/06/18 Ascorbic Acid [Vitamin C with Veronika 500 mg PO DAILY 03/23/18 04/06/18 Hips] Buspirone HCl [Buspar] 5 mg PO DAILY 03/23/18 04/06/18 Ferrous Sulfate [Iron] 325 mg PO DAILY 03/23/18 04/06/18 Lisinopril [Zestril] 20 mg PO DAILY 04/06/18 04/06/18 Metoprolol XL (24 HR) Succ [Toprol 12.5 mg PO DAILY 04/06/18 04/06/18 Xl] Potassium Chloride [K-Tab ER] 10 meq PO BID 04/06/18 04/06/18 Previous Rx's Medication Instructions Recorded ALPRAZolam [Xanax 1 MG Tablet] 1 mg PO BID PRN 5 Days #10 tablet 01/30/18 Allergies Allergy/AdvReac Type Severity Reaction Status Date / Time gabapentin [From Neurontin] AdvReac Agitated Verified 04/06/18 14:24 All systems ED: reviewed and negative except as stated. Constitutional: Denies: fever, chills, weakness Eyes: Reports: as per HPI ENT ED: Reports: as per HPI Cardiovascular: Denies: chest pain, palpitations, dyspnea on exertion Respiratory: Denies: cough, dyspnea, wheezes Gastrointestinal: Denies: abdominal pain, nausea, vomiting Genitourinary: Reports: dysuria Musculoskeletal: Reports: as per HPI Integumentary: Reports: as per HPI Neurological: Denies: weakness, numbness, paresthesias Psychiatric: Reports: as per HPI Endocrine: Reports: as per HPI Hematological/Lymphatic: Reports: as per HPI Allergic/Immunologic: Reports: as per HPI Past Medical History - Past Medical History Attestation: Yes The following information was validated with the patient. Medical history: Reports: atrial fibrillation, cardiomyopathy, diabetes, GI bleed, hyperlipidemia, hypertension, pulmonary embolus, thyroid disease, other Surgical history: Reports: cholecystectomy, hysterectomy, other Psychiatric history: Reports: depression, prior suicide attempt - Social History Smoking Status: Never smoker Smokeless Tobacco Status: No Alcohol use: Reports: none Drug use: Reports: prescription drug abuse Physical Exam - General Limitations: no limitations General appearance: alert, in no apparent distress - Head Head exam: atraumatic, normocephalic, normal inspection - Eye Eye exam: Present: normal appearance. Absent: scleral icterus, conjunctival injection - ENT ENT exam: normal exam, mucous membranes moist - Neck Neck exam: Present: normal inspection, full ROM. Absent: tenderness, meningismus - Chest Chest inspection: Present: normal inspection, symmetric chest wall rise. Absent : tenderness, rash - Respiratory Respiratory exam: Present: normal lung sounds bilaterally. Absent: respiratory distress, wheezes - Cardiovascular Cardiovascular exam: Present: regular rate, normal rhythm, normal heart sounds - Abdominal Exam Abdominal exam: Present: soft, Non-Tender. Absent: distention, guarding, rebound - Extremities Exam Extremities exam: Present: normal inspection, full ROM - Neurological Exam Neurological exam: Present: alert, oriented X3 - Psychiatric Psychiatric exam: Present: normal affect, normal mood - Skin Skin exam: Present: warm, intact Course Course Narrative: 72-year-old female presenting for urinary tract infection. Patient diagnosed on Friday and started on outpatient antibiotic Cefdinir. Patient states she is still having similar symptoms. Denies any fevers, chest pain or shortness of breath. We received the culture results here and patient urine is sensitive to ertapenem, Zosyn and tobramycin. No other sensitivities. Patient has had multiple drug-resistant UTIs in the past. At this time will start Zosyn on the patient obtain basic laboratory analysis, urine analysis and plan to admit her for further IV antibiotics. Patient is alert and oriented 3 in the room with stable vital signs. Patient agrees with this plan. - Reevaluation(s) Reevaluation #1: Patient laboratory analysis unchanged from baseline. We will plan to admit the patient for IV antibiotics. I spoke with the hospitalist stone setter apprentice Dr. Jauregui who agrees to accept the patient at this time. Patient remains alert and oriented 3 with stable vital signs. Patient agrees to this plan. Vital Signs Temperature 98.5 F 04/06/18 14:23 Pulse Rate 67 04/06/18 14:23 Respiratory Rate 16 04/06/18 14:23 Blood Pressure 142/91 04/06/18 14:23 O2 Sat by Pulse Oximetry 96 04/06/18 14:23 Temperature 98.5 F 04/06/18 16:51 Pulse Rate 67 04/06/18 16:51 Respiratory Rate 16 04/06/18 16:51 Blood Pressure 142/91 04/06/18 16:51 O2 Sat by Pulse Oximetry 96 04/06/18 16:51 Oxygen Delivery Oxygen Delivery Room Air Medical Decision Making - Lab Data Result diagrams: 04/06/18 16:00 04/06/18 16:00 Lab Results 04/06/18 04/06/18 Range/Units 16:00 16:00 WBC 8.5 (4.3-11.1) K/mcL RBC 3.84 (3.82-4.97) M/mcL Hgb 11.0 L (11.5-15.4) g/dL Hct 34.4 L (35.3-44.9) % MCV 89.6 (83.0-100.0) fL MCH 28.6 (28.0-33.3) pg MCHC 32.0 (31.6-35.5) g/dL RDW 14.1 (11.5-14.5) % Plt Count 230 (140-400) K/mcL MPV 10.1 (9.4-12.4) fL Immature Gran % 0.4 (0-4) % Seg Neutrophils % 76.9 % Lymphocytes % 15.2 % Monocytes % 4.3 % Eosinophils % 2.5 % Basophils % 0.7 % Neutrophils # 6.5 (1.6-8.9) K/mcL Lymphocytes # 1.3 (0.6-4.6) K/mcL Monocytes # 0.4 (0.0-1.3) K/mcL Eosinophils # 0.2 (0.0-0.6) K/mcL Basophils # 0.1 (0.0-0.2) K/mcL Sodium 136 (136-145) mEq/L Potassium 4.7 (3.5-5.1) mEq/L Chloride 102 (98-107) mEq/L Carbon Dioxide 26 (23-29) mEq/L BUN 17 (8-23) mg/dL Creatinine 1.13 (0.60-1.20) mg/dL Est GFR ( Amer) 58 L (> 60) Est GFR (Non-Af Amer) 47 L (> 60) BUN/Creatinine Ratio 15 (6-26) Glucose 105 (70-105) mg/dL Calculated Osmolality 284 (280-300) Calcium 8.9 (8.6-10.3) mg/dL Attestation Statement - Attestation Attestation: I, Rayray Post, examined this patient and my medical decision-making was reviewed with the EMAIL MARKETER/PA/Advanced Practice Nurse/Resident Physician. I agree with the documented findings, disposition and treatment plan as described except to the extent set forth below. 72-year-old female presents emergency Department for further care of urinary tract infection. Patient was started on antibiotics by her primary care provider within the past few days for urinary tract infection. She was seen for suprapubic pain and dysuria. Culture results returned showing that the infection was sensitive to only Zosyn and tobramycin. Patient continues to be symptomatic and was sent to the emergency department. We will start her on Zosyn and admitted to the hospital for further care and evaluation.
[2018-04-06 17:54] LABS: Bilirubin,Urine Negative (Negative); Blood,Urine Negative (Negative); Clarity,Urine Clear (Clear); Color,Urine Yellow (Yellow); Glucose,Urine (UA) Normal (Normal); Ketones,Urine Negative (Negative); Leukocyte Esterase,Urine Moderate (Negative); Nitrite,Urine Positive (Negative); Protein,Urine Negative (Neg-Trace); Specific Gravity,Urine 1.008 (1.010-1.025); Urobilinogen,Urine Normal (Normal)
[2018-04-06 17:57] LABS: Bacteria,Urine Many per hpf (None-Few); Hyaline Casts,Urine None Seen per lpf (None-Few); RBC,Urine 0-3 per hpf (0-3); Squamous Epithelial Cell,Urine Moderate per lpf (None-Few)
[2018-04-06] MEDS ORDERED: Naloxone 0.4 MG/ML INJ IVP PRN (18:12)
[2018-04-06] MEDS ORDERED: Dextrose Gel 15 GM/37.5 ML TUBE PO PRN ×2 (18:14)
[2018-04-06] MEDS ORDERED: ALPRAZolam 1 MG TABLET PO PRN (18:14)
[2018-04-06] MEDS ORDERED: *HR* Dextrose 50 % in Water (Syg) 50 ML SYRINGE IVP PRN (18:14)
[2018-04-06] MEDS ORDERED: D5% in Water 1,000 ML IVC PRN (18:14)
--- NOTE | 2018-04-06 18:21 | Internal Med History&Physical ---
Date of Encounter: 04/06/18 Time of Encounter: 18:18 Internal Medicine - H&P: HPI Chief complaint: Burning urination Admitted From: Emergency Dept Plans for Post Hospital Care: Home History of present illness: Ms. Corona is a 72 year old female multiple recurrent UTIs in the past, was sent from her PCP office due to urinary tract infection with resistant bacteria requiring IV antibiotics. Patient was recently admitted to our hospital for UTI , discharged on oral Cefdinir, urine culture at the time due to Escherichia coli sensitive to cephalosporins. She reports resolution of her symptoms when she finished her 10 day course of antibiotics. She presented for a follow-up with her PCP 4 days ago with complaints of burning micturition, frequency of urination. She does have urinary incontinence at baseline. She denies fever, chills, suprapubic pain, hematuria , flank pain, nausea or vomiting. Urine culture that was collected at the time shows multidrug resistant Proteus. Past Med Surg Social Fam HX - Past Medical History Source: patient, old records reviewed Medical history: atrial fibrillation, cardiomyopathy, diabetes, GI bleed, hyperlipidemia, hypertension, pulmonary embolus, thyroid disease, other Additional medical history: [place]'s. vocal cord dysfunction Psychiatric history: depression, prior suicide attempt - Past Surgical History Surgical History: breast surgery (B/L breast reduction surgery), cholecystectomy , hysterectomy, other Additional surgical history: breast reduction - Social History Smoking Status: Never smoker Smokeless Tobacco Status: No Alcohol use: none Drug use: none Occupational status: disabled Current living situation: Home, With Family Activity Level: Uses cane/walker Recent Out of Country Travel Within the Last 8 Weeks: No Exposure or Possible Exposure to Illness During Travel: No - Family History Father Living Status: Hx Family Cardiac Disorders: Yes (HTN) Hx Family Respiratory Disorders: Yes (Emphysema) Mother Adopted: No Family Member Ethnicity: Non- Living Status: Hx Family Cardiac Disorders: No Hx Family Respiratory Disorders: No Hx Family Cancer: No Hx Family GI Disorders: No Hx Family Endocrine Disorder: No Hx Family Neuromuscular Disorders: Yes ([place]'s dx) Hx Family Neurologic Disorders: Yes (anuerysm) Internal Medicine - H&P: Meds Ranitidine HCl [Acid Field Ring Assembler] 150 mg PO DAILY 05/15/16 [History] Levothyroxine [Synthroid] 50 mcg PO DAILY 12/29/16 [History] Omeprazole [PriLOSEC] 40 mg PO DAILY 07/08/17 [History] Sertraline [Zoloft] 100 mg PO DAILY 07/08/17 [History] Metformin HCl [Metformin HCl ER] 1,000 mg PO HS 08/08/17 [History] ARIPiprazole [Abilify] 5 mg PO DAILY 01/24/18 [History] Rivaroxaban [Xarelto] 10 mg PO DAILY 01/24/18 [History] ALPRAZolam [Xanax 1 MG Tablet] 1 mg PO BID PRN 5 Days #10 tablet 01/30/18 [Rx] Furosemide [Lasix] 20 mg PO DAILY 03/21/18 [History] carBAMazepine [Tegretol] 200 mg PO QPM 03/21/18 [History] traZODone [TraZODone] 50 mg PO HS 03/21/18 [History] Ascorbic Acid [Vitamin C with Veronika Hips] 500 mg PO DAILY 03/23/18 [History] Buspirone HCl [Buspar] 5 mg PO DAILY 03/23/18 [History] Ferrous Sulfate [Iron] 325 mg PO DAILY 03/23/18 [History] Lisinopril [Zestril] 20 mg PO DAILY 04/06/18 [History] Metoprolol XL (24 HR) Succ [Toprol Xl] 12.5 mg PO DAILY 04/06/18 [History] Potassium Chloride [K-Tab ER] 10 meq PO BID 04/06/18 [History] 3 Allergy/AdvReac Type Severity Reaction Status Date / Time gabapentin [From Neurontin] AdvReac Agitated Verified 04/06/18 14:24 All Systems PM: A 10-system review of systems was performed and is negative for pertinent findings except as documented above in the HPI. - Constitutional Constitutional: no chills, no fever(s), no night sweats - EENT Eyes: no change in vision, no discharge, no pain, no photophobia Ears: no ear discharge, no ear pain, no tinnitus Nose, mouth and throat: no dysphagia, no nasal discharge, no neck pain, no sore throat - Cardiovascular Cardiovascular ROS IM: no chest pain, no diaphoresis, no dyspnea, no lightheadedness, no palpitations, no syncope - Respiratory Respiratory: no cough, no dyspnea, no wheezing, no excessive phlegm production - Gastrointestinal Gastrointestinal: no abdominal pain, no diarrhea, no hematemesis, no hematochezia, no melena, no nausea, no vomiting - Genitourinary Genitourinary: as per HPI, urinary frequency, urinary incontinence - Musculoskeletal Musculoskeletal ROS IM: no numbness, no tingling - Integumentary Integumentary IM: no rash, no unusual bruising - Neurological Neurological ROS: no confusion, no convulsions, no focal weakness, no numbness, no tingling, no tremor(s) - Hematologic/Lymphatic Hematologic/Lymphatic: no easy bruising - Constitutional Vitals: Temp Pulse Resp BP Pulse Ox 98.5 F 67 16 142/91 96 04/06/18 16:51 04/06/18 16:51 04/06/18 16:51 04/06/18 16:51 04/06/18 16:51 General appearance: Present: A&O X 3, answers questions appropriately Exam: . - Head Head exam: Present: atraumatic, normocephalic - Eye Eye exam: Present: PERRL, conjuntiva pink, sclera anicteric Pupils: Present: PERRL - Neck Neck exam general surgery: Present: supple, trachea midline. Absent: lymphadenopathy - Respiratory Respiratory exam: Present: CTAB. Absent: accessory muscle use, rales, rhonchi, wheezes - Cardiovascular Cardiovascular exam: Present: RRR, +S1, +S2. Absent: diastolic murmur, gallop, rubs, systolic murmur - GI/Abdominal GI/Abdominal exam: Present: normal bowel sounds, soft (obese), no peritoneal signs. Absent: distended, tenderness - Extremities Exam Extremities exam: Present: full ROM, pedal edema (nonpitting B/L), warm, radial pulses palpable and symmetrical. Absent: calf tenderness, cyanotic - Neurological Exam Neurological exam: Present: CN II-XII intact, oriented X3, no focal deficits. Absent: pronater drift, facial droop, speech deficit - Skin Skin exam: Present: dry, intact Internal Med - H&P Results - Labs CBC & Chem 7: 04/06/18 16:00 04/06/18 16:00 - Assessment and plan (1) UTI (urinary tract infection) Current Visit: Yes Status: Acute Assessment and plan: recurrent multiple admissions with UTIs; previous urine cultures grew multiple different organisms with variable sensitivities; Per PCP records- she followed with Urology in the past who placed her on chronic Macrodantin therapy which was not helpful; she was supposed to f/up for cystoscopy, but was lost to followup. Day team to consult Urology due to her repeat admissions; Most recent urine culture from 04/03/18 from PCP office grew Proteus, sensitive only to Zosyn, Ertapenem, Tobramycin; she received a dose of IV Zosyn in the ER ; will start IV Ertapenem for ease of dosing; she will likely need HHS arranged for discharge; repeat urine culture from our ER is pending; patient is not septic; Qualifiers: Urinary tract infection type: site unspecified Hematuria presence: without hematuria Qualified Code(s): N39.0 - Urinary tract infection, site not specified (2) Diabetes mellitus type 2 in obese Current Visit: Yes Status: Chronic Assessment and plan: start Accucheck blood glucose monitoring with SSI as needed; diabetic diet; (3) History of pulmonary embolism Current Visit: Yes Status: Chronic Assessment and plan: had 2 episodes in the past per patient; continue Xarelto; (4) Hypothyroidism Current Visit: Yes Status: Chronic Assessment and plan: resume Levothyroxine; Qualifiers: Hypothyroidism type: unspecified Qualified Code(s): E03.9 - Hypothyroidism , unspecified (5) NICM (nonischemic cardiomyopathy) Current Visit: Yes Status: Chronic Assessment and plan: TTEs in the past have shown preserved EF but per Cardiology, this may be erroneous; LHC showed EF of 25% with normal coronaries; patient is to continue LifeVest and f/up with cardiac MRI after 3 months of GDMT ; continue beta ana but hold diuretic and ACEI for now due to renal dysfunction; (6) Depression Current Visit: Yes Status: Chronic Assessment and plan: mood stable; resume home meds; she is on multiple psychotropics; Qualifiers: Depression Type: unspecified Qualified Code(s): F32.9 - Major depressive disorder, single episode, unspecified (7) [place]'s disease Current Visit: Yes Status: Chronic (8) Hyperlipidemia Current Visit: Yes Status: Chronic Qualifiers: Hyperlipidemia type: unspecified Qualified Code(s): E78.5 - Hyperlipidemia , unspecified (9) Hypertension Current Visit: Yes Status: Chronic Qualifiers: Hypertension type: essential hypertension Qualified Code(s): I10 - Essential (primary) hypertension (10) Obesity (BMI 30-39.9) Current Visit: Yes Status: Chronic - Time Spent With Patient Total time spent is greater than 50% in coordination of care (as documented) at patient's floor/unit and/or counseling patient:
[2018-04-06] MEDS: Insulin LISPRO 300 UNITS/3 ML VIAL SQ SCH (20:45)
[2018-04-06] MEDS: traZODone 50 MG TABLET PO SCH (20:50)
[2018-04-06] MEDS: *HR* Rivaroxaban 10 MG TABLET PO SCH (20:50)
[2018-04-07 05:15] LABS: Basophils # 0.1 K/mcL (0.0-0.2); Basophils % 0.8 %; Eosinophils # 0.2 K/mcL (0.0-0.6); Eosinophils % 2.8 %; Hematocrit 33.4 % (35.3-44.9); Hemoglobin 10.8 g/dL (11.5-15.4); Immature Granulocytes % 0.1 % (0-4); Lymphocytes # 1.7 K/mcL (0.6-4.6); Lymphocytes % 20.8 %; Mean Corpuscular HGB Conc 32.3 g/dL (31.6-35.5); Mean Corpuscular Hemoglobin 29.1 pg (28.0-33.3); Mean Platelet Volume 10.2 fL (9.4-12.4); Monocytes # 0.4 K/mcL (0.0-1.3); Monocytes % 5.3 %; Neutrophils # 5.6 K/mcL (1.6-8.9); Platelet Count 200 K/mcL (140-400); Red Blood Count 3.71 M/mcL (3.82-4.97); Red Cell Distribution Width 13.9 % (11.5-14.5); Segmented Neutrophils % 70.2 %
[2018-04-07 05:37] LABS: Calcium 8.8 mg/dL (8.6-10.3); Potassium 4.5 mEq/L (3.5-5.1)
[2018-04-07] MEDS: *HR* Rivaroxaban 10 MG TABLET PO SCH (09:05)
[2018-04-07] MEDS: Metoprolol XL (24 HR) Succ 25 MG TAB.ER.24H PO SCH (09:05)
[2018-04-07] MEDS: Ertapenem 1,000 MG in 0.9 % Sodium Chloride Mini Bag 100 ML IVPB SCH (09:06)
[2018-04-07] MEDS: ARIPiprazole 5 MG TABLET PO SCH (09:06)
[2018-04-07] MEDS: Insulin LISPRO 300 UNITS/3 ML VIAL SQ SCH ×4 (09:07→21:06)
--- NOTE | 2018-04-07 12:34 | Internal Med Progress Note ---
Hospitalist Progress Note - Encounter Date of Encounter: 04/07/18 Time of Encounter: 12:34 - Subjective Interval History: Patient seen and examined at bedside denies any pain or discomfort at this time - Exam Vitals: Temp Pulse Resp BP Pulse Ox 98.2 F 68 16 124/81 96 04/07/18 10:54 04/07/18 10:54 04/07/18 10:54 04/07/18 10:54 04/07/18 10:54 Exam: General appearance: Present: A&O X 3, answers questions appropriately Exam: - Head Head exam: Present: atraumatic, normocephalic - Eye Eye exam: Present: PERRL, conjuntiva pink, sclera anicteric Pupils: Present: PERRL - Neck Neck exam general surgery: Present: supple, trachea midline. Absent: lymphadenopathy - Respiratory Respiratory exam: Present: CTAB. Absent: accessory muscle use, rales, rhonchi, wheezes - Cardiovascular Cardiovascular exam: Present: RRR, +S1, +S2. Absent: diastolic murmur, gallop, rubs, systolic murmur - GI/Abdominal GI/Abdominal exam: Present: normal bowel sounds, soft (obese), no peritoneal signs. Absent: distended, tenderness - Extremities Exam Extremities exam: Present: full ROM, pedal edema (nonpitting B/L), warm, radial pulses palpable and symmetrical. Absent: calf tenderness, cyanotic - Neurological Exam Neurological exam: Present: CN II-XII intact, oriented X3, no focal deficits. Absent: pronater drift, facial droop, speech deficit - Skin Skin exam: Present: dry, intact - Assessment and Plan (1) [place]'s disease Current Visit: Yes Status: Chronic (2) Hypertension Current Visit: Yes Status: Chronic Assessment and Plan: We will continue home medications blood pressure stable at this time (3) Hyperlipidemia Current Visit: Yes Status: Chronic Assessment and Plan: We will check lipid profile (4) Obesity (BMI 30-39.9) Current Visit: Yes Status: Chronic Assessment and Plan: Encourage lifestyle changes (5) Depression Current Visit: Yes Status: Chronic Assessment and Plan: mood stable; resume home meds; she is on multiple psychotropics; (6) History of pulmonary embolism Current Visit: Yes Status: Chronic Assessment and Plan: History of pulmonary embolism we will continue with Xarelto (7) NICM (nonischemic cardiomyopathy) Current Visit: Yes Status: Chronic Assessment and Plan: TTEs in the past have shown preserved EF but per Cardiology, this may be erroneous; C showed EF of 25% with normal coronaries; patient is to continue LifeVest and f/up with cardiac MRI after 3 months of GDMT ; continue beta ana but hold diuretic and ACEI for now due to renal dysfunction; (8) UTI (urinary tract infection) Current Visit: Yes Status: Acute Assessment and Plan: recurrent multiple admissions with UTIs; previous urine cultures grew multiple different organisms with variable sensitivities; Per PCP records- she followed with Urology in the past who placed her on chronic Macrodantin therapy which was not helpful; she was supposed to f/up for cystoscopy, but was lost to followup.-I did evelynide consult with urology who recommends outpatient follow-up cystoscopy and continue with current treatment plan. We will consult as needed Most recent urine culture from 04/03/18 from PCP office grew Proteus, sensitive only to Zosyn, Ertapenem, Tobramycin; she received a dose of IV Zosyn in the ER ; continue IV Ertapenem for ease of dosing; she will likely need HHS arranged for discharge; repeat urine culture from our ER is pending; (9) Hypothyroidism Current Visit: Yes Status: Chronic Assessment and Plan: resume Levothyroxine; (10) Diabetes mellitus type 2 in obese Current Visit: Yes Status: Chronic Assessment and Plan: Accucheck before meals at bedtime with SSI as needed; diabetic diet; - Time Spent with Patient Total time spent is greater than 50% in coordination of care (as documented) at patient's floor/unit and/or counseling patient: Internal Medicine: Result - Labs CBC & Chem 7: 04/07/18 04:42 04/07/18 04:42 Labs: Short CBC 04/07/18 Range/Units 04:42 WBC 8.0 (4.3-11.1) K/mcL Hgb 10.8 L (11.5-15.4) g/dL Hct 33.4 L (35.3-44.9) % Plt Count 200 (140-400) K/mcL Neutrophils # 5.6 (1.6-8.9) K/mcL BMP 04/07/18 04:42 Sodium 138 Potassium 4.5 Chloride 103 Carbon Dioxide 27 BUN 17 Creatinine 1.12 Glucose 108 H Calcium 8.8 Consult Discharge Plan - Plan Referrals: Oscar Sandoval Jr, MD [Primary Care Provider] - (2) Hypertension Qualifiers: Hypertension type: essential hypertension Qualified Code(s): I10 - Essential (primary) hypertension (3) Hyperlipidemia Qualifiers: Hyperlipidemia type: unspecified Qualified Code(s): E78.5 - Hyperlipidemia, unspecified (5) Depression Qualifiers: Depression Type: unspecified Qualified Code(s): F32.9 - Major depressive disorder, single episode, unspecified (8) UTI (urinary tract infection) Qualifiers: Urinary tract infection type: site unspecified Hematuria presence: without hematuria Qualified Code(s): N39.0 - Urinary tract infection, site not specified (9) Hypothyroidism Qualifiers: Hypothyroidism type: unspecified Qualified Code(s): E03.9 - Hypothyroidism, unspecified
[2018-04-07] MEDS: carBAMazepine 200 MG TABLET PO SCH (18:22)
[2018-04-07] MEDS: traZODone 50 MG TABLET PO SCH (19:53)
[2018-04-08 04:55] LABS: Basophils % 0.6 %; Eosinophils # 0.2 K/mcL (0.0-0.6); Eosinophils % 2.7 %; Hematocrit 33.6 % (35.3-44.9); Hemoglobin 10.9 g/dL (11.5-15.4); Immature Granulocytes % 0.2 % (0-4); Lymphocytes # 1.6 K/mcL (0.6-4.6); Lymphocytes % 23.8 %; Mean Corpuscular HGB Conc 32.4 g/dL (31.6-35.5); Mean Corpuscular Hemoglobin 29.2 pg (28.0-33.3); Mean Corpuscular Volume 90.1 fL (83.0-100.0); Mean Platelet Volume 10.5 fL (9.4-12.4); Monocytes # 0.4 K/mcL (0.0-1.3); Monocytes % 5.6 %; Neutrophils # 4.4 K/mcL (1.6-8.9); Platelet Count 202 K/mcL (140-400); Red Blood Count 3.73 M/mcL (3.82-4.97); Red Cell Distribution Width 14.1 % (11.5-14.5); Segmented Neutrophils % 67.1 %
[2018-04-08 05:18] LABS: BUN/Creatinine Ratio 17 (6-26); Blood Urea Nitrogen 17 mg/dL (8-23); Calcium 9.1 mg/dL (8.6-10.3); Carbon Dioxide 27 mEq/L (23-29); Chloride 105 mEq/L (98-107); Glucose 123 mg/dL (70-105); Osmolality,Calculated 289 (280-300); Potassium 4.4 mEq/L (3.5-5.1); Sodium 138 mEq/L (136-145); eGFR For Non-African Americans 55 (> 60)
[2018-04-08] MEDS: Ertapenem 1,000 MG in 0.9 % Sodium Chloride Mini Bag 100 ML IVPB SCH (08:37)
[2018-04-08] MEDS: ARIPiprazole 5 MG TABLET PO SCH (08:38)
[2018-04-08] MEDS: Metoprolol XL (24 HR) Succ 25 MG TAB.ER.24H PO SCH (08:38)
[2018-04-08] MEDS: *HR* Rivaroxaban 10 MG TABLET PO SCH (08:38)
[2018-04-08] MEDS: Insulin LISPRO 300 UNITS/3 ML VIAL SQ SCH ×4 (08:39→20:24)
[2018-04-08] MEDS: Ondansetron 4 MG/2 ML VIAL IVP PRN ×2 (11:32→18:13)
[2018-04-08] MEDS: Acetaminophen 325 MG TABLET PO PRN (18:12)
[2018-04-08] MEDS: carBAMazepine 200 MG TABLET PO SCH (18:12)
--- NOTE | 2018-04-08 19:04 | Internal Med Progress Note ---
Hospitalist Progress Note - Encounter Date of Encounter: 04/08/18 Time of Encounter: 11:00 - Subjective Interval History: Patient seen and examined at bedside denies any pain or discomfort at this time - Exam Vitals: Temp Pulse Resp BP Pulse Ox 98.2 F 70 15 122/68 99 04/08/18 16:20 04/08/18 16:20 04/08/18 16:20 04/08/18 16:20 04/08/18 16:20 Exam: General appearance: Present: A&O X 3, answers questions appropriately Exam: - Head Head exam: Present: atraumatic, normocephalic - Eye Eye exam: Present: PERRL, conjuntiva pink, sclera anicteric Pupils: Present: PERRL - Neck Neck exam general surgery: Present: supple, trachea midline. Absent: lymphadenopathy - Respiratory Respiratory exam: Present: CTAB. Absent: accessory muscle use, rales, rhonchi, wheezes - Cardiovascular Cardiovascular exam: Present: RRR, +S1, +S2. Absent: diastolic murmur, gallop, rubs, systolic murmur - GI/Abdominal GI/Abdominal exam: Present: normal bowel sounds, soft (obese), no peritoneal signs. Absent: distended, tenderness - Extremities Exam Extremities exam: Present: full ROM, pedal edema (nonpitting B/L), warm, radial pulses palpable and symmetrical. Absent: calf tenderness, cyanotic - Neurological Exam Neurological exam: Present: CN II-XII intact, oriented X3, no focal deficits. Absent: pronater drift, facial droop, speech deficit - Skin Skin exam: Present: dry, intact - Assessment and Plan (1) UTI (urinary tract infection) Current Visit: Yes Status: Acute Assessment and Plan: recurrent multiple admissions with UTIs; previous urine cultures grew multiple different organisms with variable sensitivities; Per PCP records- she followed with Urology in the past who placed her on chronic Macrodantin therapy which was not helpful; she was supposed to f/up for cystoscopy, but was lost to followup.-I did curbside consult with urology who recommends outpatient follow-up cystoscopy and continue with current treatment plan. We will consult as needed Most recent urine culture from 04/03/18 from PCP office grew Proteus, sensitive only to Zosyn, Ertapenem, Tobramycin; she received a dose of IV Zosyn in the ER ; continue IV Ertapenem -pending culture results (2) [place]'s disease Current Visit: Yes Status: Chronic Assessment and Plan: Follow-up by primary care (3) Hypertension Current Visit: Yes Status: Chronic Assessment and Plan: We will continue home medications blood pressure stable at this time (4) Hyperlipidemia Current Visit: Yes Status: Chronic Assessment and Plan: We will check lipid profile (5) Obesity (BMI 30-39.9) Current Visit: Yes Status: Chronic Assessment and Plan: Encourage lifestyle changes (6) Depression Current Visit: Yes Status: Chronic Assessment and Plan: mood stable; resume home meds; she is on multiple psychotropics; (7) History of pulmonary embolism Current Visit: Yes Status: Chronic Assessment and Plan: History of pulmonary embolism we will continue with Xarelto (8) NICM (nonischemic cardiomyopathy) Current Visit: Yes Status: Chronic Assessment and Plan: TTEs in the past have shown preserved EF but per Cardiology, this may be erroneous; LHC showed EF of 25% with normal coronaries; patient is to continue LifeVest and f/up with cardiac MRI after 3 months of GDMT ; continue beta ana but hold diuretic and ACEI for now due to renal dysfunction; (9) Hypothyroidism Current Visit: Yes Status: Chronic Assessment and Plan: resume Levothyroxine; (10) Diabetes mellitus type 2 in obese Current Visit: Yes Status: Chronic Assessment and Plan: Glucose currently stable Accucheck before meals at bedtime with SSI as needed; diabetic diet; - Time Spent with Patient Total time spent is greater than 50% in coordination of care (as documented) at patient's floor/unit and/or counseling patient: Internal Medicine: Result - Labs CBC & Chem 7: 04/08/18 03:22 04/08/18 03:22 Labs: Short CBC 04/08/18 Range/Units 03:22 WBC 6.6 (4.3-11.1) K/mcL Hgb 10.9 L (11.5-15.4) g/dL Hct 33.6 L (35.3-44.9) % Plt Count 202 (140-400) K/mcL Neutrophils # 4.4 (1.6-8.9) K/mcL BMP 04/08/18 03:22 Sodium 138 Potassium 4.4 Chloride 105 Carbon Dioxide 27 BUN 17 Creatinine 0.99 Glucose 123 H Calcium 9.1 Consult Discharge Plan - Plan Referrals: Oscar Sandoval Jr, MD [Primary Care Provider] - (1) UTI (urinary tract infection) Qualifiers: Urinary tract infection type: site unspecified Hematuria presence: without hematuria Qualified Code(s): N39.0 - Urinary tract infection, site not specified (3) Hypertension Qualifiers: Hypertension type: essential hypertension Qualified Code(s): I10 - Essential (primary) hypertension (4) Hyperlipidemia Qualifiers: Hyperlipidemia type: unspecified Qualified Code(s): E78.5 - Hyperlipidemia, unspecified (6) Depression Qualifiers: Depression Type: unspecified Qualified Code(s): F32.9 - Major depressive disorder, single episode, unspecified (9) Hypothyroidism Qualifiers: Hypothyroidism type: unspecified Qualified Code(s): E03.9 - Hypothyroidism, unspecified
[2018-04-08] MEDS: traZODone 50 MG TABLET PO SCH (20:02)
[2018-04-08] MEDS ORDERED: *HR* Promethazine 25 MG/ML VIAL IVP PRN (21:33)
[2018-04-08] MEDS: Pantoprazole 40 MG in 0.9 % Sodium Chloride Mini Bag 100 ML IVC SCH (21:47)
--- NOTE | 2018-04-08 21:56 | Event Note ---
Date of Encounter: 04/08/18 Time of Encounter: 21:21 Alerted by pts. nurse JOVITA Clay that patient had episode of hematemesis containing red and coffee-ground consistency blood. Patient has history of GI bleeds. IVP Zofran and Phenergan ordered for nausea and vomiting control. Protonix drip ordered. GI consult ordered but requires follow-up in the a.m. patient to be monitored closely overnight.
[2018-04-09] MEDS: Pantoprazole 40 MG in 0.9 % Sodium Chloride Mini Bag 100 ML IVC SCH ×3 (02:57→14:13)
[2018-04-09 06:26] LABS: Basophils # 0.1 K/mcL (0.0-0.2); Basophils % 0.9 %; Eosinophils # 0.2 K/mcL (0.0-0.6); Eosinophils % 2.4 %; Hematocrit 34.5 % (35.3-44.9); Immature Granulocytes % 0.4 % (0-4); Lymphocytes # 1.8 K/mcL (0.6-4.6); Mean Corpuscular HGB Conc 31.9 g/dL (31.6-35.5); Mean Corpuscular Hemoglobin 28.6 pg (28.0-33.3); Mean Corpuscular Volume 89.8 fL (83.0-100.0); Monocytes # 0.3 K/mcL (0.0-1.3); Monocytes % 4.1 %; Neutrophils # 5.5 K/mcL (1.6-8.9); Platelet Count 238 K/mcL (140-400); Red Blood Count 3.84 M/mcL (3.82-4.97); Red Cell Distribution Width 14.2 % (11.5-14.5); Segmented Neutrophils % 69.2 %
[2018-04-09 06:46] LABS: BUN/Creatinine Ratio 16 (6-26); Blood Urea Nitrogen 14 mg/dL (8-23); Carbon Dioxide 29 mEq/L (23-29); Chloride 105 mEq/L (98-107); Glucose 102 mg/dL (70-105); Osmolality,Calculated 289 (280-300); Potassium 4.3 mEq/L (3.5-5.1); Sodium 139 mEq/L (136-145); eGFR For Non-African Americans > 60 (> 60)
[2018-04-09] MEDS: Insulin LISPRO 300 UNITS/3 ML VIAL SQ SCH ×4 (08:01→20:59)
[2018-04-09] MEDS: Metoprolol XL (24 HR) Succ 25 MG TAB.ER.24H PO SCH (08:01)
[2018-04-09] MEDS: *HR* Rivaroxaban 10 MG TABLET PO SCH (08:01)
[2018-04-09] MEDS: ARIPiprazole 5 MG TABLET PO SCH (08:01)
[2018-04-09] MEDS: Ertapenem 1,000 MG in 0.9 % Sodium Chloride Mini Bag 100 ML IVPB SCH (08:02)
--- NOTE | 2018-04-09 12:02 | Gastroenterology Consult Note ---
<Alfredo eDgroot - Last Filed: 04/09/18 12:00> Date of Encounter: 04/09/18 Time of Encounter: 11:10 - Assessment and plan (1) Hematemesis Current Visit: Yes Status: Acute Assessment and plan: Patient with one episode of hematemesis and coffee-ground emesis overnight. No further episodes reported. No episodes of melena or hematochezia. Hgb is stable at 11. Will hold on EGD at this time. Continue to monitor CBC. If Hgb begins to trend down, patient has repeat episodes of hematemesis/coffee-ground emesis, or start having melena, we will consider EGD. Qualifiers: Nausea presence: unspecified Qualified Code(s): K92.0 - Hematemesis (2) Coffee ground emesis Current Visit: Yes Status: Acute (3) [place]'s disease Current Visit: Yes Status: Chronic (4) Chronic anticoagulation Current Visit: No Status: Chronic - Time Spent With Patient Total time spent is greater than 50% in coordination of care (as documented) at patient's floor/unit and/or counseling patient: GI History of Present Illness - Data of Consult Patient: new to practice Consult date: 04/09/18 Requesting Physician: Abraham Jauregui MD - Consult Narrative Reason for consult: Hematemesis and coffee-ground emesis History of present illness: Ms. Corona is a 72 year old female with PMHx of Afib, cardiomyopathy, DM, GI bleed, HLD, HTN, PE, [place]'s and multiple UTIs, was sent from her PCP office due to urinary tract infection with resistant bacteria requiring IV antibiotics. We were consulted to evaluate episode of hematemesis and coffee- ground emesis. PPI drip was started. Hgb on admission was 11 and this AM Hgb 11. She denies any melena or hematochezia. No further episodes of hematemesis/ coffee-ground emesis. Procedures: Colonoscopy 05/28/2013 Dr. Mayorga: Normal Colonoscopy 11/12/2002 Dr. Aguirre: Hyperplastic polyps. EGD 06/29/1999 Dr. Aguirre: Chronic nonspecific inflammation NSAIDs: None Anticoagulation: Xarelto Past Med Surg Social Fam HX - Past Medical History Medical history: atrial fibrillation, cardiomyopathy, diabetes, GI bleed, hyperlipidemia, hypertension, pulmonary embolus, thyroid disease, other Additional medical history: Bradley's. vocal cord dysfunction Psychiatric history: depression, prior suicide attempt - Past Surgical History Surgical History: cholecystectomy, hysterectomy, other Additional surgical history: breast reduction - Social History Smoking Status: Never smoker Smokeless Tobacco Status: No Alcohol use: none Drug use: prescription drug abuse - Family History Father Living Status: Hx Family Cardiac Disorders: Yes (HTN) Hx Family Respiratory Disorders: Yes (Emphysema) Mother Adopted: No Family Member Ethnicity: Non- Living Status: Hx Family Cardiac Disorders: No Hx Family Respiratory Disorders: No Hx Family Cancer: No Hx Family GI Disorders: No Hx Family Endocrine Disorder: No Hx Family Neuromuscular Disorders: Yes ([place]'s dx) Hx Family Neurologic Disorders: Yes (anuerysm) - Gastrointestinal Gastrointestinal: Present: as per HPI - Constitutional Constitutional: as per HPI - EENT Eyes: as per HPI Ears: Present: as per HPI Nose, mouth and throat: Present: as per HPI - Cardiovascular Cardiovascular ROS: Present: as per HPI - Respiratory Respiratory IM: Present: as per HPI - Genitourinary Genitourinary: Absent: change in color, Urinary frequency - Neurological ROS Neurological GI: Present: as per HPI - Hematologic/Lymphatic Hematologic/Lymphatic pediatric: Present: as per HPI - Musculoskeletal Musculoskeletal ROS GI: Present: as per HPI - Integumentary Integumentary GI: Present: as per HPI - Psychiatric ROS Psychiatric GI: Present: as per HPI - Endocrine Endocrine IM: Present: as per HPI - Constitutional Vitals: Temp Pulse Resp BP Pulse Ox 99.2 F 62 15 132/79 97 04/09/18 11:29 04/09/18 11:29 04/09/18 11:29 04/09/18 11:29 04/09/18 11:29 General appearance: Present: cooperative, A&O X 3, no acute distress, answers questions appropriately - Head Head exam: Present: atraumatic, normocephalic - Eye Eye exam: Present: normal appearance, sclera anicteric - ENT ENT exam: Present: mucous membranes dry - Neck Neck exam general surgery: Present: normal inspection, trachea midline - Respiratory Respiratory exam: Present: decreased breath sounds, CTAB. Absent: rales, rhonchi - Cardiovascular Cardiovascular exam: Present: RRR, +S1, +S2 - GI/Abdominal GI/Abdominal exam: Present: soft, no peritoneal signs. Absent: distended, firm , guarding, tenderness - Rectal Rectal exam: Present: deferred - Extremities Exam Extremities exam: Present: warm - Neurological Exam Neurological exam: Present: no focal deficits - Psychiatric Psychiatric exam: Present: normal affect, normal mood - Skin Skin exam: Present: dry, intact, normal color, warm Results - Labs CBC & Chem 7: 04/09/18 06:00 04/09/18 06:00 Labs: Last Result Calcium 9.0 mg/dL (8.6-10.3) 04/09/18 06:00 Entire Visit Hgb 11.0 g/dL (11.5-15.4) L 04/09/18 06:00 Hct 34.5 % (35.3-44.9) L 04/09/18 06:00 Consult Discharge Plan - Plan Referrals: Oscar Sandoval Jr, MD [Primary Care Provider] - <Evelia Mari - Last Filed: 04/09/18 18:17> Date of Encounter: 04/09/18 Time of Encounter: 18:00 - Time Spent With Patient Total time spent is greater than 50% in coordination of care (as documented) at patient's floor/unit and/or counseling patient: GI History of Present Illness - Data of Consult Requesting Physician: Abraham Jauregui MD - Consult Narrative History of present illness: Ms. Corona is a 72 year old female - Constitutional Vitals: Temp Pulse Resp BP Pulse Ox 99.5 F 73 15 128/74 95 04/09/18 15:28 04/09/18 15:28 04/09/18 15:28 04/09/18 15:28 04/09/18 15:28 Results - Labs CBC & Chem 7: 04/09/18 06:00 04/09/18 06:00 Labs: Last Result Calcium 9.0 mg/dL (8.6-10.3) 04/09/18 06:00 Entire Visit Hgb 11.0 g/dL (11.5-15.4) L 04/09/18 06:00 Hct 34.5 % (35.3-44.9) L 04/09/18 06:00 - Attending Attestation I have personally performed a face to face evaluation on this patient. I have reviewed and agree with the care plan. History and Exam by me shows: Patient seen. No more vomiting. Examination abdomen is benign. Assessment patient with, coffee-ground emesis one episode. hemoglobin is stable. Recommendation: Follow H&H daily PPI. No scope at this point
[2018-04-09] MEDS: Acetaminophen 325 MG TABLET PO PRN ×2 (12:05→22:52)
[2018-04-09] MEDS: Ondansetron 4 MG/2 ML VIAL IVP PRN ×2 (12:06→22:52)
--- NOTE | 2018-04-09 15:33 | Internal Med Progress Note ---
Hospitalist Progress Note - Encounter Date of Encounter: 04/09/18 Time of Encounter: 11:00 - Subjective Interval History: Patient seen and examined at bedside denies any pain or discomfort at this time- no reports of hematemesis melena or hematochezia. Patient states he feels much better today - Exam Vitals: Temp Pulse Resp BP Pulse Ox 99.2 F 62 15 132/79 97 04/09/18 11:29 04/09/18 11:29 04/09/18 11:29 04/09/18 11:29 04/09/18 11:29 Exam: General appearance: Present: A&O X 3, answers questions appropriately Exam: - Head Head exam: Present: atraumatic, normocephalic - Eye Eye exam: Present: PERRL, conjuntiva pink, sclera anicteric Pupils: Present: PERRL - Neck Neck exam general surgery: Present: supple, trachea midline. Absent: lymphadenopathy - Respiratory Respiratory exam: Present: CTAB. Absent: accessory muscle use, rales, rhonchi, wheezes - Cardiovascular Cardiovascular exam: Present: RRR, +S1, +S2. Absent: diastolic murmur, gallop, rubs, systolic murmur - GI/Abdominal GI/Abdominal exam: Present: normal bowel sounds, soft (obese), no peritoneal signs. Absent: distended, tenderness - Extremities Exam Extremities exam: Present: full ROM, pedal edema (nonpitting B/L), warm, radial pulses palpable and symmetrical. Absent: calf tenderness, cyanotic - Neurological Exam Neurological exam: Present: CN II-XII intact, oriented X3, no focal deficits. Absent: pronater drift, facial droop, speech deficit - Skin Skin exam: Present: dry, intact - Assessment and Plan (1) UTI (urinary tract infection) Current Visit: Yes Status: Acute Assessment and Plan: recurrent multiple admissions with UTIs; previous urine cultures grew multiple different organisms with variable sensitivities; Per PCP records- she followed with Urology in the past who placed her on chronic Macrodantin therapy which was not helpful; she was supposed to f/up for cystoscopy, but was lost to followup.-I did curbside consult with urology who recommends outpatient follow-up cystoscopy and continue with current treatment plan. We will consult as needed Most recent urine culture from 04/03/18 from PCP office grew Proteus, sensitive only to Zosyn, Ertapenem, Tobramycin; she received a dose of IV Zosyn in the ER ; continue IV Ertapenem -pending culture results 04/09 continue with IV Ertapenem pending culture results (2) [place]'s disease Current Visit: Yes Status: Chronic Assessment and Plan: Follow-up by primary care (3) Hypertension Current Visit: Yes Status: Chronic Assessment and Plan: We will continue home medications blood pressure stable at this time (4) Hyperlipidemia Current Visit: Yes Status: Chronic Assessment and Plan: We will check lipid profile (5) Obesity (BMI 30-39.9) Current Visit: Yes Status: Chronic Assessment and Plan: Encourage lifestyle changes (6) Depression Current Visit: Yes Status: Chronic Assessment and Plan: mood stable; resume home meds; she is on multiple psychotropics; (7) History of pulmonary embolism Current Visit: Yes Status: Chronic Assessment and Plan: History of pulmonary embolism we will continue with Xarelto (8) NICM (nonischemic cardiomyopathy) Current Visit: Yes Status: Chronic Assessment and Plan: TTEs in the past have shown preserved EF but per Cardiology, this may be erroneous; LHC showed EF of 25% with normal coronaries; patient is to continue LifeVest and f/up with cardiac MRI after 3 months of GDMT ; continue beta ana but hold diuretic and ACEI for now due to renal dysfunction; (9) Hypothyroidism Current Visit: Yes Status: Chronic Assessment and Plan: resume Levothyroxine; (10) Diabetes mellitus type 2 in obese Current Visit: Yes Status: Chronic Assessment and Plan: Glucose currently stable Accucheck before meals at bedtime with SSI as needed; diabetic diet; (11) Hematemesis Current Visit: Yes Status: Acute Assessment and Plan: 1 patient had episode of the ground emesis overnight. No further episodes hemoglobin is stable She does have a history of GI bleed. She was seen by GI with no EGD at this time continue to monitor closely for any further episodes of hematemesis or any episodes of melena hematochezia orThere is a drop in hemoglobin-consider EGD-we will continue with PPI - Time Spent with Patient Total time spent is greater than 50% in coordination of care (as documented) at patient's floor/unit and/or counseling patient: Internal Medicine: Result - Labs CBC & Chem 7: 04/09/18 06:00 04/09/18 06:00 Labs: Short CBC 04/09/18 Range/Units 06:00 WBC 7.9 (4.3-11.1) K/mcL Hgb 11.0 L (11.5-15.4) g/dL Hct 34.5 L (35.3-44.9) % Plt Count 238 (140-400) K/mcL Neutrophils # 5.5 (1.6-8.9) K/mcL BMP 04/09/18 06:00 Sodium 139 Potassium 4.3 Chloride 105 Carbon Dioxide 29 BUN 14 Creatinine 0.90 Glucose 102 Calcium 9.0 Consult Discharge Plan - Plan Referrals: Oscar Sandoval Jr, MD [Primary Care Provider] - (1) UTI (urinary tract infection) Qualifiers: Urinary tract infection type: site unspecified Hematuria presence: without hematuria Qualified Code(s): N39.0 - Urinary tract infection, site not specified (3) Hypertension Qualifiers: Hypertension type: essential hypertension Qualified Code(s): I10 - Essential (primary) hypertension (4) Hyperlipidemia Qualifiers: Hyperlipidemia type: unspecified Qualified Code(s): E78.5 - Hyperlipidemia, unspecified (6) Depression Qualifiers: Depression Type: unspecified Qualified Code(s): F32.9 - Major depressive disorder, single episode, unspecified (9) Hypothyroidism Qualifiers: Hypothyroidism type: unspecified Qualified Code(s): E03.9 - Hypothyroidism, unspecified (11) Hematemesis Qualifiers: Nausea presence: unspecified Qualified Code(s): K92.0 - Hematemesis
[2018-04-09] MEDS: carBAMazepine 200 MG TABLET PO SCH (17:51)
[2018-04-09] MEDS ORDERED: Famotidine 20 MG TABLET PO SCH (21:00)
[2018-04-09] MEDS: traZODone 50 MG TABLET PO SCH (21:52)
[2018-04-10 05:47] LABS: Basophils # 0.1 K/mcL (0.0-0.2); Basophils % 0.8 %; Eosinophils # 0.2 K/mcL (0.0-0.6); Hematocrit 32.4 % (35.3-44.9); Hemoglobin 10.4 g/dL (11.5-15.4); Immature Granulocytes % 0.4 % (0-4); Lymphocytes # 1.8 K/mcL (0.6-4.6); Lymphocytes % 24.3 %; Mean Corpuscular HGB Conc 32.1 g/dL (31.6-35.5); Mean Corpuscular Hemoglobin 28.7 pg (28.0-33.3); Mean Corpuscular Volume 89.3 fL (83.0-100.0); Mean Platelet Volume 10.5 fL (9.4-12.4); Monocytes # 0.3 K/mcL (0.0-1.3); Monocytes % 4.3 %; Platelet Count 234 K/mcL (140-400); Red Blood Count 3.63 M/mcL (3.82-4.97); Red Cell Distribution Width 14.3 % (11.5-14.5); Segmented Neutrophils % 67.2 %
[2018-04-10 06:02] LABS: BUN/Creatinine Ratio 17 (6-26); Blood Urea Nitrogen 15 mg/dL (8-23); Carbon Dioxide 25 mEq/L (23-29); Chloride 105 mEq/L (98-107); Glucose 103 mg/dL (70-105); Osmolality,Calculated 289 (280-300); Potassium 4.3 mEq/L (3.5-5.1); Sodium 139 mEq/L (136-145); eGFR For Non-African Americans > 60 (> 60)
[2018-04-10] MEDS: ARIPiprazole 5 MG TABLET PO SCH (08:35)
[2018-04-10] MEDS: Acetaminophen 325 MG TABLET PO PRN (08:36)
[2018-04-10] MEDS: Metoprolol XL (24 HR) Succ 25 MG TAB.ER.24H PO SCH (08:36)
[2018-04-10] MEDS: *HR* Rivaroxaban 10 MG TABLET PO SCH (08:36)
[2018-04-10] MEDS: Ertapenem 1,000 MG in 0.9 % Sodium Chloride Mini Bag 100 ML IVPB SCH (08:37)
[2018-04-10] MEDS: Insulin LISPRO 300 UNITS/3 ML VIAL SQ SCH (08:45)
--- NOTE | 2018-04-10 10:05 | Discharge Summary ---
- NOTES TO OUTPATIENT PROVIDER Notes to Outpatient Provider: follow up with urology as outpatient for cystoscopy - urine culture grew Proteus and Klebsiella, sensitive to Ertapenem- will cont for total of 10 days Had one episode of hematemesis - HGB stable cont to monitor as outpatient Orders not resulted at time of discharge: Pending orders 04/11/18 04:00 CBC [Complete Blood Count] [HEME] AM 0400 04/12/18 04:00 CBC [Complete Blood Count] [HEME] AM 0400 Date of Encounter: 04/10/18 Time of Encounter: 10:04 - Discharge Diagnosis (1) UTI (urinary tract infection) Priority: Primary Status: Acute Qualifiers: Urinary tract infection type: site unspecified Hematuria presence: without hematuria Qualified Code(s): N39.0 - Urinary tract infection, site not specified (2) [place]'s disease Priority: Secondary Status: Chronic (3) Hypertension Priority: Secondary Status: Chronic Qualifiers: Hypertension type: essential hypertension Qualified Code(s): I10 - Essential (primary) hypertension (4) Hyperlipidemia Priority: Secondary Status: Chronic Qualifiers: Hyperlipidemia type: unspecified Qualified Code(s): E78.5 - Hyperlipidemia , unspecified (5) Obesity (BMI 30-39.9) Priority: Secondary Status: Chronic (6) Depression Priority: Secondary Status: Chronic Qualifiers: Depression Type: unspecified Qualified Code(s): F32.9 - Major depressive disorder, single episode, unspecified (7) History of pulmonary embolism Priority: Secondary Status: Chronic (8) NICM (nonischemic cardiomyopathy) Priority: Secondary Status: Chronic (9) Hypothyroidism Priority: Secondary Status: Chronic Qualifiers: Hypothyroidism type: unspecified Qualified Code(s): E03.9 - Hypothyroidism , unspecified (10) Diabetes mellitus type 2 in obese Priority: Secondary Status: Chronic (11) Hematemesis Priority: Secondary Status: Acute Qualifiers: Nausea presence: unspecified Qualified Code(s): K92.0 - Hematemesis Hospital course: Ms. Corona is a 72 year old female history of atrial fibrillation cardiomyopathy -EF of 25% currently wearing a LifeVest being followed by cardiology as outpatient diabetes GI bleed hyperlipidemia hypertension pulmonary embolism thyroid disease [place]'s disease chronic UTI-patient was sent from primary care provider's office due to urinary tract infections with resistant bacteria requiring IV antibiotics. She was recently admitted to this facility for UTI and discharged on oral Ceftin air urine cultures at that time Escherichia coli sensitive to cephalosporins She reports that she will complete antibiotic and soon afterward she will develop UTI. She does have history of urinary incontinence. She denies any fevers chills superpubic pain and hematuria or flank pain. A follow-up appointment with her PCP urine culture was collected which did show multidrug resistant Proteus. She was initiated on Ertapenem . During admission patient did have an episode of coffee-ground emesis. Hemoglobin was stable seen by GI no DTD required at this time. Advised to monitor hemoglobin as outpatient. Urine culture did grow Proteus and Klebsiella sensitive to Ertapenem . Patient will have home health services set up for IV infusion of Ertapenem-6 days to complete 10 days. Power glide was placed prior to discharge. Review discharge instructions the patient who verbalized understanding. She is hemodynamically stable at this time is ready for discharge. Advised patient to follow-up with primary care provider since this provider as her back pain can adjust medications accordingly Review discharge instructions with patient who verbalized understanding. Patient seems clinically stable for discharge. Discharge discussed with: patient - Time Spent with Patient Total time spent providing and/or coordinating discharge services: - Discharge Medications Prescriptions: Ertapenem [INVanz] 1,000 mg IVPB DAILY #6 vial Home Medications: Ranitidine HCl [Acid Cook Night] 150 mg PO DAILY 05/15/16 [History] Levothyroxine [Synthroid] 50 mcg PO DAILY 12/29/16 [History] Omeprazole [PriLOSEC] 40 mg PO DAILY 07/08/17 [History] Sertraline [Zoloft] 100 mg PO DAILY 07/08/17 [History] Metformin HCl [Metformin HCl ER] 1,000 mg PO HS 08/08/17 [History] ARIPiprazole [Abilify] 5 mg PO DAILY 01/24/18 [History] Rivaroxaban [Xarelto] 10 mg PO DAILY 01/24/18 [History] ALPRAZolam [Xanax 1 MG Tablet] 1 mg PO BID PRN 5 Days #10 tablet 01/30/18 [Rx] Furosemide [Lasix] 20 mg PO DAILY 03/21/18 [History] carBAMazepine [Tegretol] 200 mg PO QPM 03/21/18 [History] traZODone [TraZODone] 50 mg PO HS 03/21/18 [History] Ascorbic Acid [Vitamin C with Veronika Hips] 500 mg PO DAILY 03/23/18 [History] Buspirone HCl [Buspar] 5 mg PO DAILY 03/23/18 [History] Ferrous Sulfate [Iron] 325 mg PO DAILY 03/23/18 [History] Lisinopril [Zestril] 20 mg PO DAILY 04/06/18 [History] Metoprolol XL (24 HR) Succ [Toprol Xl] 12.5 mg PO DAILY 04/06/18 [History] Potassium Chloride [K-Tab ER] 10 meq PO BID 04/06/18 [History] Ertapenem [INVanz] 1,000 mg IVPB DAILY #6 vial 04/10/18 [Rx] Allergies/Adverse Reactions: 3 Allergy/AdvReac Type Severity Reaction Status Date / Time gabapentin [From Neurontin] AdvReac Agitated Verified 04/06/18 14:24 Date of admission: 04/06/18 18:12 Primary care physician: Oscar Sandoval Jr, MD Consults: 04/08/18 21:50 Consult to Gastroenterology [CONS] Routine Consulting Provider: Gastroenterology Brittaney Reason for Consult: Patient has hx of GI bleed and had episode of hematemesis tonight w/bright and coffee ground blood in emesis. Protonix drip started. IVP Zofran and Phenergan ordered for N/V control. Call Completed: Yes 04/10/18 10:01 Consult to Invasive Line Access Team [CONS] Routine Reason for Consult: EPIV-ATB therapy Line Type: EPIV Time Notified: 10:03 Call Completed: No Discharging clinician: Latanya Ngo Anticipated date of discharge: 04/10/18 - Constitutional Vitals: Temp Pulse Resp BP Pulse Ox 97.7 F 59 17 153/89 96 04/10/18 07:16 04/10/18 07:16 04/10/18 07:16 04/10/18 07:16 04/10/18 07:16 General appearance: Present: A&O X 3, answers questions appropriately Exam: General appearance: Present: A&O X 3, answers questions appropriately Exam: - Head Head exam: Present: atraumatic, normocephalic - Eye Eye exam: Present: PERRL, conjuntiva pink, sclera anicteric Pupils: Present: PERRL - Neck Neck exam general surgery: Present: supple, trachea midline. Absent: lymphadenopathy - Respiratory Respiratory exam: Present: CTAB. Absent: accessory muscle use, rales, rhonchi, wheezes - Cardiovascular Cardiovascular exam: Present: RRR, +S1, +S2. Absent: diastolic murmur, gallop, rubs, systolic murmur - GI/Abdominal GI/Abdominal exam: Present: normal bowel sounds, soft (obese), no peritoneal signs. Absent: distended, tenderness - Extremities Exam Extremities exam: Present: full ROM, pedal edema (nonpitting B/L), warm, radial pulses palpable and symmetrical. Absent: calf tenderness, cyanotic - Neurological Exam Neurological exam: Present: CN II-XII intact, oriented X3, no focal deficits. Absent: pronater drift, facial droop, speech deficit - Skin Skin exam: Present: dry, intact - Patient Status Disposition: Home Health Service Condition: Good Functional capacity at discharge: independent ambulation Overall status at discharge: patient is back to baseline - Discharge Instructions Follow Up With: Oscar Sandoval Jr, MD [Primary Care Provider] -
[2018-04-10 11:59] VITALS: BP 136/94
--- NOTE | 2018-04-10 15:44 | Physician Discharge Referral ---
Home Health/Hosp Referral Info Transfer to: Home Health Attending Provider: vini spivey Provider in Charge Post Discharge: PCP - Diagnosis (1) UTI (urinary tract infection) Priority: Primary Status: Acute (2) [place]'s disease Priority: Secondary Status: Chronic (3) Hypertension Priority: Secondary Status: Chronic (4) Hyperlipidemia Priority: Secondary Status: Chronic (5) Obesity (BMI 30-39.9) Priority: Secondary Status: Chronic (6) Depression Priority: Secondary Status: Chronic (7) History of pulmonary embolism Priority: Secondary Status: Chronic (8) NICM (nonischemic cardiomyopathy) Priority: Secondary Status: Chronic (9) Hypothyroidism Priority: Secondary Status: Chronic (10) Diabetes mellitus type 2 in obese Priority: Secondary Status: Chronic (11) Hematemesis Priority: Secondary Status: Acute - Respiratory Orders Smoking Cessation: Smoking cessation has been advised. For more information, call the [place] Tobacco Quit Line at 0-212-MWNE-NOW. - Diet/Nutrition Diet/Nutrition Orders: Regular - Activity Activity Orders: Up ad marco a - Services Needed Following services are medically necessary services: Nursing, Physical Therapy - Transfer Medications Prescriptions: Ertapenem [INVanz] 1,000 mg IVPB DAILY #6 vial Home Medications: Ranitidine HCl [Acid Engraver Machine] 150 mg PO DAILY 05/15/16 [History] Levothyroxine [Synthroid] 50 mcg PO DAILY 12/29/16 [History] Omeprazole [PriLOSEC] 40 mg PO DAILY 07/08/17 [History] Sertraline [Zoloft] 100 mg PO DAILY 07/08/17 [History] Metformin HCl [Metformin HCl ER] 1,000 mg PO HS 08/08/17 [History] ARIPiprazole [Abilify] 5 mg PO DAILY 01/24/18 [History] Rivaroxaban [Xarelto] 10 mg PO DAILY 01/24/18 [History] ALPRAZolam [Xanax 1 MG Tablet] 1 mg PO BID PRN 5 Days #10 tablet 01/30/18 [Rx] Furosemide [Lasix] 20 mg PO DAILY 03/21/18 [History] carBAMazepine [Tegretol] 200 mg PO QPM 03/21/18 [History] traZODone [TraZODone] 50 mg PO HS 03/21/18 [History] Ascorbic Acid [Vitamin C with Veronika Hips] 500 mg PO DAILY 03/23/18 [History] Buspirone HCl [Buspar] 5 mg PO DAILY 03/23/18 [History] Ferrous Sulfate [Iron] 325 mg PO DAILY 03/23/18 [History] Lisinopril [Zestril] 20 mg PO DAILY 04/06/18 [History] Metoprolol XL (24 HR) Succ [Toprol Xl] 12.5 mg PO DAILY 04/06/18 [History] Potassium Chloride [K-Tab ER] 10 meq PO BID 04/06/18 [History] Ertapenem [INVanz] 1,000 mg IVPB DAILY #6 vial 04/10/18 [Rx] Allergies/Adverse Reactions: 3 Allergy/AdvReac Type Severity Reaction Status Date / Time gabapentin [From Neurontin] AdvReac Agitated Verified 04/06/18 14:24 Certification: Further, I certify that my clinical findings support that this patient is homebound (i.e. absences from home require considerable and taxing effort and are for medical reasons or evangelical services or infrequently or short duration when for other reasons) because: Homebound Reason: Severity of cardiac or pulmonary status limits activity tolerance Attestation: My signature below is to certify that this patient is under my care and that I, or nurse practitioner, or a physician's assistant project manager working with me, has a face-to -face encounter with this patient.
== END 2018-04-10 16:20 | disposition home health service (06) | DRG 690 ==
LOC: EMEROOARM 14:15 → 3BNU 14:15
PROVIDERS: ADMIT Internal Medicine; ATTEND Internal Medicine

== ENCOUNTER 2021-08-11 16:14 | Inpatient (IN) ==
[2021-08-11] MEDS ORDERED: Acetaminophen 325 MG TABLET PO ONE (16:41)
[2021-08-11 17:24] LABS: Basophils # 0.1 K/mcL (0.0-0.2); Basophils % 0.7 %; Eosinophils # 0.2 K/mcL (0.0-0.6); Eosinophils % 2.5 %; Hematocrit 32.4 % (35.3-44.9); Hemoglobin 10.1 g/dL (11.5-15.4); Immature Granulocytes % 0.3 % (0-4); Lymphocytes # 1.3 K/mcL (0.6-4.6); Mean Corpuscular HGB Conc 31.2 g/dL (31.6-35.5); Mean Corpuscular Hemoglobin 29.3 pg (28.0-33.3); Mean Corpuscular Volume 93.9 fL (83.0-100.0); Mean Platelet Volume 10.3 fL (9.4-12.4); Monocytes # 0.3 K/mcL (0.0-1.3); Monocytes % 3.6 %; Neutrophils # 7.2 K/mcL (1.6-8.9); Platelet Count 166 K/mcL (140-400); Red Blood Count 3.45 M/mcL (3.82-4.97); Red Cell Distribution Width 14.4 % (11.5-14.5); Segmented Neutrophils % 78.9 %; White Blood Count 9.1 K/mcL (4.3-11.1)
[2021-08-11 17:42] LABS: Albumin 3.6 g/dL (3.5-5.7); Albumin/Globulin Ratio 1.4 (1.1-2.2); Bilirubin,Direct 0.1 mg/dL (0.0-0.2); Bilirubin,Indirect 0.2 mg/dL (0.0-1.0); Bilirubin,Total 0.3 mg/dL (0.3-1.0); Calcium 8.6 mg/dL (8.6-10.3); Globulin 2.6 g/dL (2.4-3.5); Potassium 4.3 mEq/L (3.5-5.1); Total Protein 6.2 g/dL (6.4-8.9)
[2021-08-11 17:46] LABS: Bacteria,Urine Few per hpf (None-Few); Bilirubin,Urine Negative (Negative); Blood,Urine Small (Negative); Budding Yeast,Urine Many per hpf (None Seen); Clarity,Urine Ex.Turbid (Clear); Color,Urine Yellow (Yellow); Glucose,Urine (UA) Normal (Normal); Ketones,Urine Negative (Negative); Leukocyte Esterase,Urine Large (Negative); Nitrite,Urine Positive (Negative); PH,Urine 6.5 pH Units (5.0-8.0); Protein,Urine 30 mg/dL (Neg-Trace); RBC,Urine 30-50 per hpf (0-3); Specific Gravity,Urine 1.019 (1.010-1.025); Squamous Epithelial Cell,Urine Moderate per hpf (None-Few); Urobilinogen,Urine Normal (Normal); WBC,Urine TNTC per hpf (0-3)
[2021-08-11] MEDS ORDERED: Ondansetron 4 MG/2 ML VIAL IVP PRN (18:36)
[2021-08-11] MEDS ORDERED: Naloxone 0.4 MG/ML INJ IVP PRN (18:36)
[2021-08-11] MEDS ORDERED: *HR* Dextrose 50 % in Water (Syg) 50 ML SYRINGE IVP PRN (22:20)
[2021-08-11] MEDS ORDERED: D5% in Water 1,000 ML IVC PRN (22:20)
[2021-08-11] MEDS ORDERED: Dextrose Gel 15 GM/37.5 ML TUBE PO PRN ×2 (22:20)
[2021-08-11] MEDS ORDERED: Acetaminophen 325 MG TABLET PO PRN (22:24)
[2021-08-11] MEDS ORDERED: traZODone 50 MG TABLET PO PRN (22:40)
[2021-08-11] MEDS: Insulin LISPRO 300 UNITS/3 ML VIAL SUBQ SCH (23:26)
[2021-08-11] MEDS: Piperacillin/Tazobactam 3.375 GM in 0.9 % Sodium Chloride Mini Bag 100 ML IVPB SCH (23:45)
[2021-08-12 01:01] LABS: Influenza A PCR Negative (Negative); Influenza B PCR Negative (Negative); Resp. Syncytial Virus PCR Negative (Negative)
[2021-08-12 01:02] LABS: SARS-CoV-2 by PCR (In House) Negative (Negative)
[2021-08-12 06:02] LABS: Basophils % 0.6 %; Eosinophils # 0.3 K/mcL (0.0-0.6); Eosinophils % 3.7 %; Hematocrit 31.1 % (35.3-44.9); Hemoglobin 9.9 g/dL (11.5-15.4); Immature Granulocytes % 0.3 % (0-4); Lymphocytes # 1.4 K/mcL (0.6-4.6); Lymphocytes % 19.4 %; Mean Corpuscular HGB Conc 31.8 g/dL (31.6-35.5); Mean Corpuscular Hemoglobin 29.3 pg (28.0-33.3); Mean Platelet Volume 10.4 fL (9.4-12.4); Monocytes # 0.3 K/mcL (0.0-1.3); Neutrophils # 5.1 K/mcL (1.6-8.9); Platelet Count 144 K/mcL (140-400); Red Blood Count 3.38 M/mcL (3.82-4.97); Red Cell Distribution Width 14.3 % (11.5-14.5)
[2021-08-12 06:11] LABS: INR 1.2; Prothrombin Time 13.1 Seconds (9.4-12.1)
[2021-08-12 06:14] LABS: Activated Partial Thrombo Time 27.8 Seconds (26.0-36.0)
[2021-08-12 06:17] LABS: Magnesium 1.9 mg/dL (1.6-2.6)
[2021-08-12 06:18] LABS: Calcium 8.4 mg/dL (8.6-10.3); Potassium 4.4 mEq/L (3.5-5.1)
[2021-08-12 06:31] LABS: Thyroid Stimulating Hormone 2.387 mcIU/mL (0.340-5.600)
[2021-08-12 06:42] LABS: Folate 5.8 ng/mL (3.0-16.0)
[2021-08-12] MEDS: Insulin LISPRO 300 UNITS/3 ML VIAL SUBQ SCH ×4 (07:56→20:14)
[2021-08-12] MEDS: Furosemide 20 MG TABLET PO SCH (07:57)
[2021-08-12] MEDS: Famotidine 20 MG TABLET PO SCH ×2 (07:57→20:18)
[2021-08-12] MEDS: lisinopriL 20 MG TABLET PO SCH (07:58)
[2021-08-12] MEDS: Metoprolol XL (24 HR) Succ 25 MG TAB.ER.24H PO SCH (07:59)
[2021-08-12] MEDS: Piperacillin/Tazobactam 3.375 GM in 0.9 % Sodium Chloride Mini Bag 100 ML IVPB SCH ×2 (07:59→16:08)
[2021-08-12] MEDS ORDERED: ARIPiprazole 2 MG TABLET PO SCH (09:00)
[2021-08-12 11:18] LABS: Estimated Average Glucose 148 mg/dl; Hemoglobin A1C 6.8 %
[2021-08-12] MEDS: *HR* Rivaroxaban 10 MG TABLET PO SCH (16:09)
[2021-08-12] MEDS ORDERED: PROMETHAZINE HCL 12.5 MG PO PRN (16:46)
[2021-08-12] MEDS ORDERED: Ondansetron ODT 4 MG TAB.RAPDIS PO PRN (16:46)
[2021-08-12] MEDS ORDERED: *HR* Rivaroxaban 10 MG TABLET PO SCH (17:00)
[2021-08-12] MEDS: Budesonide/Formoterol 80/4.5 1 PUFF INH IH SCH (20:40)
[2021-08-13] MEDS: Piperacillin/Tazobactam 3.375 GM in 0.9 % Sodium Chloride Mini Bag 100 ML IVPB SCH ×3 (00:55→16:46)
[2021-08-13 05:28] LABS: Hematocrit 31.4 % (35.3-44.9); Hemoglobin 9.9 g/dL (11.5-15.4); Mean Corpuscular HGB Conc 31.5 g/dL (31.6-35.5); Mean Corpuscular Hemoglobin 29.3 pg (28.0-33.3); Mean Corpuscular Volume 92.9 fL (83.0-100.0); Mean Platelet Volume 10.4 fL (9.4-12.4); Platelet Count 149 K/mcL (140-400); Red Blood Count 3.38 M/mcL (3.82-4.97); Red Cell Distribution Width 14.5 % (11.5-14.5); White Blood Count 8.1 K/mcL (4.3-11.1)
[2021-08-13 05:50] LABS: Calcium 8.1 mg/dL (8.6-10.3); Potassium 4.2 mEq/L (3.5-5.1)
[2021-08-13] MEDS: Budesonide/Formoterol 80/4.5 1 PUFF INH IH SCH ×2 (07:49→21:01)
[2021-08-13] MEDS: Insulin LISPRO 300 UNITS/3 ML VIAL SUBQ SCH ×3 (07:56→22:20)
[2021-08-13] MEDS: Famotidine 20 MG TABLET PO SCH (08:03)
[2021-08-13] MEDS: Furosemide 20 MG TABLET PO SCH (08:03)
[2021-08-13] MEDS: lisinopriL 20 MG TABLET PO SCH (08:04)
[2021-08-13] MEDS: Metoprolol XL (24 HR) Succ 25 MG TAB.ER.24H PO SCH (08:04)
[2021-08-13] MEDS: ARIPiprazole 5 MG TABLET PO SCH (08:04)
[2021-08-13] MEDS ORDERED: NON-FORMULARY MEDICATION 1 EACH EACH (Omeprazole [Prilosec] 40 MG Capsule.Dr) PO SCH (09:00)
[2021-08-13] MEDS: *HR* Rivaroxaban 10 MG TABLET PO SCH (16:46)
[2021-08-14] MEDS: Piperacillin/Tazobactam 3.375 GM in 0.9 % Sodium Chloride Mini Bag 100 ML IVPB SCH ×3 (00:37→18:13)
[2021-08-14 03:11] LABS: Hematocrit 30.9 % (35.3-44.9); Hemoglobin 9.5 g/dL (11.5-15.4); Mean Corpuscular HGB Conc 30.7 g/dL (31.6-35.5); Mean Corpuscular Hemoglobin 28.6 pg (28.0-33.3); Mean Corpuscular Volume 93.1 fL (83.0-100.0); Mean Platelet Volume 10.4 fL (9.4-12.4); Platelet Count 136 K/mcL (140-400); Red Blood Count 3.32 M/mcL (3.82-4.97); Red Cell Distribution Width 14.4 % (11.5-14.5); White Blood Count 8.7 K/mcL (4.3-11.1)
[2021-08-14 03:31] LABS: Calcium 8.2 mg/dL (8.6-10.3); Potassium 4.1 mEq/L (3.5-5.1)
[2021-08-14] MEDS: Budesonide/Formoterol 80/4.5 1 PUFF INH IH SCH ×2 (08:41→20:52)
[2021-08-14] MEDS: ARIPiprazole 5 MG TABLET PO SCH (09:53)
[2021-08-14] MEDS: Insulin LISPRO 300 UNITS/3 ML VIAL SUBQ SCH ×4 (09:53→21:11)
[2021-08-14] MEDS: Metoprolol XL (24 HR) Succ 25 MG TAB.ER.24H PO SCH (09:54)
[2021-08-14] MEDS: Furosemide 20 MG TABLET PO SCH (09:54)
[2021-08-14] MEDS: lisinopriL 20 MG TABLET PO SCH (09:54)
[2021-08-14] MEDS: *HR* Rivaroxaban 10 MG TABLET PO SCH (18:12)
[2021-08-15] MEDS: Piperacillin/Tazobactam 3.375 GM in 0.9 % Sodium Chloride Mini Bag 100 ML IVPB SCH ×2 (00:03→07:55)
[2021-08-15] MEDS: Insulin LISPRO 300 UNITS/3 ML VIAL SUBQ SCH ×4 (07:49→21:53)
[2021-08-15] MEDS: ARIPiprazole 5 MG TABLET PO SCH (07:54)
[2021-08-15] MEDS: Metoprolol XL (24 HR) Succ 25 MG TAB.ER.24H PO SCH (07:54)
[2021-08-15] MEDS: Budesonide/Formoterol 80/4.5 1 PUFF INH IH SCH ×2 (08:02→20:17)
[2021-08-15 09:32] LABS: Hematocrit 32.5 % (35.3-44.9); Hemoglobin 10.1 g/dL (11.5-15.4); Mean Corpuscular HGB Conc 31.1 g/dL (31.6-35.5); Mean Corpuscular Hemoglobin 28.9 pg (28.0-33.3); Mean Corpuscular Volume 92.9 fL (83.0-100.0); Platelet Count 153 K/mcL (140-400); Red Cell Distribution Width 14.6 % (11.5-14.5); White Blood Count 8.7 K/mcL (4.3-11.1)
[2021-08-15 09:51] LABS: Calcium 8.3 mg/dL (8.6-10.3); Potassium 3.9 mEq/L (3.5-5.1)
[2021-08-15] MEDS: Ertapenem 1,000 MG in 0.9 % Sodium Chloride Mini Bag 100 ML IVPB SCH (13:06)
[2021-08-15] MEDS: *HR* Rivaroxaban 10 MG TABLET PO SCH (17:40)
[2021-08-16] MEDS: Budesonide/Formoterol 80/4.5 1 PUFF INH IH SCH ×2 (08:01→20:37)
[2021-08-16] MEDS: ARIPiprazole 5 MG TABLET PO SCH (08:22)
[2021-08-16] MEDS: Metoprolol XL (24 HR) Succ 25 MG TAB.ER.24H PO SCH (08:22)
[2021-08-16] MEDS: Ertapenem 1,000 MG in 0.9 % Sodium Chloride Mini Bag 100 ML IVPB SCH (08:23)
[2021-08-16] MEDS: Insulin LISPRO 300 UNITS/3 ML VIAL SUBQ SCH ×4 (08:23→20:40)
[2021-08-16] MEDS: *HR* Rivaroxaban 10 MG TABLET PO SCH (17:15)
[2021-08-17 02:41] LABS: Hematocrit 31.7 % (35.3-44.9); Hemoglobin 9.6 g/dL (11.5-15.4); Mean Corpuscular HGB Conc 30.3 g/dL (31.6-35.5); Mean Corpuscular Hemoglobin 28.4 pg (28.0-33.3); Mean Corpuscular Volume 93.8 fL (83.0-100.0); Mean Platelet Volume 10.3 fL (9.4-12.4); Platelet Count 149 K/mcL (140-400); Red Blood Count 3.38 M/mcL (3.82-4.97); Red Cell Distribution Width 14.6 % (11.5-14.5); White Blood Count 8.1 K/mcL (4.3-11.1)
[2021-08-17 02:45] LABS: Calcium 8.2 mg/dL (8.6-10.3)
[2021-08-17] MEDS: Budesonide/Formoterol 80/4.5 1 PUFF INH IH SCH ×2 (08:13→20:05)
[2021-08-17] MEDS: ARIPiprazole 5 MG TABLET PO SCH (09:28)
[2021-08-17] MEDS: Ertapenem 1,000 MG in 0.9 % Sodium Chloride Mini Bag 100 ML IVPB SCH (09:28)
[2021-08-17] MEDS: Metoprolol XL (24 HR) Succ 25 MG TAB.ER.24H PO SCH (09:28)
[2021-08-17] MEDS: Insulin LISPRO 300 UNITS/3 ML VIAL SUBQ SCH ×3 (12:18→23:19)
[2021-08-17] MEDS: *HR* Rivaroxaban 10 MG TABLET PO SCH (16:29)
[2021-08-18 06:07] LABS: Hematocrit 31.6 % (35.3-44.9); Mean Corpuscular HGB Conc 31.6 g/dL (31.6-35.5); Mean Corpuscular Hemoglobin 29.5 pg (28.0-33.3); Mean Corpuscular Volume 93.2 fL (83.0-100.0); Mean Platelet Volume 9.9 fL (9.4-12.4); Platelet Count 158 K/mcL (140-400); Red Blood Count 3.39 M/mcL (3.82-4.97); Red Cell Distribution Width 14.5 % (11.5-14.5); White Blood Count 8.6 K/mcL (4.3-11.1)
[2021-08-18 06:26] LABS: BUN/Creatinine Ratio 14 (6-26); Blood Urea Nitrogen 15 mg/dL (8-23); Calcium 8.4 mg/dL (8.6-10.3); Carbon Dioxide 26 mEq/L (23-29); Chloride 107 mEq/L (98-107); Glucose 164 mg/dL (70-105); Osmolality,Calculated 294 (280-300); Sodium 140 mEq/L (136-145); eGFR For African Americans > 60 (> 60); eGFR For Non-African Americans 51 (> 60)
[2021-08-18] MEDS: Insulin LISPRO 300 UNITS/3 ML VIAL SUBQ SCH ×2 (07:57→11:52)
[2021-08-18] MEDS: ARIPiprazole 5 MG TABLET PO SCH (08:04)
[2021-08-18] MEDS: Ertapenem 1,000 MG in 0.9 % Sodium Chloride Mini Bag 100 ML IVPB SCH (08:04)
[2021-08-18] MEDS: Metoprolol XL (24 HR) Succ 25 MG TAB.ER.24H PO SCH (08:14)
[2021-08-18] MEDS: Budesonide/Formoterol 80/4.5 1 PUFF INH IH SCH (10:15)
[2021-08-18 11:44] VITALS: BP 120/66; PULSE 66; TEMP 98.5; O2SAT 95
[2021-08-18] MEDS ORDERED: Acetaminophen 325 MG TABLET PO PRN (12:11)
== END 2021-08-18 15:19 | disposition home health service (06) | DRG 690 ==
LOC: EMEROOARM 16:14 → 3ANU 16:14 → SUATTDRO 18:49 → 3ANU 20:24
PROVIDERS: ADMIT Student in an Organized Health Care Education/Training Program; ATTEND Internal Medicine